=== PATIENT | female | born 1990 | race Caucasian/White ===

== ENCOUNTER 2019-12-09 05:47 | Emergency (ER) | payer MEDICAID, SELFPAY ==
[2019-12-09 05:50] VITALS: BP 134/94; PULSE 103; RESP 16; TEMP 36.5; O2SAT 94
--- NOTE | 2019-12-09 05:54 | ED.GENADUL_ITS ---
Discharge Plan Disposition Patient Disposition: HOME Condition: Stable Discharge Details Clinical Impression: Abscess of axilla, right ED Provider: Rajendra Sheikh Home Meds and New Rx's Prescriptions: New clindamycin HCl 150 mg capsule 450 mg PO TID 7 Days Qty: 63 RF: 0 Discharge Instructions Instructions: Abscess (ED) Additional Instructions: If you have fevers, severe worsening pain return to the emergency department Medical Decision Making 29 yo female comes in with a week of worsening swelling of her right arm pit. Has a history of frequent abscesses in the axilla per patient and usually is able to treat them herself. Denies fevers, IVDU or severe pain. Has a 3cm fluctuant abscess in her right axilla with some surrounding erythema, no crepitus or severe pain. Will need drainage she gives verbal consent to this drained copious amounts of purulent material woud culture sent. Given allergies will start clindamycin, return precautions given Differential Diagnosis Differential Diagnosis: abscess, cellulitis HPI General Mode of arrival: ambulatory . Date/Time Provider Initiated Documentation: 12/09/19 05:48 . Limitations to Documentation: no limitations . Information obtained by: patient . History of Present Illness 29 year old F presents to the emergency department with the chief complaint of armpit boil, described as moderate, Patient started experiencing this week(s) (1) and it has been constant. No relieving factors improve symptom(s), No exacerbating factors reported . Patient did receive the following treatments prior to arrival, none Related Data Home Medications Medication Instructions Recorded Confirmed clindamycin HCl 450 mg PO TID 7 Days #63 cap 12/09/19 Previous Rx's Medication Instructions Recorded clindamycin HCl 450 mg PO TID 7 Days #63 cap 12/09/19 Allergies Allergy/AdvReac Type Severity Reaction Status Date / Time carbamazepine [From Tegretol] Allergy Skin Rash Unverified 12/09/19 05:52 cephalexin [From Keflex] Allergy Other (See Unverified 12/09/19 05:52 Comment) Sulfa (Sulfonamide Allergy Anaphylaxsi Unverified 12/09/19 05:52 Antibiotics) s amoxicillin AdvReac Other (See Unverified 12/09/19 05:52 Comment) clavulanic acid AdvReac Other (See Unverified 12/09/19 05:52 [From Augmentin] Comment) Review of Systems All systems reviewed & are unremarkable except as noted in HPI and below Constitutional Constitutional: Denies chills, Denies fever(s) and Denies weakness Cardiovascular Cardiovascular: Denies chest pain and Denies dyspnea Respiratory Respiratory: Denies cough and Denies dyspnea Gastrointestinal Gastrointestinal: Denies abdominal pain, Denies nausea and Denies vomiting Musculoskeletal Musculoskeletal: Denies joint swelling Neurologic Neurologic: Denies weakness Psychiatric Psychiatric: Denies depression [facility] Social History Smoking/Tobacco Use Status: Current every day Tobacco Type: cigarettes Alcohol Intake: never Substance use type: does not use Do you feel safe at home: Yes Do you feel safe in your relationship?: Yes Exam Const General: no acute distress Orientation: alert HENMT Head: normal to inspection Ears: external ears normal General nose exam: external nose normal Mouth: moist mucous membranes Eyes General: appearance normal, both eyes and all related structures Neck Neck: normal visual inspection Resp Effort & Inspection: normal respiratory effort and able to speak in complete sentences Cardio Rate: regular rate Skin General skin exam: elasticity normal Neuro General: patient alert Extrem General: normal to inspection Psych Mental Status: mental status grossly normal Procedures Abscess I/D Site: Other (axilla) Side (if applicable): Right Local Anesthetic: Lidocaine 1% Amount of anesthesia used (mL): 4 Technique: Incised with #11 Blade Amount of fluid expressed (mL): 10 (cc) Irrigation: Yes Packing used?: None
== END 2019-12-09 06:30 | disposition home or self-care (01) ==
LOC: ER 06:16
PROVIDERS: Emergency Provider Emergency Medicine
DX: L02.411 Cutaneous abscess of right axilla (principal); B95.61 Methicillin susceptible Staphylococcus aureus infection as the cause of diseases classified elsewhere
CPT/HCPCS: 10060; 87077; 87070; 87186; 87205

== ENCOUNTER 2019-12-18 13:32 | Emergency (ER) | payer MEDICAID, SELFPAY ==
[2019-12-18 13:41] VITALS: BP 115/85; PULSE 115; RESP 18; TEMP 36.6; O2SAT 96
--- NOTE | 2019-12-18 13:57 | W.ED.GENAD ---
Discharge Plan Disposition Patient Disposition: HOME Condition: Improving Discharge Details Clinical Impression: Cellulitis of left leg Primary Care Provider: None,None ED Provider: Lonnie Peña Home Meds and New Rx's Prescriptions: New clindamycin HCl 300 mg capsule 300 mg PO Q6H 7 Days Qty: 28 RF: 0 albuterol sulfate 90 mcg/actuation HFA aerosol inhaler 2 puff inhalation Q6H PRNQty: 6.7 RF: 0 Continued citalopram [Celexa] 40 mg Tablet 40 mg PO DAILY RF: 0 Discharge Instructions Additional Instructions: We will ask our care management team to arrange an outpatient follow-up for you towards the end of the week. Take clindamycin 4 times daily for 1 week. Warm compress to area to speed healing. Return for any acute concerns. Medical Decision Making 29-year-old female has a history of recurrent cutaneous abscesses, hidradenitis suppurativa, who now presents for left knee erythema over 2 days time. She was seen in the emergency [place] on December 08 for right armpit abscess which was I&D. Culture from that showed staph aureus sensitive to numerous antibiotics including clindamycin which she was prescribed. She did not fill the prescription and states the right axilla abscess improved. Now she has 2 days as above of the left knee developing cellulitis. Of note, she is status post splenectomy. She has yet to establish care in this area. Slightly tachycardic on exam. The joint is freely mobile and do not suspect joint involvement. No indication for I&D at this time. Patient had screening labs obtained, given fluid bolus, IV clindamycin. She is improved clinically. Her labs are consistent with an acute inflammatory process. We will arrange outpatient follow-up/establish care this week. Should be discharged on clindamycin. She stated that she does take albuterol, intermittently and as needed. Not currently short of breath but did request a refill prescription given her recent lack of primary care. I feel this is reasonable and she was provided same. HPI General Mode of arrival: ambulatory. Date/Time Provider Initiated Documentation: 12/18/19 13:46. Limitations to Documentation: no limitations. Information obtained by: patient. History of Present Illness 29 year old F presents to the emergency department with the chief complaint of Left anterior knee abscess, described as mild and similar to prior episodes, Quality is described as dull and constant, and is localized to the left and lower extremity. Patient reports no radiation. Patient started experiencing this hour(s) and it has been constant. No relieving factors improve symptom(s), No exacerbating factors reported . Patient notes fever/chills. Patient did receive the following treatments prior to arrival, none Related Data Home Medications Medication Instructions Recorded Confirmed albuterol sulfate 2 puff INHALATION Q6H PRN #6.7 g 12/18/19 citalopram [Celexa] 40 mg PO DAILY 12/18/19 12/18/19 clindamycin HCl 300 mg PO Q6H 7 Days #28 cap 12/18/19 Previous Rx's Medication Instructions Recorded albuterol sulfate 2 puff INHALATION Q6H PRN #6.7 g 12/18/19 clindamycin HCl 300 mg PO Q6H 7 Days #28 cap 12/18/19 Allergies Allergy/AdvReac Type Severity Reaction Status Date / Time carbamazepine [From Tegretol] Allergy Skin Rash Unverified 12/18/19 13:47 cephalexin [From Keflex] Allergy Other (See Unverified 12/18/19 13:47 Comment) Sulfa (Sulfonamide Allergy Anaphylaxsi Unverified 12/18/19 13:47 Antibiotics) s amoxicillin AdvReac Other (See Unverified 12/18/19 13:47 Comment) clavulanic acid AdvReac Other (See Unverified 12/18/19 13:47 [From Augmentin] Comment) General Stated Complaint: Cellulitis AKASH: 3 Review of Systems Narrative: 6 systems reviewed and otherwise negative [facility] Surgical History (Updated 12/18/19 @ 13:58 by Lonnie Peña MD) Post-splenectomy Social History Smoking/Tobacco Use Status: Current every day Tobacco Type: cigarettes Smoking risk assessment performed?: Yes Alcohol Intake: never Substance use type: does not use Do you feel safe at home: Yes Do you feel safe in your relationship?: Yes Exam Narrative Exam Narrative: GEN: awake, alert, oriented 3. Pleasant, well groomed, interactive. HEAD: Normocephalic, atraumatic ENT: Mucous membranes moist, oropharynx unremarkable, External ear exam unremarkable EYES: PERRL, EOMI NECK: Full ROM, no ELO, no menigismus CHEST/RESP: Nontender, clear to auscultation bilateral, no wheeze/rhonchi/rales CARDIOVASCULAR: RRR, no murmur, rub clovis. 2+ Rad pulse bilateral EXT: Full ROM, psoriatic plaques present, left patella anteriorly with overlying erythema, tender to touch, no fluctuance. Joint is freely mobile. Neuro: Grossly normal neurologic exam, conversant, interactive. Psych: Speech fluent, thoughts congruent, affect normal Course Vital Signs Vital signs: Vital Signs Temperature 36.6 C 12/18/19 13:41 Pulse 115 H 12/18/19 13:41 Respiratory Rate 18 12/18/19 13:41 Blood Pressure 115/85 12/18/19 13:41 Pulse Oximetry 96 12/18/19 13:41 Temperature 36.6 C 12/18/19 13:41 Temperature Source Temporal Artery Scan 12/18/19 13:41 Pulse 115 H 12/18/19 13:41 Respiratory Rate 18 12/18/19 13:41 Blood Pressure 115/85 12/18/19 13:41 Blood Pressure Position Sitting 12/18/19 13:41 Pulse Oximetry 96 12/18/19 13:41 Oxygen Delivery Method Room Air 12/18/19 13:41 Oxygen Flow Rate 0 12/18/19 13:41 Pain Level 9 12/18/19 13:41 Lab/Test Results Lab/Test Results: 12/18/19 13:56 Blood Blood Culture - Pending 12/18/19 13:56 Blood Blood Culture - Pending
--- NOTE | 2019-12-18 14:06 | NUR.NOTE ---
Nursing Note: Referral given to Care Management to recheck for cellulitis and establish care with a PCP. Teri Reyes
[2019-12-18 15:36] VITALS: BP 119/67; PULSE 95; RESP 20; TEMP 36.6; O2SAT 95
[2019-12-18 15:42] LABS: Abs Immature Grans 0.09 10^3/uL (0.0-0.06); HCT 54.7 % (36.0-46.0); HGB 18.4 g/dL (11.2-15.7); MCH 32.1 pg (27.0-33.0); MCHC 33.6 % (32.0-36.0); MCV 95.5 fL (80-95); MPV 8.8 fL (8.0-11.0); Nucleated RBC 0 %; Platelet Count 439 10^3/uL (130-400); RBC 5.73 10^6/uL (3.93-5.22); RDW 13.2 % (11.7-14.6); RDW-SD 46.6 fL; WBC 19.47 10^3/uL (4.4-10.8)
[2019-12-18] MEDS: CLINDAMYCIN 600 MG/50 ML BAG 100 MG IVPB (15:45)
[2019-12-18] MEDS: Normal Saline 1,000 ML 1000 ML IV (15:45)
[2019-12-18 15:57] LABS: ALT 34 U/L (14-59); AST 25 U/L (15-37); Absolute Eosinophil Count 2.73 10^3/uL (0.0-0.7); Absolute Lymphocyte Count 1.17 10^3/uL (1.2-3.4); Absolute Monocyte Count 1.17 10^3/uL (0.1-0.8); Absolute Neutrophil Count 14.41 10^3/uL (1.2-6.7); Albumin 4.2 g/dL (3.4-5.0); Alkaline Phosphatase 189 U/L (46-116); Anion Gap 7.9 mmol/L (3-11); BUN 10 mg/dL (7-18); Bands % 2; Bilirubin, Total 0.5 mg/dL (0.2-1.0); C-Reactive Protein 1.21 mg/dL (0.0-0.3); CO2 27.1 mmol/L (21.0-32.0); CREATININE 0.72 mg/dL (0.55-1.02); Calcium 9.5 mg/dL (8.5-10.1); Chloride 102 mmol/L (98-107); Glucose 84 mg/dL (74-106); Potassium 3.9 mmol/L (3.5-5.1); Sodium 137 mmol/L (136-145); Total Protein 7.5 g/dL (6.4-8.2)
[2019-12-18 15:58] LABS: Diff Comment Manual Differential; RBC Morphology Normal
== END 2019-12-18 16:21 | disposition home or self-care (01) ==
PROVIDERS: Emergency Provider Emergency Medicine
DX: L03.116 Cellulitis of left lower limb (principal); Z90.81 Acquired absence of spleen
CPT/HCPCS: 80053; 87040; 87077; 96361; 96365; 99284; 85025; 86140; 87186

== ENCOUNTER 2019-12-20 11:09 | Inpatient (IN) | payer MEDICAID, SELFPAY ==
[2019-12-20 11:16] VITALS: BP 129/83; PULSE 120; RESP 20; TEMP 36.5; O2SAT 95
--- NOTE | 2019-12-20 11:24 | W.ED.GENAD ---
Discharge Plan Disposition Condition: Serious Discharge Details Chief Complaint: Cellulitis Clinical Impression: Cellulitis of left leg Admit Date/Time: 12/20/19 15:44 Admit Provider: Lonnie Brandt Attending Provider: Lonnie Brandt Primary Care Provider: None,None ED Provider: Maddison Brice Discharge Data Discharge Date/Time-TO BE ENTERED AT DEPARTURE: 12/20/19 17:20 Medical Decision Making 29-year-old female presents to the ED for left knee cellulitis. She was seen here 2 days ago and prescribed clindamycin 300 mg 4 times a day x7 days. She states that since that she was seen 48 hours ago redness has gotten worse, increased pain to her knee. She states that she is taking the antibiotics as prescribed. She is post splenectomy, she does have a history of hydradenitis suppurativa she did have positive blood culture gram-positive cocci. She is a current everyday smoker. Denies drugs or alcohol. Labs show a leukocytosis white blood cell count 21.22 which is up from 2 days ago at that time it was 19. RBCs 5.28, hemoglobin 16.6, hematocrit 49.4, platelets are 429, absolute neutrophils are 16.55, lactate is within normal limits at 0.9, sodium is 136, potassium 4.0, BUN 9 creatinine 0.72 GFR of greater than 60. Alk phos is elevated at 175. The rest of the labs are within normal limits. Blood cultures are pending at this time. CLINICAL HISTORY: cellulitis. TECHNIQUE: 2D digital imaging was performed. COMPARISON: No exams were available for comparison FINDINGS: BONES: No acute fracture is present. No bony destructive lesion is seen. No evidence of osteomyelitis. JOINTS: The knee is normally aligned. No joint effusion is seen. SOFT TISSUE: Normal. IMPRESSION: Normal radiographs of the left knee. 1411: Will page hospitalist for possible admission for cellulitis and leukocytosis. And lack of follow up due to no PCP. Vancomycin IVPB ordered at recommendation of Dr. Everett. 1433: Dr. Everett here at [facility] for eval. Page out to orthopedic patient registration rep Dr. Brandt for consultation, possible septic joint. 1443: Dr. Everett does not accept patient for admission, she will consult and requests admission to go through Ortho for septic bursitis possible septic joint. 1530: Spoke with Dr. Brandt with orthopedics discussed patient case in details with him he agrees to accept patient for admission at this time. The time of this dictation patient was hemodynamically stable. HPI General Mode of arrival: ambulatory. Date/Time Provider Initiated Documentation: 12/20/19 11:13. Limitations to Documentation: no limitations. Information obtained by: patient. HPI Narrative: 29-year-old female presents to the ED for left knee cellulitis. She was seen here 2 days ago and prescribed clindamycin 300 mg 4 times a day x7 days. She states that since that she was seen 48 hours ago redness has gotten worse, increased pain to her knee. She states that she is taking the antibiotics as prescribed. She is post splenectomy, she does have a history of hydradenitis suppurativa she did have positive blood culture gram-positive cocci. She is a current everyday smoker. Denies drugs or alcohol. Related Data Home Medications Medication Instructions Recorded Confirmed albuterol sulfate 2 puff INHALATION Q6H PRN #6.7 g 12/18/19 12/20/19 citalopram [Celexa] 40 mg PO DAILY 12/18/19 12/20/19 clindamycin HCl 300 mg PO Q6H 7 Days #28 cap 12/18/19 12/20/19 Previous Rx's Medication Instructions Recorded albuterol sulfate 2 puff INHALATION Q6H PRN #6.7 g 12/18/19 clindamycin HCl 300 mg PO Q6H 7 Days #28 cap 12/18/19 Allergies Allergy/AdvReac Type Severity Reaction Status Date / Time carbamazepine [From Tegretol] Allergy Skin Rash Unverified 12/20/19 11:18 cephalexin [From Keflex] Allergy Other (See Unverified 12/20/19 11:18 Comment) Sulfa (Sulfonamide Allergy Anaphylaxsi Unverified 12/20/19 11:18 Antibiotics) s amoxicillin AdvReac Other (See Unverified 12/20/19 11:18 Comment) clavulanic acid AdvReac Other (See Unverified 12/20/19 11:18 [From Augmentin] Comment) General Stated Complaint: Cellulitis AKASH: 3 Review of Systems Narrative: Constitutional: Negative for weight loss, alert and oriented, well groomed, normal body habitus, appears comfortable. HEENT: Denies trauma, headaches, blurry vision, nasal discharge, sore throat, trouble swallowing. Chest: Denies chest pain, palpitations, irregular rhythm, hypertension. Respiratory: Denies Shortness of breath, cough, hemoptysis. GI: Denies abdominal pain, nausea, vomiting, diarrhea, constipation. : Denies dysuria, hematuria, flank pain, rectal bleeding. Extremities: Neuro: Denies dizziness, blurry vision, weakness, syncope, headache or facial numbness. Hematologic: Denies easy bruising, intolerance to heat or cold, hair loss. [facility] Medical History Axillary hidradenitis suppurativa Ye' syndrome Obesity Psoriasis Surgical History Post-splenectomy Social History Smoking/Tobacco Use Status: Current every day Tobacco Type: cigarettes Smoking risk assessment performed?: Yes Alcohol Intake: never Substance use type: does not use Do you feel safe at home: Yes Do you feel safe in your relationship?: Yes Exam Narrative Exam Narrative: Constitutional: Alert and oriented x3. Appears stated age. Obese body habitus. Head: Normocephalic, no trauma. Eyes: Pupils PERRLA, Red reflex noted, EOM's intact. Eyelids symmetrical without lesions, discharge, or swelling. ENT: Bilateral TM's WNL, External ear normal to inspection, no mastoid TTP, swelling, or erythema, Nasal turbinates WNL, no nasal discharge. Normal dentition, Posterior pharynx WNL, no exudate. Chest: RRR, Normal S1, S2, distal pulses intact. Resp: Lungs clear to auscultation bilaterally, no wheezes, rales, or rhonchi. Musculoskeletal: Normal gait, 5/5 strength to all four extremities. Skin: Has multiple dry patchy areas noted to extremities, has an area to the anterior left knee which is warm erythemic, swollen with a central white round area with a central ulceration noted. Capillary refill less than 2 sec. Neurologic: Cranial nerves II-XII intact. Alert and oriented x 3. DTR's intact. Hematologic/Lymphatic: No ecchymosis, no lymphadenopathy. Skin Full body images: 1. Area of erythema and warmth 2. Central raised area with white purulent tissue with a central ulceration Course Vital Signs Vital signs: Vital Signs Temperature 36.5 C 12/20/19 11:16 Pulse 120 H 12/20/19 11:16 Respiratory Rate 12/20/19 11:16 Blood Pressure 129/83 12/20/19 11:16 Pulse Oximetry 95 12/20/19 11:16 Temperature 36.5 C 12/20/19 11:16 Temperature Source Skin 12/20/19 11:16 Pulse 120 H 12/20/19 11:16 Respiratory Rate 12/20/19 11:16 Respiratory Effort Non-Labored 12/20/19 11:19 Blood Pressure 129/83 12/20/19 11:16 Blood Pressure Position Sitting 12/20/19 11:16 Pulse Oximetry 95 12/20/19 11:16 Oxygen Delivery Method Room Air 12/20/19 11:16 Oxygen Flow Rate 0 12/20/19 11:16 Pain Level 10 12/20/19 11:16
[2019-12-20] MEDS: CLINDAMYCIN 600 MG/50 ML BAG 100 MG IVPB (12:38)
[2019-12-20 12:39] LABS: Lactate 0.9 mmol/L (0.6-1.4)
[2019-12-20 12:49] LABS: HCT 49.4 % (36.0-46.0); HGB 16.6 g/dL (11.2-15.7); MCH 31.4 pg (27.0-33.0); MCHC 33.6 % (32.0-36.0); MCV 93.6 fL (80-95); MPV 8.9 fL (8.0-11.0); Nucleated RBC 0 %; Platelet Count 429 10^3/uL (130-400); RBC 5.28 10^6/uL (3.93-5.22); RDW 13.2 % (11.7-14.6); RDW-SD 46.2 fL; WBC 21.22 10^3/uL (4.4-10.8)
[2019-12-20 12:59] LABS: ALT 28 U/L (14-59); AST 18 U/L (15-37); Albumin 3.6 g/dL (3.4-5.0); Alkaline Phosphatase 175 U/L (46-116); Anion Gap 6.9 mmol/L (3-11); BUN 9 mg/dL (7-18); Bilirubin, Total 0.5 mg/dL (0.2-1.0); CO2 27.1 mmol/L (21.0-32.0); CREATININE 0.72 mg/dL (0.55-1.02); Calcium 9.1 mg/dL (8.5-10.1); Chloride 102 mmol/L (98-107); Glucose 90 mg/dL (74-106); Sodium 136 mmol/L (136-145); Total Protein 7.1 g/dL (6.4-8.2)
--- NOTE | 2019-12-20 13:00 | DI.RAD_ITS ---
EXAM: XR KNEE LT 3V AP,LAT,ZURDO CLINICAL HISTORY: cellulitis. TECHNIQUE: 2D digital imaging was performed. COMPARISON: No exams were available for comparison FINDINGS: BONES: No acute fracture is present. No bony destructive lesion is seen. No evidence of osteomyeliti s. JOINTS: The knee is normally aligned. No joint effusion is seen. SOFT TISSUE: Normal. IMPRESSION: Normal radiographs of the left knee. DATA REPOSITORY: RADIATION DOSE DELIVERED:
[2019-12-20 13:08] LABS: Absolute Eosinophil Count 1.91 10^3/uL (0.0-0.7); Absolute Lymphocyte Count 0.64 10^3/uL (1.2-3.4); Absolute Monocyte Count 2.12 10^3/uL (0.1-0.8); Absolute Neutrophil Count 16.55 10^3/uL (1.2-6.7); Diff Comment Manual Differential; RBC Morphology Normal
[2019-12-20] MEDS: Normal Saline 1,000 ML 1000 ML IV (13:55)
[2019-12-20] MEDS: VANCOMYCIN 1,000 MG in Normal Saline 250 ML 166.6666 MG IVPB (14:45)
[2019-12-20 16:00] VITALS: BP 134/81; PULSE 109; RESP 20; TEMP 37; O2SAT 95
--- NOTE | 2019-12-20 16:41 | W.MEDCONSULT ---
Date of service: 12/20/19 Time of Service: 15:30 Assessment and Plan Assessment and plan (1) Sepsis: Status: Acute Assessment and plan: The patient has evidence of GPC bacteremia, tachycardia, leucocytosis. She has at a minimum septic bursitis of L knee, but I suspect that she might have a septic joint. The patient is recommended admission to orthopedic service as she might require a surgical intervention. I recommend vancomycin and IVF. Trend ESR, CRP, procalcitonin. Obtain an echo. (2) Gram-positive cocci bacteremia: Status: Acute Assessment and plan: As above (3) Prepatellar bursitis of left knee: Status: Acute Assessment and plan: As above (4) Abscess of left knee: Status: Acute Assessment and plan: As above (5) Psoriasis: Status: Chronic Assessment and plan: The patient is not on immunosuppressants as outpatient, but psoriatic plaque may have been a portal of entry. She should be referred to dermatology as outpatient. History of Present Illness History of Present Illness Chief Complaint: Sepsis, suspected L knee septic bursitis Narrative: Ms Mcdaniel is a 29 year old female with PMHx of autoimmune hemolytic anemia s/p splenectomy, as well as h/o hydradenitis suppurativa and psoriasis, whom I was asked to evaluate for cellulitis of left knee by the ED provider. The patient was seen in our ED on 12/09/2019 for an abscess of her R axilla, which was I&D'ed. The patient was sent home with a prescription for clindamycin, which she did not take because she already felt so much better. About 1 week later, she noticed a scratch, redness, swelling and pain in her left knee. She was evaluated in our ED for this on 12/18/2019. At that time, blood cultures were drawn and the patient did go home with the above mentioned clindamycin. She returned to the ED today complaining of worsening leg pain, swelling, redness. She is not able to fully flex her knee. She feels pain and swelling both anteriorly and posteriorly in her knee. She endorses not feeling well and feeling chills at home. She has not had any objective fevers. One of her blood cultures from 12/18/2019 did come back positive for GPCs in clusters. Wound culture from grew MSSA. The patient was initiated on vancomycin after having her blood cultures repeated. Hospitalists were asked to evaluate the patient. Consults Consult date: 12/20/19 Requesting physician: Maddison Brice Review of Systems All systems reviewed & are unremarkable except as noted in HPI and below PFSH Medical History Axillary hidradenitis suppurativa Ye' syndrome Obesity Psoriasis Surgical History Post-splenectomy Social History Smoking/Tobacco Use Status: Current every day Tobacco Type: cigarettes Smoking risk assessment performed?: Yes Alcohol Intake: never Substance use type: does not use Do you feel safe at home: Yes Do you feel safe in your relationship?: Yes Exam Narrative Exam Narrative: General: Very pleasant obese female who does look sick, A&Ox3, laying comfortably in bed Neurological: A&Ox3, no focal deficits Psychiatric: appropriate speech pattern/content Skin: Psoriatic plaques B knees, B elbows; L knee with an abscess and surrounding erythema HEENT: Atraumatic, normocephalic, EOMI, MMM, clear oropharynx, no submandibular or cervical lymphadenopathy, no goiter or JVD Cardiovascular: RRR, ?slight TON Lungs: CTAB Gastrointestinal: soft, nontender, nondistended Genitourinary: deferred Extremities: See skin exam; additionally, patient has only about 20 degree flexion in her L knee Results Last Vital Signs Temp 36.5 C 12/20/19 11:16 Pulse 120 H 12/20/19 11:16 Resp 20 12/20/19 11:16 BP 129/83 12/20/19 11:16 Pulse Ox 95 12/20/19 11:16 Labs Result diagrams: 12/20/19 12:31 12/20/19 12:31 Labs: Laboratory Results - last 24 hr 12/20/19 12/20/19 12/20/19 12:31 12:31 12:31 WBC 21.22 H RBC 5.28 H Hgb 16.6 H Hct 49.4 H MCV 93.6 MCH 31.4 MCHC 33.6 RDW 13.2 Plt Count 429 H MPV 8.9 Immature Gran % 0.0 Neutrophils % 78.0 Lymphocytes % 3.0 Monocytes % 10.0 Eosinophils % 9.0 Basophils % 0.0 Nucleated RBC % 0 Absolute Neutrophils 16.55 H Absolute Lymphocytes 0.64 L Absolute Monocytes 2.12 H Absolute Eosinophils 1.91 H Absolute Basophils 0.00 RBC Morphology Normal VBG Lactate 0.9 Sodium 136 Potassium 4.0 Chloride 102 Carbon Dioxide 27.1 Anion Gap 6.9 BUN 9 Creatinine 0.72 Estimated GFR/1.73 m2 >= 60.00 Glucose 90 Calcium 9.1 Total Bilirubin 0.5 AST 18 ALT 28 Alkaline Phosphatase 175 H Total Protein 7.1 Albumin 3.6 Imaging Additional studies: XR L knee; Normal radiographs of the left knee.
[2019-12-20 17:18] VITALS: BP 134/81; PULSE 109; RESP 18; TEMP 37; O2SAT 95
[2019-12-20 17:30] VITALS: BP 124/84; PULSE 110; RESP 19; TEMP 37.8; O2SAT 92
[2019-12-20] MEDS: HYDROcodone 5/Acetaminophen 325 TAB PO ×2 (17:33→23:35)
[2019-12-20] MEDS: Ketorolac 30 MG/ML VIAL IVP ×2 (17:34→23:35)
[2019-12-20 19:35] VITALS: BP 112/74; PULSE 94; RESP 18; TEMP 36.7; O2SAT 92
[2019-12-20] MEDS: Docusate Sodium 100 MG CAP PO (20:50)
[2019-12-20] MEDS: VANCOMYCIN/WATER (PEG) 1.5 GM/300 ML BAG IVPB (20:50)
[2019-12-20] MEDS: Acetaminophen 325 MG TAB 650 MG PO (21:01)
[2019-12-20 23:25] VITALS: BP 104/70; PULSE 84; RESP 18; TEMP 36.4; O2SAT 93
[2019-12-20] MEDS: Normal Saline Flush 10 ML SYR IVP (23:35)
[2019-12-21 03:28] VITALS: BP 109/65; PULSE 78; RESP 17; TEMP 36.7; O2SAT 96
[2019-12-21] MEDS: VANCOMYCIN/WATER (PEG) 1.5 GM/300 ML BAG IVPB ×2 (04:39→11:41)
[2019-12-21] MEDS: Normal Saline Flush 10 ML SYR IVP ×4 (04:40→20:17)
[2019-12-21] MEDS: Ketorolac 30 MG/ML VIAL IVP ×4 (05:08→23:29)
[2019-12-21 06:54] LABS: Abs Immature Grans 0.07 10^3/uL (0.0-0.06); Absolute Basophil Count 0.17 10^3/uL (0.0-0.2); Absolute Eosinophil Count 2.72 10^3/uL (0.0-0.7); Absolute Lymphocyte Count 0.47 10^3/uL (1.2-3.4); Absolute Monocyte Count 1.77 10^3/uL (0.1-0.8); Eosinophils % 16.3; HCT 45.5 % (36.0-46.0); HGB 15.2 g/dL (11.2-15.7); Immature Grans % 0.4; Lymphocytes % 2.8; MCH 31.9 pg (27.0-33.0); MCHC 33.4 % (32.0-36.0); MCV 95.4 fL (80-95); Monocytes % 10.6; Neutrophils % 68.9; Nucleated RBC 0 %; RBC 4.77 10^6/uL (3.93-5.22); RDW 13.4 % (11.7-14.6); RDW-SD 47.6 fL; WBC 16.69 10^3/uL (4.4-10.8)
[2019-12-21 07:03] LABS: Anion Gap 8.6 mmol/L (3-11); BUN 15 mg/dL (7-18); C-Reactive Protein 6.04 mg/dL (0.0-0.3); CO2 23.4 mmol/L (21.0-32.0); CREATININE 0.78 mg/dL (0.55-1.02); Calcium 8.6 mg/dL (8.5-10.1); Chloride 105 mmol/L (98-107); Glucose 85 mg/dL (74-106); Potassium 3.8 mmol/L (3.5-5.1); Sodium 137 mmol/L (136-145)
[2019-12-21 07:24] LABS: Diff Comment Agrees w/ Instrument; Platelet Count 364 10^3/uL (130-400); RBC Morphology Normal
[2019-12-21 07:44] LABS: Procalcitonin 0.1 ng/mL
[2019-12-21 07:48] VITALS: BP 114/77; PULSE 84; RESP 18; TEMP 36.7; O2SAT 96
[2019-12-21 07:53] LABS: ESR 20 mm/hr (0-20)
[2019-12-21] MEDS: HYDROcodone 5/Acetaminophen 325 TAB PO ×3 (07:54→22:40)
[2019-12-21] MEDS: Pantoprazole 40 MG TABCR PO (07:54)
[2019-12-21] MEDS: Citalopram 20 MG TAB 40 MG PO (07:54)
[2019-12-21] MEDS: Docusate Sodium 100 MG CAP PO ×2 (07:55→20:14)
--- NOTE | 2019-12-21 08:30 | DI.US_ITS ---
APPROVED REPORT EXAM: Comprehensive 2D, Doppler, and color-flow Echocardiogram Patient Location: In-Patient Room/Bed: 227 Protection [employer]: Pushpa York RDCS (AE) Indications: GPC bacteremia Other Information Study Quality: Good Conclusion Left Ventricle : The left ventricle is normal size. The left ventricular systolic function is normal. The left ventricular ejection fraction is within the normal range. There is normal left ventricular wall thickness. There is normal LV segmental wall motion. The left ventricular diastolic function is normal. LVEF is 60-65%. Right Ventricle : The right ventricle is normal size. The right ventricular systolic function is norm al. Atria : The left atrium size is normal. The right atrium size is normal. Valves: There are no hemodynamically significant valvular lesions. There are no valvular vegetations visualized. Great Vessels : The aortic root is normal in size. The ascending aorta is normal in size. Aortic arch is normal in caliber. IVC is normal in size and collapses >50% with inspiration. Please see remainder of study for further details. Wall motion Left Ventricle The left ventricle is normal size. The left ventricular systolic function is normal. The left ventric ular ejection fraction is within the normal range. There is normal left ventricular wall thickness. T here is normal LV segmental wall motion. The left ventricular diastolic function is normal. There is no ventricular septal defect visualized. LVEF is 60-65%. Right Ventricle The right ventricle is normal size. The right ventricular systolic function is normal. Atria The left atrium size is normal. The right atrium size is normal. The interatrial septum is intact wit h no evidence for an atrial septal defect. Aortic Valve The aortic valve is normal in structure. Aortic valve is trileaflet. There is no aortic valvular sten osis. No aortic regurgitation is present. There is no aortic valvular vegetation. Mitral Valve The mitral valve is normal in structure. No evidence of mitral valve stenosis. Trace mitral regurgita tion. There is no evidence of mitral valve vegetations. Tricuspid Valve The tricuspid valve is normal in structure. There is no tricuspid valve stenosis. Trace tricuspid reg urgitation. Unable to assess PA pressure. There is no tricuspid valve vegetations. Pulmonic Valve The pulmonary valve is normal in structure. There is no pulmonic valvular stenosis. There is no pulmo davi valvular regurgitation. There is no pulmonic valve vegetations. Great Vessels The aortic root is normal in size. The ascending aorta is normal in size. Aortic arch is normal in ca liber. IVC is normal in size and collapses >50% with inspiration. Pericardium There is no pericardial effusion. 2D Dimensions IVSD d PLAX 0.82 cm F: 0.6-1.0 LV Vol A2C d MOD 100.3 mL LVPW d PLAX 0.83 cm F: 0.6 - 1.0 LV Vol A4C d MOD 111.2 mL LVID d PLAX 4.79 cm F: 3.8 - 5.2 LA vol/ BSA A2C s A-L 26.2 mL/m2 LVDs 3.20 cm F: 2.2 - 3.5 LA vol/ BSA A4C s A-L 25.2 mL/m2 Ao Root d 2.55 cm F: 2.7 - 3.3 LA Vol/ BSA Biplane s A-L 25.7 mL/m2 RA Area A4C 10.83 cm2 LA Area A4C s MOD 19.29 cm2 RA Vol/ BSA A4C s A-L 10.2 mL/m2 LA Area A2C s MOD 19.68 cm2 Ao Asc Diam d 2.59 cm F: 2.3 - 3.1 LV EF A4C MOD 60.5 % LV EF Teichholz 61.1 % LV EF A2C MOD 63.6 % LVEF (Mora's) 62.01 % F: 54 - 74 LV EF Biplane MOD 62.0 % LV Volume 77.25 mL F: 46 - 106 SV 65.34 mL LV Volume Index 36.09 mL/m2 F: 29 - 61 SV Index 30.46 mL/m2 LV Vol Biplane MOD 105.4 mL FS 32.70 % M-Mode TAPSE 2.39 cm (M/F) >1.7 LV Diastology MV E' medial 0.114 (>0.07 m/s) E/A Ratio 1.3 LV E/e MED 7.40 (<14) MV E Vmax 0.84 (0.4-1.3 m/s) MV E' lateral 0.192 (>0.1 m/s) MV A Vmax 0.65 (0.4-1.3 m/s) LV E/e LAT 4.35 (<14) MV E/A Ratio 1.23 MV E/E' medial 7.42 MV E/E' lateral 4.39 Aortic Valve LVOT Area 3.17 cm2 AoV Area Vmax 2.67 cm2 LVOT Vmax 1.14 m/s AoV Area/ BSA (Vmax) 1.24 cm2/m2 LVOT Mean Bharath. 0.75 m/s TOMY Mean Bharath. 2.34 cm2 LVOT Peak Grad 5.2 mmHg TOMY Mean Bharath. Index 1.09 cm2/m2 LVOT Mean Grad 2.6 mmHg LVOT VTI 0.231 m LVOT Diam s 2.00 cm AoV Vmax 1.36 m/s Velocity Ratio 0.83 AoV Mean Bharath. 1.01 m/s AoV Peak Grad 7.4 mmHg LVOT SV 73.26 mL AoV Mean Grad 4.4 mmHg AoV VTI 0.272 m AoV Area VTI 2.69 cm2 AoV Area/ BSA (VTI) 1.25 cm/m2 Mitral Valve MV DT 239 (160-240 msec) MV PHT 69 msec MV Area PHT 3.17 cm2 MV VTI 0.221 m MV Area VTI 3.32 (4.0-6.0 cm2) Pulmonary Valve PV Vmax 1.08 (0.5-1.5 m/s) RVOT Peak Gr. 3.61 mmHg PV Peak Grad 4.7 mmHg RVOT Mean Gr. 1.70 mmHg PV Mean Grad 2.3 mmHg RVOT VTI 0.209 m PV VTI 0.222 m RVOT Vmax 0.95 m/s
[2019-12-21 11:31] LABS: Vancomycin, Trough 19.7 ug/mL (10.0-20.0)
--- NOTE | 2019-12-21 12:03 | PHA.REVIEW ---
Pharmacy Admission Review - Admission Clinical Review (Last Reviewed 12/20/19 @ 16:51 by Niesha Everett MD) Gram-positive cocci bacteremia (Acute) Abscess of left knee (Acute) Prepatellar bursitis of left knee (Acute) Sepsis (Acute) Cellulitis of left leg (Acute) carbamazepine [From Tegretol] Allergy (Unverified 12/20/19 11:18) Skin Rash cephalexin [From Keflex] Allergy (Unverified 12/20/19 11:18) Other (See Comment) Sulfa (Sulfonamide Antibiotics) Allergy (Unverified 12/20/19 11:18) Anaphylaxsis amoxicillin Adverse Reaction (Unverified 12/20/19 11:18) Other (See Comment) clavulanic acid [From Augmentin] Adverse Reaction (Unverified 12/20/19 11:18) Other (See Comment) Height 5 ft 5 in Weight 109.769 kg - Renal Dosing Renal Dosing: BUN 15 mg/dL (7-18) D 12/21/19 06:45 Creatinine 0.78 mg/dL (0.55-1.02) 12/21/19 06:45 Medications needing adjustments: Reviewed (CRCL ~93ML/MIN) - Anticoagulation Anticoagulation: Hgb 15.2 g/dL (11.2-15.7) 12/21/19 06:45 Hct 45.5 % (36.0-46.0) 12/21/19 06:45 Plt Count 364 10^3/uL (130-400) 12/21/19 06:45 Creatinine 0.78 mg/dL (0.55-1.02) 12/21/19 06:45 DVT Prohphylaxis: N/A Therapeutic Anticoagulation: N/A - Relevant Labs ESR 20 mm/hr (0-20) 12/21/19 06:45 Sodium 137 mmol/L (136-145) 12/21/19 06:45 Potassium 3.8 mmol/L (3.5-5.1) 12/21/19 06:45 Chloride 105 mmol/L (98-107) 12/21/19 06:45 Magnesium 2.0 mg/dL (1.8-2.4) 12/21/19 06:45 C-Reactive Protein 6.04 mg/dL (0.0-0.3) H 12/21/19 06:45 - DM Control DM Control: Glucose 85 mg/dL (74-106) 12/21/19 06:45 - BP Control BP Control: Blood Pressure 114/77 Blood Pressure 109/65 - Home Meds Home Med List reviewed: Reviewed Relevent Home Meds Not ordered & why?: citalopram not ordered yet - Current meds Current Medication Order Review: Reviewed - Comments Comments/Follow Ups: pt on Vanco Iv for cellulitis. BC pending. trough today 19.7 using kinetics dose to stay the same. expect home med citalopram to be ordered from admitting MD(no note yet). pus expressed from scabbed area by pt not cultured
--- NOTE | 2019-12-21 13:20 | PGE_ITS ---
Date of Service Date of service: 12/21/19 Time of Service: 13:20 Assessment and Plan Assessment and plan (1) Prepatellar bursitis of left knee: Status: Acute Assessment and plan: Assessment: She had a good early response to less than 24 hours of IV vancomycin. I do not think she is going to need an I&D. Sensitivities unavailable yet on the blood cultures but it is looking like they may be a contaminant. Will be able to tell better tomorrow. Plan: Warm compresses anterior left knee 4 times a day. Continue IV vancomycin pending final results of the blood cultures. Reassess tomorrow. (2) Abscess of left knee: Status: Acute Assessment and plan: Assessment: The abscess is really arising I think from the prepatellar bursa. She has had a good response to IV vancomycin in less than 24 hours. I do not think she is going to need formal I&D since she is already draining spontaneously. Plan: Same as above. Subjective Subjective Patient reports: feels better, still having pain and pain is less Exam Narrative Exam Narrative: She is afebrile vital signs are stable. White count is dropped from 21,000 and 16,000. Sed rate is 20 mm/h. C-reactive protein 6.04. The area of erythema over patella is smaller in diameter today. The sinus tract she is developed is barely oozing serosanguineous drainage. Induration and swelling over the anterior knee is much less. The skin is a lot softer to light touch today and not as tender to palpate. There is no effusion in her left kne e. The wound itself has some skin superficially I do not probe it at all. I redressed the wound with a single layer Xeroform gauze and a Mepilex dressing. Objective Last Vital Signs Temp 36.7 C 12/21/19 07:48 Pulse 84 12/21/19 07:48 Resp 18 12/21/19 07:48 BP 114/77 12/21/19 07:48 Pulse Ox 96 12/21/19 07:48 Laboratory Results - last 24 hr 12/20/19 12/20/19 12/21/19 15:47 16:54 06:45 WBC RBC Hgb Hct MCV MCH MCHC RDW Plt Count MPV Immature Gran % Neutrophils % Lymphocytes % Monocytes % Eosinophils % Basophils % Nucleated RBC % Absolute Neutrophils Absolute Lymphocytes Absolute Monocytes Absolute Eosinophils Absolute Basophils RBC Morphology ESR 20 Sodium Potassium Chloride Carbon Dioxide Anion Gap BUN Creatinine Estimated GFR/1.73 m2 Glucose Calcium Magnesium C-Reactive Protein Procalcitonin Vancomycin Trough Cancelled COVID-19 PCR Cancelled Nasopharyn COVID-19 PCR Cancelled Ref Test Perform Site Cancelled 12/21/19 12/21/19 12/21/19 06:45 06:45 06:45 WBC 16.69 H RBC 4.77 Hgb 15.2 Hct 45.5 MCV 95.4 H MCH 31.9 MCHC 33.4 RDW 13.4 Plt Count 364 MPV 9.0 Immature Gran % 0.4 Neutrophils % 68.9 Lymphocytes % 2.8 Monocytes % 10.6 Eosinophils % 16.3 Basophils % 1.0 Nucleated RBC % 0 Absolute Neutrophils 11.50 H Absolute Lymphocytes 0.47 L Absolute Monocytes 1.77 H Absolute Eosinophils 2.72 H Absolute Basophils 0.17 RBC Morphology Normal ESR Sodium 137 Potassium 3.8 Chloride 105 Carbon Dioxide 23.4 Anion Gap 8.6 BUN 15 D Creatinine 0.78 Estimated GFR/1.73 m2 >= 60.00 Glucose 85 Calcium 8.6 Magnesium 2.0 C-Reactive Protein 6.04 H Procalcitonin 0.1 Vancomycin Trough COVID-19 PCR Nasopharyn COVID-19 PCR Ref Test Perform Site 12/21/19 11:10 WBC RBC Hgb Hct MCV MCH MCHC RDW Plt Count MPV Immature Gran % Neutrophils % Lymphocytes % Monocytes % Eosinophils % Basophils % Nucleated RBC % Absolute Neutrophils Absolute Lymphocytes Absolute Monocytes Absolute Eosinophils Absolute Basophils RBC Morphology ESR Sodium Potassium Chloride Carbon Dioxide Anion Gap BUN Creatinine Estimated GFR/1.73 m2 Glucose Calcium Magnesium C-Reactive Protein Procalcitonin Vancomycin Trough 19.7 COVID-19 PCR Nasopharyn COVID-19 PCR Ref Test Perform Site
[2019-12-21 13:26] LABS: HCG Qual (Urine) Negative
--- NOTE | 2019-12-21 14:06 | PDOC.CMIN ---
- If Service Date Differs Date of service: 12/21/19 Time of Service: 14:06 Care Management Initial Assess REASON FOR HOSPITALIZATION:: Cellulitis PAST MEDICAL HISTORY/PAST SURGICAL HISTORY:: Medical History. Axillary hidradenitis suppurativa. Ye' syndrome. Obesity. Psoriasis. Surgical History. Post-splenectomy PREVIOUS FUNCTIONAL STATUS/SOCIAL/FAMILY SUPPORTS:: Tena lives in [facility] with her father, who is identified as a support. She was raised in [place], and later moved to [facility]. She has a rare disease called Payam's syndrome, which she is attempting to qualify for disability for. She is currently not working. She is independent with her ADL's. CURRENT FUNCTIONAL STATUS:: Tena was sitting up in bed when CM met with her. 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 She discussed her medical history with CM, explaining how she had been in and out of hospitals for months and subsequently had her spleen removed. CM asked how she was handling her diagnosis, and she stated that she has had a therapist in the past, but does not currently have one in [place]. She did state that she has an appointment at [facility] for 12/23/19 at 11:15am. She is interested in being connected to a therapist in the area. ANANTH will continue to follow. ADVANCE DIRECTIVES:: None on file. CM asked if Tena would be interested in forms, which she declined at this time. Has patient been provided with info about the portal/API?: Yes Did the patient sign up for the portal?: No CODE STATUS:: Full Code INSURANCE COVERAGE / FINANCIAL ISSUES:: [facility] CURRENT HOME/COMMUNITY SERVICES/EQUIPMENT:: No current services or equipment at this time. PRIMARY CARE PHYSICIAN:: No local PCP, but she has an appointment at [facility] on 12/23/19 to establish care. POTENTIAL DISCHARGE NEEDS:: Follow up appointments, evaluations for further needs, letter to confirm dates of hospitalization. PATIENT/FAMILY EDUCATION NEEDS:: Review discharge instructions regarding activity levels and medications, discussion of self care needs including ask me three. ANTICIPATED BARRIERS TO DISCHARGE:: None identifed at this time. TRANSPORTATION:: via private vehicle by family. PLAN:: Anticipate Tena will return home when medically cleared. She may need abx, depending on the recommendation from ID at [facility]. She will follow up with her new PCP and discharge plan of care. CM will continue to follow.
[2019-12-21 15:48] VITALS: BP 109/71; PULSE 83; RESP 18; TEMP 36.6; O2SAT 95
[2019-12-21 19:59] VITALS: BP 103/69; PULSE 78; RESP 19; TEMP 36.5; O2SAT 94
[2019-12-21] MEDS: Zolpidem 10 MG TAB PO (22:40)
[2019-12-21 23:45] VITALS: BP 99/67; PULSE 83; RESP 19; TEMP 36.5; O2SAT 95
[2019-12-22 03:45] VITALS: BP 122/74; PULSE 82; RESP 17; TEMP 36.7; O2SAT 97
[2019-12-22] MEDS: Ketorolac 30 MG/ML VIAL IVP ×2 (05:53→12:19)
[2019-12-22 08:06] VITALS: BP 111/74; PULSE 88; RESP 18; TEMP 36.5; O2SAT 96
[2019-12-22] MEDS: Citalopram 20 MG TAB 40 MG PO (08:36)
[2019-12-22] MEDS: Docusate Sodium 100 MG CAP PO ×2 (08:36→19:43)
[2019-12-22] MEDS: Pantoprazole 40 MG TABCR PO (08:37)
[2019-12-22] MEDS: Normal Saline Flush 10 ML SYR IVP ×3 (08:38→19:43)
[2019-12-22] MEDS: HYDROcodone 5/Acetaminophen 325 TAB PO ×2 (08:47→19:43)
[2019-12-22 11:06] VITALS: BP 111/78; PULSE 80; RESP 17; TEMP 37; O2SAT 93
[2019-12-22 11:41] LABS: Vancomycin, Trough 19.1 ug/mL (10.0-20.0)
--- NOTE | 2019-12-22 12:16 | NUR.NOTE ---
Nursing Note: Culture report on clipboard. Accessed chart to be sure that the admission diagnosis was for the culture result. Teri Reyes
[2019-12-22 12:25] LABS: HCT 46.7 % (36.0-46.0); HGB 15.4 g/dL (11.2-15.7); MCH 31.5 pg (27.0-33.0); MCV 95.5 fL (80-95); MPV 9.2 fL (8.0-11.0); Nucleated RBC 0 %; Platelet Count 391 10^3/uL (130-400); RBC 4.89 10^6/uL (3.93-5.22); RDW 13.5 % (11.7-14.6); RDW-SD 47.7 fL; WBC 14.19 10^3/uL (4.4-10.8)
[2019-12-22 12:46] LABS: Absolute Eosinophil Count 1.99 10^3/uL (0.0-0.7); Absolute Lymphocyte Count 0.71 10^3/uL (1.2-3.4); Absolute Monocyte Count 0.99 10^3/uL (0.1-0.8)
[2019-12-22 12:47] LABS: Diff Comment Manual Differential; RBC Morphology Normal
[2019-12-22] MEDS: VANCOMYCIN/WATER (PEG) 1.25 GM/250 ML BAG IVPB ×2 (12:55→19:43)
--- NOTE | 2019-12-22 15:32 | PGE_ITS ---
Date of Service Date of service: 12/22/19 Time of Service: 15:33 Assessment and Plan Assessment and plan (1) Abscess of left knee: Status: Acute Assessment and plan: Assessment: Continues to improve with IV antibiotics and warm compresses. She is not going to require any formal I&D of her wound. Plan: Continue her on vancomycin overnight tonight. Switch her to p.o. antibi otics and discharge home tomorrow. We will repeat CBC tomorrow morning. Subjective Subjective Patient reports: feels better and pain is less Interval history since last seen: Says she is having a lot of itching from the areas of psoriasis on her left knee and on her face. She does not have the mometasone furoate cream that she uses for the psoriasis. Exam Narrative Exam Narrative: Erythema is almost completely gone. I remove the skin from around her draining wound. There is some fibrinous material in the center of the abscess that I do not attempt to remove. There is no swelling circumferentially around the draining wound and knee itself. She can now do an active straight leg raise without a lag. No effusion in her left knee. White blood cell count is decreased to 12,000 today. She is afebrile. Objective Last Vital Signs Temp 37 C 12/22/19 11:06 Pulse 80 12/22/19 11:06 Resp 17 12/22/19 11:06 BP 111/78 12/22/19 11:06 Pulse Ox 93 12/22/19 11:06 Laboratory Results - last 24 hr 12/22/19 12/22/19 11:15 11:15 WBC 14.19 H RBC 4.89 Hgb 15.4 Hct 46.7 H MCV 95.5 H MCH 31.5 MCHC 33.0 RDW 13.5 Plt Count 391 MPV 9.2 Immature Gran % 0.0 Neutrophils % 74.0 Lymphocytes % 5.0 Monocytes % 7.0 Eosinophils % 14.0 Basophils % 0.0 Nucleated RBC % 0 Absolute Neutrophils 10.50 H Absolute Lymphocytes 0.71 L Absolute Monocytes 0.99 H Absolute Eosinophils 1.99 H Absolute Basophils 0.00 RBC Morphology Normal Vancomycin Trough 19.1
--- NOTE | 2019-12-22 16:03 | PDOC.CMPRO ---
- If Service Date Differs Date of service: 12/22/19 Time of Service: 16:03 Care Management Progress Note S/O: Tena was sitting up in bed when CM met with her. She reported that she has been very itchy, and she does not have the Mometasone cream that she usually uses on her psoriasis. CM discussed this with her RN. Per MD note, it is being ordered by pharmacy and will be here tomorrow. CM continues to attempt to reach MD in order to confirm a dermatology referral prior to discharge. CM will send referral once it is ordered, likely to Dr. Stone in [place], [place]. CM will send a referral to [facility] as well, to give her more support in the community. CM will continue to follow. A: Tena is a 29 year old female admitted to [facility] on 12/20/19 with Cellulitis. P: Tena will return home when medically cleared. She will likely have a referral to Dermatology in [facility]. CM will send a referral to [facility] to support her in the community with case management. She will follow up with her new PCP ([facility])- her appointment may need to be changed as it is currently scheduled for tomorrow at 11:15am. She will be driven home by family via private vehicle. CM will continue to follow.
[2019-12-22 16:18] VITALS: BP 118/76; PULSE 74; RESP 19; TEMP 37.1; O2SAT 92
[2019-12-22] MEDS: Acetaminophen 325 MG TAB 650 MG PO (18:23)
--- NOTE | 2019-12-22 18:35 | NUR.NOTE ---
Nursing Note: 12/22/2019 [id number] Patient expresses frustration with her current psoriasis condition to nurse. Nurse validated patient's concern and reassured patient that case management and charge nurse were involved today with discussing her care once she has been discharged from the hospital.
[2019-12-22 19:48] VITALS: BP 133/80; PULSE 65; RESP 16; TEMP 36.7; O2SAT 94
[2019-12-22] MEDS: Zolpidem 10 MG TAB PO (21:39)
[2019-12-22 23:45] VITALS: BP 130/65; PULSE 82; RESP 18; TEMP 36.6; O2SAT 95
[2019-12-23] MEDS: VANCOMYCIN/WATER (PEG) 1.25 GM/250 ML BAG IVPB (03:36)
[2019-12-23 04:08] VITALS: BP 104/63; PULSE 65; RESP 20; TEMP 36.6; O2SAT 96
[2019-12-23] MEDS: HYDROcodone 5/Acetaminophen 325 TAB PO (05:59)
[2019-12-23 07:39] LABS: Abs Immature Grans 0.07 10^3/uL (0.0-0.06); Absolute Basophil Count 0.14 10^3/uL (0.0-0.2); Absolute Eosinophil Count 2.47 10^3/uL (0.0-0.7); Absolute Monocyte Count 1.65 10^3/uL (0.1-0.8); Basophils % 0.9; Eosinophils % 16.3; HCT 48.8 % (36.0-46.0); HGB 16.2 g/dL (11.2-15.7); Immature Grans % 0.5; Lymphocytes % 7.3; MCH 31.6 pg (27.0-33.0); MCHC 33.2 % (32.0-36.0); MCV 95.1 fL (80-95); MPV 9.2 fL (8.0-11.0); Monocytes % 10.9; Neutrophils % 64.1; Nucleated RBC 0 %; Platelet Count 462 10^3/uL (130-400); RBC 5.13 10^6/uL (3.93-5.22); RDW 13.4 % (11.7-14.6); RDW-SD 47.5 fL; WBC 15.14 10^3/uL (4.4-10.8)
[2019-12-23 07:40] LABS: Absolute Lymphocyte Count 1.11 10^3/uL (1.2-3.4)
[2019-12-23 07:56] LABS: Diff Comment Agrees w/ Instrument; RBC Morphology Normal
[2019-12-23 07:58] VITALS: BP 98/64; PULSE 86; RESP 18; TEMP 37; O2SAT 95
[2019-12-23 08:26] LABS: SARS-CoV-2 RNA Not Detected (NotDetected); SARS-CoV-2 RNA Source Nasal/Nares
[2019-12-23] MEDS: Pantoprazole 40 MG TABCR PO (08:28)
[2019-12-23] MEDS: Docusate Sodium 100 MG CAP PO (08:29)
[2019-12-23] MEDS: Citalopram 20 MG TAB 40 MG PO (08:29)
--- NOTE | 2019-12-23 09:43 | DSE_ITS ---
Date of service: 12/23/19 Time of Service: 09:44 DS: Diagnosis Discharge Diagnosis (1) Abscess of left knee: Status: Acute Discharge Plan Disposition Patient Disposition: HOME Condition: Good Discharge Details Reason For Visit: Cellulitis and abscess L knee Admit Date/Time: 12/20/19 15:44 Admit Provider: Lonnie Brandt Attending Provider: Lonnie Brandt Primary Care Provider: None,None Hospital Course Hospital Course: Patient was admitted to the hospital after return to the emergency room for the third time within a few days for pain and swelling over the anterior aspect of her left knee. When she returned for the third time the abscess over her left patella tendon was draining spontaneously. She had been treated with several different antibiotics most recently, clindamycin. Despite being on antibiotics she got worse over time. When she presented to the emergency room her white count was 21,000. Was also noted that she had some positive blood cultures from 12/18/2019. She has a previous history of hidradenitis that grew out staph that was MSSA. I was consulted for further evaluation by the emergency room. I noted that she had localized erythema cellulitis directly over the proximal portion of the patella tendon. She has surrounding induration over her knee from about 3 inches proximal to the patella to about 4 to 5 inches distal to the patella. She had no effusion appeared to be all prepatella swelling. I felt she needed admission for IV antibiotics, specifically vancomycin, until cultures could be sorted out. She was placed on IV vancomycin to treatment within 24 hours. She remained afebrile throughout her hospital course. Within 24 hours her white count is dropped from 21,000-16,000. Swelling and induration and erythema subsided throughout her hospital course. By 12/23/2019 she could do an active straight leg raise without a lag. The abscess was draining minimal scant amount. The infection was clearly prepatellar and not involving her knee joint. Her sed rate was 20 mm an hour. I felt that she will be discharged home on continued oral antibiotics. I spoke with the micro personnel in the lab and they felt strongly that the contaminant and not a true infection. She never developed any clinical signs. Lactate and procalcitonin toning levels were normal. In terms of oral antibiotics I questioned her carefully about stated allergies. She has no true allergies. She has a rash with amoxicillin and cephalexin. Sulfa drugs make her throw up. I thought she be able to tolerate dicloxacillin to treat her MSSA infection. We will have her do daily dressing changes on her own. I will check her back in my office on 12/28/2019. Home Meds and New Rx's Prescriptions: New dicloxacillin 500 mg capsule 500 mg PO Q6H Qty: 30 RF: 1 ibuprofen 600 mg tablet 600 mg PO TID Qty: 30 RF: 0 Continued citalopram [Celexa] 40 mg Tablet 40 mg PO DAILY RF: 0 albuterol sulfate 90 mcg/actuation HFA aerosol inhaler 2 puff inhalation Q6H PRNQty: 6.7 RF: 0 Discontinued clindamycin HCl 300 mg capsule 300 mg PO Q6H 7 Days Qty: 28 RF: 0 Discharge Instructions Additional Instructions: May shower and get the wound wet. After showering pat the wound dry and apply the self sticking dressing that you have been provided. Change the dressing once a day. Take the antibiotic, dicloxacillin, 1 every 6 hours. A good schedule might be 12 noon 6 PM 12 midnight and 6 AM. Take the ibuprofen 3 times a day as prescribed to decrease swelling and inflammation. At home, apply a bag of ice or bag of frozen vegetables to the left knee 4 times a day for an hour each time. Place a face cloth between your skin and the ice bag so you do not burn the skin. Follow-up with Dr. rBandt next 12/28/2019 for wound check. Referrals: Lonnie Brandt MD [ [facility] STAFF PHYSICIAN] - (f/u on 12/28/19) Dony Stone MD [ CONSULTING PHYSICIAN] - (New to [facility] Needs to find executive associate to manage her psoriasis.) Activity:: Activity as Tolerated Equipment/Supplies:: No Equipment Needed Diet:: As Tolerated Discharge Orders Discharge Orders: Discharge Order (Routine); Ordered 12/23/19 Ordered By: Lonnie Brandt DS: Summary Status at Discharge Functional status at discharge: independent ambulation Overall status at discharge: patient is not back to baseline Mental Status: mental status grossly normal Speech and Movement: speech and movement normal Mood: congruent mood Affect: normal affect Exam Psych Mental Status: mental status grossly normal Speech and Movement: speech and movement normal Mood: congruent mood Affect: normal affect DS: Data Vitals/I&O Vitals and I&O: Vital Signs Temperature 37.0 C 12/23/19 07:58 Temperature Source Tympanic 12/23/19 07:58 Pulse 86 12/23/19 07:58 Pulse Rhythm Regular 12/23/19 07:58 Respiratory Rate 18 12/23/19 07:58 Respiratory Effort 12/23/19 07:58 Respiratory Depth Normal 12/23/19 07:58 Respiratory Pattern Normal 12/23/19 07:58 Blood Pressure 98/64 L 12/23/19 07:58 Blood Pressure Position Sitting 12/20/19 11:16 Pulse Oximetry 95 12/23/19 07:58 Oxygen Delivery Method Room Air 12/23/19 07:58 Oxygen Flow Rate 0 12/23/19 07:58 Pain Level 7 12/23/19 07:58 Intake & Output 12/22/19 12/22/19 12/23/19 11:59 23:59 11:59 Intake Total 370 / 1110 740 / 1110 500 / 500 Output Total 550 / 550 Balance -180 / 560 740 / 560 500 / 500 Intake: IV 10 / 510 500 / 510 500 / 500 Oral 360 / 600 240 / 600 Output: Urine 550 / 550 Other: Urine Color Yellow Yellow Urine Appearance Clear Clear Clear Comment Patient reports normal urination in toilet, which she uses independently. independent to toilet. Voiding Methods Toilet Toilet Toilet Data Completed and Pending Labs on day of discharge: Labs from last 24 hours 12/23/19 12/22/19 12/22/19 06:40 11:15 11:15 WBC 15.14 H 14.19 H RBC 5.13 4.89 Hgb 16.2 H 15.4 Hct 48.8 H 46.7 H MCV 95.1 H 95.5 H MCH 31.6 31.5 MCHC 33.2 33.0 RDW 13.4 13.5 Plt Count 462 H 391 MPV 9.2 9.2 Immature Gran % 0.5 0.0 Neutrophils % 64.1 74.0 Lymphocytes % 7.3 5.0 Monocytes % 10.9 7.0 Eosinophils % 16.3 14.0 Basophils % 0.9 0.0 Nucleated RBC % 0 0 Absolute Neutrophils 9.70 H 10.50 H Absolute Lymphocytes 1.11 L 0.71 L Absolute Monocytes 1.65 H 0.99 H Absolute Eosinophils 2.47 H 1.99 H Absolute Basophils 0.14 0.00 RBC Morphology Normal Normal Vancomycin Trough 19.1 SARS-CoV-2 Source SARS-CoV-2 (PCR) 12/20/19 15:30 WBC RBC Hgb Hct MCV MCH MCHC RDW Plt Count MPV Immature Gran % Neutrophils % Lymphocytes % Monocytes % Eosinophils % Basophils % Nucleated RBC % Absolute Neutrophils Absolute Lymphocytes Absolute Monocytes Absolute Eosinophils Absolute Basophils RBC Morphology Vancomycin Trough SARS-CoV-2 Source Nasal/nares SARS-CoV-2 (PCR) Not detected Preliminary micro results at discharge 12/20/19 12:46 Blood Culture - Preliminary Blood NO GROWTH 24 HOURS 12/20/19 11:20 Blood Culture - Preliminary Blood NO GROWTH 24 HOURS [facility] Medical History Axillary hidradenitis suppurativa Ye' syndrome Obesity Psoriasis Surgical History Post-splenectomy Social History Smoking/Tobacco Use Status: Current every day Tobacco Type: cigarettes Smoking risk assessment performed?: Yes Alcohol Intake: never Substance use type: does not use Do you feel safe at home: Yes Do you feel safe in your relationship?: Yes
--- NOTE | 2019-12-23 10:48 | CMDISCH_ITS ---
- If Service Date Differs Date of service: 12/23/19 Time of Service: 10:48 LACE Index Scoring Tool - Questions: Length of Stay (in days): 4 - 6 Acuity (Admit via E.D.?): Yes E.D. Visits: 3 - Answers: Total Score: 10 Risk of Readmission: High Risk Care Management Discharge Reason for Hospitalization: Cellulitis Discharge Plan: Tena will return home today with no additional services. Her father will drive her home via private vehicle. ANANTH sent a referral to Dermatology in [place] (Dr. Stone's office), to establish care in this area. ANANTH also changed her PCP appointment to , 12/30/19 at 1:45pm. CM sent a referral to [facility] for case management in the community. She is happy to be going home. Patient/Family Education Needs: Review discharge instructions regarding activity levels and medications, discussion of self care needs including ask me three.
[2019-12-23 10:55] VITALS: BP 121/83; PULSE 85; RESP 16; TEMP 37; O2SAT 95
== END 2019-12-23 11:52 | disposition home or self-care (01) | DRG 603 ==
LOC: ER 14:38 → MS 17:29
PROVIDERS: Internal Medicine; Admitting Provider Orthopaedic Surgery; Emergency Provider Registered Nurse Emergency; Visit Provider Orthopaedic Surgery
DX: L03.116 Cellulitis of left lower limb (principal); D69.41 Evans syndrome; Z68.41 Body mass index [BMI] 40.0-44.9, adult; Z90.81 Acquired absence of spleen; F17.210 Nicotine dependence, cigarettes, uncomplicated; L73.2 Hidradenitis suppurativa; E66.9 Obesity, unspecified; L40.9 Psoriasis, unspecified; M71.062 Abscess of bursa, left knee
CPT/HCPCS: 36415; 73562; 80048; 80053; 84145; 85652; 87040; 90686; 96361; 96365; 96367; 99232; 99233; 99238; 99253; 99285; U0003; 80202; 81025; 83605; 83735; 85025; 86140; 93306; 99222; 99284; J1885; J3370

== ENCOUNTER 2020-01-19 11:49 | Outpatient (CLI) | payer MEDICAID, SELFPAY ==
--- NOTE | 2020-01-19 | DI.RAD_ITS ---
EXAM: XR CHEST 2V PA LATERAL CLINICAL HISTORY: POSITIVE QUANTIFERON-TB GOLD TEST, R76.12 TECHNIQUE: COMPARISON: No exams were available for comparison FINDINGS: The heart is not enlarged. Note is made of apparent pleural scarring on the left laterally with blun ting of the costophrenic angle. No pleural effusion seen. There is a question of a right suprahilar radiodensity, most prominent on the PA film, this is poorly defined and overlies right 1st rib in part, findings are suspicious for an intrapulmonary area of co nsolidation or mass. Additional evaluation with chest CT recommended. IMPRESSION: Question of right suprahilar intrapulmonary consolidation or mass, correlation with contrast-enhanced chest CT recommended. RADIATION DOSE DELIVERED: Total DLP Total DLP
== END 2020-01-19 12:09 ==
PROVIDERS: PCP Family Medicine; Visit Provider Dermatology
DX: R76.12 Nonspecific reaction to cell mediated immunity measurement of gamma interferon antigen response without active tuberculosis (principal); R91.8 Other nonspecific abnormal finding of lung field
CPT/HCPCS: 71046

== ENCOUNTER 2020-03-24 01:32 | Outpatient (CLI) | payer MEDICAID, SELFPAY ==
[2020-03-25 14:41] LABS: COVID-19 RT-PCR UVMMC Result Negative (Negative)
== END 2020-03-24 01:33 | disposition home or self-care (01) ==
LOC: LBO 01:32
PROVIDERS: PCP Family Medicine; Visit Provider Surgery
DX: Z20.822 Contact with and (suspected) exposure to COVID-19 (principal); Z01.818 Encounter for other preprocedural examination
CPT/HCPCS: U0003

== ENCOUNTER 2020-03-29 10:37 | Inpatient (IN) | payer MEDICAID, SELFPAY ==
[2020-03-29] VITALS (20 sets, daily range): BP systolic 95–137; BP diastolic 58–82; PULSE 86–111; RESP 1–23; TEMP 36.3–36.9; O2SAT 91–96
--- NOTE | 2020-03-29 06:50 | W.PM.OP ---
Date of service: 03/29/20 Time of Service: 10:44 Operative Note Operative Note DATE OF PROCEDURE: 03/29/20 PRE-OP DIAGNOSIS: Umbilical hernia POST-OP DIAGNOSIS: other (umbilical hernia and incisional hernia) PROCEDURE: Umbilical and incisional hernia repair with mesh SURGEON: Xochilt Patel CLOTHING ROOM SUPERVISOR: Gilma Tamez ANESTHESIA: GETA (ASA 3/Ángel Ayala CRNA) and regional ESTIMATED BLOOD LOSS: 100 PATHOLOGY: none sent COMPLICATIONS: None Patient was transported to: PACU Patient's condition: stable Implants: Ventralight ST Mesh: LOT- [id number] REF- [id number] EXT- 2021-07-14 Indications: Ms Mcdaniel is a 29-year-old female with a small reducible umbilical hernia. 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 I am not sure whether this is an umbilical hernia or an incisional hernia. We discussed repair with small hernia patch. She has been able to tolerate to general surgery without any issues. My hope is to be able to do this with a bilateral rectus sheath block, MAC and some local anesthetic. We discussed pain control with the block and some Tylenol and ibuprofen. We discussed activity limitations after surgery. We reviewed the surgery itself using a hernia pamphlet. We also reviewed Covid testing and quarantine requirements prior to surgery. Risks, benefits and complications have been reviewed. Complications include but are not limited to bleeding, pain, infection, injury to underlying structures like bowel and adverse reaction to the medication. Questions were entertained and answered to their satisfaction and they wished to proceed. No guarantees were given or implied. COVID-19 testing explained to the patient. Reason for test reviewed. Quarantine per state requirements reviewed with patient. Patient understands and agrees to testing. Proceed with umbilical hernia repair with mesh. Findings: Small 2 cm umbilical hernia multiple hernias along her old incision Procedure Description: After informed consent was obtained the patient was taken to the operating room and placed in a supine position. Monitors and SCDs were applied and a timeout was done. The patient's name, date of , procedure type, procedure site, allergies to medications, preoperative antibiotic, and DVT prophylaxis were all reviewed. Fire risk was assessed. The patient was placed under a deep MAC. Next he abdomen was prepped and draped in a sterile surgical fashion. 2% Lidocaine was injected into the dermis along the inferior portion of the midline incision. An incision was made with a 10 blade measuring 3 cm. Dissection was done with cautery through the subcutaneous tissues. The umbilical hernia was identified. A larger hernia was then palpated along the old incision. The hernia sac along the incision was carefully opened. There was omentum scarred to the fascia. The omentum was carefully removed from the fascia using cautery and the Ligasure. I was then able to feel alonng the old incision. There were small hernias between the old stitches all along the old scar. An incision was made along the midline scar. Dissection was done with cautery through the subcutaneous tiisue. The fascia was grasped and the omentum was dissected away from the fascia. Once dissected away the fascia was opened. The falsiform ligament was transected with the Ligasure. The hernia defect was measured at 10 x 8 cm. The abdomen was irrigated with 2 L of warm saline. The fluid was suctioned out. A 25 x 28 cm Ventralight mesh was then placed under the peritoneum and secured with 0 Proline along the circumference of the mesh. Once the mesh was secured the tissues were irrigated with some normal saline. No bleeding was identified. The fascia was closed over the mesh with 2 #1 vicryl running suture. Exparel and 0.25% Bupivocaine mix was injected into the fascia. 0 Vicryl was used to secure the umbilicus down to the fascia. The subcutaneous tissue was re-approximated in 2 layers with 2-0 vicryl and 3-0 vicryl. The dermis was re-approximated with a running 4-0 Vicryl. The skin was cleaned and dried and mastasol and steri-strips were applied. A NURY dressing was applied. The patient was woken up and taken back to recovery in stable condition. There were no immediate complications. Sponge, instrument and needle counts were correct at the end of the case x2.
[2020-03-29] MEDS: Acetaminophen 500 MG TAB 1000 MG PO (06:51)
--- NOTE | 2020-03-29 06:52 | PDOC.DSDIS_ITS ---
Discharge Plan Disposition Patient Disposition: HOME Condition: Good Discharge Details Reason For Visit: umbilical hernia Attending Provider: Xochilt Patel Primary Care Provider: Jonathan Plaza Home Meds and New Rx's Prescriptions: New oxycodone 5 mg tablet 5 mg PO Q6H PRNQty: 10 RF: 0 Continued calcipotriene 0.005 % ointment 1 applic topical BID RF: 0 Otezla 30 mg tablet 30 mg PO BID RF: 0 Hold Instructions: Changed by Provider trihexyphenidyl 5 mg tablet 5 mg PO QHS Qty: 90 RF: 3 omeprazole 40 mg capsule,delayed release(DR/EC) 40 mg PO DAILY Qty: 30 RF: 0 fluocinonide 0.05 % cream 1 applic topical BID Qty: 60 RF: 0 fluocinolone and shower cap [[place]-Smoothe/FS Scalp Oil] 0.01 % oil 1 applic topical .QOD Qty: 118.28 RF: 3 citalopram [Celexa] 40 mg tablet 40 mg PO DAILY Qty: 90 RF: 3 betamethasone, augmented 0.05 % ointment 1 applic topical BID PRN (Reason: Psoriasis) Qty: 50 RF: 6 albuterol sulfate 90 mcg/actuation HFA aerosol inhaler 2 puff inhalation Q6H PRN (Reason: shortness of breath or wheezing) Qty: 6.7 RF: 3 Advair HFA 230-21 mcg/actuation HFA aerosol inhaler 2 puff inhalation BID Qty: 12 RF: 0 ipratropium-albuterol 0.5 mg-3 mg(2.5 mg base)/3 mL solution for nebulization 3 ml inhalation QID PRN (Reason: wheezing) Qty: 90 RF: 6 (DME) nebulizers Misc See Rx Instructions .ROUTE .MEDSUPPLY Qty: 1 RF: 0 zolpidem [Ambien] 5 mg tablet 5 mg PO QHS PRN (Reason: sleep) Qty: 10 RF: 0 ibuprofen 600 mg tablet 600 mg PO TID Qty: 90 RF: 0 clobetasol 0.05 % solution 1 applic topical BID PRN (Reason: Psoriasis) RF: 0 Discharge Instructions Additional Instructions: Activity at Home after surgery: 1. Make sure you walk outside at least 4 times per day 2. You should be able to climb a flight of stairs 3. No driving while in pain or taking pain medications 4. No strenuous activity or heavy lifting for 4 weeks (open surgery) Diet, Nutrition, & wound healin. Avoid alcohol until after you are recovered from your surgery 2. Make sure to eat plenty of lean protein (meat, fish, eggs, cottage cheese, beans) 3. Eat a variety of fruits and vegetables. Eat plenty of high fiber foods to avoid constipation. 4. Drink plenty of liquids to stay hydrated and avoid constipation Pain Medications: 1. Tylenol 650 mg every 6 hours as needed and Ibuprofen 600 mg every 6 hours as needed. You may alternate between the Tylenol and Ibuprofen every 3 hours 2. If a narcotic has been prescribed take as directed only for breakthrough pain For Constipation: 1. Take Milk of Magnesia or MiraLax as needed for constipation Other: 1. You may shower daily. Do not scrub the incisions 2. Do not soak the incisions for 1 week 3. You may alternate ice and heat as needed for pain and swelling Wound Care: 1. Keep the incisions clean and dry Please call our office if you develop: 1. Fevers >101.5 2. Nausea or Vomiting 3. Worsening pain 4. Redness and thick discharge from the wounds If after hours please call the Hospital at and ask to speak to the on-call surgeon Referrals: Xochilt Patel MD [ [facility] STAFF PHYSICIAN] - 04/11/20 11:30 am Activity:: no lifting >20 lb x 2 weeks Remove Dressings/Wound Care:: Do Not Remove Shower/Bathe:: 24 hours Diet:: As Tolerated
[2020-03-29] MEDS: Lactated Ringers 1,000 ML 80 ML IV ×2 (07:00→11:35)
[2020-03-29] MEDS: ceFAZolin 2 GM/50 ML BAG IVPB (07:55)
[2020-03-29] MEDS: Bupivacaine 0.25% Pres-Free 30 ML VIAL ×2 (08:15→10:14)
[2020-03-29] MEDS: Bupivacaine LIPOSOME/PF 133 MG/10 ML VIAL IJ (08:15)
[2020-03-29] MEDS: Lidocaine 2% Multi-Dose 50 ML VIAL (08:15)
[2020-03-29] MEDS: HYDROmorphone 2 MG/ML VIAL IVP ×5 (10:50→12:31)
[2020-03-29 12:50] LABS: HCT 50.3 % (36.0-46.0); HGB 16.6 g/dL (11.2-15.7); MCH 31.7 pg (27.0-33.0); MCV 96.2 fL (80-95); MPV 8.7 fL (8.0-11.0); Platelet Count 408 10^3/uL (130-400); RBC 5.23 10^6/uL (3.93-5.22); RDW 13.2 % (11.7-14.6); RDW-SD 47.8 fL
[2020-03-29 12:54] LABS: WBC 27.26 10^3/uL (4.4-10.8)
[2020-03-29 13:00] LABS: Anion Gap 11.5 mmol/L (3-11); BUN 15 mg/dL (7-18); CO2 25.5 mmol/L (21.0-32.0); CREATININE 0.9 mg/dL (0.55-1.02); Calcium 9.1 mg/dL (8.5-10.1); Chloride 102 mmol/L (98-107); Glucose 130 mg/dL (74-106); Potassium 4.6 mmol/L (3.5-5.1); Sodium 139 mmol/L (136-145)
[2020-03-29] MEDS: oxyCODONE 5 MG TAB PO (15:05)
[2020-03-29] MEDS: Docusate Sodium 100 MG CAP PO ×2 (15:06→21:22)
[2020-03-29] MEDS: Albuterol 2.5 MG/3 ML INH SOLN VIAL UPD (15:58)
--- NOTE | 2020-03-29 16:13 | W.PM.PROGNOT ---
Date of Service Date of service: 03/29/20 Time of Service: 16:13 Assessment and Plan Assessment and plan (1) Incisional hernia, without obstruction or gangrene: Status: Acute Assessment and plan: POD #0 s/p incisional hernia repair with mesh Pain management with Toradol, Tylenol, Oxycodon and dilauded IV for breakthrough pain Hopefully home tomorrow Subjective Subjective Interval history since last seen: Tena is 4 hours POst OP from an incisional hernia repair with mesh. She is sitting in bed comfortably. Respiratory is giving her a nebulizer treatment for wheezing. She complains of unbearable pain in her abdomen. Hr is normal. BP is normal. Exam Resp Effort & Inspection: normal respiratory effort Auscultation: clear to auscultation bilaterally Cardio Rate: regular rate Rhythm: regular rhythm GI Other: midline incision covered by a NURY. There was one small spot of blood on the dressing. Abdomen image: 1. incision 2. NURY dressing Objective Last Vital Signs Temp 98.1 F 03/29/20 16:08 Pulse 90 03/29/20 16:08 Resp 17 03/29/20 16:08 BP 125/81 03/29/20 16:08 Pulse Ox 94 03/29/20 16:08 Laboratory Results - last 24 hr 03/29/20 03/29/20 12:45 12:45 WBC 27.26 H* RBC 5.23 H Hgb 16.6 H Hct 50.3 H MCV 96.2 H MCH 31.7 MCHC 33.0 RDW 13.2 Plt Count 408 H MPV 8.7 Sodium 139 Potassium 4.6 Chloride 102 Carbon Dioxide 25.5 Anion Gap 11.5 H BUN 15 Creatinine 0.9 Estimated GFR/1.73 m2 >= 60.00 Glucose 130 H Calcium 9.1
--- NOTE | 2020-03-29 16:14 | RESPIRATORY ---
Rt asked to do neb treatment with post-op hernia surgery patient. RT found patient on 3.5L NC SpO2 94% HR 95 in alot of pain from surgery and complaining of SOB. Given neb treatment and RT instructed patient on splinting with pillow to ease pain at incision site. Patient coughed three times with RT's assistance in holding pillow and spit up creamy yellowish moderate secretions. Neb then continued and RT assessed patient post neb, lungs clear with exp rhonchi and placed back on 4L oxygen
[2020-03-29] MEDS: Ketorolac 30 MG/ML VIAL IVP ×2 (16:31→21:58)
--- NOTE | 2020-03-29 17:26 | W.PM.DS.N ---
Date of service: 03/30/20 DS: Diagnosis Discharge Diagnosis (1) Incisional hernia, without obstruction or gangrene: Status: Acute Discharge Plan Disposition Patient Disposition: HOME Condition: Good Discharge Details Reason For Visit: INCISIONAL HERNIA Admit Date/Time: 03/29/20 10:37 Admit Provider: Xochilt Patel Attending Provider: Xochilt Patel Primary Care Provider: Jonathan Plaza Home Meds and New Rx's Prescriptions: New oxycodone 5 mg tablet 5 mg PO Q6H PRNQty: 10 RF: 0 Continued calcipotriene 0.005 % ointment 1 applic topical BID RF: 0 Otezla 30 mg tablet 30 mg PO BID RF: 0 Hold Instructions: Changed by Provider trihexyphenidyl 5 mg tablet 5 mg PO QHS Qty: 90 RF: 3 omeprazole 40 mg capsule,delayed release(DR/EC) 40 mg PO DAILY Qty: 30 RF: 0 fluocinonide 0.05 % cream 1 applic topical BID Qty: 60 RF: 0 fluocinolone and shower cap [[place]-Smoothe/FS Scalp Oil] 0.01 % oil 1 applic topical .QOD Qty: 118.28 RF: 3 citalopram [Celexa] 40 mg tablet 40 mg PO DAILY Qty: 90 RF: 3 betamethasone, augmented 0.05 % ointment 1 applic topical BID PRN (Reason: Psoriasis) Qty: 50 RF: 6 albuterol sulfate 90 mcg/actuation HFA aerosol inhaler 2 puff inhalation Q6H PRN (Reason: shortness of breath or wheezing) Qty: 6.7 RF: 3 Advair HFA 230-21 mcg/actuation HFA aerosol inhaler 2 puff inhalation BID Qty: 12 RF: 0 ipratropium-albuterol 0.5 mg-3 mg(2.5 mg base)/3 mL solution for nebulization 3 ml inhalation QID PRN (Reason: wheezing) Qty: 90 RF: 6 (DME) nebulizers Misc See Rx Instructions .ROUTE .MEDSUPPLY Qty: 1 RF: 0 zolpidem [Ambien] 5 mg tablet 5 mg PO QHS PRN (Reason: sleep) Qty: 10 RF: 0 ibuprofen 600 mg tablet 600 mg PO TID Qty: 90 RF: 0 clobetasol 0.05 % solution 1 applic topical BID PRN (Reason: Psoriasis) RF: 0 Discharge Instructions Additional Instructions: Activity at Home after surgery: 1. Make sure you walk outside at least 4 times per day 2. You should be able to climb a flight of stairs 3. No driving while in pain or taking pain medications 4. No strenuous activity or heavy lifting for 4 weeks (open surgery) Diet, Nutrition, & wound healin. Avoid alcohol until after you are recovered from your surgery 2. Make sure to eat plenty of lean protein (meat, fish, eggs, cottage cheese, beans) 3. Eat a variety of fruits and vegetables. Eat plenty of high fiber foods to avoid constipation. 4. Drink plenty of liquids to stay hydrated and avoid constipation Pain Medications: 1. Tylenol 650 mg every 6 hours as needed and Ibuprofen 600 mg every 6 hours as needed. You may alternate between the Tylenol and Ibuprofen every 3 hours 2. If a narcotic has been prescribed take as directed only for breakthrough pain For Constipation: 1. Take Milk of Magnesia or MiraLax as needed for constipation Other: 1. You may shower daily. Do not scrub the incisions 2. Do not soak the incisions for 1 week 3. You may alternate ice and heat as needed for pain and swelling Wound Care: 1. Keep the incisions clean and dry Please call our office if you develop: 1. Fevers >101.5 2. Nausea or Vomiting 3. Worsening pain 4. Redness and thick discharge from the wounds If after hours please call the Hospital at and ask to speak to the on-call surgeon Referrals: Xochilt Patel MD [ [facility] STAFF PHYSICIAN] - 04/11/20 11:30 am Activity:: no lifting >20 lb x 2 weeks Remove Dressings/Wound Care:: Do Not Remove Shower/Bathe:: 24 hours Activity:: No lifting >20 lb Equipment/Supplies:: No Equipment Needed Diet:: As Tolerated DS: Data Vitals/I&O Vitals and I&O: Vital Signs Temperature 98.1 F 03/29/20 16:08 Temperature Source Tympanic 03/29/20 16:08 Pulse 105 H 03/29/20 16:23 Pulse Rhythm Regular 02/10/21 06:36 Respiratory Rate 16 03/29/20 16:23 Respiratory Depth Normal 03/29/20 06:36 Blood Pressure 125/81 03/29/20 16:08 Pulse Oximetry 92 03/29/20 16:23 Respiratory End-tidal CO2 42 03/29/20 11:40 Oxygen Delivery Method Room Air 03/29/20 16:08 Oxygen Flow Rate 0 03/29/20 16:08 Pain Level 8 03/29/20 16:31 Intake & Output 03/28/20 03/29/20 03/29/20 23:59 11:59 23:59 Intake Total 850 / 1670 820 / 1670 Output Total 100 / 600 500 / 600 Balance 750 / 1070 320 / 1070 Weight 247 lb 12.793 oz Intake: IV 850 / 1050 200 / 1050 Oral 620 / 620 Output: Urine 500 / 500 Estimated Blood Loss 100 / 100 Other: Urine Color Dark Delmis Urine Appearance Clear Urine Odor Normal Emesis Description None None Voiding Methods Bedside Commode Data Completed and Pending Labs on day of discharge: Labs from last 24 hours 03/29/20 03/29/20 12:45 12:45 WBC 27.26 H* RBC 5.23 H Hgb 16.6 H Hct 50.3 H MCV 96.2 H MCH 31.7 MCHC 33.0 RDW 13.2 Plt Count 408 H MPV 8.7 Sodium 139 Potassium 4.6 Chloride 102 Carbon Dioxide 25.5 Anion Gap 11.5 H BUN 15 Creatinine 0.9 Estimated GFR/1.73 m2 >= 60.00 Glucose 130 H Calcium 9.1 PFSH Medical History Abdominal adhesions Asthma Axillary hidradenitis suppurativa Ye syndrome Ye' syndrome History of drug abuse 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 marijuana: t-1, 2 hits Adopted: No Caregiver/Support person: No Foster care: No Household members: significant other and family Housing: other Number of Children: 1 Communication Needs: None Do you need help understanding health information?: Rarely Sexually active: Yes Do you think of yourself as: straight/heterosexual Current gender identity: female What type of physical activity do you participate in: none Do you feel safe at home: Yes Do you feel safe in your relationship?: Yes
[2020-03-29] MEDS: HYDROmorphone 2 MG/ML VIAL 1 MG IVP ×2 (18:10→21:30)
[2020-03-29] MEDS: Simethicone 80 MG CHEW PO (18:30)
--- NOTE | 2020-03-29 19:09 | RESPIRATORY ---
RT asked to evaluate patient as she's feeling SOB after eating her cold jello. Rt found patient to be sating 94% on 4L NC with ear probe. SpO2 monitoring kept alarming bc of low SpO2 reading due to patient positioning of hand. RT obtained and change finger probe to middle finger to get a better reading. SpO2 ranging from 94%-95% on 4L NC and respiratory assessment done. Pt no longer SOB and resting comfortable texting on her phone.
[2020-03-29] MEDS: Trihexyphenidyl 2 MG TAB 5 MG PO (21:22)
[2020-03-29] MEDS: Budesonide/Formoterol 160/4.5 6 GM 60 PUFF INH IH (21:23)
[2020-03-30] VITALS (12 sets, daily range): BP systolic 99–115; BP diastolic 61–76; PULSE 85–143; RESP 4–20; TEMP 36.6–37.3; O2SAT 78–99
--- NOTE | 2020-03-30 | DI.CT_ITS ---
EXAM: CT CHEST PE ABD PELVIS W CLINICAL HISTORY: SOB/postOP. TECHNIQUE: Imaging Protocol: Axial CT angiography was performed with multi-slice acquisition and mu lti-planar and/or 3D reconstructions. CONTRAST MATERIAL: Intravenous: Omnipaque 350 Contrast volume:125 cc Oral contrast was administered. COMPARISON: CR XR CHEST 2V PA LATERAL from 01/19/2020 CR XR CHEST 2V PA LATERAL from 01/19/2020 CR XR PORTABLE CHEST AP from 03/30/2020 FINDINGS: Chest CT for pulmonary embolism: Pulmonary Arteries: No evidence of filling defect to suggest pulmonary emboli. Tracheobronchial tree: Patent where visualized. Mediastinum and Mirella: No dominant adenopathy or fluid collection. Pulmonary parenchyma: Limited evaluation due to mild respiratory motion and expiratory changes. Atel ectasis versus infiltrates at lung bases, right greater than left. Rounded area of airspace opacity in the inferior right upper lobe. Other small patchy densities anteriorly in the right upper lobe. Pleura: No effusion or pneumothorax. Heart: The heart is not dilated. No coronary artery calcifications are seen. 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 Aorta: Thoracic aorta non-dilated. Motion at the aortic root. Bones: Minimal degenerative changes and Schmorl's nodes. Abdomen and pelvic CT: The liver is enlarged and shows mild fatty infiltration. Patient is status post cholecystectomy and splenectomy. A cyst is noted at the upper pole of the right kidney. No stones or hydronephrosis is seen. The pancreas and adrenals are unremarkable. The patient is recently status post hernia repair. In the anterior abdominal wall, there is residual postsurgical air is well as skin thickening. There is also a postsurgical hematoma measuring 11 x 2 1 x 12 centimeters in the anterior subcutaneous fat. A few small air bubbles are seen within the abd ominal wall musculature and subjacent intra-abdominal fat. The administered oral contrast is seen within the stomach, small bowel and cecum. There is no abnorm al bowel dilatation, wall thickening or pneumatosis. The vasculature appears patent. The portal vei n is patent. The uterus shows an IUD, appropriately positioned.. The ovaries and bladder are unrema rkable. There is no free fluid. IMPRESSION: 1. No evidence of pulmonary embolism. Bibasilar infiltrates versus atelectasis. Rounded airspace o pacity in the right upper lobe could be infectious, inflammatory or neoplastic. clinical correlatio n and follow-up is recommended. 2. Anterior abdominal wall postsurgical hematoma, measuring up to 21 cm. No acute abnormalities are seen within the abdominal or pelvic cavity. No evidence of hepatic vein thrombosis. RADIATION DOSE DELIVERED: 1,836.73mGy.cm Total DLP DATA REPOSITORY: All CT scans at this facility are submitted to the National Radiology Data Registry (NRDR) Dose Index Registry (DIR) with the [employer] (A[employer]). RADIATION OPTIMIZATION: All CT scans at this facility use at least one of these dose optimization te chniques: automated exposure control; mA and/or kV adjustment per patient size (includes targeted exa ms where dose is matched to clinical indication); or iterative reconstruction.
[2020-03-30] MEDS: Lactated Ringers 1,000 ML 80 ML IV (00:47)
[2020-03-30] MEDS: HYDROmorphone 2 MG/ML VIAL 1 MG IVP ×5 (00:48→20:41)
[2020-03-30] MEDS: Ketorolac 30 MG/ML VIAL IVP ×4 (03:09→22:15)
--- NOTE | 2020-03-30 07:47 | PGE_ITS ---
Documented by User: PRASANNA Farmer 03/30/20 07:53 Date of Service Date of service: 03/30/20 Time of Service: 07:47 Assessment and Plan Assessment and plan (1) Incisional hernia, without obstruction or gangrene: Status: Acute Assessment and plan: POD #1 s/p incisional hernia repair with mesh Pain is currently well managed, with Toradol, Tylenol, Oxycodon and dilauded IV for breakthrough pain Transferred out of bed with hand-held assist. She is independent with sit to stand transfers and ambulation within the room. She is coughing and doing well bracing with a pillow. Encouraged continued use of the incentive spirometer. Spoke with nsg, whom will ensure Tena is walking longer distances prior to d/c. D/C home later today. Subjective Subjective Interval history since last seen: Tena reports that she slept well over night. She abdomen is painful and she has also noted burning sensation in her abdomen after coughing. She is urinating without difficulty. Exam Const General: cooperative, healthy appearing and comfortable Orientation: alert and oriented x3 Resp Effort & Inspection: normal respiratory effort, no audible wheezes and cough GI Inspection: non-distended and incision (NURY dressing in place) Objective Last Vital Signs Temp 36.9 C 03/29/20 23:55 Pulse 100 H 03/29/20 23:55 Resp 18 03/29/20 23:55 BP 95/68 L 03/29/20 23:55 Pulse Ox 95 03/30/20 02:39 Laboratory Results - last 24 hr 03/29/20 03/29/20 12:45 12:45 WBC 27.26 H* RBC 5.23 H Hgb 16.6 H Hct 50.3 H MCV 96.2 H MCH 31.7 MCHC 33.0 RDW 13.2 Plt Count 408 H MPV 8.7 Sodium 139 Potassium 4.6 Chloride 102 Carbon Dioxide 25.5 Anion Gap 11.5 H BUN 15 Creatinine 0.9 Estimated GFR/1.73 m2 >= 60.00 Glucose 130 H Calcium 9.1 Documented by User: Carla Branch, DO 03/30/20 21:52 Assessment and Plan Assessment and plan (1) S/P hernia repair: Status: Acute Assessment and plan: pt has elevated WBC count adn elevated LFT's [place] [facility] [place]. [place] is not on meds for her hamatologic D/o. labs [place] [facility] [place] D/W hosp Will cont to look for infectious source UA/CXR neg. Patient was seen and examined this afternoon. She is up walking around. She is complaining of severe pain- It is difficult to assess her pain subjectively. She has had no fevers. There has had some soft BP's and mild tachycardia. She walked x4 this evening. She tolerated a postOP diet. She denies n/v. She says she is not passing gas. She has good BS. Her abdomen is distended - mildly. Seh does ot have any peritoneal signs. She still feels SOB. She is coughing up clear sputum. She is on 6L. CXR was neg. She does have a hx of a pulm nodilue in RUL.1.2cm. Her Mantoux reads +. She did she ID about this- they do not feel she has TB. AFB was neg. Pt also states that the day before her surgery (friday) she was having hot flashes/chills/body aches adn diarrhea. She doesn't know if she was in conctact w/ anyone who is ill. Her Covid was negative. She has had no prior DVT/PE's. She has never been hypercoagulable. She hasan't had regular medical care since her splenectomy. 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 She never had a follow up CT-but most likely this is nl postOP change from splenectomy. Clinically the patient looks good and appears to be progressing along in her normal fashion from open hernia surgery surgery repair. On paper her numbers appear to be concerning. 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 I am going to order a CT of the abdomen and of the chest for PE protocol in light of her acute shortness of breath and negative chest x-ray. And also because she is significantly bumped her LFTs and I do not have a good explanation for this. She was tested for hep C by ID and this was negative. I also did place her on Vanco. She did have a knee abscess about a year ago. She has also had multiple surgeries which resulted in antibiotic exposure. She has also been incarcerated, so she does have risk factors for MRSA. Her wound appears clean dry and intact. She has no lower extremity swelling pain or redness. Her UA is negative. Blood cultures and sputum cultures are ordered. Continue supportive care I did discuss all of this with the patient as well.
[2020-03-30] MEDS: Albuterol/Ipratropium 3 ML UPD VIAL IH (08:10)
[2020-03-30] MEDS: Budesonide/Formoterol 160/4.5 6 GM 60 PUFF INH IH ×2 (08:11→20:40)
--- NOTE | 2020-03-30 08:12 | RESPIRATORY ---
When respiratory arrived to give inhaler and PRN updraft, pt was on room air, talking and productively coughing. SpO2 was checked by RN GERIATRIC and RT on finger and on ear, SpO2 read 78% on finger, 84% on ear on room air. Pt put on oxygen at 2L and given DuoNeb updraft. Nurse called to room. Pt currently laying in bed on continuous SpO2 monitoring and on 4L nasal cannula to maintain SpO2 >90%.
--- NOTE | 2020-03-30 08:39 | DI.RAD_ITS ---
EXAM: XR PORTABLE CHEST AP CLINICAL HISTORY: SOB, Decreased 02 Sats. TECHNIQUE: 2D digital imaging was performed. COMPARISON: No exams were available for comparison FINDINGS: LUNGS: Suboptimally inflated but clear. No pleural abnormality seen. HEART: Normal. MEDIASTINUM: Normal. BONES: Unremarkable. IMPRESSION: No acute pulmonary findings. DATA REPOSITORY: RADIATION DOSE DELIVERED:
[2020-03-30 09:55] LABS: Abs Immature Grans 0.17 10^3/uL (0.0-0.06); Absolute Basophil Count 0.07 10^3/uL (0.0-0.2); Absolute Lymphocyte Count 0.82 10^3/uL (1.2-3.4); Absolute Monocyte Count 2.44 10^3/uL (0.1-0.8); Basophils % 0.4; Eosinophils % 1.3; HCT 35.5 % (36.0-46.0); Lymphocytes % 4.7; MCH 31.5 pg (27.0-33.0); MCV 95.7 fL (80-95); MPV 9.3 fL (8.0-11.0); Neutrophils % 78.6; Nucleated RBC 0 %; Platelet Count 334 10^3/uL (130-400); RBC 3.71 10^6/uL (3.93-5.22); RDW 13.2 % (11.7-14.6); RDW-SD 46.5 fL; WBC 17.42 10^3/uL (4.4-10.8)
[2020-03-30 09:56] LABS: ALT 199 U/L (14-59); AST 76 U/L (15-37); Albumin 2.8 g/dL (3.4-5.0); Alkaline Phosphatase 183 U/L (46-116); BUN 22 mg/dL (7-18); Bilirubin, Total 0.3 mg/dL (0.2-1.0); Calcium 8.4 mg/dL (8.5-10.1); Chloride 100 mmol/L (98-107); Glucose 170 mg/dL (74-106); Potassium 4.2 mmol/L (3.5-5.1); Sodium 136 mmol/L (136-145); Total Protein 5.8 g/dL (6.4-8.2)
[2020-03-30] MEDS: Omeprazole 20 MG CAPCR 40 MG PO (09:56)
[2020-03-30] MEDS: Acetaminophen 325 MG TAB 650 MG PO (09:56)
[2020-03-30] MEDS: Docusate Sodium 100 MG CAP PO ×3 (09:57→20:41)
[2020-03-30] MEDS: Enoxaparin 40 MG/0.4 ML SYR SC (09:57)
[2020-03-30] MEDS: Citalopram 20 MG TAB 40 MG PO (09:57)
[2020-03-30] MEDS: Normal Saline Flush 10 ML SYR IV ×2 (09:58→12:15)
[2020-03-30 10:05] LABS: Absolute Eosinophil Count 0.23 10^3/uL (0.0-0.7); Absolute Neutrophil Count 13.69 10^3/uL (1.2-6.7)
[2020-03-30 10:07] LABS: HGB 11.7 g/dL (11.2-15.7)
[2020-03-30] MEDS: oxyCODONE 5 MG TAB PO (11:14)
[2020-03-30] MEDS: Simethicone 80 MG CHEW PO (11:14)
[2020-03-30] MEDS: Normal Saline Flush 10 ML SYR IVP ×3 (13:34→20:42)
[2020-03-30 13:48] LABS: Bilirubin Negative (Negative); Blood Trace-lysed (Negative); Clarity Sl Cloudy (Clear); Glucose Negative (Negative); Ketones Negative (Negative); Leukocyte Esterase Negative (Negative); Nitrite Negative (Negative); Specific Gravity >= 1.030 (1.005-1.025); Urobilinogen 0.2 EU/dL (Up TO 0.2)
[2020-03-30] MEDS: Acetaminophen 500 MG TAB 1000 MG PO ×2 (14:00→20:41)
[2020-03-30 14:01] LABS: GGT 202 U/L (5-55)
[2020-03-30 14:01] LABS: Epithelial Cells Many HPF (Negative); WBC 0-2 HPF (0-5)
[2020-03-30 14:02] LABS: Bacteria Moderate HPF (Negative); C & S Indicated? No/Sq. Contamination; Casts 3-5 Hyaline LPF (Negative); Crystals Negative HPF (Negative); Mucus Trace (Negative)
[2020-03-30 14:42] LABS: D-Dimer 1356 ng/mlFEU (<500)
--- NOTE | 2020-03-30 19:03 | PDOC.CMIN ---
- If Service Date Differs Date of service: 03/30/20 Time of Service: 19:03 Care Management Initial Assess REASON FOR HOSPITALIZATION:: Incisional Hernia PAST MEDICAL HISTORY/PAST SURGICAL HISTORY:: Medical History. Axillary hidradenitis suppurativa. Ye' syndrome. Obesity. Psoriasis. Surgical History. Post-splenectomy PREVIOUS FUNCTIONAL STATUS/SOCIAL/FAMILY SUPPORTS:: Tnea currently is living at the [facility] in [facility]. Her father moved to [place] recently. She was raised in [place], and later moved to [facility]. She has a rare disease called Payam's syndrome, which she is attempting to qualify for disability for. She is currently not working. She is independent with her ADL's. CURRENT FUNCTIONAL STATUS:: Tena was sitting up in bed when CM met with her. She was holding a pillow close to her chest and stated that it hurt when she coughed. She was pleasant in conversation. She asked if CM would call the [facility] to let them know that she is admitted in order to keep her room, which was completed. She was unsure of the plan, but expected to remain at [facility] overnight. CM will continue to follow. ADVANCE DIRECTIVES:: None on file. Tena declined forms at this time. Has patient been provided with info about the portal/API?: Yes Did the patient sign up for the portal?: Yes CODE STATUS:: Full Code INSURANCE COVERAGE / FINANCIAL ISSUES:: [facility] CURRENT HOME/COMMUNITY SERVICES/EQUIPMENT:: No current services or equipment at this time. PRIMARY CARE PHYSICIAN:: Jonathan Plaza POTENTIAL DISCHARGE NEEDS:: follow up appointments PATIENT/FAMILY EDUCATION NEEDS:: Review discharge instructions, discussion of self care needs. ANTICIPATED BARRIERS TO DISCHARGE:: None identified. TRANSPORTATION:: Via private vehicle RCT PLAN:: Anticipate Tena will return home when medically cleared. She will be transported home via [facility] private vehicle. She will follow up with her PCP and discharge plan of care. CM will continue to follow.
[2020-03-30] MEDS: Omnipaque 350 MG/ML 50 ML BTL IJ (19:40)
[2020-03-30] MEDS: Breeza Beverage 473 ML BTL PO ×2 (19:41→19:42)
[2020-03-30] MEDS: Normal Saline - Diluent 50 ML VIAL IV (21:36)
[2020-03-30] MEDS: Omnipaque 350 MG/ML 100 ML BTL IJ (21:36)
[2020-03-30] MEDS: Trihexyphenidyl 2 MG TAB 5 MG PO (22:13)
[2020-03-30] MEDS: Gabapentin 300 MG CAP PO (22:13)
[2020-03-30] MEDS: CIPROFLOXACIN 400 MG/200 ML BAG 200 MG IVPB (22:17)
[2020-03-30] MEDS: Normal Saline 500 ML 30 ML IV (22:20)
--- NOTE | 2020-03-30 22:38 | DI.VRAD_ITS ---
PROCEDURE INFORMATION: Exam: CT Angiography Chest With Contrast Exam date and time: 03/30/2020 7:24 PM Age: 29 years old Clinical indication: Shortness of breath; Prior surgery; Surgery date: Post-operative (0-2 days); Surgery type: Hernia repair 1 day ago; Patient HX: SOB S/P hernia repair surgery 1 day ago. HX of splenic vein thrombosis; Additional info: 20g in right hand. 125ml [id number]/sec due to available iv access TECHNIQUE: Imaging protocol: Computed tomographic angiography of the chest with contrast. 3D rendering (Not supervised by radiologist): MIP and/or 3D reconstructed images were created by the technologist. Radiation optimization: All CT scans at this facility use at least one of these dose optimization techniques: automated exposure control; mA and/or kV adjustment per patient size (includes targeted exams where dose is matched to clinical indication); or iterative reconstruction. Contrast material: [id number]; Contrast volume: 125 ml; Contrast route: INTRAVENOUS (IV); COMPARISON: CR XR PORTABLE CHEST AP 03/30/2020 8:39 AM FINDINGS: Pulmonary arteries: Normal. No pulmonary emboli. Aorta: Unremarkable. No aortic aneurysm. No aortic dissection. Great vessels off aortic arch: Aberrant right subclavian artery. Lungs: Bilateral pulmonary infiltrates at the bases. 6 mm nodule in the anterior segment of the right upper lobe (4/15). Masslike infiltrate in the lateral segment of the right middle lobe measuring 2.6 cm. This could represent focal pneumonia or malignancy. Clinically correlate. Pleural spaces: Unremarkable. No pneumothorax. No pleural effusion. Heart: Unremarkable. No cardiomegaly. No pericardial effusion. Lymph nodes: Unremarkable. No enlarged lymph nodes. Bones/joints: Multilevel Schmorl's node formation. Soft tissues: Unremarkable. IMPRESSION: 1. Bilateral pulmonary infiltrates at the bases. 2. 6 mm nodule in the anterior segment of the right upper lobe (4/15). 3. Masslike infiltrate in the lateral segment of the right middle lobe measuring 2.6 cm. This could represent focal pneumonia or malignancy. Clinically correlate. 4. No pulmonary embolism PROCEDURE INFORMATION: Exam: CT Angiography Abdomen With Contrast Exam date and time: 03/30/2020 7:24 PM Age: 29 years old Clinical indication: Shortness of breath; Prior surgery; Surgery date: Post-operative (0-2 days); Surgery type: Hernia repair 1 day ago; Patient HX: SOB S/P hernia repair surgery 1 day ago. HX of splenic vein thrombosis; Additional info: 20g in right hand. 125ml [id number]/sec due to available iv access TECHNIQUE: Imaging protocol: Computed tomographic angiography images of the abdomen with intravenous contrast material. 3D rendering (Not supervised by radiologist): MIP and/or 3D reconstructed images were created by the technologist. Radiation optimization: All CT scans at this facility use at least one of these dose optimization techniques: automated exposure control; mA and/or kV adjustment per patient size (includes targeted exams where dose is matched to clinical indication); or iterative reconstruction. Contrast material: [id number]; Contrast volume: 125 ml; Contrast route: INTRAVENOUS (IV); COMPARISON: CR XR PORTABLE CHEST AP 03/30/2020 8:39 AM FINDINGS: Aorta: No aortic aneurysm. No aortic dissection. Celiac trunk and mesenteric arteries: No occlusion or significant stenosis. Renal arteries: No occlusion or significant stenosis. Liver: Normal. No mass. Gallbladder and bile ducts: Cholecystectomy. Pancreas: Normal. No ductal dilation. Spleen: Splenectomy. Adrenals: Normal. No mass. Kidneys and ureters: 1 cm right renal cyst. Stomach and bowel: Unremarkable. No obstruction. No mucosal thickening. Lymph nodes: Unremarkable. No enlarged lymph nodes. Intraperitoneal space: Unremarkable. No free air. No significant fluid collection. Reproductive: IUD properly positioned. Bones/joints: Unremarkable. No acute fracture. No dislocation. Soft tissues: 11 x 21 x 12 cm hematoma in the subcutaneous fat of the anterior abdominal wall. IMPRESSION: 11 x 21 x 12 cm hematoma in the subcutaneous fat of the anterior abdominal wall. Dictated and Authenticated by: Thony Jhaveri MD. Ordering:FERNY Aguirre MD
[2020-03-31] VITALS (10 sets, daily range): BP systolic 103–116; BP diastolic 70–75; PULSE 100–126; RESP 8–20; TEMP 36.4–37; O2SAT 91–98
[2020-03-31] MEDS: HYDROmorphone 2 MG/ML VIAL 1 MG IVP ×5 (00:48→20:55)
[2020-03-31] MEDS: metroNIDAZOLE 500 MG/100 ML BAG 100 MG IVPB ×3 (02:37→17:36)
[2020-03-31] MEDS: Acetaminophen 500 MG TAB 1000 MG PO ×4 (04:29→23:14)
[2020-03-31] MEDS: Ketorolac 30 MG/ML VIAL IVP ×3 (04:29→15:46)
[2020-03-31 07:18] LABS: Abs Immature Grans 0.32 10^3/uL (0.0-0.06); Absolute Basophil Count 0.15 10^3/uL (0.0-0.2); Absolute Eosinophil Count 0.24 10^3/uL (0.0-0.7); Absolute Monocyte Count 1.28 10^3/uL (0.1-0.8); Absolute Neutrophil Count 19.15 10^3/uL (1.2-6.7); Basophils % 0.7; Eosinophils % 1.1; HCT 31.4 % (36.0-46.0); HGB 10.4 g/dL (11.2-15.7); Immature Grans % 1.5; Lymphocytes % 1.1; MCH 31.6 pg (27.0-33.0); MCHC 33.1 % (32.0-36.0); MCV 95.4 fL (80-95); MPV 9.3 fL (8.0-11.0); Neutrophils % 89.6; Nucleated RBC 0 %; Platelet Count 335 10^3/uL (130-400); RBC 3.29 10^6/uL (3.93-5.22); RDW-SD 45.8 fL; WBC 21.37 10^3/uL (4.4-10.8)
[2020-03-31 07:19] LABS: Absolute Lymphocyte Count 0.24 10^3/uL (1.2-3.4)
[2020-03-31 07:33] LABS: C-Reactive Protein 9.05 mg/dL (0.0-0.3)
[2020-03-31 07:36] LABS: ALT 166 U/L (14-59); AST 78 U/L (15-37); Alkaline Phosphatase 243 U/L (46-116); Anion Gap 6.7 mmol/L (3-11); BUN 22 mg/dL (7-18); Bilirubin, Total 0.5 mg/dL (0.2-1.0); CO2 28.3 mmol/L (21.0-32.0); Calcium 8.6 mg/dL (8.5-10.1); Chloride 99 mmol/L (98-107); Glucose 122 mg/dL (74-106); Potassium 4.6 mmol/L (3.5-5.1); Sodium 134 mmol/L (136-145); Total Protein 6.2 g/dL (6.4-8.2)
[2020-03-31] MEDS: Budesonide/Formoterol 160/4.5 6 GM 60 PUFF INH IH ×2 (08:00→20:55)
[2020-03-31] MEDS: Albuterol/Ipratropium 3 ML UPD VIAL IH (08:00)
[2020-03-31 08:03] LABS: D-Dimer 1063 ng/mlFEU (<500)
[2020-03-31] MEDS: Docusate Sodium 100 MG CAP PO ×3 (08:31→20:56)
[2020-03-31] MEDS: oxyCODONE 5 MG TAB PO (08:31)
[2020-03-31] MEDS: Omeprazole 20 MG CAPCR 40 MG PO (08:31)
[2020-03-31] MEDS: Simethicone 80 MG CHEW PO (08:31)
[2020-03-31] MEDS: Citalopram 20 MG TAB 40 MG PO (08:32)
[2020-03-31] MEDS: Normal Saline Flush 10 ML SYR IVP ×7 (09:36→17:36)
[2020-03-31 11:20] LABS: HCG Qual (Urine) Negative
[2020-03-31] MEDS: VANCOMYCIN/WATER (PEG) 1.75 GM/350 ML BAG IV ×2 (11:41→23:12)
--- NOTE | 2020-03-31 14:49 | CMPROGNOTE_ITS ---
- If Service Date Differs Date of service: 03/31/20 Time of Service: 14:52 Care Management Progress Note S/O: Tena was lying in bed when CM met with her. She was very sleepy, and was not able to fully engage in conversation. She stated that she has not yet seen the MD today. She asked about the results of her chest xray, which CM deferred to her MD. CM will continue to follow. A: Tena is a 29 year old female admitted to [facility] on 03/29/20 for Incisional Hernia. P: Tena will return to the [facility] when medically cleared, with no anticipated services. CM will coordinate a ride home via [facility] when ready. She will follow up with her PCP and discharge plan of care. CM will continue to follow.
[2020-03-31] MEDS: Ondansetron 4 MG/2 ML VIAL IVP (15:55)
--- NOTE | 2020-03-31 16:23 | W.PM.PROGNOT ---
Date of Service Date of service: 03/31/20 Time of Service: 16:51 Assessment and Plan Assessment and plan (1) S/P hernia repair: Status: Acute Assessment and plan: pt has elevated WBC count adn elevated LFT's [place] [facility] [place] is not on meds for her hamatologic D/o. labs [place] [facility]. D/W hosp Will cont to look for infectious source UA/CXR neg. Patient was seen and examined this afternoon. She is up walking around. She is complaining of severe pain- It is difficult to assess her pain subjectively. She has had no fevers. There has had some soft BP's and mild tachycardia. She walked x4 this evening. She tolerated a postOP diet. She denies n/v. She says she is not passing gas. She has good BS. Her abdomen is distended - mildly. Seh does ot have any peritoneal signs. She still feels SOB. She is coughing up clear sputum. She is on 6L. CXR was neg. She does have a hx of a pulm nodilue in RUL.1.2cm. Her Mantoux reads +. She did she ID about this- they do not feel she has TB. AFB was neg. Pt also states that the day before her surgery (friday) she was having hot flashes/chills/body aches adn diarrhea. She doesn't know if she was in conctact w/ anyone who is ill. Her Covid was negative. She has had no prior DVT/PE's. She has never been hypercoagulable. She hasan't had regular medical care since her splenectomy. 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 She never had a follow up CT-but most likely this is nl postOP change from splenectomy. Clinically the patient looks good and appears to be progressing along in her normal fashion from open hernia surgery surgery repair. On paper her numbers appear to be concerning. 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 Hypoxemia is better She does have a large hematoma. Lovenox was stopped. Will check Hgb in am. If continues to drift then will need to return to the OR for evacuation of hematoma and to look for a bleeder. Subjective Subjective Interval history since last seen: Tena is doing OK. Pain is controlled. She had some acute hypoxemia yesterday. CT scan Chest/ABDo/Pelvis was done. CT scan reviewed. She was noted to have a larhe hematoma, possible pneumonia. No PE, No intrabadominal fluid collection or free air. Saturations are better this afternoon. She is down to 1 L of O2 Exam Const General: cooperative, comfortable and no acute distress Orientation: alert and oriented x3 HENMT Head: normocephalic and atraumatic Resp Effort & Inspection: normal respiratory effort Auscultation: clear to auscultation bilaterally Cardio Rate: regular rate Rhythm: regular rhythm GI Palpation: soft Other: There is a large hematoma palpated. Objective Last Vital Signs Temp 97.5 F L 03/31/20 15:33 Pulse 100 H 03/31/20 15:33 Resp 20 03/31/20 15:33 BP 116/75 03/31/20 15:33 Pulse Ox 91 L 03/31/20 15:33 Laboratory Results - last 24 hr 03/31/20 03/31/20 03/31/20 06:50 06:50 06:50 WBC 21.37 H RBC 3.29 L Hgb 10.4 L Hct 31.4 L MCV 95.4 H MCH 31.6 MCHC 33.1 RDW 13.0 Plt Count 335 MPV 9.3 Immature Gran % 1.5 Neutrophils % 89.6 Lymphocytes % 1.1 Monocytes % 6.0 Eosinophils % 1.1 Basophils % 0.7 Nucleated RBC % 0 Absolute Neutrophils 19.15 H Absolute Lymphocytes 0.24 L Absolute Monocytes 1.28 H Absolute Eosinophils 0.24 Absolute Basophils 0.15 D-Dimer Sodium 134 L Potassium 4.6 Chloride 99 Carbon Dioxide 28.3 Anion Gap 6.7 BUN 22 H Creatinine 1.0 Estimated GFR/1.73 m2 >= 60.00 Glucose 122 H Calcium 8.6 Total Bilirubin 0.5 AST 78 H ALT 166 H Alkaline Phosphatase 243 H C-Reactive Protein 9.05 H Total Protein 6.2 L Albumin 3.0 L Urine HCG, Qual 03/31/20 03/31/20 07:10 10:19 WBC RBC Hgb Hct MCV MCH MCHC RDW Plt Count MPV Immature Gran % Neutrophils % Lymphocytes % Monocytes % Eosinophils % Basophils % Nucleated RBC % Absolute Neutrophils Absolute Lymphocytes Absolute Monocytes Absolute Eosinophils Absolute Basophils D-Dimer 1063 H Sodium Potassium Chloride Carbon Dioxide Anion Gap BUN Creatinine Estimated GFR/1.73 m2 Glucose Calcium Total Bilirubin AST ALT Alkaline Phosphatase C-Reactive Protein Total Protein Albumin Urine HCG, Qual Negative
--- NOTE | 2020-03-31 18:35 | W.MEDCONSULT ---
Date of service: 03/31/20 Time of Service: 18:35 Assessment and Plan Assessment and plan (1) Aspiration pneumonia: Status: Acute Assessment and plan: Continue vancomycin/levofloxacin. Continue symbicort and nebs. Await culture results. No role for steroids. I do not feel her asthma is in acute exacerbation at this time. Encourage IS. Wean O2 as tolerated. (2) Hypoxia: Status: Acute Assessment and plan: As above (3) Atelectasis: Status: Acute Assessment and plan: The patient was instructed on doing IS 10x/hr or every commercial break. She verbalized understanding, but cites pain as a limiting factor. (4) Abdominal wall hematoma: Status: Acute Assessment and plan: Follow H/H. Defer management to general surgery. (5) S/P hernia repair: Status: Acute Assessment and plan: As above (6) Obstructive sleep apnea: Status: Chronic Assessment and plan: Will need outpatient follow up for a sleep study. History of Present Illness History of Present Illness Chief Complaint: Consult for leucocytosis and hypoxia Narrative: Ms Mcdaniel is a 29 year old female with PMHx of Payam's syndrome, s/p splenectomy, as well as h/o asthma, MONICA (not on CPAP), and morbid obesity with BMI of 42.5, who had undergone an incisional hernia repair on 03/29/2020, during which she was noted to be coughing and was suspected to have aspirated. Yesterday, she had a sudden increase in her oxygen requirement from room air to 6L of O2. General surgery consulted hospitalist medicine for evaluation of sudden hypoxic respiratory failure as well as leucocytosis. CT chest/abdomen/pelvis was obtained: PE was ruled out; however, there is evidence of RUL pneumonia as well as bibasilar atelectasis, and anterior abdominal hematoma 11 x 21 x 12 cm. The patient was initiated on empiric vancomycin/ciprofloxacin based on her allergy profile. Today, the patient feels better and is only requiring 1L of O2. She specifically denies any exposure to COVID-19. She does endorse abdominal pain, 01/26, which is making it hard for her to cough (productive of clear sputum) or take deep breaths. She has only used her incentive spirometer once or twice today - I encouraged her to use it 10x/hr. General surgery is considering evacuating her hematoma, should it worsen. 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 complicated by postOp infection in wound bed and L empyema Social History Smoking/Tobacco Use Status: Current every day Tobacco Type: cigarettes Smoking risk assessment performed?: Yes Alcohol Intake: never Drug use: Never Substance use type: does not use and marijuana Details: 17 months clean fom Methamphetamines. marijuana: t-1, 2 hits Adopted: No Caregiver/Support person: No Foster care: No Household members: significant other and family Housing: other Number of Children: 1 Communication Needs: None Do you need help understanding health information?: Rarely Sexually active: Yes Do you think of yourself as: straight/heterosexual Current gender identity: female What type of physical activity do you participate in: none Do you feel safe at home: Yes Do you feel safe in your relationship?: Yes Exam Narrative Exam Narrative: General: Pleasant obese female, uncomfortable in bed, in pain when coughing Neurological: A&Ox3, no focal deficits Psychiatric: appropriate speech pattern/content Skin: Midline abdominal incision with a wound vac; large inferior abdominal hematoma HEENT: Atraumatic, normocephalic, EOMI, MMM, large neck diameter, ?small goiter, no JVD Cardiovascular: RRR, no m/r/g, tachycardic Lungs: Diminished breath sounds B Gastrointestinal: soft, distended, see skin exam above Genitourinary: deferred Extremities: no edema BLEs Results Last Vital Signs Temp 36.4 C L 03/31/20 15:33 Pulse 115 H 03/31/20 18:32 Resp 20 02/12/21 15:33 BP 116/75 03/31/20 15:33 Pulse Ox 96 03/31/20 18:32 Labs Result diagrams: 03/31/20 06:50 03/31/20 06:50 Labs: Laboratory Results - last 24 hr 03/31/20 03/31/20 03/31/20 06:50 06:50 06:50 WBC 21.37 H RBC 3.29 L Hgb 10.4 L Hct 31.4 L MCV 95.4 H MCH 31.6 MCHC 33.1 RDW 13.0 Plt Count 335 MPV 9.3 Immature Gran % 1.5 Neutrophils % 89.6 Lymphocytes % 1.1 Monocytes % 6.0 Eosinophils % 1.1 Basophils % 0.7 Nucleated RBC % 0 Absolute Neutrophils 19.15 H Absolute Lymphocytes 0.24 L Absolute Monocytes 1.28 H Absolute Eosinophils 0.24 Absolute Basophils 0.15 D-Dimer Sodium 134 L Potassium 4.6 Chloride 99 Carbon Dioxide 28.3 Anion Gap 6.7 BUN 22 H Creatinine 1.0 Estimated GFR/1.73 m2 >= 60.00 Glucose 122 H Calcium 8.6 Total Bilirubin 0.5 AST 78 H ALT 166 H Alkaline Phosphatase 243 H C-Reactive Protein 9.05 H Total Protein 6.2 L Albumin 3.0 L Urine HCG, Qual 03/31/20 03/31/20 07:10 10:19 WBC RBC Hgb Hct MCV MCH MCHC RDW Plt Count MPV Immature Gran % Neutrophils % Lymphocytes % Monocytes % Eosinophils % Basophils % Nucleated RBC % Absolute Neutrophils Absolute Lymphocytes Absolute Monocytes Absolute Eosinophils Absolute Basophils D-Dimer 1063 H Sodium Potassium Chloride Carbon Dioxide Anion Gap BUN Creatinine Estimated GFR/1.73 m2 Glucose Calcium Total Bilirubin AST ALT Alkaline Phosphatase C-Reactive Protein Total Protein Albumin Urine HCG, Qual Negative Imaging Additional studies: CTA chest/abdomen/pelvis: 1. No evidence of pulmonary embolism. Bibasilar infiltrates versus atelectasis. Rounded airspace opacity in the right upper lobe could be infectious, inflammatory or neoplastic. clinical correlation and follow-up is recommended. 2. Anterior abdominal wall postsurgical hematoma, measuring up to 21 cm. No acute abnormalities are seen within the abdominal or pelvic cavity. No evidence of hepatic vein thrombosis. CXR :No acute pulmonary findings.
[2020-03-31] MEDS: levoFLOXacin 750 MG/150 ML BAG 100 MG IVPB (20:54)
[2020-03-31] MEDS: Polyethylene Glycol 3350 17 GM PACKET PO (20:55)
[2020-03-31] MEDS: Trihexyphenidyl 2 MG TAB 5 MG PO (23:12)
[2020-03-31] MEDS: Gabapentin 300 MG CAP PO (23:14)
[2020-04-01] VITALS (27 sets, daily range): BP systolic 86–130; BP diastolic 55–81; PULSE 80–102; RESP 4–28; TEMP 36.2–37.5; O2SAT 86–98
[2020-04-01] MEDS: HYDROmorphone 2 MG/ML VIAL 1 MG IVP ×7 (01:05→21:47)
[2020-04-01] MEDS: metroNIDAZOLE 500 MG/100 ML BAG 100 MG IVPB ×3 (01:54→17:30)
[2020-04-01] MEDS: Acetaminophen 500 MG TAB 1000 MG PO ×4 (03:19→21:23)
[2020-04-01 07:07] LABS: Abs Immature Grans 0.44 10^3/uL (0.0-0.06); Absolute Basophil Count 0.14 10^3/uL (0.0-0.2); Absolute Eosinophil Count 1.42 10^3/uL (0.0-0.7); Absolute Lymphocyte Count 0.48 10^3/uL (1.2-3.4); Absolute Monocyte Count 1.09 10^3/uL (0.1-0.8); Basophils % 1.1; HCT 26.9 % (36.0-46.0); HGB 9.1 g/dL (11.2-15.7); Immature Grans % 3.4; Lymphocytes % 3.7; MCHC 33.8 % (32.0-36.0); MCV 94.7 fL (80-95); MPV 9.3 fL (8.0-11.0); Monocytes % 8.5; Neutrophils % 72.3; Nucleated RBC 0 %; Platelet Count 348 10^3/uL (130-400); RBC 2.84 10^6/uL (3.93-5.22); RDW 13.4 % (11.7-14.6); RDW-SD 45.9 fL; WBC 12.87 10^3/uL (4.4-10.8)
[2020-04-01 07:13] LABS: Absolute Neutrophil Count 9.31 10^3/uL (1.2-6.7)
[2020-04-01 07:39] LABS: Anion Gap 5.5 mmol/L (3-11); BUN 15 mg/dL (7-18); CO2 28.5 mmol/L (21.0-32.0); CREATININE 0.8 mg/dL (0.55-1.02); Calcium 8.5 mg/dL (8.5-10.1); Chloride 104 mmol/L (98-107); Glucose 91 mg/dL (74-106); Potassium 4.2 mmol/L (3.5-5.1); Sodium 138 mmol/L (136-145)
[2020-04-01] MEDS: Budesonide/Formoterol 160/4.5 6 GM 60 PUFF INH IH ×2 (08:01→21:29)
[2020-04-01] MEDS: Normal Saline Flush 10 ML SYR IVP ×3 (08:10→21:48)
[2020-04-01] MEDS: Omeprazole 20 MG CAPCR 40 MG PO (08:11)
[2020-04-01] MEDS: Citalopram 20 MG TAB 40 MG PO (08:11)
[2020-04-01] MEDS: Docusate Sodium 100 MG CAP PO ×2 (08:11→21:25)
[2020-04-01] MEDS: Polyethylene Glycol 3350 17 GM PACKET PO ×2 (08:11→21:23)
--- NOTE | 2020-04-01 10:07 | PDOC.CMPRO ---
Care Management Progress Note S/O: Tena continues to be closely monitored; Med Consult initiated by surgery due to elevated WBCs and LFTs. Per MD, WBC is now coming down with medication adjustments, source remains unknown. CM will continue to follow. A: Tena is a 29 year old female admitted to [facility] on 03/29/20 for Incisional Hernia. P: Tena will return to the [facility] when medically cleared, with no anticipated services. CM will coordinate a ride home via [facility] when ready. She will follow up with her PCP and discharge plan of care. CM will continue to follow.
[2020-04-01] MEDS: oxyCODONE 5 MG TAB PO ×2 (10:36→22:45)
[2020-04-01 12:14] LABS: Vancomycin, Trough 10.5 ug/mL (10.0-20.0)
--- NOTE | 2020-04-01 12:33 | W.PM.PROGNOT ---
Date of Service Date of service: 04/01/20 Time of Service: 12:33 Assessment and Plan Assessment and plan (1) Abdominal wall hematoma: Status: Acute Assessment and plan: Marianahe abdominal wall hematoma. Her ecchymosis is extensive. Her Hgb and HCT have dropped slightly again. 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 At this point I recommend washout of the hematoma to make sure that there isn't any active bleeding anymore. I have discussed surgery with Matteo. Risks, benefits and complications were reviewed. She is agreable to proceed with surgery I will type and screen matteo and give her a blood transfusion as well. 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 She is tired. No Bm's yet. Pain is well controlled. Fells like her stomach is larger today Exam Const General: cooperative, comfortable and no acute distress Orientation: alert and oriented x3 HENMT Head: normocephalic and atraumatic Resp Effort & Inspection: normal respiratory effort Auscultation: clear to auscultation bilaterally Cardio Rate: regular rate Rhythm: regular rhythm Heart Sounds: no gallops, no murmurs and no rubs GI Inspection: distended Palpation: soft and tender (apprpriatly tender to palpation) Auscultation: normal bowel sounds Other: Large area of echymosis extending from rib cage down to pubic symphasis Objective Last Vital Signs Temp 97.2 F L 04/01/20 07:48 Pulse 80 04/01/20 07:48 Resp 18 04/01/20 07:48 BP 112/66 04/01/20 07:48 Pulse Ox 94 04/01/20 08:41 Laboratory Results - last 24 hr 04/01/20 04/01/20 04/01/20 06:47 06:47 11:40 WBC 12.87 H D RBC 2.84 L Hgb 9.1 L Hct 26.9 L MCV 94.7 MCH 32.0 MCHC 33.8 RDW 13.4 Plt Count 348 MPV 9.3 Immature Gran % 3.4 Neutrophils % 72.3 Lymphocytes % 3.7 Monocytes % 8.5 Eosinophils % 11.0 Basophils % 1.1 Nucleated RBC % 0 Absolute Neutrophils 9.31 H Absolute Lymphocytes 0.48 L Absolute Monocytes 1.09 H Absolute Eosinophils 1.42 H Absolute Basophils 0.14 Sodium 138 Potassium 4.2 Chloride 104 Carbon Dioxide 28.5 Anion Gap 5.5 BUN 15 D Creatinine 0.8 Estimated GFR/1.73 m2 >= 60.00 Glucose 91 Calcium 8.5 Vancomycin Trough 10.5
[2020-04-01] MEDS: VANCOMYCIN/WATER (PEG) 1.75 GM/350 ML BAG IV (12:49)
--- NOTE | 2020-04-01 14:29 | ROE_ITS ---
Date of service: 04/01/20 Time of Service: 14:30 Operative Note Operative Note DATE OF PROCEDURE: 03/29/20 PRE-OP DIAGNOSIS: Post-operative abdominal wall hematoma POST-OP DIAGNOSIS: same PROCEDURE: Exploration and evacuation of hematoma SURGEON: Xochilt Patel LICENSED FUNERAL DIRECTOR AND EMBALMER: Carla Felix ANESTHESIA: GETA (ASA 3E/Javier Esquivel CRNA) ESTIMATED BLOOD LOSS: 0 PATHOLOGY: none sent COMPLICATIONS: None Patient was transported to: PACU Patient's condition: stable Indications: Tena is a pleasant 29 year old who underwent an open repair of a large incisional hernia. She had a significant drop in Hgb after surgery and CT scan revealed a large hematoma. Her Hgb did continue to drift slightly over the next 2 days and so I recommended return to surgery fopr washout and to make sure there wasn't any active bleeding. 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 The patient doesn't make blood cells like normal. Findings: 1500 cc of old blood and clot No active bleeding Procedure Description: After informed consent was obtained the patient was taken to the operating room and placed in the supine position. Monitors were applied and a timeout was done. The patient's name, date of , procedure to be done, allergies to medications, DVT prophylaxis, antibiotic prophylaxis were reviewed. Fire risk was assessed. Next the patient was placed under general anesthesia and intubated without difficulty. The patient's abdomen was then prepped and draped in a sterile surgical fashion. The midline incision sutures were cut at the most superior portion. Old blood was encountered. The blood was suctioned out. As the blood was being suctioned out the rest of the incision was opened. Clot was removed from the cavity. There was a total of 1500 cc of blood and clots which was removed. The wound was then irrigated with a liter and a half of normal saline. The subcutaneous tissues were inspected and again no active bleeding was identified. There was mild oozing noted from the skin edges. The edges were cauterized. 300 mL of FloSeal were then injected into the cavity to help stop the oozing. Next 0 Prolene sutures were placed along the incision. The ends of the suture were knotted. A Kerlix moist Kerlix was then placed into the cavity. It was covered with a dry Kerlix and ABDs. The ABDs were secured with tape. The tails of the sutures were secured to the abdominal wall with Mastisol and Steri- Strips. The skin was then cleaned and dried. Sponge, instrument and needle counts were correct at the end of the case x2. The patient was woken up extubated and taken back to PACU in stable condition. Once recovered in PACU she will go back upstairs to [facility]. There were no immediate complications.
[2020-04-01] MEDS: Lactated Ringers 1,000 ML 30 ML IV (14:31)
--- NOTE | 2020-04-01 17:08 | NUR.NOTE ---
Nursing Note: Back in room from OR at 1632, patient complains of 10/10 abd pain. See shift assessment for further info.
--- NOTE | 2020-04-01 18:29 | W.PM.PROGNOT ---
Date of Service Date of service: 04/01/20 Time of Service: 18:29 Assessment and Plan Assessment and plan (1) Aspiration pneumonia: Status: Acute Assessment and plan: Given her history of sulfa and cephalosporin and penicillin allergies makes antibiotic regimen somewhat complex. She is currently on vancomycin along with Levaquin. I would probably pick clindamycin for treatment of an aspiration pneumonitis however she seems to be responding to the current regimen. Of note she is also been on metronidazole per surgery's orders. As the patient is clinically improving from an aspiration pneumonitis I will continue current antibiotic regimen. I think a 5-day course antibiotic should be sufficient. Prior to discharge we will get a follow-up chest x-ray. I would encourage her to be ambulatory as soon as allowed by surgical service. She has an incentive spirometer I will add a flutter valve to her pulmonary regimen. Because of her diffuse wheezing I am going to put her on scheduled doses of DuoNeb treatments 4 times a day with as needed use of albuterol in between. She is already on Symbicort twice a day. Given her recent surgery I am reluctant to give her systemic corticosteroids unless she really has severe respiratory problems requiring steroids. Qualifiers: Aspiration pneumonia type: due to vomit Laterality: bilateral Lung location: lower lobe of lung Qualified Code(s): J69.0 - Pneumonitis due to inhalation of food and vomit (2) Atelectasis: Status: Acute Assessment and plan: As above. Continue incentive spirometry and Acapella treatments along with bronchodilators. Encourage early mobilization and ambulation. (3) Abdominal wall hematoma: Status: Acute Assessment and plan: Status post laparotomy and evacuation hematoma earlier today. Qualifiers: Encounter type: sequela Qualified Code(s): S30.1XXS - Contusion of abdominal wall, sequela (4) S/P hernia repair: Status: Acute Assessment and plan: Management as per surgical service. (5) Obstructive sleep apnea: Status: Chronic Assessment and plan: Will need outpatient follow up for a sleep study. Subjective Subjective Interval history since last seen: Patient went back to the OR today for laparotomy to drain an abdominal wall hematoma. She is back to her room down and is doing better. Still has some incisional abdominal pain but improved over the pain she was experiencing prior to the evacuation hematoma. She is coughing up some clear mucus. She currently on multiple antibiotics for aspiration pneumonitis. This event occurred postoperatively after her initial abdominal wall repair. Chest x-ray from March 30 showed no infiltrates but CT scan of the chest and abdomen demonstrated bibasilar atelectasis versus infiltrates and small patchy densities in the right upper lobe. Patient states she has known lung nodules for which she is supposed to see a surgeon to have these either biopsied or removed. She is currently on vancomycin along with Levaquin and Flagyl. Clinically she has been improving from the pneumonitis. Prior to her laparotomy and hematoma evacuation today she was only on 1 L/min per nasal cannula. And at time she was on room air. She is afebrile and her leukocytosis is improved. Her WBC count is down to 12,000 from a peak of 27,003 days ago. Exam Narrative Exam Narrative: Obese pleasant female lying in bed playing with her phone. No distress. She is alert and oriented person place time circumstance. Lungs with scattered expiratory wheezes no rhonchi no rales. Heart regular rate and rhythm. Abdomen is bandaged she has abdominal wall bruising. She has hypoactive bowel sounds. Objective Last Vital Signs Temp 36.4 C L 04/01/20 16:43 Pulse 93 H 04/01/20 16:43 Resp 20 04/01/20 16:43 BP 107/71 04/01/20 16:43 Pulse Ox 97 04/01/20 16:43 Laboratory Results - last 24 hr 04/01/20 04/01/20 04/01/20 06:47 06:47 06:57 WBC 12.87 H D RBC 2.84 L Hgb 9.1 L Hct 26.9 L MCV 94.7 MCH 32.0 MCHC 33.8 RDW 13.4 Plt Count 348 MPV 9.3 Immature Gran % 3.4 Neutrophils % 72.3 Lymphocytes % 3.7 Monocytes % 8.5 Eosinophils % 11.0 Basophils % 1.1 Nucleated RBC % 0 Absolute Neutrophils 9.31 H Absolute Lymphocytes 0.48 L Absolute Monocytes 1.09 H Absolute Eosinophils 1.42 H Absolute Basophils 0.14 Sodium 138 Potassium 4.2 Chloride 104 Carbon Dioxide 28.5 Anion Gap 5.5 BUN 15 D Creatinine 0.8 Estimated GFR/1.73 m2 >= 60.00 Glucose 91 Calcium 8.5 Vancomycin Trough Patient ABO/Rh O Positive Antibody Screen Negative 04/01/20 11:40 WBC RBC Hgb Hct MCV MCH MCHC RDW Plt Count MPV Immature Gran % Neutrophils % Lymphocytes % Monocytes % Eosinophils % Basophils % Nucleated RBC % Absolute Neutrophils Absolute Lymphocytes Absolute Monocytes Absolute Eosinophils Absolute Basophils Sodium Potassium Chloride Carbon Dioxide Anion Gap BUN Creatinine Estimated GFR/1.73 m2 Glucose Calcium Vancomycin Trough 10.5 Patient ABO/Rh Antibody Screen
[2020-04-01] MEDS: Lactated Ringers 1,000 ML 1000 ML IV (19:37)
[2020-04-01] MEDS: levoFLOXacin 750 MG/150 ML BAG 100 MG IVPB (21:29)
[2020-04-01] MEDS: Albuterol/Ipratropium 3 ML UPD VIAL IH (21:33)
[2020-04-01] MEDS: Trihexyphenidyl 2 MG TAB 5 MG PO (21:51)
[2020-04-01] MEDS: Gabapentin 300 MG CAP PO (22:45)
[2020-04-01] MEDS: VANCOMYCIN/WATER (PEG) 1.5 GM/300 ML BAG IV (23:23)
[2020-04-02] VITALS (14 sets, daily range): BP systolic 88–126; BP diastolic 59–80; PULSE 84–102; RESP 1–28; TEMP 36.7–37.4; O2SAT 92–98
[2020-04-02] MEDS: HYDROmorphone 2 MG/ML VIAL 1 MG IVP ×7 (00:29→20:40)
[2020-04-02] MEDS: Normal Saline Flush 10 ML SYR IVP ×8 (00:29→20:40)
[2020-04-02] MEDS: metroNIDAZOLE 500 MG/100 ML BAG 100 MG IVPB (02:12)
[2020-04-02] MEDS: Zolpidem 5 MG TAB PO (02:12)
[2020-04-02] MEDS: Acetaminophen 500 MG TAB 1000 MG PO ×4 (03:22→21:27)
[2020-04-02 07:10] LABS: HCT 24.9 % (36.0-46.0); HGB 8.3 g/dL (11.2-15.7); MCH 32.3 pg (27.0-33.0); MCHC 33.3 % (32.0-36.0); MCV 96.9 fL (80-95); MPV 8.6 fL (8.0-11.0); Nucleated RBC 1 %; RBC 2.57 10^6/uL (3.93-5.22); RDW 13.8 % (11.7-14.6); RDW-SD 48.5 fL; WBC 13.88 10^3/uL (4.4-10.8)
[2020-04-02 07:23] LABS: ALT 102 U/L (14-59); AST 42 U/L (15-37); Albumin 2.6 g/dL (3.4-5.0); Alkaline Phosphatase 258 U/L (46-116); Anion Gap 5.2 mmol/L (3-11); BUN 13 mg/dL (7-18); Bilirubin, Total 0.4 mg/dL (0.2-1.0); CO2 30.8 mmol/L (21.0-32.0); CREATININE 0.7 mg/dL (0.55-1.02); Calcium 8.4 mg/dL (8.5-10.1); Chloride 105 mmol/L (98-107); Glucose 91 mg/dL (74-106); Sodium 141 mmol/L (136-145); Total Protein 5.5 g/dL (6.4-8.2)
[2020-04-02 07:38] LABS: Absolute Neutrophil Count 10.83 10^3/uL (1.2-6.7); Bands % 3; Platelet Count 435 10^3/uL (130-400)
[2020-04-02 07:39] LABS: Absolute Basophil Count 0.14 10^3/uL (0.0-0.2); Absolute Eosinophil Count 0.42 10^3/uL (0.0-0.7); Absolute Lymphocyte Count 0.69 10^3/uL (1.2-3.4); Absolute Monocyte Count 1.25 10^3/uL (0.1-0.8); Diff Comment Manual Differential; Hypochromasia 1+; Metamyelocytes % 1; Myelocytes % 3; Polychromasia Present
[2020-04-02] MEDS: Albuterol/Ipratropium 3 ML UPD VIAL IH ×3 (08:14→16:50)
[2020-04-02] MEDS: oxyCODONE 5 MG TAB PO ×2 (08:36→14:34)
[2020-04-02] MEDS: Citalopram 20 MG TAB 40 MG PO (08:36)
[2020-04-02] MEDS: Omeprazole 20 MG CAPCR 40 MG PO (08:36)
[2020-04-02] MEDS: Polyethylene Glycol 3350 17 GM PACKET PO ×2 (08:37→19:35)
[2020-04-02] MEDS: Docusate Sodium 100 MG CAP PO ×3 (08:37→19:36)
[2020-04-02] MEDS: Budesonide/Formoterol 160/4.5 6 GM 60 PUFF INH IH ×2 (10:18→19:37)
[2020-04-02] MEDS: Clindamycin 300 MG CAP 600 MG PO ×3 (11:19→19:36)
[2020-04-02 12:16] LABS: HGB 8.1 g/dL (11.2-15.7)
--- NOTE | 2020-04-02 13:03 | PGE_ITS ---
Date of Service Date of service: 04/02/20 Time of Service: 13:03 Assessment and Plan Assessment and plan (1) Obstructive sleep apnea: Status: Chronic (2) Abdominal wall hematoma: Status: Acute Assessment and plan: POD #1 from evacuation of large hematoma. Dressing had serosanguinous discharge today when it was changed. Hgb and HCT trended down again. Recheck donw at 12:00 showed stable HCT. Will continue to watch Qualifiers: Encounter type: sequela Qualified Code(s): S30.1XXS - Contusion of abdominal wall, sequela (3) Aspiration pneumonia: Status: Acute Assessment and plan: ABX tapered down to Clindamycin by Dr. Baker. Still with a WBC count but trending down Qualifiers: Aspiration pneumonia type: due to vomit Laterality: bilateral Lung location: lower lobe of lung Qualified Code(s): J69.0 - Pneumonitis due to inh alation of food and vomit (4) S/P hernia repair: Status: Acute Assessment and plan: POD #4 (5) Ye syndrome: Status: Chronic (6) DVT prophylaxis: Status: Acute Assessment and plan: I have been holding her Lovenox because of her Hgb and Hct trending down. She is up and walking and has SCD's on while in bed. If Hgb Hct are stable tomorrow then will restart lovenox Subjective Subjective Interval history since last seen: Yamilex feels better today. She is concerned about going home with a big gaping wound. I did tell her that the plan is to close the incision at the bedside if possible in 3 days. She reports no BM yet. She has passed flatus. She is eating without nausea or vomiting. She continues to fixate on her Dilaudid pain medication and getting it every 2 hours. She tells me that her pain is 6 out of 10 but she is playing a game on her phone no grimacing. I am concerned because she has a history of drug abuse. Her hemoglobin did again drop slightly to 8.3. Her hematocrit dropped to 24.9. The dressing was changed by nursing staff this morning prior to me coming in. She states there was some serosanguineous drainage on the dressing but no acute bleeding. Dressing was replaced. The patient does have a binder on and she does state that that feels better. Exam Const General: cooperative, comfortable and no acute distress Orientation: alert and oriented x3 HENMT Head: normocephalic and atraumatic Resp Effort & Inspection: normal respiratory effort Auscultation: clear to auscultation bilaterally Cardio Rate: regular rate Rhythm: regular rhythm GI Palpation: soft and nontender (when patient is distracted) Auscultation: normal bowel sounds Other: dressing is intact Abdomen image: 1. open midline incision Objective Last Vital Signs Temp 98.4 F 04/02/20 08:38 Pulse 93 H 04/02/20 12:04 Resp 12 04/02/20 12:04 BP 126/80 04/02/20 08:38 Pulse Ox 98 04/02/20 12:04 Laboratory Results - last 24 hr 04/01/20 04/02/20 04/02/20 06:57 07:00 07:00 WBC 13.88 H RBC 2.57 L Hgb 8.3 L Hct 24.9 L MCV 96.9 H MCH 32.3 MCHC 33.3 RDW 13.8 Plt Count 435 H MPV 8.6 Immature Gran % See Differential Neutrophils % 75.0 Band Neutrophils % 3 Lymphocytes % 5.0 Monocytes % 9.0 Eosinophils % 3.0 Basophils % 1.0 Metamyelocytes % 1 Myelocytes % 3 Nucleated RBC % 1 Absolute Neutrophils 10.83 H Absolute Lymphocytes 0.69 L Absolute Monocytes 1.25 H Absolute Eosinophils 0.42 Absolute Basophils 0.14 RBC Morphology See below Polychromasia Present Hypochromasia 1+ Sodium 141 Potassium 4.0 Chloride 105 Carbon Dioxide 30.8 Anion Gap 5.2 BUN 13 Creatinine 0.7 Estimated GFR/1.73 m2 >= 60.00 Glucose 91 Calcium 8.4 L Total Bilirubin 0.4 AST 42 H ALT 102 H Alkaline Phosphatase 258 H Total Protein 5.5 L Albumin 2.6 L Vancomycin Trough Patient ABO/Rh O Positive Antibody Screen Negative 04/02/20 04/02/20 04/02/20 12:00 13:00 15:00 WBC RBC Hgb 8.1 L Hct MCV MCH MCHC RDW Plt Count MPV Immature Gran % Neutrophils % Band Neutrophils % Lymphocytes % Monocytes % Eosinophils % Basophils % Metamyelocytes % Myelocytes % Nucleated RBC % Absolute Neutrophils Absolute Lymphocytes Absolute Monocytes Absolute Eosinophils Absolute Basophils RBC Morphology Polychromasia Hypochromasia Sodium Potassium Chloride Carbon Dioxide Anion Gap BUN Creatinine Estimated GFR/1.73 m2 Glucose Calcium Total Bilirubin AST ALT Alkaline Phosphatase Total Protein Albumin Vancomycin Trough Cancelled Cancelled Patient ABO/Rh Antibody Screen 04/02/20 17:00 WBC RBC Hgb Hct MCV MCH MCHC RDW Plt Count MPV Immature Gran % Neutrophils % Band Neutrophils % Lymphocytes % Monocytes % Eosinophils % Basophils % Metamyelocytes % Myelocytes % Nucleated RBC % Absolute Neutrophils Absolute Lymphocytes Absolute Monocytes Absolute Eosinophils Absolute Basophils RBC Morphology Polychromasia Hypochromasia Sodium Potassium Chloride Carbon Dioxide Anion Gap BUN Creatinine Estimated GFR/1.73 m2 Glucose Calcium Total Bilirubin AST ALT Alkaline Phosphatase Total Protein Albumin Vancomycin Trough Cancelled Patient ABO/Rh Antibody Screen
[2020-04-02] MEDS: Simethicone 80 MG CHEW PO (14:35)
--- NOTE | 2020-04-02 16:08 | W.PM.PROGNOT ---
Date of Service Date of service: 04/02/20 Time of Service: 16:08 Assessment and Plan Assessment and plan (1) Aspiration pneumonia: Status: Acute Assessment and plan: Improving. Antibiotics consolidated to oral clindamycin. I would treat with antibiotics for 3 more days and then check a follow-up chest x-ray early this week. Continue pulmonary toiletry with I-S and Acapella. Continue scheduled DuoNeb treatments as this seems to have improved her coughing and dyspnea and wheezing. Qualifiers: Aspiration pneumonia type: due to vomit Laterality: bilateral Lung location: lower lobe of lung Qualified Code(s): J69.0 - Pneumonitis due to inhalation of food and vomit (2) Atelectasis: Status: Acute Assessment and plan: As above. Continue incentive spirometry and Acapella treatments along with bronchodilators. Encourage early mobilization and ambulation. (3) Abdominal wall hematoma: Status: Acute Assessment and plan: Status post laparotomy and evacuation hematoma yesterday management as per surgery.. Qualifiers: Encounter type: sequela Qualified Code(s): S30.1XXS - Contusion of abdominal wall, sequela (4) S/P hernia repair: Status: Acute Assessment and plan: Management as per surgical service. (5) Obstructive sleep apnea: Status: Chronic Assessment and plan: Will need outpatient follow up for a sleep study. (6) Ye syndrome: Status: Chronic Assessment and plan: This is generally a warm agglutinin hemolytic anemia. I will obtain a phone consult tomorrow with her novelty twister tender at [facility]. I am not sure how much this is contributed to her bleeding complications with her abdominal hematoma. Subjective Subjective Interval history since last seen: Overall patient not having a good day. States she still has a lot of pain over her incisional site over the upper abdomen. She now has a abdominal elastic binder over her dressing. She does not appear to be short of breath and oxygen saturation is 92 to 98%. She is currently on room air. She has been receiving DuoNeb treatments for bronchospasm which seems to be better today. She is not coughing up any purulent sputum. I switch her antibiotics and consolidated him to oral clindamycin 600 mg p.o. qid for aspiration pneumonitis. Encourage her to use her incentive spirometry and her Acapella. With respect to her abdominal hematoma she has a lot of bruising around her abdomen as well as her upper thighs. I think this is blood tracking from her abdominal wall hematoma. Her hemoglobin is dropped a bit today down to 8.3 this morning repeat 1 at noon was 8.1. She is not on a enoxaparin or heparin for DVT prophylaxis secondary to her recent abdominal wound bleeding. Enoxaparin have been ordered on admission but has been placed on hold since the development of her abdominal wall hematoma. However she is using SCDs and LEONOR hose. She is complaining of a sore on her tongue. This looks like an aphthous ulcer. Exam Narrative Exam Narrative: Young female lying in bed looking at her phone. She is alert and oriented person place time circumstance. Affect is somewhat depressed. HEENT is remarkable for aphthous ulcer over the right lateral aspect of her anterior tongue. Lungs are clear to auscultation Heart regular rate and rhythm Abdomen is obese soft with tenderness over the incisional wound. Dressing is in place remains dry. Patient has an elastic abdominal binder over her dressing. Legs are obese but soft nontender no swelling or calf tenderness. SCDs were off when I went into the room and I replaced them. I reminded the patient she needs to have the SCDs on at all times when she is not ambulating. Even if she is just sitting in a chair she needs to wear them. Objective Last Vital Signs Temp 37.2 C 04/02/20 15:45 Pulse 95 H 04/02/20 15:45 Resp 20 04/02/20 15:45 BP 98/65 L 04/02/20 15:45 Pulse Ox 92 04/02/20 15:45 Laboratory Results - last 24 hr 04/02/20 04/02/20 04/02/20 07:00 07:00 12:00 WBC 13.88 H RBC 2.57 L Hgb 8.3 L 8.1 L Hct 24.9 L MCV 96.9 H MCH 32.3 MCHC 33.3 RDW 13.8 Plt Count 435 H MPV 8.6 Immature Gran % See Differential Neutrophils % 75.0 Band Neutrophils % 3 Lymphocytes % 5.0 Monocytes % 9.0 Eosinophils % 3.0 Basophils % 1.0 Metamyelocytes % 1 Myelocytes % 3 Nucleated RBC % 1 Absolute Neutrophils 10.83 H Absolute Lymphocytes 0.69 L Absolute Monocytes 1.25 H Absolute Eosinophils 0.42 Absolute Basophils 0.14 RBC Morphology See below Polychromasia Present Hypochromasia 1+ Sodium 141 Potassium 4.0 Chloride 105 Carbon Dioxide 30.8 Anion Gap 5.2 BUN 13 Creatinine 0.7 Estimated GFR/1.73 m2 >= 60.00 Glucose 91 Calcium 8.4 L Total Bilirubin 0.4 AST 42 H ALT 102 H Alkaline Phosphatase 258 H Total Protein 5.5 L Albumin 2.6 L Vancomycin Trough 04/02/20 04/02/20 04/02/20 13:00 15:00 17:00 WBC RBC Hgb Hct MCV MCH MCHC RDW Plt Count MPV Immature Gran % Neutrophils % Band Neutrophils % Lymphocytes % Monocytes % Eosinophils % Basophils % Metamyelocytes % Myelocytes % Nucleated RBC % Absolute Neutrophils Absolute Lymphocytes Absolute Monocytes Absolute Eosinophils Absolute Basophils RBC Morphology Polychromasia Hypochromasia Sodium Potassium Chloride Carbon Dioxide Anion Gap BUN Creatinine Estimated GFR/1.73 m2 Glucose Calcium Total Bilirubin AST ALT Alkaline Phosphatase Total Protein Albumin Vancomycin Trough Cancelled Cancelled Cancelled
[2020-04-02] MEDS: Ondansetron 4 MG/2 ML VIAL IVP (16:38)
--- NOTE | 2020-04-02 19:03 | CMPROGNOTE_ITS ---
Care Management Progress Note S/O: Tena continues to be closely monitored; Med Consult initiated by surgery due to elevated suspected aspiration pneumonia. On nebs, vanco, leviquin and flagyl; per MD antibiotics reduced to oral clindaycin. She will have repeat chest xray and remain on abx at this time. Due to Payam's syndrome; phone consult tomorrow with her gunner's mate at [facility] anticipated per . CM will continue to follow. A: Tena is a 29 year old female admitted to [facility] on 03/29/20 for Incisional Hernia. P: Tena will return to the [facility] when medically cleared, with no anticipated services. She will have a referral for an outpatient sleep study. CM will coordinate a ride home via [facility] when ready. She will follow up with her PCP, community based providers and discharge plan of care. CM will continue to follow.
[2020-04-02] MEDS: Gabapentin 300 MG CAP PO (21:26)
[2020-04-02] MEDS: Trihexyphenidyl 2 MG TAB 5 MG PO (21:27)
[2020-04-03] MEDS: HYDROmorphone 2 MG/ML VIAL 1 MG IVP ×5 (01:07→20:49)
[2020-04-03] MEDS: oxyCODONE 5 MG TAB PO ×4 (01:07→23:44)
[2020-04-03] MEDS: Normal Saline Flush 10 ML SYR IVP ×6 (01:08→20:50)
[2020-04-03] MEDS: Zolpidem 5 MG TAB PO (02:23)
[2020-04-03] MEDS: Acetaminophen 500 MG TAB 1000 MG PO ×4 (04:43→22:28)
[2020-04-03 07:46] LABS: Abs Immature Grans 0.89 10^3/uL (0.0-0.06); HCT 26.4 % (36.0-46.0); HGB 8.8 g/dL (11.2-15.7); MCH 32.6 pg (27.0-33.0); MCHC 33.3 % (32.0-36.0); MCV 97.8 fL (80-95); MPV 8.8 fL (8.0-11.0); Nucleated RBC 4 %; RDW 14.3 % (11.7-14.6); RDW-SD 49.1 fL; WBC 19.48 10^3/uL (4.4-10.8)
[2020-04-03 08:06] LABS: ALT 93 U/L (14-59); AST 49 U/L (15-37); Albumin 2.7 g/dL (3.4-5.0); Alkaline Phosphatase 269 U/L (46-116); Anion Gap 5.3 mmol/L (3-11); BUN 11 mg/dL (7-18); Bilirubin, Total 0.5 mg/dL (0.2-1.0); C-Reactive Protein 2.98 mg/dL (0.0-0.3); CO2 28.7 mmol/L (21.0-32.0); CREATININE 0.7 mg/dL (0.55-1.02); Calcium 8.3 mg/dL (8.5-10.1); Chloride 103 mmol/L (98-107); Glucose 88 mg/dL (74-106); Potassium 4.2 mmol/L (3.5-5.1); Sodium 137 mmol/L (136-145); Total Protein 5.4 g/dL (6.4-8.2)
[2020-04-03] MEDS: Polyethylene Glycol 3350 17 GM PACKET PO (08:09)
[2020-04-03] MEDS: Docusate Sodium 100 MG CAP PO ×3 (08:10→20:47)
[2020-04-03] MEDS: Omeprazole 20 MG CAPCR 40 MG PO (08:10)
[2020-04-03] MEDS: Citalopram 20 MG TAB 40 MG PO (08:11)
[2020-04-03] MEDS: Clindamycin 300 MG CAP 600 MG PO ×3 (08:11→16:52)
[2020-04-03] MEDS: Budesonide/Formoterol 160/4.5 6 GM 60 PUFF INH IH ×2 (08:17→20:48)
[2020-04-03 08:21] LABS: Absolute Eosinophil Count 3.31 10^3/uL (0.0-0.7); Absolute Lymphocyte Count 0.97 10^3/uL (1.2-3.4); Absolute Monocyte Count 0.97 10^3/uL (0.1-0.8); Absolute Neutrophil Count 13.05 10^3/uL (1.2-6.7); Bands % 11; Metamyelocytes % 3; Myelocytes % 3; Platelet Count 524 10^3/uL (130-400)
[2020-04-03 08:22] LABS: Basophilic Stippling Present; Diff Comment Manual Differential; Howell-Jolly Bodies Present; Polychromasia Present
[2020-04-03 08:23] LABS: Poikilocytes 2+
[2020-04-03 08:36] VITALS: BP 99/67; PULSE 83; RESP 17; TEMP 36.7; O2SAT 91
--- NOTE | 2020-04-03 09:00 | PGE_ITS ---
Date of Service Date of service: 04/03/20 Time of Service: 07:30 Assessment and Plan Assessment and plan (1) Obstructive sleep apnea: Status: Chronic (2) Abdominal wall hematoma: Status: Acute Assessment and plan: POD #2 from evacuation of large hematoma. Wound is open and covered. Will continue to watch for possible bleeding. Will close with sutures, which are in place once able. Pain is currently well managed. Qualifiers: Encounter type: sequela Qualified Code(s): S30.1XXS - Contusion of abdominal wall, sequela (3) Aspiration pneumonia: Status: Acute Assessment and plan: ABX tapered down to Clindamycin by Dr. Baker. On room air. Strongly encouraged continued pulmonary toilet Ambulation throughout the day. Nsg will monitor O2 sats. with activity. Qualifiers: Aspiration pneumonia type: due to vomit Laterality: bilateral Lung location: lower lobe of lung Qualified Code(s): J69.0 - Pneumonitis due to inhalation of food and vomit (4) S/P hernia repair: Status: Acute Assessment and plan: POD #5 (5) Ye syndrome: Status: Chronic (6) DVT prophylaxis: Status: Acute Subjective Subjective Interval history since last seen: Patient reports she is feeling pretty well today. She expresses some abdominal pain. Denies any feelings of SOB. Continues to have a persistent cough. Exam Const General: cooperative, healthy appearing and comfortable Orientation: alert and oriented x3 Resp Effort & Inspection: normal respiratory effort, no audible wheezes and cough Objective Last Vital Signs Temp 36.7 C 04/03/20 08:36 Pulse 83 04/03/20 08:36 Resp 17 04/03/20 08:36 BP 99/67 L 04/03/20 08:36 Pulse Ox 91 L 04/03/20 08:36 Laboratory Results - last 24 hr 04/02/20 04/02/20 04/03/20 12:00 17:00 07:20 WBC RBC Hgb 8.1 L Hct MCV MCH MCHC RDW Plt Count MPV Immature Gran % Neutrophils % Band Neutrophils % Lymphocytes % Monocytes % Eosinophils % Basophils % Metamyelocytes % Myelocytes % Nucleated RBC % Absolute Neutrophils Absolute Lymphocytes Absolute Monocytes Absolute Eosinophils Absolute Basophils RBC Morphology Polychromasia Poikilocytosis Basophilic Stippling [place] Bodies Sodium 137 Potassium 4.2 Chloride 103 Carbon Dioxide 28.7 Anion Gap 5.3 BUN 11 Creatinine 0.7 Estimated GFR/1.73 m2 >= 60.00 Glucose 88 Calcium 8.3 L Total Bilirubin 0.5 AST 49 H ALT 93 H Alkaline Phosphatase 269 H C-Reactive Protein 2.98 H Total Protein 5.4 L Albumin 2.7 L Vancomycin Trough Cancelled Urine Histoplasma Ag U Histoplasma Ag Index Misc Test Comment 04/03/20 04/03/20 04/03/20 07:20 07:20 08:30 WBC 19.48 H D RBC 2.70 L Hgb 8.8 L Hct 26.4 L MCV 97.8 H MCH 32.6 MCHC 33.3 RDW 14.3 Plt Count 524 H MPV 8.8 Immature Gran % See Differential Neutrophils % 56.0 Band Neutrophils % 11 Lymphocytes % 5.0 Monocytes % 5.0 Eosinophils % 17.0 Basophils % 0.0 Metamyelocytes % 3 Myelocytes % 3 Nucleated RBC % 4 Absolute Neutrophils 13.05 H Absolute Lymphocytes 0.97 L Absolute Monocytes 0.97 H Absolute Eosinophils 3.31 H Absolute Basophils 0.00 RBC Morphology See below Polychromasia Present Poikilocytosis 2+ Basophilic Stippling Present [place] Bodies Present Sodium Potassium Chloride Carbon Dioxide Anion Gap BUN Creatinine Estimated GFR/1.73 m2 Glucose Calcium Total Bilirubin AST ALT Alkaline Phosphatase C-Reactive Protein Total Protein Albumin Vancomycin Trough Urine Histoplasma Ag Cancelled U Histoplasma Ag Index Cancelled Misc Test Comment Cancelled
--- NOTE | 2020-04-03 09:20 | DI.RAD_ITS ---
EXAM: XR CHEST 2V PA LATERAL CLINICAL HISTORY: pneumonia. TECHNIQUE: 2D digital imaging was performed. COMPARISON: CR XR PORTABLE CHEST AP from 03/30/2020 FINDINGS: Heart size is upper normal in the mediastinum is not widened. Mild increased markings are noted in the lateral left lung base. Also possible subtle increased shahrzad ings in the mid-lower right lung. No pleural effusions. No pulmonary edema. IMPRESSION: As above. Recommend non portable upright PA and lateral views when clinically possible. DATA REPOSITORY: RADIATION DOSE DELIVERED:
[2020-04-03] MEDS: Methylnaltrexone 12 MG/0.6 ML VIAL 8 MG SC (10:19)
[2020-04-03 11:02] LABS: Bilirubin Negative (Negative); Blood Negative (Negative); Clarity Clear (Clear); Glucose Negative (Negative); Ketones Negative (Negative); Leukocyte Esterase Trace (Negative); Nitrite Negative (Negative); Urobilinogen 0.2 EU/dL (Up TO 0.2)
[2020-04-03 11:13] LABS: Bacteria Few HPF (Negative); C & S Indicated? No/Sq. Contamination; Casts Negative LPF (Negative); Crystals Negative HPF (Negative); Epithelial Cells Many HPF (Negative); Mucus Negative (Negative); Other Cells Negative (Negative); RBC Negative HPF (0-2)
[2020-04-03] MEDS: PIPERACILLIN/TAZO 3.375 GM in Normal Saline 50 ML IVPB ×3 (12:52→23:44)
[2020-04-03 15:07] VITALS: BP 110/68; PULSE 82; RESP 20; TEMP 36.7; O2SAT 94
[2020-04-03] MEDS: Magnesium Citrate 300 ML BTL PO (15:11)
[2020-04-03 15:53] LABS: ESR 25 mm/hr (<or=20)
[2020-04-03 16:19] LABS: Rheumatoid Factor <8.6 IU/mL (<12.0)
[2020-04-03 16:26] LABS: Bilirubin Negative (Negative); Blood Trace-intact (Negative); Clarity Sl Cloudy (Clear); Glucose Negative (Negative); Ketones Negative (Negative); Leukocyte Esterase Small (Negative); Nitrite Negative (Negative); Specific Gravity 1.015 (1.005-1.025); Urobilinogen 0.2 EU/dL (Up TO 0.2)
[2020-04-03 16:36] LABS: Bacteria Moderate HPF (Negative); C & S Indicated? No/Sq. Contamination; Crystals Negative HPF (Negative); Epithelial Cells Many HPF (Negative); Mucus Negative (Negative); RBC 0-2 HPF (0-2); WBC 20-50 HPF (0-5)
[2020-04-03] MEDS: Ondansetron 4 MG/2 ML VIAL IVP (17:27)
--- NOTE | 2020-04-03 17:49 | W.PM.PROGNOT ---
Date of Service Date of service: 04/03/20 Time of Service: 17:49 Assessment and Plan Assessment and plan (1) Aspiration pneumonia: Status: Acute Assessment and plan: improving. cont. Acapella, IS and mobilization/ambulation. Since she has been put on Zosyn I have dc'ed her clindamycin. she should have a follow up PA/lateral CXR prior to discharge Qualifiers: Aspiration pneumonia type: due to vomit Laterality: bilateral Lung location: lower lobe of lung Qualified Code(s): J69.0 - Pneumonitis due to inhalation of food and vomit (2) Atelectasis: Status: Acute Assessment and plan: As above. Continue incentive spirometry and Acapella treatments along with bronchodilators. Encourage early mobilization and ambulation. (3) Abdominal wall hematoma: Status: Acute Assessment and plan: Status post laparotomy and evacuation hematoma on Friday. management as per surgery. Qualifiers: Encounter type: sequela Qualified Code(s): S30.1XXS - Contusion of abdominal wall, sequela (4) S/P hernia repair: Status: Acute Assessment and plan: Management as per surgical service. (5) Obstructive sleep apnea: Status: Chronic Assessment and plan: Will need outpatient follow up for a sleep study. (6) Ye syndrome: Status: Chronic Assessment and plan: This is generally a warm agglutinin hemolytic anemia. I will obtain a phone consult tomorrow with her skin lap bonder at [facility]. I am not sure how much this is contributed to her bleeding complications with her abdominal hematoma. (7) Pyuria: Status: Acute Assessment and plan: Zosyn per surgery. check urine culture results Subjective Subjective Interval history since last seen: Patient denies any dyspnea and cough is minimal now. No wheezing. She is afebrile and she no longer requires supplemental oxygen. Despite the multiple antibiotics she has been on including Vancomycin, Levaquin and Flagyl which were started last week and I consolidated to Clindamycin yesterday for completion treatment of aspiration pneumonits. However, her WBC went up to 19,000 today, although no fevers. UA was sent and demonstrated pyuria (20-50 WBC and moderate bacteria although many epithelial cells despite being a cath specimen. I was going to give her a one time dose of Fosfomycin this afternoon for presumptive UTI but Dr. Patel ordered Zosyn. In spite of her stated allergy to amoxicillin she has tolerated the Zosyn. I think that overall she has nearly recovered from her aspiration event although her CXR is less than optimal (was portable). I have dc'ed her clindamycin and will not give the Fosfomycin. I will defer to Dr. Patel's choice of antibiotics and wait and see what her urine cultures demonstrate. Will get repeat CBC and CRP in the a.m. Exam Narrative Exam Narrative: Obese female lying in bed in no distress. Respirations nonlabored. Talking in complete paragraphs. Lungs are clear to auscultation Heart regular rate and rhythm Abdomen soft mildly tender with normal active bowel sounds. She is wearing an abdominal binder. She has marked amount of bruising around the lower abdomen and radiating in to both groin areas. Objective Last Vital Signs Temp 36.7 C 04/03/20 15:07 Pulse 82 04/03/20 15:07 Resp 20 04/03/20 15:07 BP 110/68 04/03/20 15:07 Pulse Ox 94 04/03/20 15:07 Laboratory Results - last 24 hr 04/03/20 04/03/20 04/03/20 07:20 07:20 07:20 WBC 19.48 H D RBC 2.70 L Hgb 8.8 L Hct 26.4 L MCV 97.8 H MCH 32.6 MCHC 33.3 RDW 14.3 Plt Count 524 H MPV 8.8 Immature Gran % See Differential Neutrophils % 56.0 Band Neutrophils % 11 Lymphocytes % 5.0 Monocytes % 5.0 Eosinophils % 17.0 Basophils % 0.0 Metamyelocytes % 3 Myelocytes % 3 Nucleated RBC % 4 Absolute Neutrophils 13.05 H Absolute Lymphocytes 0.97 L Absolute Monocytes 0.97 H Absolute Eosinophils 3.31 H Absolute Basophils 0.00 RBC Morphology See below Polychromasia Present Poikilocytosis 2+ Basophilic Stippling Present [place] Bodies Present ESR Sodium 137 Potassium 4.2 Chloride 103 Carbon Dioxide 28.7 Anion Gap 5.3 BUN 11 Creatinine 0.7 Estimated GFR/1.73 m2 >= 60.00 Glucose 88 Calcium 8.3 L Total Bilirubin 0.5 AST 49 H ALT 93 H Alkaline Phosphatase 269 H C-Reactive Protein 2.98 H Total Protein 5.4 L Albumin 2.7 L Urine Color Urine Clarity Urine pH Ur Specific [place] Urine Protein Urine Ketones Urine Blood Urine Nitrite Urine Bilirubin Urine Urobilinogen Ur Leukocyte Esterase Urine RBC Urine WBC Ur Epithelial Cells Urine Crystals Urine Bacteria Urine Casts Urine Mucus Urine Other Ur Culture Indicated? Urine Glucose Rheumatoid Factor Cryptococcus Ag Cryptococcus Ag Titer Urine Histoplasma Ag Cancelled U Histoplasma Ag Index Cancelled Misc Test Comment 04/03/20 04/03/20 04/03/20 07:20 07:20 07:20 WBC RBC Hgb Hct MCV MCH MCHC RDW Plt Count MPV Immature Gran % Neutrophils % Band Neutrophils % Lymphocytes % Monocytes % Eosinophils % Basophils % Metamyelocytes % Myelocytes % Nucleated RBC % Absolute Neutrophils Absolute Lymphocytes Absolute Monocytes Absolute Eosinophils Absolute Basophils RBC Morphology Polychromasia Poikilocytosis Basophilic Stippling [place] Bodies ESR 25 Sodium Potassium Chloride Carbon Dioxide Anion Gap BUN Creatinine Estimated GFR/1.73 m2 Glucose Calcium Total Bilirubin AST ALT Alkaline Phosphatase C-Reactive Protein Total Protein Albumin Urine Color Urine Clarity Urine pH Ur Specific [place] Urine Protein Urine Ketones Urine Blood Urine Nitrite Urine Bilirubin Urine Urobilinogen Ur Leukocyte Esterase Urine RBC Urine WBC Ur Epithelial Cells Urine Crystals Urine Bacteria Urine Casts Urine Mucus Urine Other Ur Culture Indicated? Urine Glucose Rheumatoid Factor <8.6 Cryptococcus Ag Negative Cryptococcus Ag Titer Not Applicable Urine Histoplasma Ag U Histoplasma Ag Index Misc Test Comment 04/03/20 04/03/20 04/03/20 08:30 10:40 16:30 WBC RBC Hgb Hct MCV MCH MCHC RDW Plt Count MPV Immature Gran % Neutrophils % Band Neutrophils % Lymphocytes % Monocytes % Eosinophils % Basophils % Metamyelocytes % Myelocytes % Nucleated RBC % Absolute Neutrophils Absolute Lymphocytes Absolute Monocytes Absolute Eosinophils Absolute Basophils RBC Morphology Polychromasia Poikilocytosis Basophilic Stippling [place] Bodies ESR Sodium Potassium Chloride Carbon Dioxide Anion Gap BUN Creatinine Estimated GFR/1.73 m2 Glucose Calcium Total Bilirubin AST ALT Alkaline Phosphatase C-Reactive Protein Total Protein Albumin Urine Color Yellow Yellow Urine Clarity Clear Sl cloudy Urine pH 6.0 6.0 Ur Specific [place] 1.020 1.015 Urine Protein Negative Negative Urine Ketones Negative Negative Urine Blood Negative Trace-intact H Urine Nitrite Negative Negative Urine Bilirubin Negative Negative Urine Urobilinogen 0.2 0.2 Ur Leukocyte Esterase Trace H Small H Urine RBC Negative 0-2 Urine WBC 10-20 H 20-50 H Ur Epithelial Cells Many Many Urine Crystals Negative Negative Urine Bacteria Few Moderate Urine Casts Negative Urine Mucus Negative Negative Urine Other Negative Ur Culture Indicated? No/sq. contamination No/sq. contamination Urine Glucose Negative Negative Rheumatoid Factor Cryptococcus Ag Cryptococcus Ag Titer Urine Histoplasma Ag U Histoplasma Ag Index Misc Test Comment Cancelled
--- NOTE | 2020-04-03 18:30 | NUR.NOTE ---
Pt refuses to have another straight cath done for urine sample for a urine culture. Nursing Note:
--- NOTE | 2020-04-03 19:43 | CMPROGNOTE_ITS ---
- If Service Date Differs Date of service: 04/03/20 Time of Service: 19:46 Care Management Progress Note S/O: Tena was lying in bed when CM met with her. She stated that she is doing ok. She reported that her wound dressing was changed today, which was not pleasant to look at. She stated that she does not know how it will heal. Per report, her wound is currently open, and will be closed with sutures when able to do so. She is currently receiving abx for aspiration pneumonia. She is being encouraged to move around. CM will continue to follow. A: Tena is a 29 year old female admitted to [facility] on 03/29/20 for Incisional Hernia. P: Tena will return to the [facility] when medically cleared, with no anticipated services. She will have a referral for an outpatient sleep study. CM will coordinate a ride home via [facility] when ready. She will follow up with her PCP, community based providers and discharge plan of care. CM will continue to follow.
[2020-04-03] MEDS: Gabapentin 300 MG CAP PO (22:28)
[2020-04-03] MEDS: Trihexyphenidyl 2 MG TAB 5 MG PO (22:28)
[2020-04-03 23:58] VITALS: BP 102/63; PULSE 96; RESP 20; TEMP 36.8; O2SAT 98
[2020-04-04] MEDS: Normal Saline Flush 10 ML SYR IVP ×5 (00:59→20:02)
[2020-04-04] MEDS: HYDROmorphone 2 MG/ML VIAL 1 MG IVP ×5 (00:59→20:01)
[2020-04-04] MEDS: Acetaminophen 500 MG TAB 1000 MG PO ×4 (03:20→22:18)
[2020-04-04] MEDS: Zolpidem 5 MG TAB PO ×2 (04:01→23:34)
[2020-04-04] MEDS: PIPERACILLIN/TAZO 3.375 GM in Normal Saline 50 ML IVPB ×4 (05:44→23:38)
--- NOTE | 2020-04-04 07:30 | W.PM.PROGNOT ---
Documented by User: PRASANNA Farmer 04/04/20 07:38 Date of Service Date of service: 04/04/20 Time of Service: 07:30 Assessment and Plan Assessment and plan (1) Obstructive sleep apnea: Status: Chronic (2) Abdominal wall hematoma: Status: Acute Assessment and plan: POD #3 from evacuation of large hematoma. Wound is open and covered. Will continue to watch for possible bleeding. Will close with sutures, which are in place once able. Pain is currently well managed. Qualifiers: Encounter type: sequela Qualified Code(s): S30.1XXS - Contusion of abdominal wall, sequela (3) Aspiration pneumonia: Status: Acute Assessment and plan: On room air. Strongly encouraged continued pulmonary toilet Ambulation throughout the day. Nsg will monitor O2 sats. with activity. Qualifiers: Aspiration pneumonia type: due to vomit Laterality: bilateral Lung location: lower lobe of lung Qualified Code(s): J69.0 - Pneumonitis due to inhalation of food and vomit (4) S/P hernia repair: Status: Acute Assessment and plan: POD #6 (5) Ye syndrome: Status: Chronic (6) DVT prophylaxis: Status: Acute Subjective Subjective Interval history since last seen: Feeling pretty good this morning. She expresses that she is tired. Denies having any abdominal pain. Exam Const General: cooperative, healthy appearing and comfortable Orientation: alert and oriented x3 Resp Effort & Inspection: normal respiratory effort, no audible wheezes and no cough Objective Last Vital Signs Temp 36.8 C 04/03/20 23:58 Pulse 96 H 04/03/20 23:58 Resp 20 04/03/20 23:58 BP 102/63 04/03/20 23:58 Pulse Ox 98 04/03/20 23:58 Laboratory Results - last 24 hr 04/03/20 04/03/20 04/03/20 07:20 07:20 07:20 WBC 19.48 H D RBC 2.70 L Hgb 8.8 L Hct 26.4 L MCV 97.8 H MCH 32.6 MCHC 33.3 RDW 14.3 Plt Count 524 H MPV 8.8 Immature Gran % See Differential Neutrophils % 56.0 Band Neutrophils % 11 Lymphocytes % 5.0 Monocytes % 5.0 Eosinophils % 17.0 Basophils % 0.0 Metamyelocytes % 3 Myelocytes % 3 Nucleated RBC % 4 Absolute Neutrophils 13.05 H Absolute Lymphocytes 0.97 L Absolute Monocytes 0.97 H Absolute Eosinophils 3.31 H Absolute Basophils 0.00 RBC Morphology See below Polychromasia Present Poikilocytosis 2+ Basophilic Stippling Present [place] Bodies Present ESR Sodium 137 Potassium 4.2 Chloride 103 Carbon Dioxide 28.7 Anion Gap 5.3 BUN 11 Creatinine 0.7 Estimated GFR/1.73 m2 >= 60.00 Glucose 88 Calcium 8.3 L Total Bilirubin 0.5 AST 49 H ALT 93 H Alkaline Phosphatase 269 H C-Reactive Protein 2.98 H Total Protein 5.4 L Albumin 2.7 L Urine Color Urine Clarity Urine pH Ur Specific [place] Urine Protein Urine Ketones Urine Blood Urine Nitrite Urine Bilirubin Urine Urobilinogen Ur Leukocyte Esterase Urine RBC Urine WBC Ur Epithelial Cells Urine Crystals Urine Bacteria Urine Casts Urine Mucus Urine Other Ur Culture Indicated? Urine Glucose Rheumatoid Factor Cryptococcus Ag Cryptococcus Ag Titer Urine Histoplasma Ag Cancelled U Histoplasma Ag Index Cancelled Misc Test Comment 04/03/20 04/03/20 04/03/20 07:20 07:20 07:20 WBC RBC Hgb Hct MCV MCH MCHC RDW Plt Count MPV Immature Gran % Neutrophils % Band Neutrophils % Lymphocytes % Monocytes % Eosinophils % Basophils % Metamyelocytes % Myelocytes % Nucleated RBC % Absolute Neutrophils Absolute Lymphocytes Absolute Monocytes Absolute Eosinophils Absolute Basophils RBC Morphology Polychromasia Poikilocytosis Basophilic Stippling [place] Bodies ESR 25 Sodium Potassium Chloride Carbon Dioxide Anion Gap BUN Creatinine Estimated GFR/1.73 m2 Glucose Calcium Total Bilirubin AST ALT Alkaline Phosphatase C-Reactive Protein Total Protein Albumin Urine Color Urine Clarity Urine pH Ur Specific [place] Urine Protein Urine Ketones Urine Blood Urine Nitrite Urine Bilirubin Urine Urobilinogen Ur Leukocyte Esterase Urine RBC Urine WBC Ur Epithelial Cells Urine Crystals Urine Bacteria Urine Casts Urine Mucus Urine Other Ur Culture Indicated? Urine Glucose Rheumatoid Factor <8.6 Cryptococcus Ag Negative Cryptococcus Ag Titer Not Applicable Urine Histoplasma Ag U Histoplasma Ag Index Misc Test Comment 04/03/20 04/03/20 04/03/20 08:30 10:40 16:30 WBC RBC Hgb Hct MCV MCH MCHC RDW Plt Count MPV Immature Gran % Neutrophils % Band Neutrophils % Lymphocytes % Monocytes % Eosinophils % Basophils % Metamyelocytes % Myelocytes % Nucleated RBC % Absolute Neutrophils Absolute Lymphocytes Absolute Monocytes Absolute Eosinophils Absolute Basophils RBC Morphology Polychromasia Poikilocytosis Basophilic Stippling [place] Bodies ESR Sodium Potassium Chloride Carbon Dioxide Anion Gap BUN Creatinine Estimated GFR/1.73 m2 Glucose Calcium Total Bilirubin AST ALT Alkaline Phosphatase C-Reactive Protein Total Protein Albumin Urine Color Yellow Yellow Urine Clarity Clear Sl cloudy Urine pH 6.0 6.0 Ur Specific [place] 1.020 1.015 Urine Protein Negative Negative Urine Ketones Negative Negative Urine Blood Negative Trace-intact H Urine Nitrite Negative Negative Urine Bilirubin Negative Negative Urine Urobilinogen 0.2 0.2 Ur Leukocyte Esterase Trace H Small H Urine RBC Negative 0-2 Urine WBC 10-20 H 20-50 H Ur Epithelial Cells Many Many Urine Crystals Negative Negative Urine Bacteria Few Moderate Urine Casts Negative Urine Mucus Negative Negative Urine Other Negative Ur Culture Indicated? No/sq. contamination No/sq. contamination Urine Glucose Negative Negative Rheumatoid Factor Cryptococcus Ag Cryptococcus Ag Titer Urine Histoplasma Ag U Histoplasma Ag Index Misc Test Comment Cancelled Documented by User: Carla Branch DO 04/04/20 22:16 Assessment and Plan Assessment and plan (1) Abdominal wall hematoma: Status: Acute Assessment and plan: wound: [id number] deep. mesh is not visible. good beffy granulation tissue notes- 10%. wound edges c/d/i. packing removed. Atempted to close stay sutures- pt did not tolerate this at bedside. No side of further bleeding. no sign of any infection. WOund repacked wet-dry w/ 9 4x4's. -CT reviewed w/ Dr. Baker. No signs of any hematomas or abscess. No sign of any intra-abdominal pathology. Chest: RUL nodule nodule & middle lobe aspiration. -Pt denies: no headaches. No CP or SOB. no productive cough. no dysuria. no leg pain or swelling. IV site c/d/i. no fevers. no breakdown. She had a BM today. It was loose- but she had mag citrate yesterday HEENT: no thrush. no eye pain or drainage. no sinus pain. no thrush. no dental abscesses. L: CTA b/l abdom: see above LE: no c/c/e or swelling. unclear etiology of elevated WBC. cont coverage w/ zosyn pro biotics DVT proph pulm toilet encourage ambulation d/w CM care postHosp care plans -d/w Amanda. closure in OR in am w/ anethesia. Qualifiers: Encounter type: sequela Qualified Code(s): S30.1XXS - Contusion of abdominal wall, sequela
[2020-04-04] MEDS: Polyethylene Glycol 3350 17 GM PACKET PO ×2 (07:59→20:02)
[2020-04-04] MEDS: Docusate Sodium 100 MG CAP PO ×3 (08:01→20:02)
[2020-04-04] MEDS: Omeprazole 20 MG CAPCR 40 MG PO (08:01)
[2020-04-04] MEDS: Citalopram 20 MG TAB 40 MG PO (08:01)
[2020-04-04] MEDS: oxyCODONE 5 MG TAB PO ×2 (08:01→18:34)
[2020-04-04 08:08] LABS: Abs Immature Grans 0.98 10^3/uL (0.0-0.06); HCT 28.5 % (36.0-46.0); HGB 9.4 g/dL (11.2-15.7); MCH 32.8 pg (27.0-33.0); MCV 99.3 fL (80-95); MPV 9.3 fL (8.0-11.0); RBC 2.87 10^6/uL (3.93-5.22); RDW 15.4 % (11.7-14.6); RDW-SD 51.4 fL
[2020-04-04] MEDS: Budesonide/Formoterol 160/4.5 6 GM 60 PUFF INH IH ×2 (08:18→20:02)
[2020-04-04 08:32] LABS: Absolute Basophil Count 0.21 10^3/uL (0.0-0.2); Absolute Eosinophil Count 5.15 10^3/uL (0.0-0.7); Absolute Lymphocyte Count 0.41 10^3/uL (1.2-3.4); Absolute Monocyte Count 0.41 10^3/uL (0.1-0.8); Absolute Neutrophil Count 13.18 10^3/uL (1.2-6.7); Bands % 2; Metamyelocytes % 2; Myelocytes % 2; Nucleated RBC 7 %
[2020-04-04 08:33] VITALS: BP 103/68; PULSE 96; RESP 19; TEMP 37; O2SAT 92
[2020-04-04 08:33] LABS: Diff Comment Manual Differential; Hypochromasia 2+; Polychromasia Present
--- NOTE | 2020-04-04 12:41 | W.PM.PROGNOT ---
Date of Service Date of service: 04/04/20 Time of Service: 12:42 Assessment and Plan Assessment and plan (1) S/P hernia repair: Status: Acute Assessment and plan: Postop day #6. Management as per surgery. Continue Zosyn pending work-up for abdominal wall infection. (2) Abdominal wall hematoma: Status: Acute Assessment and plan: Postop day #3 from laparotomy and evacuation of abdominal wall hematoma. Given her leukocytosis I think a CT scan of the abdomen pelvis is prudent to rule out an abscess Qualifiers: Encounter type: sequela Qualified Code(s): S30.1XXS - Contusion of abdominal wall, sequela (3) Aspiration pneumonia: Status: Acute Assessment and plan: This point I feel the patient's aspiration pneumonitis is resolved she no longer has wheezes not hypoxemic not requiring supplemental oxygen. While she is having her CT of her abdomen pelvis we will also do CT of her chest. 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 I am not sure how much this is contributed to her bleeding complications with her abdominal hematoma. (5) Pyuria: Status: Acute Assessment and plan: Zosyn per surgery. check urine culture results Subjective Subjective Interval history since last seen: Patient denies any cough or shortness of breath or sputum production. She still has some abdominal pain but no nausea or vomiting. She remains afebrile but nevertheless her leukocytosis continues to increase at 20,000. Hemoglobin is stabilized at 9.4 g. Patient is currently on Zosyn per surgery's recommendation. At this point I do not feel that we can blame her leukocytosis on aspiration pneumonitis and she certainly has had enough antibiotics to cover for any urinary tract infection. She denies any dysuria. Her urinalysis yesterday was suspicious as it showed moderate bacteria and many white cells but it also had a lot of epithelial cells. This was a catheterized specimen however. Unfortunately culture was not sent or lab did not culture it because the many epithelial cells and the patient is currently declining to have another straight cath. I think given her continued leukocytosis and abdominal pain I think it would be prudent to proceed with a CT scan of her abdomen and pelvis. I discussed the case with Gilma Tamez from general surgery and she concurs and will relay the information to Dr. Carla Branch. For now I am not making any recommendations as far as changing her current antibiotic regimen. Exam Narrative Exam Narrative: Obese female lying in bed watching TV in no distress. Lungs are clear to auscultation Heart regular rate and rhythm without murmur rub Abdomen has an elastic abdominal binder covering her wound dressing. She has moderate amount of bruising over the abdomen that extends down to her groin bilaterally. She has active bowel sounds but her abdomen is soft but tender particularly in the upper abdomen. Objective Last Vital Signs Temp 37 C 04/04/20 08:33 Pulse 96 H 04/04/20 08:33 Resp 19 04/04/20 08:33 BP 103/68 04/04/20 08:33 Pulse Ox 92 04/04/20 08:33 Laboratory Results - last 24 hr 04/03/20 04/03/20 04/03/20 07:20 07:20 07:20 WBC RBC Hgb Hct MCV MCH MCHC RDW Plt Count MPV Immature Gran % Neutrophils % Band Neutrophils % Lymphocytes % Monocytes % Eosinophils % Basophils % Metamyelocytes % Myelocytes % Nucleated RBC % Absolute Neutrophils Absolute Lymphocytes Absolute Monocytes Absolute Eosinophils Absolute Basophils RBC Morphology Polychromasia Hypochromasia ESR 25 Urine Color Urine Clarity Urine pH Ur Specific [place] Urine Protein Urine Ketones Urine Blood Urine Nitrite Urine Bilirubin Urine Urobilinogen Ur Leukocyte Esterase Urine RBC Urine WBC Ur Epithelial Cells Urine Crystals Urine Bacteria Urine Mucus Ur Culture Indicated? Urine Glucose Rheumatoid Factor <8.6 Cryptococcus Ag Negative Cryptococcus Ag Titer Not Applicable 04/03/20 04/04/20 16:30 07:57 WBC 20.60 H RBC 2.87 L Hgb 9.4 L Hct 28.5 L MCV 99.3 H MCH 32.8 MCHC 33.0 RDW 15.4 H Plt Count MPV 9.3 Immature Gran % 0.0 Neutrophils % 62.0 Band Neutrophils % 2 Lymphocytes % 2.0 Monocytes % 2.0 Eosinophils % 25.0 Basophils % 1.0 Metamyelocytes % 2 Myelocytes % 2 Nucleated RBC % 7 Absolute Neutrophils 13.18 H Absolute Lymphocytes 0.41 L Absolute Monocytes 0.41 Absolute Eosinophils 5.15 H Absolute Basophils 0.21 H RBC Morphology See below Polychromasia Present Hypochromasia 2+ ESR Urine Color Yellow Urine Clarity Sl cloudy Urine pH 6.0 Ur Specific [place] 1.015 Urine Protein Negative Urine Ketones Negative Urine Blood Trace-intact H Urine Nitrite Negative Urine Bilirubin Negative Urine Urobilinogen 0.2 Ur Leukocyte Esterase Small H Urine RBC 0-2 Urine WBC 20-50 H Ur Epithelial Cells Many Urine Crystals Negative Urine Bacteria Moderate Urine Mucus Negative Ur Culture Indicated? No/sq. contamination Urine Glucose Negative Rheumatoid Factor Cryptococcus Ag Cryptococcus Ag Titer
[2020-04-04] MEDS: Breeza Beverage 473 ML BTL PO ×2 (13:04→13:05)
[2020-04-04] MEDS: Omnipaque 350 MG/ML 50 ML BTL PO (13:05)
[2020-04-04] MEDS: Omnipaque 350 MG/ML 100 ML BTL IJ (13:41)
[2020-04-04] MEDS: Normal Saline - Diluent 50 ML VIAL IV (13:42)
--- NOTE | 2020-04-04 14:30 | DI.CT_ITS ---
EXAM: CT CHEST/ABD/PEL W CLINICAL HISTORY: abdominal pain TECHNIQUE: COMPARISON: CT CT CHEST PE ABD PELVIS W from 03/30/2020 FINDINGS: CT examination of the chest, abdomen, and pelvis was performed with intravenous infusion of 100 cc Om nipaque 350 and ingestion of dilute barium. Examination is compared with recent study of March 30. In comparison with the recent examination, is little interval change in appearance of bilateral pulmo nary infiltrates, slightly decreased consolidation at right lung base, slightly decreased opacificati on of right upper lobe radiodensities. Tracheobronchial tree appears intact. No mediastinal or pranav r adenopathy. No pulmonary embolic disease. Unremarkable appearance of thoracic aorta major branche s. No axillary or supraclavicular adenopathy. No pleural effusion. Spleen has been surgically removed. There appears to be mild hepatomegaly. Gallbladder is been surg ically removed. No biliary dilatation. Pancreas is unremarkable in appearance. Adrenals and kidneys appear normal. No urinary tract calcification or obstruction. Car Porter structures a ppear intact with IUD in place. There is prominence of retroperitoneal lymph nodes, increased since prior examination and presumably representing acute inflammatory or infectious response. Abdominal aorta is of diameter. No major va scular abnormality seen. No evidence of bowel obstruction. Normal appearance of appendix. There is a large abdominal wall anterior defect. There are small pockets gas and fluid in the soft t issues adjacent to the large abdominal wall defect, particularly adjacent to the inferior aspect of t he defect. No gross free intraperitoneal air is seen. No gross intra-abdominal or subcutaneous absc ess identified. IMPRESSION: Slight interval decrease in multiple pulmonary opacities. Large abdominal wall defect with no gross associated abscess or free intraperitoneal air or intraperi toneal abscess. Retroperitoneal adenopathy, new since prior examination, presumably associated with inflammatory/infe ctious process. RADIATION DOSE DELIVERED: 2,075.98mGy.cm Total DLP
--- NOTE | 2020-04-04 16:24 | PHACLINREV_ITS ---
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 Afebrile. Nebulizer (Albuterol and Duonebs on hold), Lovenox on hold since 03/31/20, MD was waiting for H/H to stabilize, today is 9.4/8.5. Has several [employer] depressing meds, may need some MAR time changes. Using Dilaudid IVP, oral Oxy, Metaxalone. Was on Vanco/Cipro and now just Zosyn day#2. CT of chest/abdominal wall does not show any abscess, improved opacities in lung s/p Aspiration Pneumonia. Blood, urine and sputum cultures negative - Renal Dosing Renal Dosing: BUN 11 mg/dL (7-18) 04/03/20 07:20 Creatinine 0.7 mg/dL (0.55-1.02) 04/03/20 07:20 Medications needing adjustments: Reviewed (CrCl~88ml/min) - Anticoagulation Anticoagulation: Hgb 9.4 g/dL (11.2-15.7) L 04/04/20 07:57 Hct 28.5 % (36.0-46.0) L 04/04/20 07:57 Plt Count 10^3/uL (130-400) 04/04/20 07:57 Creatinine 0.7 mg/dL (0.55-1.02) 04/03/20 07:20 DVT Prohphylaxis: Reviewed Medications: Enoxaparin (On hold since 03/31/20....will ask surgeon) - Opiate Usage Evaluate Pain Scale/Pains Meds: Reviewed (Pain ranges from zero to nine) - Relevant Labs ESR 25 mm/hr (<or=20) 04/03/20 07:20 Sodium 137 mmol/L (136-145) 04/03/20 07:20 Potassium 4.2 mmol/L (3.5-5.1) 04/03/20 07:20 Chloride 103 mmol/L (98-107) 04/03/20 07:20 C-Reactive Protein 2.98 mg/dL (0.0-0.3) H 04/03/20 07:20 Electrolytes, C-Reactive P, ESR: Reviewed (WBC up 20.60, C-reactive down, LFT's down) - DM Control DM Control: Glucose 88 mg/dL (74-106) 04/03/20 07:20 Insulin Dosing: N/A - Heart Failure/AK EF%, PIA's, B-Blockers, Diuretics: N/A - BP Control BP Control: Blood Pressure 103/68 If elevated: N/A Antibiotic Activity - Pharmacy Antibiotic Review Pharmacy Antibiotic Activity: 48 hour review - Antibiotic Information Antibiotic Review Info: Paras for aspiration Pneumonia
[2020-04-04 16:26] VITALS: BP 97/64; PULSE 90; RESP 18; TEMP 36.9; O2SAT 92
--- NOTE | 2020-04-04 17:19 | CMPROGNOTE_ITS ---
- If Service Date Differs Date of service: 04/04/20 Time of Service: 17:19 Care Management Progress Note S/O: Tena was lying in bed when CM met with her. Tena stated that she has a lot of pain today, and reported that her incision/wound remains open. She stated that the MD plans to close her incision today. CM spoke to the MD later in the afternoon, who reported that she could not complete the closure today at the bedside, and she will have to go to the OR tomorrow. MD stated that she will need follow up care for her wound for an extended period of time. ANANTH will send a referral to [facility] for configuration management advisor in the community, and will contact to develop a plan for care post discharge. CM will continue to follow. A: Tena is a 29 year old female admitted to [facility] on 03/29/20 for Incisional Hernia. P: Tena will return to the [facility] when medically cleared. CM will refer her to [facility] for community case management. She may need RN for wound care. She will have a referral for an outpatient sleep study. ANANTH will coordinate a ride home via [facility] when ready. She will follow up with her PCP, community based providers and discharge plan of care. CM will continue to follow.
[2020-04-04] MEDS: Trihexyphenidyl 2 MG TAB 5 MG PO (22:17)
[2020-04-04] MEDS: Gabapentin 300 MG CAP PO (22:18)
[2020-04-05] MEDS: Lactated Ringers 1,000 ML 100 ML IV (00:09)
[2020-04-05] MEDS: HYDROmorphone 2 MG/ML VIAL 1 MG IVP ×6 (00:09→21:42)
[2020-04-05 00:24] VITALS: BP 109/67; PULSE 89; RESP 18; TEMP 36.8; O2SAT 95
[2020-04-05] MEDS: Normal Saline Flush 10 ML SYR IVP (05:55)
[2020-04-05] MEDS: PIPERACILLIN/TAZO 3.375 GM in Normal Saline 50 ML IVPB ×4 (06:03→23:57)
[2020-04-05 07:17] VITALS: BP 105/72; PULSE 87; RESP 20; TEMP 37; O2SAT 94
[2020-04-05 07:32] LABS: D-Dimer 1044 ng/mlFEU (<500)
[2020-04-05] MEDS: Budesonide/Formoterol 160/4.5 6 GM 60 PUFF INH IH ×2 (08:32→20:00)
[2020-04-05 08:40] LABS: ALT 86 U/L (14-59); AST 63 U/L (15-37); Albumin 2.8 g/dL (3.4-5.0); Alkaline Phosphatase 525 U/L (46-116); Anion Gap 6.4 mmol/L (3-11); BUN 9 mg/dL (7-18); Bilirubin, Total 0.8 mg/dL (0.2-1.0); CO2 29.6 mmol/L (21.0-32.0); CREATININE 0.7 mg/dL (0.55-1.02); Calcium 8.6 mg/dL (8.5-10.1); Chloride 102 mmol/L (98-107); Glucose 79 mg/dL (74-106); Magnesium 2.3 mg/dL (1.8-2.4); Potassium 5.1 mmol/L (3.5-5.1); Sodium 138 mmol/L (136-145)
--- NOTE | 2020-04-05 13:22 | PGE_ITS ---
Date of Service Date of service: 04/05/20 Time of Service: 13:22 Assessment and Plan Assessment and plan (1) S/P hernia repair: Status: Acute Assessment and plan: Postop day #7. Management as per surgery. Patient scheduled for closure of her abdominal wound this afternoon. (2) Abdominal wall hematoma: Status: Acute Assessment and plan: Postop day #4 from laparotomy and evacuation of abdominal wall hematoma. CT of her abdomen pelvis showed no evidence of abscess or abdominal wall infection. Patient will proceed with primary closure of her abdominal wound this afternoon. Qualifiers: Encounter type: sequela Qualified Code(s): S30.1XXS - Contusion of abdominal wall, sequela (3) Aspiration pneumonia: Status: Acute Assessment and plan: This point I feel the patient's aspiration pneumonitis is resolved she no longer has wheezes not hypoxemic not requiring supplemental oxygen. However her CT scan of chest reportedly showed slight interval decrease in her pulmonary opacities (right lung base and RUL). Clinically she seems better. However, given her leukocytosis this does concern me that her infiltrates have not cleared. However, she reportedly had some lung nodules or infiltrates on chest CT done in February [address] [facility] and she was seeing a Dr. Rajendra Hyde, from [facility] because of abnormal Gold Quantiferon test. Per her CT report from [facility] from 02/24/2020 she had mulitple bilateral lung nodules w/ ground glass densities. the larges was in the RUL and measured 12 mm, small amount of ground glass opacity was noted in the superior segment of the RLL. She had no adenopathy. Per her CT report there was no evidence for pulmon treva tuberculosis. Patient reports that she had negative AFB smear and culture. 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 I am not sure how much this is contribu last to her bleeding complications with her abdominal hematoma. I attempted to reach Dr. Tristin Collazo who sees her at [facility], unfortunately he is out at this time. (5) Pyuria: Status: Acute Assessment and plan: sterile pyuria. urine culture from 04/03 showed no growth. At this point I do not feel that Zosyn is needed. Subjective Subjective Interval history since last seen: Patient is scheduled for closure of her surgical abdominal wound. This is to take place this afternoon. She denies any shortness of breath. Minimal cough that is dry. She has no fevers. Repeat CBC was not done today therefore we do not know what her leukocytosis is doing. From respiratory standpoint she is doing well she is not hypoxic and not dyspneic. From her abdominal wound point she is still very tender but hopefully after closure of this wound her abdominal discomfort will improve. The only other concern she expressed is that her psoriasis is acting up she asked for a topical steroid cream. Apparently she was being evaluated down at [facility] by Dr. Rajendra Hyde, infectious disease, due to an abnormal gold QuantiFERON test and chronic pulmonary nodules. CT scan of her chest done in February 2020 at [facility] did not confirm tuberculosis. To the best of Tena's knowledge she has not been exposed to TB. The gold QuantiFERON test was done by hose turner so that she could get on immunosuppressive medications to treat her psoriasis. Exam Narrative Exam Narrative: Obese female sitting up in her bed watching TV awaiting for surgery. Lungs are clear to auscultation. There is no wheezing or rhonchi. Heart regular rate and rhythm. Abdomen the wound is closed with a dressing and a elastic abdominal binder which I did not take down at this time. Objective Last Vital Signs Temp 37 C 04/05/20 07:17 Pulse 87 04/05/20 07:17 Resp 20 04/05/20 07:17 BP 105/72 04/05/20 07:17 Pulse Ox 94 04/05/20 07:17 Laboratory Results - last 24 hr 04/03/20 04/05/20 04/05/20 07:20 06:40 06:40 D-Dimer 1044 H Sodium Cancelled Potassium Cancelled Chloride Cancelled Carbon Dioxide Cancelled Anion Gap Cancelled BUN Cancelled Creatinine Cancelled Estimated GFR/1.73 m2 Cancelled Glucose Cancelled Calcium Cancelled Magnesium Cancelled Total Bilirubin Cancelled AST Cancelled ALT Cancelled Alkaline Phosphatase Cancelled C-Reactive Protein Cancelled Total Protein Cancelled Albumin Cancelled Aspergillus Ag (EIA) Cancelled 04/05/20 08:04 D-Dimer Sodium 138 Potassium 5.1 D Chloride 102 Carbon Dioxide 29.6 Anion Gap 6.4 BUN 9 Creatinine 0.7 Estimated GFR/1.73 m2 >= 60.00 Glucose 79 Calcium 8.6 Magnesium 2.3 Total Bilirubin 0.8 AST 63 H ALT 86 H Alkaline Phosphatase 525 H C-Reactive Protein 2.60 H Total Protein 6.0 L Albumin 2.8 L Aspergillus Ag (EIA)
[2020-04-05] MEDS: Normal Saline 1,000 ML 100 ML IV ×2 (13:33→22:07)
[2020-04-05 13:35] VITALS: BP 99/63; PULSE 72; RESP 18; TEMP 36.6; O2SAT 95
[2020-04-05 15:10] VITALS: BP 103/67; PULSE 77; RESP 17; TEMP 36.7; O2SAT 94
[2020-04-05 17:07] VITALS: BP 113/70; PULSE 87; RESP 20; TEMP 36.3; O2SAT 94
--- NOTE | 2020-04-05 17:20 | PDOC.CMPRO ---
- If Service Date Differs Date of service: 04/05/20 Time of Service: 17:20 Care Management Progress Note S/O: Tena was lying in bed when CM met with her. She stated that she is tired, bored, hungry, and frustrated. She is scheduled to go to the OR this afternoon for closure of her incision, and she is NPO in preparation of that. CM inquired about the time for her procedure, which has been delayed due to the busy OR schedule. Tena asked about why her WBC is high, and what that means, which CM referred to the MD to answer. CM will call the [facility] regarding the status of her room, at her request. CM asked if there is anything that would make Tena more comfortable. She asked for a crossword puzzle book, and reported that she has a zoom meeting with her therapists tomorrow at 11am. CM will bring in a tablet for the zoom meeting. CM will continue to follow. A: Tena is a 29 year old female admitted to [facility] on 03/29/20 for Incisional Hernia. P: Tena will return to the [facility] when medically cleared. CM will refer her to [facility] for community case management. She may need HH RN for wound care. She will have a referral for an outpatient sleep study. CM will coordinate a ride home via [facility] when ready. She will follow up with her PCP, community based providers and discharge plan of care. CM will continue to follow.
--- NOTE | 2020-04-05 18:30 | W.PM.OP ---
Date of service: 04/05/20 Time of Service: 16:30 Operative Note Operative Note DATE OF PROCEDURE: 03/29/20 PRE-OP DIAGNOSIS: open abdominal wound POST-OP DIAGNOSIS: same PROCEDURE: Closure of abdominal wound SURGEON: Xochilt Patel ANESTHESIA TYPE: MAC (ASA 2/ Chela Stephens CRNA) Refer to Anesthesia Record ESTIMATED BLOOD LOSS: 0 PATHOLOGY: none sent Patient was transported to: floor Patient's condition: stable Indications: Tena is a pleasant 29 year old female who underwent an incisional hernia repair with mesh. She then unfortunately developed a large hematoma. Because her hemoglobin was dropping she was taken back to surgery a couple of days afterwards for evacuation of the hematoma. There was no active bleeding at that time. Stay sutures were placed and the wound was left open. An attempt was made to close the wound at the bedside yesterday but the patient was unable to tolerate that. She is here today for washout and closure of her wound. Findings: The wound was washed out and inspected. There was no purulent discharge. No signs of infection. There was granulation tissue started in the bed of the wound. Procedure Description: After informed consent was obtained the patient was taken to the procedure room. Monitors were applied and a timeout was done. The patient's name, date of , procedure to be done, allergies to medications and DVT prophylaxis were reviewed. The patient was then given propofol for MAC sedation. Once sedated and comfortable her abdominal wall was cleaned with some iodine. The wound was also washed with some iodine. It was then irrigated with some normal saline. The wound was inspected. There was no signs of infection. There were good granulation tissue at the bottom of the wound. The mesh was not visible. The stay sutures were cinched and secured. The iodine was then cleaned off of the patient's skin. A dry dressing was applied to the wound. This was secured with tape. The patient was then woken up and taken back upstairs to [facility] in a stable condition.
--- NOTE | 2020-04-05 18:32 | W.PM.PROGNOT ---
Date of Service Date of service: 04/05/20 Time of Service: 18:32 Assessment and Plan Assessment and plan (1) Abdominal wall hematoma: Status: Acute Assessment and plan: wound: [id number] widex4 deep. mesh is not visible. good beffy granulation tissue notes- 10%. wound edges c/d/i. To OR later today for washout of wound and closure unclear etiology of elevated WBC. cont coverage w/ zosyn pro biotics DVT proph pulm toilet encourage ambulation d/w CM care postHosp care plans Qualifiers: Encounter type: sequela Qualified Code(s): S30.1XXS - Contusion of abdominal wall, sequela Subjective Subjective Interval history since last seen: Tena looks good today. She is smiling and making jokes. She has been afebrile Tolerating a diet and having BM's Exam Resp Effort & Inspection: normal respiratory effort Auscultation: clear to auscultation bilaterally Cardio Rate: regular rate Rhythm: regular rhythm GI Palpation: soft and no hepatosplenomegaly Auscultation: normal bowel sounds Abdomen image: 1. Open midline wound with serosanguinous discharge Objective Last Vital Signs Temp 97.3 F L 04/05/20 17:07 Pulse 87 04/05/20 17:07 Resp 20 04/05/20 17:07 BP 113/70 04/05/20 17:07 Pulse Ox 94 04/05/20 17:07 Laboratory Results - last 24 hr 04/03/20 04/05/20 04/05/20 10:40 06:40 06:40 D-Dimer 1044 H Sodium Cancelled Potassium Cancelled Chloride Cancelled Carbon Dioxide Cancelled Anion Gap Cancelled BUN Cancelled Creatinine Cancelled Estimated GFR/1.73 m2 Cancelled Glucose Cancelled Calcium Cancelled Magnesium Cancelled Total Bilirubin Cancelled AST Cancelled ALT Cancelled Alkaline Phosphatase Cancelled C-Reactive Protein Cancelled Total Protein Cancelled Albumin Cancelled Urine Histoplasma Ag Negative U Histoplasma Ag Index 0.00 04/05/20 08:04 D-Dimer Sodium 138 Potassium 5.1 D Chloride 102 Carbon Dioxide 29.6 Anion Gap 6.4 BUN 9 Creatinine 0.7 Estimated GFR/1.73 m2 >= 60.00 Glucose 79 Calcium 8.6 Magnesium 2.3 Total Bilirubin 0.8 AST 63 H ALT 86 H Alkaline Phosphatase 525 H C-Reactive Protein 2.60 H Total Protein 6.0 L Albumin 2.8 L Urine Histoplasma Ag U Histoplasma Ag Index
[2020-04-05] MEDS: Docusate Sodium 100 MG CAP PO (20:00)
[2020-04-05] MEDS: Triamcinolone 0.1% OINT 15 GM TUBE TP (20:00)
[2020-04-05] MEDS: Polyethylene Glycol 3350 17 GM PACKET PO (20:01)
[2020-04-05] MEDS: Acetaminophen 500 MG TAB 1000 MG PO (22:07)
[2020-04-05] MEDS: Trihexyphenidyl 2 MG TAB 5 MG PO (22:07)
[2020-04-05] MEDS: Gabapentin 300 MG CAP PO (22:07)
[2020-04-05 23:38] VITALS: BP 104/66; PULSE 88; RESP 18; TEMP 37; O2SAT 94
[2020-04-06] MEDS: HYDROmorphone 2 MG/ML VIAL 1 MG IVP ×4 (01:56→18:08)
[2020-04-06] MEDS: Acetaminophen 500 MG TAB 1000 MG PO ×4 (04:25→22:26)
[2020-04-06] MEDS: oxyCODONE 5 MG TAB PO ×2 (05:38→12:00)
[2020-04-06] MEDS: PIPERACILLIN/TAZO 3.375 GM in Normal Saline 50 ML IVPB ×3 (05:38→18:09)
[2020-04-06] MEDS: Normal Saline Flush 10 ML SYR IVP ×4 (06:00→18:08)
[2020-04-06 07:46] LABS: Abs Immature Grans 0.68 10^3/uL (0.0-0.06); HCT 28.8 % (36.0-46.0); HGB 9.1 g/dL (11.2-15.7); MCH 32.4 pg (27.0-33.0); MCHC 31.6 % (32.0-36.0); MCV 102.5 fL (80-95); MPV 8.3 fL (8.0-11.0); Nucleated RBC 7 %; RBC 2.81 10^6/uL (3.93-5.22); RDW-SD 59.1 fL; WBC 16.18 10^3/uL (4.4-10.8)
[2020-04-06 07:48] VITALS: BP 122/85; PULSE 91; RESP 20; TEMP 36.7; O2SAT 97
[2020-04-06] MEDS: Triamcinolone 0.1% OINT 15 GM TUBE TP ×2 (07:50→22:35)
[2020-04-06] MEDS: Citalopram 20 MG TAB 40 MG PO (07:51)
[2020-04-06] MEDS: Omeprazole 20 MG CAPCR 40 MG PO (07:51)
[2020-04-06 08:08] LABS: ALT 65 U/L (14-59); AST 26 U/L (15-37); Albumin 2.7 g/dL (3.4-5.0); Alkaline Phosphatase 403 U/L (46-116); BUN 9 mg/dL (7-18); Bilirubin, Total 0.5 mg/dL (0.2-1.0); C-Reactive Protein 1.74 mg/dL (0.0-0.3); CREATININE 0.8 mg/dL (0.55-1.02); Calcium 8.2 mg/dL (8.5-10.1); Chloride 105 mmol/L (98-107); Glucose 87 mg/dL (74-106); Potassium 3.7 mmol/L (3.5-5.1); Sodium 142 mmol/L (136-145); Total Protein 5.5 g/dL (6.4-8.2)
[2020-04-06 08:11] LABS: Absolute Eosinophil Count 6.31 10^3/uL (0.0-0.7); Absolute Lymphocyte Count 0.32 10^3/uL (1.2-3.4); Absolute Monocyte Count 0.97 10^3/uL (0.1-0.8); Absolute Neutrophil Count 8.09 10^3/uL (1.2-6.7); Diff Comment Manual Differential; Metamyelocytes % 1; Myelocytes % 2; Platelet Count 653 10^3/uL (130-400)
[2020-04-06 08:12] LABS: Anisocytosis 2+; Basophilic Stippling Present; Howell-Jolly Bodies Present; Macrocytosis 2+; Poikilocytes 2+; Polychromasia Present
[2020-04-06] MEDS: Budesonide/Formoterol 160/4.5 6 GM 60 PUFF INH IH ×2 (08:32→22:28)
[2020-04-06 08:40] VITALS: O2SAT 95
[2020-04-06] MEDS: Ondansetron 4 MG/2 ML VIAL IVP (09:05)
--- NOTE | 2020-04-06 09:45 | W.PM.PROGNOT ---
Date of Service Date of service: 04/06/20 Time of Service: 09:45 Assessment and Plan Assessment and plan (1) Abdominal wall hematoma: Status: Acute Assessment and plan: dressing changes to start today Qualifiers: Encounter type: subsequent encounter Qualified Code(s): S30.1XXD - Contusion of abdominal wall, subsequent encounter Subjective Subjective Interval history since last seen: some inscisional soreness. Passing gas, but some nausea Exam GI Other: abd obese but soft. some inscisional soreness and some old echymosis laterally. Wound is clean and partially open. dressing changed Objective Last Vital Signs Temp 98.1 F 04/06/20 07:48 Pulse 91 H 04/06/20 07:48 Resp 20 04/06/20 07:48 BP 122/85 04/06/20 07:48 Pulse Ox 97 04/06/20 07:48 Laboratory Results - last 24 hr 04/03/20 04/06/20 04/06/20 10:40 06:45 06:45 WBC Cancelled RBC Cancelled Hgb Cancelled Hct Cancelled MCV Cancelled MCH Cancelled MCHC Cancelled RDW Cancelled Plt Count Cancelled MPV Cancelled Immature Gran % Cancelled Neutrophils % Cancelled Band Neutrophils % Cancelled Lymphocytes % Cancelled Atypical Lymphs % Cancelled Monocytes % Cancelled Eosinophils % Cancelled Basophils % Cancelled Metamyelocytes % Cancelled Myelocytes % Cancelled Promyelocytes % Cancelled Other Cells % Cancelled Nucleated RBC % Cancelled Absolute Neutrophils Cancelled Absolute Lymphocytes Cancelled Absolute Monocytes Cancelled Absolute Eosinophils Cancelled Absolute Basophils Cancelled RBC Morphology Cancelled Polychromasia Cancelled Hypochromasia Cancelled Poikilocytosis Cancelled Basophilic Stippling Cancelled Anisocytosis Cancelled Microcytosis Cancelled Macrocytosis Cancelled Spherocytes Cancelled Tear Drop Cells Cancelled Ovalocytes Cancelled Stomatocytes Cancelled [place] Bodies Cancelled [place] Cells/Echinocytes Cancelled Acanthocytes (Spur) Cancelled Schistocytes Cancelled Sodium Cancelled Potassium Cancelled Chloride Cancelled Carbon Dioxide Cancelled Anion Gap Cancelled BUN Cancelled Creatinine Cancelled Estimated GFR/1.73 m2 Cancelled Glucose Cancelled Calcium Cancelled Total Bilirubin Cancelled AST Cancelled ALT Cancelled Alkaline Phosphatase Cancelled C-Reactive Protein Cancelled Total Protein Cancelled Albumin Cancelled Urine Histoplasma Ag Negative U Histoplasma Ag Index 0.00 04/06/20 04/06/20 07:30 07:30 WBC 16.18 H RBC 2.81 L Hgb 9.1 L Hct 28.8 L MCV 102.5 H MCH 32.4 MCHC 31.6 L RDW 18.0 H Plt Count 653 H MPV 8.3 Immature Gran % See Differential Neutrophils % 50.0 Band Neutrophils % Lymphocytes % 2.0 Atypical Lymphs % Monocytes % 6.0 Eosinophils % 39.0 Basophils % 0.0 Metamyelocytes % 1 Myelocytes % 2 Promyelocytes % Other Cells % Nucleated RBC % 7 Absolute Neutrophils 8.09 H Absolute Lymphocytes 0.32 L Absolute Monocytes 0.97 H Absolute Eosinophils 6.31 H Absolute Basophils 0.00 RBC Morphology See below Polychromasia Present Hypochromasia Poikilocytosis 2+ Basophilic Stippling Present Anisocytosis 2+ Microcytosis Macrocytosis 2+ Spherocytes Tear Drop Cells Ovalocytes Stomatocytes [place] Bodies Present [place] Cells/Echinocytes Acanthocytes (Spur) Schistocytes Sodium 142 Potassium 3.7 D Chloride 105 Carbon Dioxide 27.0 Anion Gap 10.0 BUN 9 Creatinine 0.8 Estimated GFR/1.73 m2 >= 60.00 Glucose 87 Calcium 8.2 L Total Bilirubin 0.5 AST 26 ALT 65 H Alkaline Phosphatase 403 H C-Reactive Protein 1.74 H Total Protein 5.5 L Albumin 2.7 L Urine Histoplasma Ag U Histoplasma Ag Index
[2020-04-06] MEDS: Normal Saline 1,000 ML 50 ML IV (13:48)
--- NOTE | 2020-04-06 14:25 | CHAPLAIN ---
Tena was sitting up in bed, answering and texting on two different phones. She said she just sent photos of her incision to her sister in [place]. Tena said she came to [place] with her father, then didn't like him and stayed here when he left for [place]. She said she doesn't have any friends or family here, but I like it that way. I explained my role and offered support and let her know that I available at any time.
--- NOTE | 2020-04-06 15:49 | PGE_ITS ---
Date of Service Date of service: 04/06/20 Time of Service: 15:49 Assessment and Plan Assessment and plan (1) S/P hernia repair: Status: Acute Assessment and plan: Postop day #8. Management as per surgery. PODf#1 from primary closure of her abdominal wall from her hematoma (2) Abdominal wall hematoma: Status: Acute Assessment and plan: Postop day #5 from laparotomy and evacuation of abdominal wall hematoma. CT of her abdomen pelvis showed no evidence of abscess or abdominal wall infection. Patient had primary closure yesterday. Doing well postoperatively. Encourage use of I.S. and Acapella. Qualifiers: Encounter type: subsequent encounter Qualified Code(s): S30.1XXD - Contusion of abdominal wall, subsequent encounter (3) Aspiration pneumonia: Status: Acute Assessment and plan: Clinically she is improved. She remains on Zosyn d#4. I would complete this through tomorrow and consider stopping after tomorrow. We can recheck her CRP and CBC in the a.m. and follow up w/ repeat CXR. 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 I will obtain a phone consult tomorrow with her junior network administrator at [facility]. I am not sure how much this is contributed to her bleeding complications with her abdominal hematoma. I attempted to reach Dr. Tristin Collazo yesterday (He is her junior network administrator at [facility]), unfortunately he is out at this time. (5) Pyuria: Status: Resolved Assessment and plan: sterile pyuria. urine culture from 04/03 showed no growth. Subjective Subjective Interval history since last seen: Overall patient continues to improve. She remains afebrile and her leukocytosis is improving. She is not short of breath. Abdominal pain has improved since she had primary closure of her abdominal wound. I have asked [facility] [place] to over-read her current CT scans to compare to her prior one done [place] [facility] [place]. I would like to know whether her current pulmonary opacities were there back in February. Dr. Patel sent off several antibody studies per Dr. Hyde ([place]esfaye [place] [facility] suggestion including repeat Gold Quantiferon, studies for histoplasmosis, cryptococcus, aspergillus. So far her cryptococcus antigen and urine for histoplasmosis antigen have been negative. Her Chlamydia antibody titers are pending and her Gold Quantiferon is pending. Her read on her [place] [facility] [place] was read as not showing any tuberculosis however, it was not clear what her pulmonary densities were. Exam Narrative Exam Narrative: Obese female up out of bed, walking around room and on the phone w/ a friend. Lungs are clear to auscultation. There is no wheezing or rhonchi. Heart regular rate and rhythm. Abdomen the wound is closed with a dressing a soft tubular bandage (Kerma). Objective Last Vital Signs Temp 36.7 C 04/06/20 07:48 Pulse 91 H 04/06/20 07:48 Resp 20 04/06/20 07:48 BP 122/85 04/06/20 07:48 Pulse Ox 95 04/06/20 08:40 Laboratory Results - last 24 hr 04/03/20 04/03/20 04/03/20 07:20 07:20 07:20 WBC 19.48 H D RBC 2.70 L Hgb 8.8 L Hct 26.4 L MCV 97.8 H MCH 32.6 MCHC 33.3 RDW 14.3 Plt Count 524 H MPV 8.8 Immature Gran % Neutrophils % 56.0 Band Neutrophils % 11 Lymphocytes % 5.0 Atypical Lymphs % Monocytes % 5.0 Eosinophils % 17.0 Basophils % 0.0 Metamyelocytes % 3 Myelocytes % 3 Promyelocytes % Other Cells % Nucleated RBC % 4 Absolute Neutrophils 13.05 H Absolute Lymphocytes 0.97 L Absolute Monocytes 0.97 H Absolute Eosinophils 3.31 H Absolute Basophils 0.00 RBC Morphology See below Polychromasia Present Hypochromasia Poikilocytosis 2+ Basophilic Stippling Present Anisocytosis Microcytosis Macrocytosis Spherocytes Tear Drop Cells Ovalocytes Stomatocytes [place] Bodies Present Rubens Cells/Echinocytes Acanthocytes (Spur) Schistocytes ESR Sodium 137 Potassium 4.2 Chloride 103 Carbon Dioxide 28.7 Anion Gap 5.3 BUN 11 Creatinine 0.7 Estimated GFR/1.73 m2 >= 60.00 Glucose 88 Calcium 8.3 L Total Bilirubin 0.5 AST 49 H ALT 93 H Alkaline Phosphatase 269 H C-Reactive Protein 2.98 H Total Protein 5.4 L Albumin 2.7 L Urine Color Urine Clarity Urine pH Ur Specific [place] Urine Protein Urine Ketones Urine Blood Urine Nitrite Urine Bilirubin Urine Urobilinogen Ur Leukocyte Esterase Urine RBC Urine WBC Ur Epithelial Cells Urine Crystals Urine Bacteria Urine Casts Urine Mucus Urine Other Ur Culture Indicated? Urine Glucose Rheumatoid Factor Cryptococcus Ag Urine Histoplasma Ag Cancelled U Histoplasma Ag Index Cancelled Aspergillus Ag (EIA) Cancelled 04/03/20 04/03/20 04/03/20 07:20 07:20 07:20 WBC RBC Hgb Hct MCV MCH MCHC RDW Plt Count MPV Immature Gran % Neutrophils % Band Neutrophils % Lymphocytes % Atypical Lymphs % Monocytes % Eosinophils % Basophils % Metamyelocytes % Myelocytes % Promyelocytes % Other Cells % Nucleated RBC % Absolute Neutrophils Absolute Lymphocytes Absolute Monocytes Absolute Eosinophils Absolute Basophils RBC Morphology Polychromasia Hypochromasia Poikilocytosis Basophilic Stippling Anisocytosis Microcytosis Macrocytosis Spherocytes Tear Drop Cells Ovalocytes Stomatocytes [place] Bodies [place] Cells/Echinocytes Acanthocytes (Spur) Schistocytes ESR 25 Sodium Potassium Chloride Carbon Dioxide Anion Gap BUN Creatinine Estimated GFR/1.73 m2 Glucose Calcium Total Bilirubin AST ALT Alkaline Phosphatase C-Reactive Protein Total Protein Albumin Urine Color Urine Clarity Urine pH Ur Specific [place] Urine Protein Urine Ketones Urine Blood Urine Nitrite Urine Bilirubin Urine Urobilinogen Ur Leukocyte Esterase Urine RBC Urine WBC Ur Epithelial Cells Urine Crystals Urine Bacteria Urine Casts Urine Mucus Urine Other Ur Culture Indicated? Urine Glucose Rheumatoid Factor <8.6 Cryptococcus Ag Negative Urine Histoplasma Ag U Histoplasma Ag Index Aspergillus Ag (EIA) 04/03/20 04/03/20 04/03/20 10:40 10:40 16:30 WBC RBC Hgb Hct MCV MCH MCHC RDW Plt Count MPV Immature Gran % Neutrophils % Band Neutrophils % Lymphocytes % Atypical Lymphs % Monocytes % Eosinophils % Basophils % Metamyelocytes % Myelocytes % Promyelocytes % Other Cells % Nucleated RBC % Absolute Neutrophils Absolute Lymphocytes Absolute Monocytes Absolute Eosinophils Absolute Basophils RBC Morphology Polychromasia Hypochromasia Poikilocytosis Basophilic Stippling Anisocytosis Microcytosis Macrocytosis Spherocytes Tear Drop Cells Ovalocytes Stomatocytes [place] Bodies [place] Cells/Echinocytes Acanthocytes (Spur) Schistocytes ESR Sodium Potassium Chloride Carbon Dioxide Anion Gap BUN Creatinine Estimated GFR/1.73 m2 Glucose Calcium Total Bilirubin AST ALT Alkaline Phosphatase C-Reactive Protein Total Protein Albumin Urine Color Yellow Yellow Urine Clarity Clear Sl cloudy Urine pH 6.0 6.0 Ur Specific [place] 1.020 1.015 Urine Protein Negative Negative Urine Ketones Negative Negative Urine Blood Negative Trace-intact H Urine Nitrite Negative Negative Urine Bilirubin Negative Negative Urine Urobilinogen 0.2 0.2 Ur Leukocyte Esterase Trace H Small H Urine RBC Negative 0-2 Urine WBC 10-20 H 20-50 H Ur Epithelial Cells Many Many Urine Crystals Negative Negative Urine Bacteria Few Moderate Urine Casts Negative Urine Mucus Negative Negative Urine Other Negative Ur Culture Indicated? No/sq. contamination No/sq. contamination Urine Glucose Negative Negative Rheumatoid Factor Cryptococcus Ag Urine Histoplasma Ag Negative U Histoplasma Ag Index 0.00 Aspergillus Ag (EIA) 04/06/20 04/06/20 04/06/20 06:45 06:45 07:30 WBC Cancelled RBC Cancelled Hgb Cancelled Hct Cancelled MCV Cancelled MCH Cancelled MCHC Cancelled RDW Cancelled Plt Count Cancelled MPV Cancelled Immature Gran % Cancelled Neutrophils % Cancelled Band Neutrophils % Cancelled Lymphocytes % Cancelled Atypical Lymphs % Cancelled Monocytes % Cancelled Eosinophils % Cancelled Basophils % Cancelled Metamyelocytes % Cancelled Myelocytes % Cancelled Promyelocytes % Cancelled Other Cells % Cancelled Nucleated RBC % Cancelled Absolute Neutrophils Cancelled Absolute Lymphocytes Cancelled Absolute Monocytes Cancelled Absolute Eosinophils Cancelled Absolute Basophils Cancelled RBC Morphology Cancelled Polychromasia Cancelled Hypochromasia Cancelled Poikilocytosis Cancelled Basophilic Stippling Cancelled Anisocytosis Cancelled Microcytosis Cancelled Macrocytosis Cancelled Spherocytes Cancelled Tear Drop Cells Cancelled Ovalocytes Cancelled Stomatocytes Cancelled [place] Bodies Cancelled [place] Cells/Echinocytes Cancelled Acanthocytes (Spur) Cancelled Schistocytes Cancelled ESR Sodium Cancelled 142 Potassium Cancelled 3.7 D Chloride Cancelled 105 Carbon Dioxide Cancelled 27.0 Anion Gap Cancelled 10.0 BUN Cancelled 9 Creatinine Cancelled 0.8 Estimated GFR/1.73 m2 Cancelled >= 60.00 Glucose Cancelled 87 Calcium Cancelled 8.2 L Total Bilirubin Cancelled 0.5 AST Cancelled 26 ALT Cancelled 65 H Alkaline Phosphatase Cancelled 403 H C-Reactive Protein Cancelled 1.74 H Total Protein Cancelled 5.5 L Albumin Cancelled 2.7 L Urine Color Urine Clarity Urine pH Ur Specific [place] Urine Protein Urine Ketones Urine Blood Urine Nitrite Urine Bilirubin Urine Urobilinogen Ur Leukocyte Esterase Urine RBC Urine WBC Ur Epithelial Cells Urine Crystals Urine Bacteria Urine Casts Urine Mucus Urine Other Ur Culture Indicated? Urine Glucose Rheumatoid Factor Cryptococcus Ag Urine Histoplasma Ag U Histoplasma Ag Index Aspergillus Ag (EIA) 04/06/20 07:30 WBC 16.18 H RBC 2.81 L Hgb 9.1 L Hct 28.8 L MCV 102.5 H MCH 32.4 MCHC 31.6 L RDW 18.0 H Plt Count 653 H MPV 8.3 Immature Gran % See Differential Neutrophils % 50.0 Band Neutrophils % Lymphocytes % 2.0 Atypical Lymphs % Monocytes % 6.0 Eosinophils % 39.0 Basophils % 0.0 Metamyelocytes % 1 Myelocytes % 2 Promyelocytes % Other Cells % Nucleated RBC % 7 Absolute Neutrophils 8.09 H Absolute Lymphocytes 0.32 L Absolute Monocytes 0.97 H Absolute Eosinophils 6.31 H Absolute Basophils 0.00 RBC Morphology See below Polychromasia Present Hypochromasia Poikilocytosis 2+ Basophilic Stippling Present Anisocytosis 2+ Microcytosis Macrocytosis 2+ Spherocytes Tear Drop Cells Ovalocytes Stomatocytes [place] Bodies Present [place] Cells/Echinocytes Acanthocytes (Spur) Schistocytes ESR Sodium Potassium Chloride Carbon Dioxide Anion Gap BUN Creatinine Estimated GFR/1.73 m2 Glucose Calcium Total Bilirubin AST ALT Alkaline Phosphatase C-Reactive Protein Total Protein Albumin Urine Color Urine Clarity Urine pH Ur Specific [place] Urine Protein Urine Ketones Urine Blood Urine Nitrite Urine Bilirubin Urine Urobilinogen Ur Leukocyte Esterase Urine RBC Urine WBC Ur Epithelial Cells Urine Crystals Urine Bacteria Urine Casts Urine Mucus Urine Other Ur Culture Indicated? Urine Glucose Rheumatoid Factor Cryptococcus Ag Urine Histoplasma Ag U Histoplasma Ag Index Aspergillus Ag (EIA)
[2020-04-06 16:30] VITALS: BP 117/64; PULSE 70; RESP 18; TEMP 36.5; O2SAT 97
--- NOTE | 2020-04-06 18:47 | CMPROGNOTE_ITS ---
- If Service Date Differs Date of service: 04/06/20 Time of Service: 18:47 Care Management Progress Note S/O: Tena was sitting up in her bed today when CM met with her. She reported that she was feeling a little better today. Per report, her WBC has started to decrease. She will remain on Zosan for a 5 day course. She was happy to be able to eat today, as she was NPO most of the day yesterday. Her incision was closed partially yesterday. CM discussed her plan with Paula Allred, her RN CM from [facility], and will follow up with her early next week. CM will continue to follow. A: Tena is a 29 year old female admitted to [facility] on 03/29/20 for Incisional Hernia. P: Tena will return to the [facility] when medically cleared. ANANTH will refer her to [facility] for community case management. She may need HH RN for wound care. She will have a referral for an outpatient sleep study. CM will coordinate a ride home via [facility] when ready. She will follow up with her PCP, community based providers and discharge plan of care. CM will continue to follow.
[2020-04-06] MEDS: Docusate Sodium 100 MG CAP PO (21:08)
[2020-04-06] MEDS: Gabapentin 300 MG CAP PO (21:08)
[2020-04-06] MEDS: Trihexyphenidyl 2 MG TAB 5 MG PO (22:26)
[2020-04-06] MEDS: Zolpidem 5 MG TAB PO (22:35)
[2020-04-06 23:35] VITALS: BP 104/65; PULSE 73; RESP 19; TEMP 36.6; O2SAT 100
[2020-04-07] MEDS: Normal Saline Flush 10 ML SYR IVP ×4 (00:37→08:23)
[2020-04-07] MEDS: HYDROmorphone 2 MG/ML VIAL 1 MG IVP ×2 (00:38→06:39)
[2020-04-07] MEDS: PIPERACILLIN/TAZO 3.375 GM in Normal Saline 50 ML IVPB ×2 (00:41→06:39)
[2020-04-07] MEDS: Normal Saline 1,000 ML 50 ML IV (05:53)
[2020-04-07] MEDS: Budesonide/Formoterol 160/4.5 6 GM 60 PUFF INH IH ×2 (07:52→20:06)
[2020-04-07 08:06] VITALS: BP 101/67; PULSE 78; RESP 20; TEMP 36.8; O2SAT 91
[2020-04-07 08:20] LABS: ALT 59 U/L (14-59); AST 31 U/L (15-37); Albumin 3.1 g/dL (3.4-5.0); Alkaline Phosphatase 395 U/L (46-116); Anion Gap 9.1 mmol/L (3-11); BUN 9 mg/dL (7-18); Bilirubin, Total 0.6 mg/dL (0.2-1.0); C-Reactive Protein 1.05 mg/dL (0.0-0.3); CO2 27.9 mmol/L (21.0-32.0); CREATININE 0.7 mg/dL (0.55-1.02); Calcium 8.7 mg/dL (8.5-10.1); Chloride 104 mmol/L (98-107); Glucose 85 mg/dL (74-106); Potassium 4.1 mmol/L (3.5-5.1); Sodium 141 mmol/L (136-145); Total Protein 6.4 g/dL (6.4-8.2)
[2020-04-07] MEDS: Citalopram 20 MG TAB 40 MG PO (08:23)
[2020-04-07] MEDS: Polyethylene Glycol 3350 17 GM PACKET PO ×2 (08:23→20:07)
[2020-04-07] MEDS: Docusate Sodium 100 MG CAP PO ×3 (08:23→20:06)
[2020-04-07] MEDS: Omeprazole 20 MG CAPCR 40 MG PO (08:23)
[2020-04-07] MEDS: Triamcinolone 0.1% OINT 15 GM TUBE TP ×2 (08:47→20:07)
--- NOTE | 2020-04-07 09:21 | W.PM.PROGNOT ---
Date of Service Date of service: 04/07/20 Time of Service: 09:21 Assessment and Plan Assessment and plan (1) S/P hernia repair: Status: Acute Assessment and plan: Postop day #9. Management as per surgery. PODf#2 from primary closure of her abdominal wall from her hematoma (2) Abdominal wall hematoma: Status: Acute Assessment and plan: Postop day #6 from laparotomy and evacuation of abdominal wall hematoma. CT of her abdomen pelvis showed no evidence of abscess or abdominal wall infection. Patient had primary closure yesterday. Doing well postoperatively. Encourage use of I.S. and Acapella. Qualifiers: Encounter type: subsequent encounter Qualified Code(s): S30.1XXD - Contusion of abdominal wall, subsequent encounter (3) Aspiration pneumonia: Status: Acute Assessment and plan: Clinically she is improved. As her IV is come out I do not think it needs to be restarted I will just switch her to Augmentin and treat her for 2-3 more days. From my standpoint she can be discharged home. 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 I will obtain a phone consult tomorrow with her freelance translator at [facility]. I am not sure how much this is contributed to her bleeding complications with her abdominal hematoma. I attempted to reach Dr. Tristin Collazo yesterday (He is her freelance translator at [facility]), unfortunately he is out at this time. Subjective Subjective Interval history since last seen: Patient is doing well. She is not dyspneic, not requiring any oxygen supplementation. No CBC was done today however her white count was trending downward yesterday at 16,000. I sent her CT scans from [facility] to [facility] 2 days ago and yesterday requested radiology to over read her current CT scans and make comparison to her chest CT scan done at [facility] on March 02, 2020. I want to know if there are any significant changes in terms of her lung infiltrates or nodules. Her cryptococcus, histoplasmosis, aspergillosis studies have been negative so far. From my standpoint I think she could be medically discharged. Today would be day 5 of Zosyn however her IV infiltrated. At this point I would not restart her IV but rather put her on Augmentin for couple more days. Exam Narrative Exam Narrative: Young female up walking around her room. Alert and oriented person place time circumstance Lungs are clear to auscultation Heart regular rate and rhythm. Abdomen soft minimal tenderness abdominal wound is covered with dressing and tubular covering Objective Last Vital Signs Temp 36.8 C 04/07/20 08:06 Pulse 78 04/07/20 08:06 Resp 20 04/07/20 08:06 BP 101/67 04/07/20 08:06 Pulse Ox 91 L 04/07/20 08:06 Laboratory Results - last 24 hr 04/03/20 04/03/20 04/03/20 07:20 07:20 07:20 WBC 19.48 H D RBC 2.70 L Hgb 8.8 L Hct 26.4 L MCV 97.8 H MCH 32.6 MCHC 33.3 RDW 14.3 Plt Count 524 H MPV 8.8 Neutrophils % 56.0 Band Neutrophils % 11 Lymphocytes % 5.0 Monocytes % 5.0 Eosinophils % 17.0 Basophils % 0.0 Metamyelocytes % 3 Myelocytes % 3 Nucleated RBC % 4 Absolute Neutrophils 13.05 H Absolute Lymphocytes 0.97 L Absolute Monocytes 0.97 H Absolute Eosinophils 3.31 H Absolute Basophils 0.00 RBC Morphology See below Polychromasia Present Poikilocytosis 2+ Basophilic Stippling Present [place] Bodies Present ESR Sodium 137 Potassium 4.2 Chloride 103 Carbon Dioxide 28.7 Anion Gap 5.3 BUN 11 Creatinine 0.7 Estimated GFR/1.73 m2 >= 60.00 Glucose 88 Calcium 8.3 L Total Bilirubin 0.5 AST 49 H ALT 93 H Alkaline Phosphatase 269 H C-Reactive Protein 2.98 H Total Protein 5.4 L Albumin 2.7 L Urine Color Urine Clarity Urine pH Ur Specific [place] Urine Protein Urine Ketones Urine Blood Urine Nitrite Urine Bilirubin Urine Urobilinogen Ur Leukocyte Esterase Urine RBC Urine WBC Ur Epithelial Cells Urine Crystals Urine Bacteria Urine Casts Urine Mucus Urine Other Ur Culture Indicated? Urine Glucose Rheumatoid Factor Cryptococcus Ag Urine Histoplasma Ag Cancelled U Histoplasma Ag Index Cancelled Aspergillus Ag (EIA) Cancelled 04/03/20 04/03/20 04/03/20 07:20 07:20 07:20 WBC RBC Hgb Hct MCV MCH MCHC RDW Plt Count MPV Neutrophils % Band Neutrophils % Lymphocytes % Monocytes % Eosinophils % Basophils % Metamyelocytes % Myelocytes % Nucleated RBC % Absolute Neutrophils Absolute Lymphocytes Absolute Monocytes Absolute Eosinophils Absolute Basophils RBC Morphology Polychromasia Poikilocytosis Basophilic Stippling [place] Bodies ESR 25 Sodium Potassium Chloride Carbon Dioxide Anion Gap BUN Creatinine Estimated GFR/1.73 m2 Glucose Calcium Total Bilirubin AST ALT Alkaline Phosphatase C-Reactive Protein Total Protein Albumin Urine Color Urine Clarity Urine pH Ur Specific [place] Urine Protein Urine Ketones Urine Blood Urine Nitrite Urine Bilirubin Urine Urobilinogen Ur Leukocyte Esterase Urine RBC Urine WBC Ur Epithelial Cells Urine Crystals Urine Bacteria Urine Casts Urine Mucus Urine Other Ur Culture Indicated? Urine Glucose Rheumatoid Factor <8.6 Cryptococcus Ag Negative Urine Histoplasma Ag U Histoplasma Ag Index Aspergillus Ag (EIA) 04/03/20 04/03/20 04/03/20 10:40 10:40 16:30 WBC RBC Hgb Hct MCV MCH MCHC RDW Plt Count MPV Neutrophils % Band Neutrophils % Lymphocytes % Monocytes % Eosinophils % Basophils % Metamyelocytes % Myelocytes % Nucleated RBC % Absolute Neutrophils Absolute Lymphocytes Absolute Monocytes Absolute Eosinophils Absolute Basophils RBC Morphology Polychromasia Poikilocytosis Basophilic Stippling [place] Bodies ESR Sodium Potassium Chloride Carbon Dioxide Anion Gap BUN Creatinine Estimated GFR/1.73 m2 Glucose Calcium Total Bilirubin AST ALT Alkaline Phosphatase C-Reactive Protein Total Protein Albumin Urine Color Yellow Yellow Urine Clarity Clear Sl cloudy Urine pH 6.0 6.0 Ur Specific [place] 1.020 1.015 Urine Protein Negative Negative Urine Ketones Negative Negative Urine Blood Negative Trace-intact H Urine Nitrite Negative Negative Urine Bilirubin Negative Negative Urine Urobilinogen 0.2 0.2 Ur Leukocyte Esterase Trace H Small H Urine RBC Negative 0-2 Urine WBC 10-20 H 20-50 H Ur Epithelial Cells Many Many Urine Crystals Negative Negative Urine Bacteria Few Moderate Urine Casts Negative Urine Mucus Negative Negative Urine Other Negative Ur Culture Indicated? No/sq. contamination No/sq. contamination Urine Glucose Negative Negative Rheumatoid Factor Cryptococcus Ag Urine Histoplasma Ag Negative U Histoplasma Ag Index 0.00 Aspergillus Ag (EIA) 04/05/20 04/07/20 06:40 07:50 WBC RBC Hgb Hct MCV MCH MCHC RDW Plt Count MPV Neutrophils % Band Neutrophils % Lymphocytes % Monocytes % Eosinophils % Basophils % Metamyelocytes % Myelocytes % Nucleated RBC % Absolute Neutrophils Absolute Lymphocytes Absolute Monocytes Absolute Eosinophils Absolute Basophils RBC Morphology Polychromasia Poikilocytosis Basophilic Stippling [place] Bodies ESR Sodium 141 Potassium 4.1 Chloride 104 Carbon Dioxide 27.9 Anion Gap 9.1 BUN 9 Creatinine 0.7 Estimated GFR/1.73 m2 >= 60.00 Glucose 85 Calcium 8.7 Total Bilirubin 0.6 AST 31 ALT 59 Alkaline Phosphatase 395 H C-Reactive Protein 1.05 H Total Protein 6.4 Albumin 3.1 L Urine Color Urine Clarity Urine pH Ur Specific [place] Urine Protein Urine Ketones Urine Blood Urine Nitrite Urine Bilirubin Urine Urobilinogen Ur Leukocyte Esterase Urine RBC Urine WBC Ur Epithelial Cells Urine Crystals Urine Bacteria Urine Casts Urine Mucus Urine Other Ur Culture Indicated? Urine Glucose Rheumatoid Factor Cryptococcus Ag Urine Histoplasma Ag U Histoplasma Ag Index Aspergillus Ag (EIA) <0.500
[2020-04-07] MEDS: Acetaminophen 500 MG TAB 1000 MG PO ×3 (09:38→21:22)
[2020-04-07] MEDS: Amoxicillin 875/Clav. 125 TAB PO ×2 (09:49→20:06)
[2020-04-07] MEDS: Refresh PLUS Eye Drops 0.4ml 1 EACH OU ×2 (12:12→21:23)
[2020-04-07 12:48] LABS: TB Interpretation Negative (Negative)
[2020-04-07] MEDS: oxyCODONE 5 MG TAB PO ×2 (14:13→21:51)
--- NOTE | 2020-04-07 14:17 | W.PM.PROGNOT ---
Date of Service Date of service: 04/07/20 Time of Service: 14:17 Assessment and Plan Assessment and plan (1) Abdominal wall hematoma: Status: Acute Assessment and plan: cont dressing changes may be ready to steri strip in a couple of days Qualifiers: Encounter type: subsequent encounter Qualified Code(s): S30.1XXD - Contusion of abdominal wall, subsequent encounter Subjective Subjective Patient reports: no new complaints Exam GI Other: abd soft echymotic wound clean Objective Last Vital Signs Temp 98.2 F 04/07/20 08:06 Pulse 78 04/07/20 08:06 Resp 20 04/07/20 08:06 BP 101/67 04/07/20 08:06 Pulse Ox 91 L 04/07/20 08:06 Laboratory Results - last 24 hr 04/03/20 04/03/20 04/05/20 07:20 07:20 06:40 Sodium Potassium Chloride Carbon Dioxide Anion Gap BUN Creatinine Estimated GFR/1.73 m2 Glucose Calcium Total Bilirubin AST ALT Alkaline Phosphatase C-Reactive Protein Total Protein Albumin C. pneumoniae IgG Titer Cancelled C. pneumoniae IgG Ab <1:64 C. pneumoniae IgA Titer Cancelled C. pneumoniae IgM Titer Cancelled C. pneumoniae IgM Ab <1:10 C. trachomatis IgG Ab <1:64 C. trachomatis IgG Titer Cancelled C. trachomatis IgA Titer Cancelled C. trachomatis IgM Ab <1:10 C. trachomatis IgM Titer Cancelled C. psittaci IgG Ab <1:64 C. psittaci IgG Titer Cancelled C. psittaci IgA Titer Cancelled C. psittaci IgM Ab <1:10 C. psittaci IgM Titer Cancelled Aspergillus Ag (EIA) <0.500 TB Test Ag - Nil 1 0.00 TB Test Ag - Nil 2 0.00 TB Test (QFT) Interp Negative Path Cons Comment Misc Test Comment Cancelled 04/06/20 04/07/20 07:30 07:50 Sodium 141 Potassium 4.1 Chloride 104 Carbon Dioxide 27.9 Anion Gap 9.1 BUN 9 Creatinine 0.7 Estimated GFR/1.73 m2 >= 60.00 Glucose 85 Calcium 8.7 Total Bilirubin 0.6 AST 31 ALT 59 Alkaline Phosphatase 395 H C-Reactive Protein 1.05 H Total Protein 6.4 Albumin 3.1 L C. pneumoniae IgG Titer C. pneumoniae IgG Ab C. pneumoniae IgA Titer C. pneumoniae IgM Titer C. pneumoniae IgM Ab C. trachomatis IgG Ab C. trachomatis IgG Titer C. trachomatis IgA Titer C. trachomatis IgM Ab C. trachomatis IgM Titer C. psittaci IgG Ab C. psittaci IgG Titer C. psittaci IgA Titer C. psittaci IgM Ab C. psittaci IgM Titer Aspergillus Ag (EIA) TB Test Ag - Nil 1 TB Test Ag - Nil 2 TB Test (QFT) Interp Path Cons Comment Misc Test Comment
[2020-04-07 15:45] VITALS: BP 97/65; PULSE 84; RESP 18; TEMP 36.2; O2SAT 97
[2020-04-07] MEDS: Simethicone 80 MG CHEW PO (17:26)
[2020-04-07] MEDS: Ondansetron 4 MG TAB PO (17:56)
[2020-04-07 19:20] VITALS: O2SAT 97
--- NOTE | 2020-04-07 19:47 | PDOC.CMPRO ---
- If Service Date Differs Date of service: 04/07/20 Time of Service: 19:47 Care Management Progress Note S/O: Tena was sitting up in bed today when CM met with her. She stated that she is bored here, although her sister dropped off a nice care package with activities and treats. She reported that once she leaves here she will just be in a hotel room, the same as here, with no visitors or help. She has been discharged from medical services, but remains acute under surgical services. Per report, she will continue to be monitored, continue dressing changes, and she may be ready for steri strip in a couple of days. CM will continue to follow. A: Tena is a 29 year old female admitted to [facility] on 03/29/20 for Incisional Hernia. P: Tena will return to the [facility] when medically cleared. CM will refer her to [facility] for community case management. She may need HH RN for wound care. She will have a referral for an outpatient sleep study. CM will coordinate a ride home via [facility] when ready. She will follow up with her PCP, community based providers and discharge plan of care. CM will continue to follow.
[2020-04-07] MEDS: Gabapentin 300 MG CAP PO (21:22)
[2020-04-07] MEDS: Trihexyphenidyl 2 MG TAB 5 MG PO (21:23)
[2020-04-07 23:50] VITALS: BP 102/69; PULSE 82; RESP 19; TEMP 36.5; O2SAT 95
[2020-04-08] VITALS (7 sets, daily range): BP systolic 94–105; BP diastolic 62–71; PULSE 58–73; RESP 16–18; TEMP 36.6–36.7; O2SAT 95–96
[2020-04-08] MEDS: Acetaminophen 500 MG TAB 1000 MG PO ×4 (03:19→21:59)
[2020-04-08 07:20] LABS: C-Reactive Protein 0.49 mg/dL (0.0-0.3)
[2020-04-08] MEDS: Budesonide/Formoterol 160/4.5 6 GM 60 PUFF INH IH ×2 (07:59→21:03)
--- NOTE | 2020-04-08 09:03 | W.PM.PROGNOT ---
Date of Service Date of service: 04/08/20 Time of Service: 09:03 Assessment and Plan Assessment and plan (1) Abdominal wall hematoma: Status: Acute Assessment and plan: wound clean. remaining open areas steri stripped. will stop saline dtessing changes and try to arrange home support Qualifiers: Encounter type: subsequent encounter Qualified Code(s): S30.1XXD - Contusion of abdominal wall, subsequent encounter Subjective Subjective Patient reports: no new complaints Exam GI Other: abd soft no tenderness. wound steri stripped Objective Last Vital Signs Temp 97.9 F 04/08/20 07:58 Pulse 64 04/08/20 07:58 Resp 18 04/08/20 07:58 BP 105/71 04/08/20 07:58 Pulse Ox 96 04/08/20 07:58 Laboratory Results - last 24 hr 04/03/20 04/03/20 04/06/20 07:20 07:20 07:30 C-Reactive Protein C. pneumoniae IgG Titer Cancelled C. pneumoniae IgG Ab <1:64 C. pneumoniae IgA Titer Cancelled C. pneumoniae IgM Titer Cancelled C. pneumoniae IgM Ab <1:10 C. trachomatis IgG Ab <1:64 C. trachomatis IgG Titer Cancelled C. trachomatis IgA Titer Cancelled C. trachomatis IgM Ab <1:10 C. trachomatis IgM Titer Cancelled C. psittaci IgG Ab <1:64 C. psittaci IgG Titer Cancelled C. psittaci IgA Titer Cancelled C. psittaci IgM Ab <1:10 C. psittaci IgM Titer Cancelled TB Test Ag - Nil 1 0.00 TB Test Ag - Nil 2 0.00 TB Test (QFT) Interp Negative Beta-(1,3)-D-Glucan Cancelled Path Cons Comment Misc Test Comment Cancelled 04/08/20 06:40 C-Reactive Protein 0.49 H C. pneumoniae IgG Titer C. pneumoniae IgG Ab C. pneumoniae IgA Titer C. pneumoniae IgM Titer C. pneumoniae IgM Ab C. trachomatis IgG Ab C. trachomatis IgG Titer C. trachomatis IgA Titer C. trachomatis IgM Ab C. trachomatis IgM Titer C. psittaci IgG Ab C. psittaci IgG Titer C. psittaci IgA Titer C. psittaci IgM Ab C. psittaci IgM Titer TB Test Ag - Nil 1 TB Test Ag - Nil 2 TB Test (QFT) Interp Beta-(1,3)-D-Glucan Path Cons Comment Misc Test Comment
[2020-04-08] MEDS: Citalopram 20 MG TAB 40 MG PO (09:26)
[2020-04-08] MEDS: Amoxicillin 875/Clav. 125 TAB PO ×2 (09:26→21:02)
[2020-04-08] MEDS: Omeprazole 20 MG CAPCR 40 MG PO (09:27)
[2020-04-08] MEDS: Triamcinolone 0.1% OINT 15 GM TUBE TP ×2 (09:27→21:03)
[2020-04-08] MEDS: Docusate Sodium 100 MG CAP PO ×3 (09:27→21:03)
[2020-04-08] MEDS: oxyCODONE 5 MG TAB PO ×2 (13:50→23:28)
--- NOTE | 2020-04-08 18:01 | PDOC.CMPRO ---
- If Service Date Differs Date of service: 04/08/20 Time of Service: 18:01 Care Management Progress Note S/O: Tena was sitting up in bed today when CM met with her. She was pleasant and agreeable to conversation. Tena stated that she was not sure when she would be discharged. Dr. Bejarano applied steri-strips to her wound today and, per report, is considering discharge for tomorrow. Tena will need HH nursing for wound care and [facility] for transportation. She stated that she lives alone at the [facility] but that they do provide her with food. Her only possible expense will be for medications as she has a small co-pay. She admitted that she has no money. Tena did not appear excited about being discharged. She stated that it's no different than here: I have no one there and not much to do. A: Tena is a 29 year old female admitted to [facility] on 03/29/20 for an Incisional Hernia repair.. P: Tena will return to the [facility] when medically cleared. CM will refer her to [facility] for community case management. She may need HH RN for wound care. She will have a referral for an outpatient sleep study. CM will coordinate a ride home via [facility] when ready. She will follow up with her PCP, community based providers and discharge plan of care. CM will continue to follow.
[2020-04-08] MEDS: Polyethylene Glycol 3350 17 GM PACKET PO (21:03)
[2020-04-08] MEDS: Trihexyphenidyl 2 MG TAB 5 MG PO (21:59)
[2020-04-08] MEDS: Refresh PLUS Eye Drops 0.4ml 1 EACH OU (22:00)
[2020-04-08] MEDS: Gabapentin 300 MG CAP PO (22:00)
[2020-04-09 02:35] VITALS: O2SAT 95
[2020-04-09] MEDS: Acetaminophen 500 MG TAB 1000 MG PO ×4 (03:07→21:56)
[2020-04-09 07:11] LABS: C-Reactive Protein 0.25 mg/dL (0.0-0.3)
[2020-04-09 07:44] VITALS: BP 118/50; PULSE 76; RESP 16; TEMP 36.2; O2SAT 91
[2020-04-09] MEDS: Triamcinolone 0.1% OINT 15 GM TUBE TP ×2 (07:46→19:40)
[2020-04-09] MEDS: Omeprazole 20 MG CAPCR 40 MG PO (07:47)
[2020-04-09] MEDS: Docusate Sodium 100 MG CAP PO ×3 (07:47→19:39)
[2020-04-09] MEDS: Amoxicillin 875/Clav. 125 TAB PO ×2 (07:47→19:39)
[2020-04-09] MEDS: Citalopram 20 MG TAB 40 MG PO (07:47)
--- NOTE | 2020-04-09 09:42 | W.PM.PROGNOT ---
Date of Service Date of service: 04/09/20 Time of Service: 09:42 Assessment and Plan Assessment and plan (1) S/P hernia repair: Status: Acute Assessment and plan: Will discharge this patient tomorrow with support services Subjective Subjective Patient reports: no new complaints Exam GI Inspection: obesity Palpation: soft Other: Wound Steri-Strips clean and dry Objective Last Vital Signs Temp 97.2 F L 04/09/20 07:44 Pulse 76 04/09/20 07:44 Resp 16 04/09/20 07:44 BP 118/50 L 04/09/20 07:44 Pulse Ox 91 L 04/09/20 07:44 Laboratory Results - last 24 hr 04/09/20 06:30 C-Reactive Protein 0.25
[2020-04-09] MEDS: Budesonide/Formoterol 160/4.5 6 GM 60 PUFF INH IH ×2 (09:46→19:39)
--- NOTE | 2020-04-09 10:01 | CMPROGNOTE_ITS ---
- If Service Date Differs Date of service: 04/09/20 Time of Service: 10:01 Care Management Progress Note S/O: Tena was sitting up in bed today when ANANTH met with her. She noted that she was happy that she had not been discharged today as she feels that she would have more immediate support tomorrow. Tena shared with CM that she had reconnected on line with a male friend from high school in February and that they talked every day many times. She was smiling and animated while sharing this and admitted that she was looking forward to the time when they can get together. The Covid pandemic has made this challenging, as have her medical issues. A: Tena is a 29 year old female admitted to [facility] on 03/29/20 for an Incisional Hernia repair.. P: Tena will return to the [facility] when medically cleared. CM will refer her to [facility] for community case management. She may need HH RN for wound care. She will have a referral for an outpatient sleep study. ANANTH will coordinate a ride home via [facility] when ready. She will follow up with her PCP, community based providers and discharge plan of care. CM will continue to follow.
[2020-04-09 15:23] VITALS: BP 108/56; PULSE 67; RESP 18; TEMP 36.7; O2SAT 96
[2020-04-09] MEDS: Polyethylene Glycol 3350 17 GM PACKET PO (19:38)
[2020-04-09] MEDS: Gabapentin 300 MG CAP PO (21:56)
[2020-04-09] MEDS: Trihexyphenidyl 2 MG TAB 5 MG PO (21:57)
[2020-04-09 23:50] VITALS: BP 102/68; PULSE 61; RESP 18; TEMP 36.4; O2SAT 94
[2020-04-10] MEDS: oxyCODONE 5 MG TAB PO ×2 (01:01→13:55)
[2020-04-10] MEDS: Acetaminophen 500 MG TAB 1000 MG PO ×2 (04:01→10:18)
[2020-04-10 07:40] LABS: Abs Immature Grans 0.15 10^3/uL (0.0-0.06); Absolute Basophil Count 0.15 10^3/uL (0.0-0.2); Absolute Eosinophil Count 4.29 10^3/uL (0.0-0.7); Absolute Monocyte Count 1.55 10^3/uL (0.1-0.8); Basophils % 1.1; Eosinophils % 31.3; HCT 36.7 % (36.0-46.0); HGB 11.9 g/dL (11.2-15.7); Immature Grans % 1.1; Lymphocytes % 9.3; MCH 33.2 pg (27.0-33.0); MCHC 32.4 % (32.0-36.0); MCV 102.5 fL (80-95); MPV 8.4 fL (8.0-11.0); Monocytes % 11.3; Neutrophils % 45.9; RBC 3.58 10^6/uL (3.93-5.22); RDW 20.3 % (11.7-14.6); RDW-SD 73.8 fL
[2020-04-10] MEDS: Polyethylene Glycol 3350 17 GM PACKET PO (07:52)
[2020-04-10] MEDS: Docusate Sodium 100 MG CAP PO (07:53)
[2020-04-10] MEDS: Citalopram 20 MG TAB 40 MG PO (07:53)
[2020-04-10] MEDS: Omeprazole 20 MG CAPCR 40 MG PO (07:53)
[2020-04-10] MEDS: Amoxicillin 875/Clav. 125 TAB PO (07:53)
[2020-04-10] MEDS: Triamcinolone 0.1% OINT 15 GM TUBE TP (07:55)
[2020-04-10 08:03] VITALS: BP 113/78; PULSE 75; RESP 18; TEMP 36.6; O2SAT 93
--- NOTE | 2020-04-10 08:10 | PDOC.HHF2F ---
Home Health Certification Home Health Certification: 1. Encounter Date and Reason I certify that ANNA MARIE CARRILLO was seen by Elpidio Bejarano MD on 04/10/20 and that I had a [id number] encounter with this patient that meets the physician face to face encounter requirements. 2. Clinical Findings Supporting Skilled Need and Homebound Status I certify that home health services are medically necessary, include either intermittent residential and/or physical/speech therapy, and that this patient is homebound in that absences from the home require considerable and taxing effort and are infrequent or of short duration, or are attributable to the need to receive medical care. [X] (a) Attached documentation from encounter provides clinical findings supporting skilled need and homebound status (including what assistance patient requires to leave the home). The encounter with the patient was in whole, or in part, for the following medical condition, which is the primary reason for home health care: INCISIONAL HERNIA with large wound Group Home: inspect wound for redness. keep clean and place a dry abd over it daily Physical Therapy: Speech Therapy: Homebound: 3. Certification and Authentication I certify that I composed the above information based on my clinical judgement relating to this patient's medical condition and, if applicable, clinical findings communicated to me by the NPP or inpatient physician who performed the Home Health Referral. All further orders will be obtained through ____[facility] general surgery (Community Based Physician - PCP)
--- NOTE | 2020-04-10 08:13 | W.PM.PROGNOT ---
Date of Service Date of service: 04/10/20 Time of Service: 08:19 Assessment and Plan Assessment and plan (1) Abdominal wall hematoma: Status: Acute Assessment and plan: home today Qualifiers: Encounter type: subsequent encounter Qualified Code(s): S30.1XXD - Contusion of abdominal wall, subsequent encounter Subjective Subjective Patient reports: no new complaints Exam GI Other: wound is clean and abd not tender. NO erythema Objective Last Vital Signs Temp 97.9 F 04/10/20 08:03 Pulse 75 04/10/20 08:03 Resp 18 04/10/20 08:03 BP 113/78 04/10/20 08:03 Pulse Ox 93 04/10/20 08:03
--- NOTE | 2020-04-10 08:22 | W.PM.DS.N ---
Date of service: 04/10/20 Time of Service: 08:22 DS: Diagnosis Discharge Diagnosis (1) Abdominal wall hematoma: Status: Acute Discharge Plan Disposition Patient Disposition: HOME W/HOME HEALTH SERVICE Condition: Good Discharge Details Reason For Visit: INCISIONAL HERNIA Admit Date/Time: 03/31/20 17:57 Admit Provider: Xochilt Patel Attending Provider: Xochilt Patel Primary Care Provider: [facility] Course Hospital Course: This is a 29-year-old female who was admitted with an abdominal wall hematoma status post ventral hernia repair. She was taken to the operating room and underwent evacuation of the hematoma and irrigation. Postoperative course was mainly wound care as the initial wound was left open. She was brought back to the operating room for closure and this went well. She had small open areas between the sutures which were ultimately Steri-Stripped. Her home evaluation required significant support services and she was ultimately able to be discharged on April 10 tolerating diet with her wound completely Steri-Stripped her Home Meds and New Rx's Prescriptions: New oxycodone 5 mg tablet 5 mg PO Q6H PRNQty: 10 RF: 0 gabapentin 300 mg Capsule 300 mg PO HS Qty: 14 RF: 0 docusate sodium [Colace] 100 mg Capsule 100 mg PO TID Qty: 30 RF: 0 Continued calcipotriene 0.005 % ointment 1 applic topical BID RF: 0 Otezla 30 mg tablet 30 mg PO BID RF: 0 Hold Instructions: Changed by Provider trihexyphenidyl 5 mg tablet 5 mg PO QHS Qty: 90 RF: 3 omeprazole 40 mg capsule,delayed release(DR/EC) 40 mg PO DAILY Qty: 30 RF: 0 fluocinonide 0.05 % cream 1 applic topical BID Qty: 60 RF: 0 fluocinolone and shower cap [Hettinger-Smoothe/FS Scalp Oil] 0.01 % oil 1 applic topical .QOD Qty: 118.28 RF: 3 citalopram [Celexa] 40 mg tablet 40 mg PO DAILY Qty: 90 RF: 3 betamethasone, augmented 0.05 % ointment 1 applic topical BID PRN (Reason: Psoriasis) Qty: 50 RF: 6 albuterol sulfate 90 mcg/actuation HFA aerosol inhaler 2 puff inhalation Q6H PRN (Reason: shortness of breath or wheezing) Qty: 6.7 RF: 3 Advair HFA 230-21 mcg/actuation HFA aerosol inhaler 2 puff inhalation BID Qty: 12 RF: 0 ipratropium-albuterol 0.5 mg-3 mg(2.5 mg base)/3 mL solution for nebulization 3 ml inhalation QID PRN (Reason: wheezing) Qty: 90 RF: 6 (DME) nebulizers Misc See Rx Instructions .ROUTE .MEDSUPPLY Qty: 1 RF: 0 zolpidem [Ambien] 5 mg tablet 5 mg PO QHS PRN (Reason: sleep) Qty: 10 RF: 0 ibuprofen 600 mg tablet 600 mg PO TID Qty: 90 RF: 0 clobetasol 0.05 % solution 1 applic topical BID PRN (Reason: Psoriasis) RF: 0 Discharge Instructions Additional Instructions: Activity at Home after surgery: 1. Make sure you walk outside at least 4 times per day 2. You should be able to climb a flight of stairs 3. No driving while in pain or taking pain medications 4. No strenuous activity or heavy lifting for 4 weeks (open surgery) Diet, Nutrition, & wound healin. Avoid alcohol until after you are recovered from your surgery 2. Make sure to eat plenty of lean protein (meat, fish, eggs, cottage cheese, beans) 3. Eat a variety of fruits and vegetables. Eat plenty of high fiber foods to avoid constipation. 4. Drink plenty of liquids to stay hydrated and avoid constipation Pain Medications: 1. Tylenol 650 mg every 6 hours as needed and Ibuprofen 600 mg every 6 hours as needed. You may alternate between the Tylenol and Ibuprofen every 3 hours 2. If a narcotic has been prescribed take as directed only for breakthrough pain For Constipation: 1. Take Milk of Magnesia or MiraLax as needed for constipation Other: 1. You may shower daily. Do not scrub the incisions 2. Do not soak the incisions for 1 week 3. You may alternate ice and heat as needed for pain and swelling Wound Care: 1. Keep the incisions clean and dry Please call our office if you develop: 1. Fevers >101.5 2. Nausea or Vomiting 3. Worsening pain 4. Redness and thick discharge from the wounds If after hours please call the Hospital at and ask to speak to the on-call surgeon Stand Alone Forms: Nursing Discharge Form Referrals: Xochilt Patel MD [ [facility] STAFF PHYSICIAN] - 04/18/20 2:30 pm Activity:: No lifting >20 lb Equipment/Supplies:: No Equipment Needed Diet:: As Tolerated Discharge Orders Discharge Orders: Discharge Order (Routine); Ordered 04/10/20 Ordered By: Elpidio Bejarano DS: Summary Time Spent with Patient providing and/or coordinating discharge services: Less than 30 minutes Status at Discharge Functional status at discharge: independent ambulation Overall status at discharge: patient is progressing back to baseline Mental Status: mental status grossly normal Speech and Movement: speech and movement normal Mood: congruent mood Affect: normal affect Exam Psych Mental Status: mental status grossly normal Speech and Movement: speech and movement normal Mood: congruent mood Affect: normal affect DS: Data Vitals/I&O Vitals and I&O: Vital Signs Temperature 97.9 F 04/10/20 08:03 Temperature Source Tympanic 04/10/20 08:03 Pulse 75 04/10/20 08:03 Pulse Rhythm Regular 04/10/20 00:45 Respiratory Rate 18 04/10/20 08:03 Respiratory Effort 04/10/20 00:45 Respiratory Depth Normal 04/10/20 00:45 Respiratory Pattern Normal 04/10/20 00:45 Blood Pressure 113/78 04/10/20 08:03 Pulse Oximetry 93 04/10/20 08:03 Respiratory End-tidal CO2 42 04/01/20 15:50 Oxygen Delivery Method Room Air 04/10/20 08:03 Oxygen Flow Rate 0 04/10/20 08:03 Pain Level 2 04/10/20 04:01 Comment 04/09/20 12:13 Intake & Output 04/09/20 04/09/20 04/10/20 11:59 23:59 11:59 Intake Total 670 / 1630 960 / 1630 100 / 100 Balance 670 / 1630 960 / 1630 100 / 100 Intake: Oral 670 / 1630 960 / 1630 100 / 100 Other: Urine Color Yellow Urine Appearance Clear Urine Odor Normal Comment Per pt. report, void x1 in the toilet. unmeasured in toilet VOID X 2 UNSEEN Voiding Methods Toilet Toilet Toilet Data Completed and Pending Labs on day of discharge: Labs from last 24 hours 04/10/20 06:20 WBC Pending RBC Pending Hgb Pending Hct Pending MCV Pending MCH Pending MCHC Pending RDW Pending Plt Count Pending MPV Pending Immature Gran % Pending Neutrophils % Pending Lymphocytes % Pending Monocytes % Pending Eosinophils % Pending Basophils % Pending Absolute Neutrophils Pending Absolute Lymphocytes Pending Absolute Monocytes Pending Absolute Eosinophils Pending Absolute Basophils Pending PFSH Medical History Abdominal adhesions Asthma 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 complicated by postOp infection in wound bed and L empyema Social History Smoking/Tobacco Use Status: Current every day Tobacco Type: cigarettes Smoking risk assessment performed?: Yes Alcohol Intake: never Drug use: Never Substance use type: does not use and marijuana Details: 17 months clean fom Methamphetamines. marijuana: t-1, 2 hits Adopted: No Caregiver/Support person: No Foster care: No Household members: significant other and family Housing: other Number of Children: 1 Communication Needs: None Do you need help understanding health information?: Rarely Sexually active: Yes Do you think of yourself as: straight/heterosexual Current gender identity: female What type of physical activity do you participate in: none Do you feel safe at home: Yes Do you feel safe in your relationship?: Yes
[2020-04-10 08:26] LABS: Absolute Lymphocyte Count 1.27 10^3/uL (1.2-3.4); Absolute Neutrophil Count 6.29 10^3/uL (1.2-6.7)
[2020-04-10 08:28] LABS: Nucleated RBC 1 %; Platelet Count 843 10^3/uL (130-400)
[2020-04-10 08:34] LABS: Anisocytosis 3+; Diff Comment Agrees w/ Instrument; Macrocytosis 1+; Polychromasia Present
[2020-04-10 08:35] LABS: Howell-Jolly Bodies Present; Poikilocytes 2+
[2020-04-10] MEDS: Budesonide/Formoterol 160/4.5 6 GM 60 PUFF INH IH (09:12)
--- NOTE | 2020-04-10 14:02 | CMDISCH_ITS ---
- If Service Date Differs Date of service: 04/10/20 Time of Service: 14:02 LACE Index Scoring Tool - Questions: Length of Stay (in days): 7 - 13 Acuity (Admit via E.D.?): No E.D. Visits: 3 - Answers: Total Score: 8 Risk of Readmission: Low Risk Care Management Discharge Reason for Hospitalization: Incisional Hernia Discharge Plan: Tena will return to the [facility] today with new orders for HH RN for dressing changes. CM notified [facility] of her discharge by phone. 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 She will have MOW delivered to her room at the [facility], coordinated by Paula Allred, her RN CM from [facility], who will follow her in the community. She will follow up with her PCP and discharge plan of care. Patient/Family Education Needs: Review discharge instructions regarding activity levels and medications, discussion of self care needs including ask me three. Services Needed at Discharge: Home Health Care Services (RN), Transportation (RCT)
[2020-04-11 12:28] LABS: Angiotensin Converting Enzyme 44 U/L (16 - 85)
== END 2020-04-10 14:15 | disposition home health service (06) | DRG 353 ==
LOC: SUR 13:13 → MS 13:14
PROVIDERS: Internal Medicine; Physical Therapy Assistant; Surgery; Admitting Provider Surgery; PCP Family Medicine; Visit Provider Surgery
PROC: 0WUF0JZ Supplement Abdominal Wall with Synthetic Substitute, Open Approach (ICD-10-PCS; CPT 49560; principal; 2020-03-29 07:30)
PROC: 0JC80ZZ Extirpation of Matter from Abdomen Subcutaneous Tissue and Fascia, Open Approach (ICD-10-PCS; CPT 49002; principal; 2020-04-01 12:05)
PROC: 0WQF0ZZ Repair Abdominal Wall, Open Approach (ICD-10-PCS; CPT 12004; principal; 2020-04-05 13:30)
DX: K43.2 Incisional hernia without obstruction or gangrene (principal); J69.0 Pneumonitis due to inhalation of food and vomit; L76.32 Postprocedural hematoma of skin and subcutaneous tissue following other procedure; D69.41 Evans syndrome; J98.11 Atelectasis; Z68.41 Body mass index [BMI] 40.0-44.9, adult; D69.3 Immune thrombocytopenic purpura; K42.9 Umbilical hernia without obstruction or gangrene; Y83.2 Surgical operation with anastomosis, bypass or graft as the cause of abnormal reaction of the patient, or of later complication, without mention of misadventure at the time of the procedure; Y92.234 Operating room of hospital as the place of occurrence of the external cause; R09.02 Hypoxemia; Z90.81 Acquired absence of spleen; E66.01 Morbid (severe) obesity due to excess calories; J45.40 Moderate persistent asthma, uncomplicated; F17.210 Nicotine dependence, cigarettes, uncomplicated; L73.2 Hidradenitis suppurativa; F15.11 Other stimulant abuse, in remission; M42.00 Juvenile osteochondrosis of spine, site unspecified; L40.9 Psoriasis, unspecified; G47.61 Periodic limb movement disorder
CPT/HCPCS: 49560; 49568; 49002; 12004; 36415; 71275; 74177; 76942; 80048; 80053; 81025; 82164; 85027; 85652; 86631; 86632; 86850; 86900; 86901; 87040; 87305; 87449; 94640; 99231; 99232; 99233; 99238; 99253; J1650; NC; 71045; 71046; 71260; 80202; 81003; 81015; 82977; 83735; 85018; 85025; 85379; 86140; 86403; 86431; 86480; 87070; 87086; 87205; 87385; 94667; 94668; 99213; C1781; G0378; J0690; J0744; J1100; J1885; J1956; J2001; J2405; J2543; J2704; J3475; J3490; J7613; J7620; J8597; Q9967

== ENCOUNTER 2020-05-30 03:09 | Outpatient (CLI) | payer MEDICAID, SELFPAY ==
[2020-05-30 11:14] LABS: Source Nasal/Nares
[2020-05-30 14:25] LABS: COVID-19 PCR Negative (Negative)
== END 2020-05-30 03:10 | disposition home or self-care (01) ==
LOC: LBO 03:10
PROVIDERS: PCP Family Medicine; Visit Provider Internal Medicine Pulmonary Disease
DX: Z20.822 Contact with and (suspected) exposure to COVID-19 (principal); Z01.818 Encounter for other preprocedural examination
CPT/HCPCS: 87635

== ENCOUNTER 2020-06-21 12:10 | Emergency (ER) | payer MEDICAID, SELFPAY ==
[2020-06-21] VITALS (37 sets, daily range): BP systolic 98–129; BP diastolic 47–83; PULSE 82–116; RESP 13–27; TEMP 36.7; O2SAT 91–97
--- NOTE | 2020-06-21 12:00 | RT.EKG_ITS ---
APPROVED REPORT Exam: Resting ECG Reason for Exam: increased shortness of breath Patient Location: E HR:98 bpm ECG Measurements Heart Rate 98 AXIS VT 142 P 56 QRSd 89 QRS 47 QT 361 T 25 QTc 461 Conclusion Sinus rhythm...normal P axis, V-rate 60- 99
--- NOTE | 2020-06-21 12:47 | DI.CT_ITS ---
Exam(s) CT CHEST/ABD/PEL W EXAM: CT CHEST/ABD/PEL W CLINICAL HISTORY: Hx pulmonary nodules, Abd pain, Hx of splenectomy, TECHNIQUE: Imaging Protocol: Axial computed tomography images with coronal and sagittal reformatted images were created and reviewed CONTRAST MATERIAL: Intravenous: Omnipaque 350 Contrast volume:100 mL Oral: No COMPARISON: CT CT CHEST PE ABD PELVIS W from 03/30/[address] CHEST/ABD/PEL W from 04/04/2020 FINDINGS: CHEST: Tracheobronchial tree: Patent where visualized. Pulmonary parenchyma: There is an increased number of the pulmonary nodules. The largest nodule is s een in the right upper lobe and measures 0.9 cm. No focal consolidating infiltrates are seen. No ar chitectural distortion. Visualized thyroid gland: Unremarkable. Mediastinum and Mirella: No dominant adenopathy or fluid collection. Pleura: No effusion or pneumothorax. Heart: The heart is not dilated. No coronary artery calcifications are seen. No pericardial effusion. Aorta: Thoracic aorta non-dilated. Lymph nodes: Within normal limits. Soft tissues: Unremarkable. Bones:Normal. ABDOMEN: Liver: Normal density. No measurable mass. Portal, Superior Mesenteric, and Splenic Veins: Unremarkable. Gallbladder and Biliary Tract: Status post cholecystectomy. No biliary ductal dilatation. Pancreas: Normal density, no abnormal calcifications or inflammatory process. Spleen: Status post splenectomy. Adrenals: No masses seen. Kidneys: Normal size, contour and axis. No radiodense stones or obstructive uropathy. Simple right re nal cyst. No follow-up is recommended. Abdominal Aorta: Abdominal portion non-dilated. Bowel: No obstruction or bowel wall thickening. Appendix is unremarkable. Peritoneal Cavity: No ascites, collection or mesenteric inflammatory response. No free air. Lymph Nodes: Stable retroperitoneal lymph nodes. Bones: Unremarkable. Soft Tissues: There is now a wall enhancing fluid collection in the anterior subcutaneous tissues wilton suring 11 cm transverse by 3.3 cm AP by 15.5 cm craniocaudad. Infiltration of the surrounding soft t issues is noted. Findings may represent an abscess. It does not appear to communicate with the abdo mari cavity. PELVIS: Bladder: Symmetric distention, no gross wall thickening. Reproductive Organs: There is an IUD in good position. Lymph Nodes: Within normal limits. Bones: Within normal limits. IMPRESSION: 1. 11 x 3 x 15 cm fluid collection with an enhancing wall in the anterior abdominal wall suspicious f or an abscess. 2. Multiple pulmonary nodules. The patient reportedly has a history of pulmonary nodules. These may be inflammatory or infectious. Neoplasm cannot be entirely excluded. Please correlate with the pat ient's clinical findings. A follow-up examination should be considered in 3 months to document resol ution and to exclude other etiologies. 3. Results of this exam have been verbally communicated with provider. Incidental Findings RADIATION DOSE DELIVERED: 1,992.67mGy.cm Total DLP DATA REPOSITORY: All CT scans at this facility are submitted to the National Radiology Data Registry (NRDR) Dose Index Registry (DIR) with the [employer] (A[employer]). RADIATION OPTIMIZATION: All CT scans at this facility use at least one of these dose optimization te chniques: automated exposure control; mA and/or kV adjustment per patient size (includes targeted exa ms where dose is matched to clinical indication); or iterative reconstruction.
--- NOTE | 2020-06-21 12:47 | W.ED.GENAD ---
Discharge Plan Disposition Patient Disposition: HOME Condition: Good Discharge Details Clinical Impression: Postoperative seroma, Sore throat, Abdominal discomfort Primary Care Provider: Jonathan Plaza ED Provider: Lluvia Cruz Home Meds and New Rx's Prescriptions: Continued calcipotriene 0.005 % ointment 1 applic topical BID RF: 0 Otezla 30 mg tablet 30 mg PO BID RF: 0 Hold Instructions: Changed by Provider trihexyphenidyl 5 mg tablet 5 mg PO QHS Qty: 90 RF: 3 diphenhydramine HCl [Benadryl Allergy] 25 mg tablet 25 mg PO TID PRN (Reason: itching) Qty: 30 RF: 0 trazodone 50 mg tablet 50 mg PO QHS PRN (Reason: sleep) Qty: 90 RF: 1 omeprazole 40 mg capsule,delayed release(DR/EC) 40 mg PO DAILY Qty: 30 RF: 0 fluocinonide 0.05 % cream 1 applic topical BID Qty: 60 RF: 0 fluocinolone and shower cap [[place]/FS Scalp Oil] 0.01 % oil 1 applic topical .QOD Qty: 118.28 RF: 3 citalopram [Celexa] 40 mg tablet 40 mg PO DAILY Qty: 90 RF: 3 betamethasone, augmented 0.05 % ointment 1 applic topical BID PRN (Reason: Psoriasis) Qty: 50 RF: 6 albuterol sulfate 90 mcg/actuation HFA aerosol inhaler 2 puff inhalation Q6H PRN (Reason: shortness of breath or wheezing) Qty: 6.7 RF: 3 Advair HFA 230-21 mcg/actuation HFA aerosol inhaler 2 puff inhalation BID Qty: 12 RF: 0 ipratropium-albuterol 0.5 mg-3 mg(2.5 mg base)/3 mL solution for nebulization 3 ml inhalation QID PRN (Reason: wheezing) Qty: 90 RF: 6 (DME) nebulizers Misc See Rx Instructions .ROUTE .MEDSUPPLY Qty: 1 RF: 0 clobetasol 0.05 % solution 1 applic topical BID PRN (Reason: Psoriasis) RF: 0 ibuprofen 600 mg tablet 600 mg PO TID PRN (Reason: pain) Qty: 270 RF: 3 acetaminophen [Pain Relief (acetaminophen)] 650 mg tablet extended release 650 mg PO Q8H PRN (Reason: pain) Qty: 270 RF: 3 nicotine 21 mg/24 hr patch 24 hour 1 patch transdermal DAILY Qty: 14 RF: 0 docusate sodium [Colace] 100 mg Capsule 100 mg PO TID Qty: 30 RF: 0 Discharge Instructions Instructions: Pharyngitis (ED), Abdominal Pain (ED), COVID-19 (Coronavirus Disease 2019) (ED) Additional Instructions: Your evaluation today is reassuring. Dr. Sue has removed fluid from the collection in your abdomen. This was diagnosed as a postoperative seroma which is a collection of blood and serum. No further treatment is warranted at this time for this. I am concerned that you may have a viral illness which could account for your multitude of symptoms. COVID-19 testing is pending. Please quarantine until results are back. Please follow up with primary care next week to schedule follow up appointment. Call tomorrow to schedule. If you develop fevers, increased pain, difficulty breathing, inability to stay hydrated or other new/worsening symptoms please seek care urgently once again. Referrals: Jonathan Plaza DO [Primary Care Provider] - Discharge Data Discharge Date/Time-TO BE ENTERED AT DEPARTURE: 06/21/20 17:46 Medical Decision Making <Maddison Brice - Last Filed: 06/22/20 08:11> 29-year-old female with a past medical history of Ye syndrome, polyarthritis, she remains disease, scoliosis, obesity, asthma, idiopathic thrombocytopenia purpura and hydradenitis suppurativa, splenectomy and cholecystectomy, presents to the ER with chief complaint of upper abdominal pain, chest tightness, sore throat and myalgias. Patient states that she feels like she is going to she reports 3 days of waking up with sore throat denies any fever or chills. She reports having a bowel movement once daily denies any diarrhea . She reports feeling nauseous daily. She is a smoker. She does see pulmonology at [facility] Lab results show CBC with differential white blood cell count of 12.72, hemoglobin 17.1 hematocrit 50.9 platelets 446, absolute neutrophils 8.13 lymphocytes 0.86 CMP largely within normal limits. Alk phos is 143. Urinalysis shows moderate blood no leukocytes no nitrite. 1525: Spoke with radiologist regarding CT results. Patient has a 15 cm x 11 cm x 3 cm fluid collection within the abdominal wall. It is noncommunicating with the abdominal cavity. EXAM: CT CHEST/ABD/PEL W CLINICAL HISTORY: Hx pulmonary nodules, Abd pain, Hx of splenectomy, COMPARISON: CT CT CHEST PE ABD PELVIS W from 03/30/[address] CHEST/ABD/PEL W from 04/04/2020 FINDINGS: CHEST: Tracheobronchial tree: Patent where visualized. Pulmonary parenchyma: There is an increased number of the pulmonary nodules. The largest nodule is seen in the right upper lobe and measures 0.9 cm. No focal consolidating infiltrates are seen. No architectural distortion. Visualized thyroid gland: Unremarkable. Mediastinum and Mirella: No dominant adenopathy or fluid collection. Pleura: No effusion or pneumothorax. Heart: The heart is not dilated. No coronary artery calcifications are seen. No pericardial effusion. Aorta: Thoracic aorta non-dilated. Lymph nodes: Within normal limits. Soft tissues: Unremarkable. Bones:Normal. ABDOMEN: Liver: Normal density. No measurable mass. Portal, Superior Mesenteric, and Splenic Veins: Unremarkable. Gallbladder and Biliary Tract: Status post cholecystectomy. No biliary ductal dilatation. Pancreas: Normal density, no abnormal calcifications or inflammatory process. Spleen: Status post splenectomy. Adrenals: No masses seen. Kidneys: Normal size, contour and axis. No radiodense stones or obstructive uropathy. Simple right renal cyst. No follow-up is recommended. Abdominal Aorta: Abdominal portion non-dilated. Bowel: No obstruction or bowel wall thickening. Appendix is unremarkable. Peritoneal Cavity: No ascites, collection or mesenteric inflammatory response. No free air. Lymph Nodes: Stable retroperitoneal lymph nodes. Bones: Unremarkable. Soft Tissues: There is now a wall enhancing fluid collection in the anterior subcutaneous tissues measuring 11 cm transverse by 3.3 cm AP by 15.5 cm craniocaudad. Infiltration of the surrounding soft tissues is noted. Findings may represent an abscess. It does not appear to communicate with the abdominal cavity. PELVIS: Bladder: Symmetric distention, no gross wall thickening. Reproductive Organs: There is an IUD in good position. Lymph Nodes: Within normal limits. Bones: Within normal limits. IMPRESSION: 1. 11 x 3 x 15 cm fluid collection with an enhancing wall in the anterior abdominal wall suspicious for an abscess. 2. Multiple pulmonary nodules. The patient reportedly has a history of pulmonary nodules. These may be inflammatory or infectious. Neoplasm cannot be entirely excluded. Please correlate with the patient's clinical findings. A follow-up examination should be considered in 3 months to document resolution and to exclude other etiologies. 3. Results of this exam have been verbally communicated with provider. 1531: Surgery paged. 1605: Dr. Patel with general surgery here at for patient eval and drainage of hematoma. Care to be handed off to oncoming provider Lluvia MIMS, discussed case and details she verbalized understanding. At this time awaiting Surgery's recommendations. 1617: Dr. Patel expressed 60cc of serosanguineous fluid, she does not recommend admission at this time. <PRASANNA Mills - Last Filed: 06/21/20 19:50> Care transition myself from Lesly Velasco NP with reassessment pending. Please see her initial documentation regarding history, presentation and exam. In brief, patient is a 29-year-old female presenting today with multiple complaints including chest tightness, abdominal pain, sore throat myalgias. Patient had significant work-up including labs and CT of chest and abdomen pelvis. Labs significant for leukocytosis a white 12.7. However, on chart review this is normal for the patient, in fact slightly low. No significant abnormality on CMP. Alk phos is elevated at 143 which is baseline for the patient. Troponin within normal limits. Patient does have moderate blood in the urine but does have menses currently. Imaging was concerning for fluid collection in the anterior abdominal wall which was concerning for potential abscess. Patient did have abdominal surgery in March. Patient was evaluated by Dr. Patel and aspiration of the fluid collection was completed with return of serosanguineous fluid. Patient was diagnosed with a postoperative seroma. Please see documentation from Dr. Patel regarding drainage and plan regarding the seroma Patient is also noted to have multiple large pulmonary nodules. She has had decreased nodules historically. They advised 3 month reevaluation. Plan 50 findings to the patient. With a multitude of complaints, I am questioning if she may have a viral illness. Plan for testing for COVID-19. Patient will continue to quarantine until his results have returned. Strict return precautions were discussed. Encourage close follow-up with primary care and have asked that she follow-up in the next week. Return precautions were discussed. All of her questions and concerns were addressed and she is in agreement this plan. Advise primary care should arrange for follow-up imaging as was indicated in the CT. HPI <Maddison Brice - Last Filed: 06/22/20 08:11> General Mode of arrival: ambulatory. Date/Time Provider Initiated Documentation: 06/21/20 12:11. Limitations to Documentation: no limitations. Information obtained by: patient. HPI Narrative: 29-year-old female with a past medical history of Ye syndrome, polyarthritis, she remains disease, scoliosis, obesity, asthma, idiopathic thrombocytopenia purpura and hydradenitis suppurativa, splenectomy and cholecystectomy, presents to the ER with chief complaint of upper abdominal pain, chest tightness, sore throat and myalgias. Patient states that she feels like she is going to she reports 3 days of waking up with sore throat denies any fever or chills. She reports having a bowel movement once daily denies any diarrhea . She reports feeling nauseous daily. She is a smoker. She does see pulmonology at [facility] Related Data Home Medications Medication Instructions Recorded Confirmed fluocinonide 0.05 % topical cream 1 applic TOPICAL BID #60 g 12/30/19 06/21/20 omeprazole 40 mg capsule,delayed 40 mg PO DAILY #30 cap 12/30/19 06/21/20 release fluocinolone 0.01 % scalp oil and 1 applic TOPICAL .QOD #118.28 ml 12/31/19 06/21/20 shower cap calcipotriene 0.005 % topical 1 applic TOPICAL BID 01/14/20 06/21/20 ointment apremilast 30 mg tablet 30 mg PO BID 02/15/20 06/21/20 trihexyphenidyl 5 mg tablet 5 mg PO QHS #90 tab 02/15/20 06/21/20 albuterol sulfate 90 mcg/actuation 2 puff INHALATION Q6H PRN #6.7 g 03/02/20 06/21/20 aerosol inhaler betamethasone, augmented 0.05 % 1 applic TOPICAL BID PRN #50 g 03/02/20 06/21/20 topical ointment citalopram 40 mg tablet 40 mg PO DAILY #90 tab 03/02/20 06/21/20 fluticasone propionate 230 2 puff INHALATION BID #12 g 03/02/20 06/21/20 mcg-salmeterol 21 mcg/actuation HFA inhaler ipratropium 0.5 mg-albuterol 3 mg 3 ml INHALATION QID PRN #90 ml 03/02/20 06/21/20 (2.5 mg base)/3 mL nebulization soln nebulizers #1 ea 03/02/20 05/10/20 clobetasol 0.05 % scalp solution 1 applic TOPICAL BID PRN 03/27/20 06/21/20 docusate sodium [Colace] 100 mg PO TID #30 cap 04/10/20 06/21/20 acetaminophen 650 mg 650 mg PO Q8H PRN #270 tab 04/11/20 06/21/20 tablet,extended release ibuprofen 600 mg tablet 600 mg PO TID PRN #270 tab 04/11/20 06/21/20 nicotine 21 mg/24 hr daily 1 patch TRANSDERMAL DAILY #14 ea 04/11/20 06/21/20 transdermal patch trazodone 50 mg tablet 50 mg PO QHS PRN #90 tab 04/17/20 06/21/20 diphenhydramine HCl 25 mg tablet 25 mg PO TID PRN #30 tab 04/18/20 06/21/20 Previous Rx's Medication Instructions Recorded fluocinonide 0.05 % topical cream 1 applic TOPICAL BID #60 g 12/30/19 omeprazole 40 mg capsule,delayed 40 mg PO DAILY #30 cap 12/30/19 release fluocinolone 0.01 % scalp oil and 1 applic TOPICAL .QOD #118.28 ml 12/31/19 shower cap trihexyphenidyl 5 mg tablet 5 mg PO QHS #90 tab 02/15/20 albuterol sulfate 90 mcg/actuation 2 puff INHALATION Q6H PRN #6.7 g 03/02/20 aerosol inhaler betamethasone, augmented 0.05 % 1 applic TOPICAL BID PRN #50 g 03/02/20 topical ointment citalopram 40 mg tablet 40 mg PO DAILY #90 tab 03/02/20 fluticasone propionate 230 2 puff INHALATION BID #12 g 03/02/20 mcg-salmeterol 21 mcg/actuation HFA inhaler ipratropium 0.5 mg-albuterol 3 mg 3 ml INHALATION QID PRN #90 ml 03/02/20 (2.5 mg base)/3 mL nebulization soln nebulizers #1 ea 03/02/20 docusate sodium [Colace] 100 mg PO TID #30 cap 04/10/20 acetaminophen 650 mg 650 mg PO Q8H PRN #270 tab 04/11/20 tablet,extended release ibuprofen 600 mg tablet 600 mg PO TID PRN #270 tab 04/11/20 nicotine 21 mg/24 hr daily 1 patch TRANSDERMAL DAILY #14 ea 04/11/20 transdermal patch trazodone 50 mg tablet 50 mg PO QHS PRN #90 tab 04/17/20 diphenhydramine HCl 25 mg tablet 25 mg PO TID PRN #30 tab 04/18/20 Allergies Allergy/AdvReac Type Severity Reaction Status Date / Time carbamazepine [From Tegretol] Allergy Skin Rash Verified 06/21/20 12:24 cephalexin [From Keflex] Allergy Other (See Verified 06/21/20 12:24 Comment) Sulfa (Sulfonamide Allergy Anaphylaxsi Verified 06/21/20 12:24 Antibiotics) s General Stated Complaint: GenMedical AKASH: 3 Review of Systems <Maddison Brice - Last Filed: 06/22/20 08:11> Narrative: Constitutional: Negative for weight loss, alert and oriented, well groomed, well-nourished body habitus, appears anxious and tearful, multiple complaints. HEENT: Denies trauma, headaches, blurry vision, nasal discharge, trouble swallowing. Positive sore throat. Chest: Denies chest pain, palpitations, irregular rhythm, hypertension. Respiratory: Denies cough, hemoptysis. Positive shortness of breath and chest tightness GI: Denies diarrhea, positive abdominal pain nausea vomiting intermittent constipation. : Denies dysuria, hematuria, flank pain, rectal bleeding. Neuro: Denies dizziness, blurry vision, weakness, syncope, headache or facial numbness. Hematologic: Denies easy bruising, intolerance to heat or cold, hair loss. 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 complicated by postOp infection in wound bed and L empyema Social History Smoking/Tobacco Use Status: Current every day Tobacco Type: cigarettes Smoking risk assessment performed?: Yes Alcohol Intake: never Drug use: Never Substance use type: does not use and marijuana Details: 17 months clean fom Methamphetamines. marijuana: t-1, 2 hits Adopted: No Caregiver/Support person: No Foster care: No Household members: significant other and family Housing: other Number of Children: 1 Communication Needs: None Do you need help understanding health information?: Rarely Sexually active: Yes Do you think of yourself as: straight/heterosexual Current gender identity: female What type of physical activity do you participate in: none Do you feel safe at home: Yes Do you feel safe in your relationship?: Yes Exam <Maddison Brice - Last Filed: 06/22/20 08:11> Narrative Exam Narrative: Constitutional: Alert and oriented x3. Appears stated age. Normal body habitus. Head: Normocephalic, no trauma. Eyes: Pupils PERRLA, Red reflex noted, EOM's intact. Eyelids symmetrical without lesions, discharge, or swelling. ENT: Bilateral TM's WNL, External ear normal to inspection, no mastoid TTP, swelling, or erythema, Nasal turbinates WNL, no nasal discharge. Normal dentition, Posterior pharynx WNL, no exudate. Chest: RRR, Normal S1, S2, distal pulses intact. Resp: Lungs clear to auscultation bilaterally, no wheezes, rales, or rhonchi. Abdomen: Vertical midline scar noted, questionable slight erythema on the left lower. Tenderness to palpation left upper quadrant. Musculoskeletal: Normal gait, 5/5 strength to all four extremities. Skin: No suspicious rashes or lesions. Capillary refill less than 2 sec. Neurologic: Cranial nerves II-XII intact. Alert and oriented x 3. Hematologic/Lymphatic: No ecchymosis, no lymphadenopathy. Course <Maddison Brice - Last Filed: 06/22/20 08:11> Vital Signs Vital signs: Vital Signs Temperature 36.7 C 06/21/20 12:18 Pulse 102 H 06/21/20 12:18 Respiratory Rate 17 06/21/20 12:18 Blood Pressure 129/81 06/21/20 12:18 Pulse Oximetry 94 06/21/20 12:18 Temperature 36.7 C 06/21/20 12:18 Temperature Source Skin 06/21/20 12:18 Pulse 102 H 06/21/20 12:18 Respiratory Rate 17 06/21/20 12:18 Respiratory Effort Non-Labored 06/21/20 12:18 Blood Pressure 129/81 06/21/20 12:18 Blood Pressure Position Supine 06/21/20 12:18 Pulse Oximetry 94 06/21/20 12:18 Oxygen Delivery Method Room Air 06/21/20 12:18 Oxygen Flow Rate 0 06/21/20 12:18 Pain Level 8 06/21/20 12:18 Sign Out <Maddison Brice - Last Filed: 06/22/20 08:11> Sign Out Data: Sign Out Comment: Pending disposition, and covid testing. Last updated by Maddison Brice at 06/21/20 16:15
[2020-06-21] MEDS: Normal Saline 1,000 ML 1000 ML IV (13:40)
[2020-06-21] MEDS: Normal Saline Flush 10 ML SYR IVP ×2 (13:40→14:39)
[2020-06-21 13:50] LABS: Abs Immature Grans 0.04 10^3/uL (0.0-0.06); Absolute Eosinophil Count 1.81 10^3/uL (0.0-0.7); Absolute Lymphocyte Count 0.86 10^3/uL (1.2-3.4); Absolute Monocyte Count 1.68 10^3/uL (0.1-0.8); Absolute Neutrophil Count 8.13 10^3/uL (1.2-6.7); Basophils % 1.6; Eosinophils % 14.2; HCT 50.9 % (36.0-46.0); HGB 17.1 g/dL (11.2-15.7); Immature Grans % 0.3; Lymphocytes % 6.8; MCH 32.8 pg (27.0-33.0); MCHC 33.6 % (32.0-36.0); MCV 97.5 fL (80-95); MPV 8.4 fL (8.0-11.0); Monocytes % 13.2; Neutrophils % 63.9; Nucleated RBC 0 %; Platelet Count 446 10^3/uL (130-400); RBC 5.22 10^6/uL (3.93-5.22); RDW 12.5 % (11.7-14.6); WBC 12.72 10^3/uL (4.4-10.8)
[2020-06-21 14:03] LABS: ALT 43 U/L (14-59); AST 24 U/L (15-37); Albumin 4.2 g/dL (3.4-5.0); Alkaline Phosphatase 143 U/L (46-116); Anion Gap 9.6 mmol/L (3-11); BUN 16 mg/dL (7-18); Bilirubin, Total 0.3 mg/dL (0.2-1.0); CO2 28.4 mmol/L (21.0-32.0); Calcium 9.5 mg/dL (8.5-10.1); Chloride 105 mmol/L (98-107); Glucose 99 mg/dL (74-106); Lipase 217 U/L (73-393); Magnesium 2.2 mg/dL (1.8-2.4); Potassium 4.4 mmol/L (3.5-5.1); Sodium 143 mmol/L (136-145); Total Protein 7.3 g/dL (6.4-8.2)
[2020-06-21 14:05] LABS: Bilirubin Negative (Negative); Blood Moderate (Negative); Clarity Clear (Clear); Glucose Negative (Negative); Ketones Negative (Negative); Leukocyte Esterase Negative (Negative); Nitrite Negative (Negative); Specific Gravity 1.025 (1.005-1.025); Urobilinogen 0.2 EU/dL (Up TO 0.2)
[2020-06-21 14:05] LABS: Troponin I < 0.05 ng/mL (<0.06)
[2020-06-21 14:15] LABS: Diff Comment Diff Reviewed; RBC Morphology Normal
[2020-06-21 14:19] LABS: Bacteria Few HPF (Negative); C & S Indicated? No/Sq. Contamination; Casts Negative LPF (Negative); Crystals Negative HPF (Negative); Epithelial Cells Moderate HPF (Negative); Mucus Trace (Negative); RBC 0-2 HPF (0-2); WBC 0-2 HPF (0-5)
[2020-06-21] MEDS: Dexamethasone 4 MG/ML VIAL PO (14:37)
[2020-06-21] MEDS: Omnipaque 350 MG/ML 100 ML BTL IJ (14:38)
[2020-06-21] MEDS: Normal Saline - Diluent 50 ML VIAL IV (14:39)
[2020-06-21] MEDS: Normal Saline 1,000 ML 150 ML IV (15:28)
[2020-06-21] MEDS: Ondansetron 4 MG/2 ML VIAL IVP (15:29)
--- NOTE | 2020-06-21 16:15 | SCONE_ITS ---
Date of service: 06/21/20 Time of Service: 16:15 Assessment and Plan Assessment and plan (1) Postoperative seroma: Status: Acute Assessment and plan: Mrs Mcdaniel is a 29 year old female who came to the ER because she didn't feel well. CT scan Chest/Abdomen/pellvis was done and it showed an abdominal wall fluid collection.US guided aspiration was done of serous fluid. The patient will be discharged home. Qualifiers: Surgical complication system/body Area: subcutaneous tissue Procedure type: non-dermatologic Qualified Code(s): L76.34 - Postprocedural seroma of skin and subcutaneous tissue following other procedure History of Present Illness History of Present Illness Chief Complaint: Heavy chest Narrative: 29-year-old female with a past medical history of Ye syndrome, polyarthritis, hypogammaglobulinemia, scoliosis, obesity, asthma, idiopathic thrombocytopenia purpura and hydradenitis suppurativa, splenectomy and cholecystectomy, presented to the ER with chief complaint of upper abdominal pain, chest tightness, sore throat and myalgias. Patient states that she feels like she is going to she reports 3 days of waking up with sore throat denies any fever or chills. She reports having a bowel movement once daily d enies any diarrhea . She reports feeling nauseous daily. She is a smoker. Labs showed leukocytosis at just above 12. Compared to her last WBC count in March, this is improved. A CT scan Chest/Abdo/Pelvis was performed in the ER. CT scan was read as having a abdominal wall abscess. Patient has no fevers and no erythema. She underwent incisional hernia surgery back in March and developed a large wound hematoma. The last time I saw her in the office her wound was closed and she was having no issues. I reviewed the CT scan myself. I do not think that this is an abscess but rather a seroma or residual hematoma. Consults Consult date: 06/21/20 Requesting physician: Maddison Brice Review of Systems Constitutional Constitutional: Denies fever(s), Denies headache(s) and Denies weight loss Eyes Eyes: Denies change in vision ENT Ears, Nose, Mouth, and Throat: Reports system reviewed and no additional complaints, except as documented, Denies change in voice, Denies headache(s) and Denies hoarseness Cardiovascular Cardiovascular: Reports system reviewed and no additional complaints, except as documented Respiratory Respiratory: Reports system reviewed and no additional complaints, except as documented Gastrointestinal Gastrointestinal: Reports system reviewed and no additional complaints, except as documented Genitourinary Genitourinary: Reports system reviewed and no additional complaints, except as documented Musculoskeletal Musculoskeletal: Reports system reviewed and no additional complaints, except as documented Integumentary/Breasts Skin/Breast: Reports system reviewed and no additional complaints, except as documented Neurologic Neurologic: Reports system reviewed and no additional complaints, except as documented and Denies headache(s) Psychiatric Psychiatric: Reports system reviewed and no additional complaints, except as documented Endocrine Endocrine: Reports system reviewed and no additional complaints, except as docu mented [facility] Medical History Abdominal adhesions Asthma Axillary hidradenitis suppurativa Ye syndrome Ye' syndrome History of drug abuse 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 complicated by postOp infection in wound bed and L empyema Social History Smoking/Tobacco Use Status: Current every day Tobacco Type: cigarettes Smoking risk assessment performed?: Yes Alcohol Intake: never Drug use: Never Substance use type: does not use and marijuana Details: 17 months clean fom Methamphetamines. marijuana: t-1, 2 hits Adopted: No Caregiver/Support person: No Foster care: No Household members: significant other and family Housing: other Number of Children: 1 Communication Needs: None Do you need help understanding health information?: Rarely Sexually active: Yes Do you think of yourself as: straight/heterosexual Current gender identity: female What type of physical activity do you participate in: none Do you feel safe at home: Yes Do you feel safe in your relationship?: Yes Exam Const General: cooperative, comfortable and no acute distress Orientation: alert and oriented x3 HENMT Head: normocephalic and atraumatic Eyes Pupils: PERRL Resp Effort & Inspection: normal respiratory effort Auscultation: clear to auscultation bilaterally Cardio Rate: regular rate Rhythm: regular rhythm GI Inspection: scar (keloid scar in the midline) Palpation: soft, no hepatosplenomegaly and nontender Auscultation: normal bowel sounds Results Last Vital Signs Temp 98.1 F 06/21/20 12:18 Pulse 86 06/21/20 13:45 Resp 16 06/21/20 12:50 BP 111/75 06/21/20 13:45 Pulse Ox 94 06/21/20 14:30 Labs Result diagrams: 06/21/20 13:35 06/21/20 13:35 Labs: Laboratory Results - last 24 hr 06/21/20 06/21/20 06/21/20 13:35 13:35 13:56 WBC 12.72 H RBC 5.22 Hgb 17.1 H Hct 50.9 H MCV 97.5 H MCH 32.8 MCHC 33.6 RDW 12.5 Plt Count 446 H MPV 8.4 Immature Gran % 0.3 Neutrophils % 63.9 Lymphocytes % 6.8 Monocytes % 13.2 Eosinophils % 14.2 Basophils % 1.6 Nucleated RBC % 0 Absolute Neutrophils 8.13 H Absolute Lymphocytes 0.86 L Absolute Monocytes 1.68 H Absolute Eosinophils 1.81 H Absolute Basophils 0.20 RBC Morphology Normal Sodium 143 Potassium 4.4 Chloride 105 Carbon Dioxide 28.4 Anion Gap 9.6 BUN 16 Creatinine 1.0 Estimated GFR/1.73 m2 >= 60.00 Glucose 99 Calcium 9.5 Magnesium 2.2 Total Bilirubin 0.3 AST 24 ALT 43 Alkaline Phosphatase 143 H Troponin I < 0.05 Total Protein 7.3 Albumin 4.2 Lipase 217 Urine Color Yellow Urine Clarity Clear Urine pH 7.0 Ur Specific [place] 1.025 Urine Protein Negative Urine Ketones Negative Urine Blood Moderate H Urine Nitrite Negative Urine Bilirubin Negative Urine Urobilinogen 0.2 Ur Leukocyte Esterase Negative Urine RBC 0-2 Urine WBC 0-2 Ur Epithelial Cells Moderate Urine Crystals Negative Urine Bacteria Few Urine Casts Negative Urine Mucus Trace Ur Culture Indicated? No/sq. contamination Urine Glucose Negative Procedures Other Procedure Description/Findings: Discussed with patient US guided drainage. Her abdomen was prepped with Chlorhexidine. The US probe was placed on her abdomen and the pocket of fluid was identified. The skin was infiltrated with 2 % Lidocaine. An 18 guage needle was then placed under direct visualization into the fluid collection. 60 cc of serous fluid was removed without complication. The needle was removed and a bandaid was applied. The patient tolerated the procedure and there were no immediate complications.
[2020-06-23 15:20] LABS: COVID-19 RT-PCR UVMMC Result Negative (Negative)
--- NOTE | 2020-06-24 09:27 | NUR.NOTE ---
patient called and after verifying her identity, relayed negative covid test results to her.
== END 2020-06-21 17:46 | disposition home or self-care (01) ==
PROVIDERS: Registered Nurse Emergency; Emergency Provider Physician Assistant; PCP Family Medicine
DX: K91.872 Postprocedural seroma of a digestive system organ or structure following a digestive system procedure (principal); J02.9 Acute pharyngitis, unspecified; M79.10 Myalgia, unspecified site; B34.9 Viral infection, unspecified; R91.1 Solitary pulmonary nodule; Z20.822 Contact with and (suspected) exposure to COVID-19
CPT/HCPCS: 10160; 36415; 74177; 80053; 81025; 83690; 87880; 93005; 96361; 96374; 96375; 99285; U0003; 71260; 81003; 81015; 83735; 84484; 85025; 87081; 93010; J1100; J2405; J3490

== ENCOUNTER 2020-07-18 11:30 | Emergency (ER) | payer MEDICAID, SELFPAY ==
[2020-07-18 11:35] VITALS: BP 129/90; PULSE 110; TEMP 36.3; O2SAT 93
--- NOTE | 2020-07-18 11:45 | DI.RAD_ITS ---
Exam(s) XR PORTABLE CHEST AP EXAM: XR PORTABLE CHEST AP CLINICAL HISTORY: SOB, Hx asthma, PUI TECHNIQUE: COMPARISON: CR XR PORTABLE CHEST AP from 03/30/2020 CR XR CHEST 2V PA LATERAL from 04/03/[address] CHEST/ABD/PEL W from 04/04/2020 FINDINGS: The heart is not enlarged. Lungs are predominantly clear. Some pleural blunting is noted on the le ft which is probably old. No pleural effusion seen on this frontal film. IMPRESSION: No evidence of acute process. If there is a high clinical suspicion of pathology additional evaluati on with PA and lateral chest would be recommended. RADIATION DOSE DELIVERED: Total DLP
--- NOTE | 2020-07-18 12:01 | W.ED.GENAD ---
Discharge Plan Disposition Patient Disposition: HOME Condition: Stable Discharge Details Clinical Impression: Asthma, Left otitis externa Primary Care Provider: Jonathan Plaza ED Provider: Maddison Brice Home Meds and New Rx's Prescriptions: New afulvsib-tnnpypyvp-JT 3.5-10,000-1 mg/mL-unit/mL-% drops,suspension 4 drp otic (ear) Q8H 5 Days Qty: 10 RF: 0 No Action calcipotriene 0.005 % ointment 1 applic topical BID RF: 0 Otezla 30 mg tablet 30 mg PO BID RF: 0 Hold Instructions: Changed by Provider trihexyphenidyl 5 mg tablet 5 mg PO QHS Qty: 90 RF: 3 diphenhydramine HCl [Benadryl Allergy] 25 mg tablet 25 mg PO TID PRN (Reason: itching) Qty: 30 RF: 0 trazodone 50 mg tablet 50 mg PO QHS PRN (Reason: sleep) Qty: 90 RF: 1 omeprazole 40 mg capsule,delayed release(DR/EC) 40 mg PO DAILY Qty: 30 RF: 0 fluocinonide 0.05 % cream 1 applic topical BID Qty: 60 RF: 0 fluocinolone and shower cap [[place]-Smoothe/FS Scalp Oil] 0.01 % oil 1 applic topical .QOD Qty: 118.28 RF: 3 citalopram [Celexa] 40 mg tablet 40 mg PO DAILY Qty: 90 RF: 3 betamethasone, augmented 0.05 % ointment 1 applic topical BID PRN (Reason: Psoriasis) Qty: 50 RF: 6 albuterol sulfate 90 mcg/actuation HFA aerosol inhaler 2 puff inhalation Q6H PRN (Reason: shortness of breath or wheezing) Qty: 6.7 RF: 3 Advair HFA 230-21 mcg/actuation HFA aerosol inhaler 2 puff inhalation BID Qty: 12 RF: 0 ipratropium-albuterol 0.5 mg-3 mg(2.5 mg base)/3 mL solution for nebulization 3 ml inhalation QID PRN (Reason: wheezing) Qty: 90 RF: 6 (DME) nebulizers Misc See Rx Instructions .ROUTE .MEDSUPPLY Qty: 1 RF: 0 clobetasol 0.05 % solution 1 applic topical BID PRN (Reason: Psoriasis) RF: 0 ibuprofen 600 mg tablet 600 mg PO TID PRN (Reason: pain) Qty: 270 RF: 3 acetaminophen [Pain Relief (acetaminophen)] 650 mg tablet extended release 650 mg PO Q8H PRN (Reason: pain) Qty: 270 RF: 3 nicotine 21 mg/24 hr patch 24 hour 1 patch transdermal DAILY Qty: 14 RF: 0 docusate sodium [Colace] 100 mg Capsule 100 mg PO TID Qty: 30 RF: 0 Discharge Instructions Instructions: Asthma (ED), How to Stop Smoking (ED), Otitis Externa (ED) Additional Instructions: You are given a steroid orally today that should last him in 3 days. Only use albuterol/ipratropium nebulizer every 4-6 hours as needed for wheezing. Try to stop smoking. Follow up with primary care provider in 3-5 days. Return to ED sooner if any worsening or concerns. Increase oral fluids. A antibiotic drops for your left ear was sent to the pharmacy on file. Referrals: Jonathan Plaza DO [Primary Care Provider] - Medical Decision Making 29-year-old female with past medical history of asthma, Payam syndrome, she remains disease, psoriasis, hydradenitis suppurativa, who is a daily smoker with occasional marijuana presents to the ER chief complaint shortness of breath. Patient states that she is used her home nebulizer albuterol ipratropium neb every 30 minutes for the last 4 to 5 days she is is not working. She denies any productive cough. Associated with left ear pain, sinus fullness, posterior throat pain. She denies any fever or chills. She is speaking in full sentences upon arrival. On initial exam she does have expiratory wheezes throughout all lung garcia. Boggy nasal passages, left external ear is erythematous, posterior oropharynx erythemic no exudate. EXAM: XR PORTABLE CHEST AP CLINICAL HISTORY: SOB, Hx asthma, PUI TECHNIQUE: COMPARISON: CR XR PORTABLE CHEST AP from 03/30/2020 CR XR CHEST 2V PA LATERAL from 04/03/[address] CHEST/ABD/PEL W from 04/04/2020 FINDINGS: The heart is not enlarged. Lungs are predominantly clear. Some pleural blunting is noted on the left which is probably old. No pleural effusion seen on this frontal film. IMPRESSION: No evidence of acute process. If there is a high clinical suspicion of pathology additional evaluation with PA and lateral chest would be recommended. 1240: Respiratory reevaluation, status post nebulizer. Wheezing has decreased. Patient feels much better status post neb and dexamethasone administration, O2 sat 94% on room air at the time of my reevaluation, heart rate 90, Discussed home care and plan of care and strongly encouraged follow-up with PCP, patient verbalized understanding, will plan to discharge home. Discuss strict return instructions. Patient hemodynamically stable at the time of this dictation. This text was generated using [email or web address] system, please disregard any oddities of phrase or misspellings. HPI General Date/Time Provider Initiated Documentation: 07/18/20 11:34. Limitations to Documentation: no limitations. Information obtained by: patient, RN notes reviewed and old records reviewed. HPI Narrative: 29-year-old female with past medical history of asthma, Payam syndrome, she remains disease, psoriasis, hydradenitis suppurativa, who is a daily smoker with occasional marijuana presents to the ER chief complaint shortness of breath. Patient states that she is used her home nebulizer albuterol ipratropium neb every 30 minutes for the last 4 to 5 days she is is not working. She denies any productive cough. Associated with left ear pain, sinus fullness, posterior throat pain. She denies any fever or chills. She is speaking in full sentences upon arrival. On initial exam she does have expiratory wheezes throughout all lung garcia. Boggy nasal passages, left external ear is erythematous, posterior oropharynx erythemic no exudate Related Data Home Medications Medication Instructions Recorded Confirmed fluocinonide 0.05 % topical cream 1 applic TOPICAL BID #60 g 12/30/19 06/21/20 omeprazole 40 mg capsule,delayed 40 mg PO DAILY #30 cap 12/30/19 06/21/20 release fluocinolone 0.01 % scalp oil and 1 applic TOPICAL .QOD #118.28 ml 12/31/19 06/21/20 shower cap calcipotriene 0.005 % topical 1 applic TOPICAL BID 01/14/20 06/21/20 ointment apremilast 30 mg tablet 30 mg PO BID 02/15/20 06/21/20 trihexyphenidyl 5 mg tablet 5 mg PO QHS #90 tab 02/15/20 06/21/20 albuterol sulfate 90 mcg/actuation 2 puff INHALATION Q6H PRN #6.7 g 03/02/20 06/21/20 aerosol inhaler betamethasone, augmented 0.05 % 1 applic TOPICAL BID PRN #50 g 03/02/20 06/21/20 topical ointment citalopram 40 mg tablet 40 mg PO DAILY #90 tab 03/02/20 06/21/20 fluticasone propionate 230 2 puff INHALATION BID #12 g 03/02/20 06/21/20 mcg-salmeterol 21 mcg/actuation HFA inhaler ipratropium 0.5 mg-albuterol 3 mg 3 ml INHALATION QID PRN #90 ml 03/02/20 06/21/20 (2.5 mg base)/3 mL nebulization soln nebulizers #1 ea 03/02/20 05/10/20 clobetasol 0.05 % scalp solution 1 applic TOPICAL BID PRN 03/27/20 06/21/20 docusate sodium [Colace] 100 mg PO TID #30 cap 04/10/20 06/21/20 acetaminophen 650 mg 650 mg PO Q8H PRN #270 tab 04/11/20 06/21/20 tablet,extended release ibuprofen 600 mg tablet 600 mg PO TID PRN #270 tab 04/11/20 06/21/20 nicotine 21 mg/24 hr daily 1 patch TRANSDERMAL DAILY #14 ea 04/11/20 06/21/20 transdermal patch trazodone 50 mg tablet 50 mg PO QHS PRN #90 tab 04/17/20 06/21/20 diphenhydramine HCl 25 mg tablet 25 mg PO TID PRN #30 tab 04/18/20 06/21/20 pzwuhcpe-ansjvjrkl-YA 4 drp OTIC (EAR) Q8H 5 Days #10 ml 07/18/20 Previous Rx's Medication Instructions Recorded fluocinonide 0.05 % topical cream 1 applic TOPICAL BID #60 g 12/30/19 omeprazole 40 mg capsule,delayed 40 mg PO DAILY #30 cap 12/30/19 release fluocinolone 0.01 % scalp oil and 1 applic TOPICAL .QOD #118.28 ml 12/31/19 shower cap trihexyphenidyl 5 mg tablet 5 mg PO QHS #90 tab 02/15/20 albuterol sulfate 90 mcg/actuation 2 puff INHALATION Q6H PRN #6.7 g 03/02/20 aerosol inhaler betamethasone, augmented 0.05 % 1 applic TOPICAL BID PRN #50 g 03/02/20 topical ointment citalopram 40 mg tablet 40 mg PO DAILY #90 tab 03/02/20 fluticasone propionate 230 2 puff INHALATION BID #12 g 03/02/20 mcg-salmeterol 21 mcg/actuation HFA inhaler ipratropium 0.5 mg-albuterol 3 mg 3 ml INHALATION QID PRN #90 ml 03/02/20 (2.5 mg base)/3 mL nebulization soln nebulizers #1 ea 03/02/20 docusate sodium [Colace] 100 mg PO TID #30 cap 04/10/20 acetaminophen 650 mg 650 mg PO Q8H PRN #270 tab 04/11/20 tablet,extended release ibuprofen 600 mg tablet 600 mg PO TID PRN #270 tab 04/11/20 nicotine 21 mg/24 hr daily 1 patch TRANSDERMAL DAILY #14 ea 04/11/20 transdermal patch trazodone 50 mg tablet 50 mg PO QHS PRN #90 tab 04/17/20 diphenhydramine HCl 25 mg tablet 25 mg PO TID PRN #30 tab 04/18/20 tqsstnqt-xtkcvteqr-BP 4 drp OTIC (EAR) Q8H 5 Days #10 ml 07/18/20 Allergies Allergy/AdvReac Type Severity Reaction Status Date / Time carbamazepine [From Tegretol] Allergy Skin Rash Verified 07/18/20 11:41 cephalexin [From Keflex] Allergy Other (See Verified 07/18/20 11:41 Comment) Sulfa (Sulfonamide Allergy Anaphylaxsi Verified 07/18/20 11:41 Antibiotics) s General Stated Complaint: RespSymp AKASH: 3 Review of Systems Narrative: Constitutional: Negative for weight loss, alert and oriented, well groomed, obese body habitus, appears comfortable. HEENT: Denies trauma, headaches, blurry vision, , sore throat, trouble swallowing. Positive left ear fullness, ear canal tenderness Chest: Denies chest pain, palpitations, irregular rhythm, hypertension. Respiratory: Denies hemoptysis. Positive shortness of breath, increased wheezing has used a neb multiple times GI: Denies abdominal pain, nausea, vomiting, diarrhea, constipation. : Denies dysuria, hematuria, flank pain, rectal bleeding. Neuro: Denies dizziness, blurry vision, weakness, syncope, headache or facial numbness. Hematologic: Denies easy bruising, intolerance to heat or cold, hair loss. 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 marijuana: t-1, 2 hits Adopted: No Caregiver/Support person: No Foster care: No Household members: significant other and family Housing: other Number of Children: 1 Communication Needs: None Do you need help understanding health information?: Rarely Sexually active: Yes Do you think of yourself as: straight/heterosexual Current gender identity: female What type of physical activity do you participate in: none Do you feel safe at home: Yes Do you feel safe in your relationship?: Yes Exam Narrative Exam Narrative: Constitutional: Alert and oriented x3. Appears stated age. Obese body habitus. Head: Normocephalic, no trauma. Eyes: Pupils PERRLA, Red reflex noted, EOM's intact. Eyelids symmetrical without lesions, discharge, or swelling. ENT: Left external ear, no erythemic, dull tympanic membrane, tenderness with tragus movement, no mastoid TTP, swelling, or erythema, Nasal turbinates erythemic and boggy on the left,, no nasal discharge. Normal dentition, Posterior pharynx., no exudate. Chest: RRR, Normal S1, S2, distal pulses intact. Resp: Lungs expiratory wheezes throughout all garcia, no, rales, or rhonchi. Musculoskeletal: Normal gait, 5/5 strength to all four extremities. Skin: Does have a history of psoriasis, excoriations noted to her lower extremities patient does state that she has been itching. Capillary refill less than 2 sec. Neurologic: Cranial nerves II-XII intact. Alert and oriented x 3. DTR's intact. Hematologic/Lymphatic: No ecchymosis, no lymphadenopathy. Course Vital Signs Vital signs: Vital Signs Temperature 36.3 C L 07/18/20 11:35 Pulse 110 H 07/18/20 11:35 Blood Pressure 129/90 07/18/20 11:35 Pulse Oximetry 93 07/18/20 11:35 Temperature 36.3 C L 07/18/20 11:35 Pulse 110 H 07/18/20 11:35 Respiratory Effort Non-Labored 07/18/20 11:40 Blood Pressure 129/90 07/18/20 11:35 Pulse Oximetry 93 07/18/20 11:35 Oxygen Delivery Method Room Air 07/18/20 11:35 Oxygen Flow Rate 0 07/18/20 11:35 Pain Level 0 07/18/20 11:35
[2020-07-18 12:05] VITALS: PULSE 97; RESP 18; RESP 4; RESP 8; O2SAT 95
[2020-07-18] MEDS: Albuterol/Ipratropium 3 ML UPD VIAL (12:05)
[2020-07-18 12:08] VITALS: PULSE 108; RESP 18; RESP 8; O2SAT 98
[2020-07-18] MEDS: Dexamethasone 10 MG/ML VIAL PO (12:10)
[2020-07-18 12:59] VITALS: BP 129/90; PULSE 90; RESP 18; O2SAT 92
== END 2020-07-18 13:02 | disposition home or self-care (01) ==
LOC: ER 13:02
PROVIDERS: Emergency Provider Registered Nurse Emergency; PCP Family Medicine
DX: J45.909 Unspecified asthma, uncomplicated (principal); H60.92 Unspecified otitis externa, left ear
CPT/HCPCS: 99283; 71045; 94640; J1100; J7620

== ENCOUNTER 2020-07-26 16:47 | Outpatient (REF) | payer MEDICAID, SELFPAY ==
[2020-07-28 14:28] LABS: COVID-19 RT-PCR UVMMC Result Negative (Negative)
== END 2020-07-26 16:48 | disposition home or self-care (01) ==
LOC: LBN 16:47
PROVIDERS: PCP Family Medicine; Visit Provider Nurse Practitioner Adult Health
DX: Z20.822 Contact with and (suspected) exposure to COVID-19 (principal); R05 Cough; R06.02 Shortness of breath; R06.2 Wheezing; J45.40 Moderate persistent asthma, uncomplicated
CPT/HCPCS: U0003

== ENCOUNTER 2020-07-31 15:24 | Emergency (ER) | payer MEDICAID, SELFPAY ==
[2020-07-31 15:45] VITALS: BP 132/102; PULSE 130; RESP 18; TEMP 36.8; O2SAT 94
--- NOTE | 2020-07-31 15:45 | RT.EKG_ITS ---
APPROVED REPORT Exam: Resting ECG Reason for Exam: chest pain Patient Location: E HR:98 bpm ECG Measurements Heart Rate 98 AXIS MN 131 P 78 QRSd 94 QRS 64 QT 347 T 35 QTc 444 Conclusion Sinus rhythm...normal P axis, V-rate 60- 99 Physician: No stemi
--- NOTE | 2020-07-31 15:58 | DI.CT_ITS ---
Exam(s) CT CHEST PE ABD PELVIS W EXAM: CT CHEST PE ABD PELVIS W CLINICAL HISTORY: epigastric and CP, r/o pe. TECHNIQUE: Imaging Protocol: Axial CT angiography was performed with multi-slice acquisition and mu lti-planar and/or 3D reconstructions. CONTRAST MATERIAL: Intravenous: Omnipaque 350 Contrast volume:100 mL COMPARISON: CT CT CHEST/ABD/PEL W from 06/21/2020 FINDINGS: CHEST: Pulmonary Arteries: No evidence of filling defect to suggest pulmonary emboli. Tracheobronchial tree: Patent where visualized. Mediastinum and Mirella: No dominant adenopathy or fluid collection. Pulmonary parenchyma: Several of the pulmonary nodules have shown interval decrease in size compared to 06/21/2020. There has been increase in size of 1 of the nodules in the posterior aspect of the righ t lobe which now measures 1.1 cm compared with less than 5 mm. No focal consolidations. No architec tural distortion. Pleura: No effusion or pneumothorax. Heart: The heart is upper limits of normal to mildly enlarged. No coronary artery calcifications are seen. No significant pericardial effusion. Aorta: Thoracic aorta non-dilated. Note is made of a variant takeoff of the right subclavian artery. Bones: Within normal limits for the patient's age. ABDOMEN: Liver: Normal density. No measurable mass. Portal and superior Mesenteric veins: Unremarkable. Gallbladder and Biliary Tract: Status post cholecystectomy. No biliary ductal dilatation. Pancreas: Normal density, no abnormal calcifications or inflammatory process. Spleen: Status post splenectomy. Adrenals: No masses seen. Kidneys: Normal size, contour and axis. No radiodense stones or obstructive uropathy. Stable right re nal cyst. No follow-up recommended. Abdominal Aorta: Abdominal portion non-dilated. Bowel: No obstruction or bowel wall thickening. Appendix is unremarkable. Peritoneal Cavity: No ascites, collection or mesenteric inflammatory response. Lymph Nodes: Within normal limits. Bones: Within normal limits for the patient's age. Soft Tissues: The anterior abdominal wall fluid collection is shown interval decrease in size. It me asures 7.0 transverse by 2 cm AP x 12.5 cm craniocaudad. This compares with 11 x 3.3 x 15.5 cm. PELVIS: Bladder: Symmetric distention, no gross wall thickening. Reproductive Organs: There is an IUD in position. Lymph Nodes: Within normal limits. Bones: Within normal limits. IMPRESSION: 1. No evidence of pulmonary embolism, thoracic aortic dissection or aneurysm. 2. Continued resolution of the pulmonary nodular opacities. For patients at low risk, recommend CT s can of the chest at 3-6 months. For patients at high risk, CT scan at 3-6 months is recommended. Th en CT scan of the chest at 18-24 months. 3. No acute abdominal pelvic process. 4. Interval decrease in size of the anterior abdominal wall fluid collection. 5. Status post cholecystectomy and splenectomy. RADIATION DOSE DELIVERED: 2,267.14mGy.cm Total DLP DATA REPOSITORY: All CT scans at this facility are submitted to the National Radiology Data Registry (NRDR) Dose Index Registry (DIR) with the [employer] (A[employer]). RADIATION OPTIMIZATION: All CT scans at this facility use at least one of these dose optimization te chniques: automated exposure control; mA and/or kV adjustment per patient size (includes targeted exa ms where dose is matched to clinical indication); or iterative reconstruction.
[2020-07-31] MEDS: Lactated Ringers 1,000 ML 1000 ML IV (16:36)
[2020-07-31] MEDS: Omnipaque 350 MG/ML 100 ML BTL IJ (16:38)
[2020-07-31] MEDS: Ondansetron 4 MG/2 ML VIAL IVP (16:38)
[2020-07-31] MEDS: Normal Saline - Diluent 50 ML VIAL IV (16:39)
[2020-07-31 16:52] LABS: Lactate 1.3 mmol/L (0.6-1.4)
[2020-07-31 16:57] LABS: Abs Immature Grans 0.19 10^3/uL (0.0-0.06); Absolute Lymphocyte Count 1.04 10^3/uL (1.2-3.4); Absolute Neutrophil Count 20.58 10^3/uL (1.2-6.7); Basophils % 0.6; Eosinophils % 0.5; Immature Grans % 0.8; Lymphocytes % 4.3; MCH 31.5 pg (27.0-33.0); MCHC 33.8 % (32.0-36.0); MCV 93.3 fL (80-95); MPV 9.2 fL (8.0-11.0); Monocytes % 8.5; Neutrophils % 85.3; Nucleated RBC 0 %; Platelet Count 475 10^3/uL (130-400); RDW 13.3 % (11.7-14.6); RDW-SD 45.8 fL; WBC 24.13 10^3/uL (4.4-10.8)
[2020-07-31 17:01] LABS: Absolute Basophil Count 0.14 10^3/uL (0.0-0.2); Absolute Eosinophil Count 0.12 10^3/uL (0.0-0.7); Absolute Monocyte Count 2.05 10^3/uL (0.1-0.8)
[2020-07-31 17:08] LABS: Bilirubin Negative (Negative); Blood Moderate (Negative); Clarity Sl Cloudy (Clear); Glucose Negative (Negative); Ketones Negative (Negative); Leukocyte Esterase Moderate (Negative); Nitrite Negative (Negative); Specific Gravity 1.025 (1.005-1.025); Urobilinogen 0.2 EU/dL (Up TO 0.2)
[2020-07-31 17:09] LABS: ALT 44 U/L (14-59); AST 16 U/L (15-37); Albumin 4.4 g/dL (3.4-5.0); Alkaline Phosphatase 183 U/L (46-116); Anion Gap 10.4 mmol/L (3-11); BUN 16 mg/dL (7-18); Bilirubin, Total 0.5 mg/dL (0.2-1.0); CO2 28.6 mmol/L (21.0-32.0); CREATININE 0.8 mg/dL (0.55-1.02); Calcium 9.7 mg/dL (8.5-10.1); Chloride 102 mmol/L (98-107); Glucose 106 mg/dL (74-106); Lipase 113 U/L (73-393); Potassium 3.6 mmol/L (3.5-5.1); Sodium 141 mmol/L (136-145); Total Protein 8.5 g/dL (6.4-8.2)
[2020-07-31] MEDS: HYDROmorphone 2 MG/ML VIAL 1 MG IVP (17:11)
[2020-07-31 17:13] LABS: Diff Comment RBC Morph Reviewed; HCT 57.4 % (36.0-46.0); HGB 19.4 g/dL (11.2-15.7)
[2020-07-31 17:15] LABS: RBC 6.15 10^6/uL (3.93-5.22)
[2020-07-31 17:16] LABS: Troponin I < 0.05 ng/mL (<0.06)
[2020-07-31 17:29] LABS: Bacteria Many HPF (Negative); Crystals Negative HPF (Negative); Epithelial Cells Many HPF (Negative); Mucus Negative (Negative); WBC >50 HPF (0-5)
[2020-07-31 17:30] LABS: C & S Indicated? No/Sq. Contamination; Casts Negative LPF (Negative)
--- NOTE | 2020-07-31 18:39 | DI.VRAD_ITS ---
PROCEDURE INFORMATION: Exam: CTA Chest With Contrast Exam date and time: 07/31/2020 4:10 PM Age: 29 years old Clinical indication: Abdominal pain; Patient HX: Epigastric and chest pain; Additional info: R/O pe TECHNIQUE: Imaging protocol: Computed tomographic angiography of the chest with contrast. 3D rendering (Not supervised by radiologist): MIP and/or 3D reconstructed images were created by the technologist. COMPARISON: CT CHEST PE ABD PELVIS W 03/30/2020 9:37 PM FINDINGS: Pulmonary arteries: No pulmonary arterial embolism evident. Aorta: Thoracic aorta is normal in course and caliber. Variant takeoff of the right subclavian artery from the distal arch. There is a common trunk for the carotid arteries. Lungs: No acute lung consolidation or edema. Scattered bilateral lung nodules. These are nonspecific. Right upper lobe nodule measuring 6 x 3 mm on series 4, image 23. Superior right lower lobe nodule measuring 8 x 6 mm on series 4, image 27. Posterior right lower lobe nodule measuring 13 x 12 mm on image 32. Left lower lobe costophrenic sulcus medial nodule measuring 12 x 10 mm on image 43. These areas previously appear to represent regions of consolidation or infiltrate. This may represent residual rounded atelectatic type disease. Pleural spaces: No pleural effusion. Heart: Mild cardiac enlargement. No pericardial effusion. Lymph nodes: Unremarkable. No enlarged lymph nodes. Bones/joints: Unremarkable. No acute fracture. Soft tissues: Unremarkable. IMPRESSION: 1. Continued resolution of bilateral infiltrates which were present on previous study dating back to 03/2020. Some minor residual nodularity is seen in the upper and lower lung garcia as described above. Comparison with previous studies from 04/09 and 07/07 . For patients at low risk (minimal or absent history of smoking and of other known risk factors), recommend CT Chest at 3-6 months, then consider CT Chest at 18-24 months. For patients at high risk (history of smoking or of other known risk factors), recommend CT Chest at 3-6 months, then CT Chest at 18-24 months. (Reference: Ayesha) 2. No pulmonary arterial embolism. 3. Mild cardiac enlargement. No pericardial effusion. 4. Variant anatomy great vessel origins from the aortic arch. REFERENCES: Ayesha Mccarty, et al. Guidelines for Management of Incidental Pulmonary Nodules Detected on CT Images: From the Fleischner Society 2017. Radiology. 2017;284(1):228-243. PROCEDURE INFORMATION: Exam: CT Abdomen And Pelvis With Contrast Exam date and time: 07/31/2020 4:10 PM Age: 29 years old Clinical indication: Abdominal pain; Patient HX: Epigastric and chest pain; Additional info: R/O pe TECHNIQUE: Imaging protocol: Computed tomography of the abdomen and pelvis with contrast. COMPARISON: CT CHEST PE ABD PELVIS W 03/30/2020 9:37 PM FINDINGS: Liver: Mild to moderate hepatic enlargement. No focal hepatic lesions. Gallbladder and bile ducts: Previous cholecystectomy. Suggestion of minimal intrahepatic biliary dilatation. This could represent reservoir effect post cholecystectomy. No extrahepatic biliary dilatation. Pancreas: Normal. No ductal dilation. Spleen: Previous splenectomy Adrenal glands: Normal. No mass. Kidneys and ureters: Right upper pole renal low-attenuation focus measuring 11 mm consistent with a benign cyst. Kidneys are otherwise unremarkable. No inflammation. No calculi. No hydronephrosis. No further imaging follow-up is recommended based on MIPS criteria. Stomach and bowel: Gastric morphology is unremarkable. No edema. No gastric outlet obstruction. Small bowel loops are normal in course and caliber. There is no mucosal edema or bowel wall thickening. No obstructive features. The colon contains formed fecal material. There is no bowel wall thickening. No inflammatory features. No obstruction. Appendix: No evidence of appendicitis. Intraperitoneal space: No free fluid in the abdomen or pelvis. Vasculature: Unremarkable. No abdominal aortic aneurysm. Lymph nodes: Subcentimeter para-aortic retroperitoneal nodes. No enlarged lymph nodes. Urinary bladder: Unremarkable as visualized. Reproductive: IUD is well positioned within the uterus. Incidental finding of a nonspecific rounded cyst in the left ovary measuring 16 mm. This could be further evaluated with nonemergent outpatient ultrasound. Bones/joints: Unremarkable. No acute fracture. Soft tissues: Anterior abdominal wall soft tissues with features consistent with a previous surgical incision. There is a fluid collection in the region of the incision which measures 7.2 cm transversely by 1.5 cm AP. Cephalo caudal length of this collection is approximately 9 cm. This is likely a resolving postoperative hematoma or seroma. There is no gas in this collection. There is a previous study from 03/30/2020 showing a small portion of this collection on the lower slices of the CT chest. There was air in the fluid at that time. This appears to have resolved. Minor ventral abdominal wall hernia at the level of the linea alba. This is at the level of the incision. There is small volume fat without strangulation IMPRESSION: 1. No acute findings of the abdomen or pelvis. 2. [id number] hepatic enlargement. 3. Previous cholecystectomy. 4. Suggestion of minor intrahepatic biliary dilatation. Recommend correlation with serum bilirubin. 5. Previous splenectomy. 6. Previous ventral midline abdominal incision with a fluid collection in the incision suggesting resolving hematoma or seroma. 7. Small left ovarian cyst with nonspecific appearance. Follow-up nonemergent pelvic ultrasound is suggested. IUD appears well positioned. Dictated and Authenticated by: Lorenzo Graves MD. Ordering:SOCORRO Bernard MD
--- NOTE | 2020-07-31 19:06 | W.ED.GENAD ---
Discharge Plan Disposition Patient Disposition: HOME Condition: Good Discharge Details Clinical Impression: UTI (urinary tract infection), Cellulitis of left lower leg, Incidental pulmonary nodule Primary Care Provider: Jonathan Plaza ED Provider: Marco Antonio House Home Meds and New Rx's Prescriptions: New levofloxacin 750 mg tablet 750 mg PO DAILY Qty: 7 RF: 0 clindamycin HCl 150 mg capsule 450 mg PO Q6H 7 Days Qty: 84 RF: 0 Continued calcipotriene 0.005 % ointment 1 applic topical BID RF: 0 Otezla 30 mg tablet 30 mg PO BID RF: 0 Hold Instructions: Changed by Provider trihexyphenidyl 5 mg tablet 5 mg PO QHS Qty: 90 RF: 3 diphenhydramine HCl [Benadryl Allergy] 25 mg tablet 25 mg PO TID PRN (Reason: itching) Qty: 30 RF: 0 trazodone 50 mg tablet 50 mg PO QHS PRN (Reason: sleep) Qty: 90 RF: 1 methylprednisolone [Medrol (Sid)] 4 mg tablets,dose pack See Rx Instructions PO DIRECTED Qty: 21 RF: 0 Advair HFA 230-21 mcg/actuation HFA aerosol inhaler 2 puff inhalation BID Qty: 12 RF: 0 omeprazole 40 mg capsule,delayed release(DR/EC) 40 mg PO DAILY Qty: 30 RF: 0 fluocinonide 0.05 % cream 1 applic topical BID Qty: 60 RF: 0 fluocinolone and shower cap [[place]-Smoothe/FS Scalp Oil] 0.01 % oil 1 applic topical .QOD Qty: 118.28 RF: 3 citalopram [Celexa] 40 mg tablet 40 mg PO DAILY Qty: 90 RF: 3 betamethasone, augmented 0.05 % ointment 1 applic topical BID PRN (Reason: Psoriasis) Qty: 50 RF: 6 albuterol sulfate 90 mcg/actuation HFA aerosol inhaler 2 puff inhalation Q6H PRN (Reason: shortness of breath or wheezing) Qty: 6.7 RF: 3 ipratropium-albuterol 0.5 mg-3 mg(2.5 mg base)/3 mL solution for nebulization 3 ml inhalation QID PRN (Reason: wheezing) Qty: 90 RF: 6 (DME) nebulizers Misc See Rx Instructions .ROUTE .MEDSUPPLY Qty: 1 RF: 0 clobetasol 0.05 % solution 1 applic topical BID PRN (Reason: Psoriasis) RF: 0 ibuprofen 600 mg tablet 600 mg PO TID PRN (Reason: pain) Qty: 270 RF: 3 acetaminophen [Pain Relief (acetaminophen)] 650 mg tablet extended release 650 mg PO Q8H PRN (Reason: pain) Qty: 270 RF: 3 nicotine 21 mg/24 hr patch 24 hour 1 patch transdermal DAILY Qty: 14 RF: 0 Discharge Instructions Instructions: Urinary Tract Infection in Women (ED), Cellulitis (ED) Additional Instructions: At this time you have a urinary tract infection as well as an infection in your skin. Unfortunately because of your allergies and the types of infection that this is it requires multiple antibiotics. You have been prescribed 2 antibiotics, clindamycin and Levaquin. They have been sent to your pharmacy of choice. Please take them as directed. It is very important to understand that these to strong antibiotics may cause diarrhea. If this occurs it is important to come in and be evaluated as it can cause a potential infectious diarrhea. Additionally please take a yogurt with live culture like activity to prevent any of this diarrhea. It will promote good gut health to take this type of yogurt. You can also take a [id number] probiotic pill. If you notice any worsening of your symptoms, or any new symptoms such as spreading of the redness on your leg vomiting, diarrhea, fever, chills, shortness of breath, chest pain, numbness, weakness, or fainting , please return immediately to the emergency department for reevaluation. Please follow up with your primary care provider as soon as possible for reassessment and reevaluation. As always, it was a pleasure participating in your medical care today. Referrals: Jonathan Plaza DO [Primary Care Provider] - Discharge Data Discharge Date/Time-TO BE ENTERED AT DEPARTURE: 07/31/20 20:00 Medical Decision Making 29-year-old female with a past medical history of asthma, Payam syndrome, ITP, psoriasis, Sjogren's disease, cholecystectomy, incisional hernia with repair, splenectomy, who presents today with multiple complaints. Chief among them are mild epigastric pain, generalized abdominal pain, dysuria, mild headache, shortness of breath, chest pain, epigastric burning, single episode of diarrhea, nausea without vomiting, redness on her left calf where a bug bit her. Patient is a bit of a challenging historian. The abdominal, and chest complaints seem to have begun earlier today, her left leg pain the area of redness started 2 days ago and the redness has been swelling and the pain is been worsening. She denies any discharge from the leg. She denies any new medications. She denies vomiting. She denies hematochezia melena or acholic stool. No other complaints. Tenderness of the leg is worsened with palpation of the area of redness. She has not been on antibiotics over the last few days Exam demonstrates mild cellulitis of the left lower extremity, small area of abscess roughly a centimeter in diameter. Needle aspiration was performed, no purulent material was exuded. However the small amount of blood that was exuded was sent for culture. With the patient epigastric tenderness and abdominal tenderness in conjunction with her chronic seroma and multiple other previous surgical components certainly concerning for an acute intra-abdominal pathology. The patient's history is challenging, but there is concern for PE or less likely cardiac etiology. We will evaluate for these. Will monitor closely and reassess. We will treat the patient's pain and rehydrate. 8 PM Laboratory work-up has returned, white count is 24, hemoglobin is 19, these values are not overly out of the ordinary for the patient compared to multiple previous visits. She shows no evidence of hypotension. Heart rate has improved with fluids. Lactate is normal, electrolytes normal. Troponin normal, EKG unremarkable. Urinalysis shows evidence of infection, CT scan shows no evidence of PE she does have evidence of bilateral infiltrates which seem to be demonstrating continual improvement. Chronic not acute. Pulmonary nodules are unchanged. CT scan of the abdomen demonstrates minimal intrahepatic biliary dilatation, and then improving in the size of the seroma. There is a small ovarian cyst however the patient symptoms are clinically inconsistent with ovarian torsion. With the evidence of the notable urinary tract infection in conjunction with her notable cellulitis that is likely MRSA related or at the very least staph related I do feel she needs adequate treatment for both. Unfortunately she has an allergy to penicillin cephalosporins and sulfa drugs, which the patient states causes anaphylaxis. Because of this challenge we will give clindamycin for the cellulitis and Levaquin for the UTI. She will be given a dose of Clinda here and a dose of Levaquin here. Discussed the importance of yogurt with live culture. Discussed red flags which to return. Upon reassessment patient symptoms have notably improved. Her abdominal pain has completely resolved, she feels better and would like to go home. I have extensively reviewed the treatment plan and discharge instructions with the patient. I have addressed all patient concerns at this time. The patient was made aware of what symptoms to monitor for that would warrant a return to the emergency department. Discussed the plan with the patient, they demonstrate verbal understanding and agreement with our assessment and plan at this time. The documentation in this chart was dictated using [employer] dictation software. Please excuse any dictation errors. FINDINGS: Pulmonary arteries: No pulmonary arterial embolism evident. Aorta: Thoracic aorta is normal in course and caliber. Variant takeoff of the right subclavian artery from the distal arch. There is a common trunk for the carotid arteries. Lungs: No acute lung consolidation or edema. Scattered bilateral lung nodules. These are nonspecific. Right upper lobe nodule measuring 6 x 3 mm on series 4, image 23. Superior right lower lobe nodule measuring 8 x 6 mm on series 4, image 27. Posterior right lower lobe nodul that dictated everythinge measuring 13 x 12 mm on image 32. Left lower lobe costophrenic sulcus medial nodule measuring 12 x 10 mm on image 43. These areas previously appear to represent regions of consolidation or infiltrate. This may represent residual rounded atelectatic type disease. Pleural spaces: No pleural effusion. Heart: Mild cardiac enlargement. No pericardial effusion. Lymph nodes: Unremarkable. No enlarged lymph nodes. Bones/joints: Unremarkable. No acute fracture. Soft tissues: Unremarkable. IMPRESSION: 1. Continued resolution of bilateral infiltrates which were present on previous study dating back to 03/2020. Some minor residual nodularity is seen in the upper and lower lung garcia as described above. Comparison with previous studies from 04/09 and 07/07 . For patients at low risk (minimal or absent history of smoking and of other known risk factors), recommend CT Chest at 3-6 months, then consider CT Chest at 18-24 months. For patients at high risk (history of smoking or of other known risk factors), recommend CT Chest at 3-6 months, then CT Chest at 18-24 months. (Reference: Ayesha) 2. No pulmonary arterial embolism. 3. Mild cardiac enlargement. No pericardial effusion. 4. Variant anatomy great vessel origins from the aortic arch. FINDINGS: Liver: Mild to moderate hepatic enlargement. No focal hepatic lesions. Gallbladder and bile ducts: Previous cholecystectomy. Suggestion of minimal intrahepatic biliary dilatation. This could represent reservoir effect post cholecystectomy. No extrahepatic biliary dilatation. Pancreas: Normal. No ductal dilation. Spleen: Previous splenectomy Adrenal glands: Normal. No mass. Kidneys and ureters: Right upper pole renal low-attenuation focus measuring 11 mm consistent with a benign cyst. Kidneys are otherwise unremarkable. No inflammation. No calculi. No hydronephrosis. No further imaging follow-up is recommended based on MIPS criteria. Stomach and bowel: Gastric morphology is unremarkable. No edema. No gastric outlet obstruction. Small bowel loops are normal in course and caliber. There is no mucosal edema or bowel wall thickening. No obstructive features. The colon contains formed fecal material. There is no bowel wall thickening. No inflammatory features. No obstruction. Appendix: No evidence of appendicitis Intraperitoneal space: No free fluid in the abdomen or pelvis. Vasculature: Unremarkable. No abdominal aortic aneurysm. Lymph nodes: Subcentimeter para-aortic retroperitoneal nodes. No enlarged lymph nodes. Urinary bladder: Unremarkable as visualized. Reproductive: IUD is well positioned within the uterus. Incidental finding of a nonspecific rounded cyst in the left ovary measuring 16 mm. This could be further evaluated with nonemergent outpatient ultrasound. Bones/joints: Unremarkable. No acute fracture. Soft tissues: Anterior abdominal wall soft tissues with features consistent with a previous surgical incision. There is a fluid collection in the region of the incision which measures 7.2 cm transversely by 1.5 cm AP. Cephalo caudal length of this collection is approximately 9 cm. This is likely a resolving postoperative hematoma or seroma. There is no gas in this collection. There is a previous study from 03/30/2020 showing a small portion of this collection on the lower slices of the CT chest. There was air in the fluid at that time. This appears to have resolved. Minor ventral abdominal wall hernia at the level of the linea alba. This is at the level of the incision. There is small volume fat without strangulation IMPRESSION: 1. No acute findings of the abdomen or pelvis. 2. Mnhj-ce-fhchbmsn hepatic enlargement. 3. Previous cholecystectomy. 4. Suggestion of minor intrahepatic biliary dilatation. Recommend correlation with serum bilirubin. 5. Previous splenectomy. 6. Previous ventral midline abdominal incision with a fluid collection in the incision suggesting resolving hematoma or seroma. 7. Small left ovarian cyst with nonspecific appearance. Follow-up nonemergent pelvic ultrasound is suggested. IUD appears well positioned. Thank you for allowing us to participate in the care of your patient. Dictated and Authenticated by: Lorenzo Graves MD 07/31/2020 6:39 PM Eastern Time ([place] & [place]) HPI General Date/Time Provider Initiated Documentation: 07/31/20 15:39. HPI Narrative: 29-year-old female with a past medical history of asthma, Payam syndrome, ITP, psoriasis, Sjogren's disease, cholecystectomy, incisional hernia with repair, splenectomy, who presents today with multiple complaints. Chief among them are mild epigastric pain, generalized abdominal pain, dysuria, mild headache, shortness of breath, chest pain, epigastric burning, single episode of diarrhea, nausea without vomiting, redness on her left calf where a bug bit her. Patient is a bit of a challenging historian. The abdominal, and chest complaints seem to have begun earlier today, her left leg pain the area of redness started 2 days ago and the redness has been swelling and the pain is been worsening. She denies any discharge from the leg. She denies any new medications. She denies vomiting. She denies hematochezia melena or acholic stool. No other complaints. Tenderness of the leg is worsened with palpation of the area of redness. She has not been on antibiotics over the last few days Related Data Home Medications Medication Instructions Recorded Confirmed fluocinonide 0.05 % topical cream 1 applic TOPICAL BID #60 g 12/30/19 07/26/20 omeprazole 40 mg capsule,delayed 40 mg PO DAILY #30 cap 12/30/19 07/26/20 release fluocinolone 0.01 % scalp oil and 1 applic TOPICAL .QOD #118.28 ml 12/31/19 07/26/20 shower cap calcipotriene 0.005 % topical 1 applic TOPICAL BID 01/14/20 07/26/20 ointment apremilast 30 mg tablet 30 mg PO BID 02/15/20 07/26/20 trihexyphenidyl 5 mg tablet 5 mg PO QHS #90 tab 02/15/20 07/26/20 albuterol sulfate 90 mcg/actuation 2 puff INHALATION Q6H PRN #6.7 g 03/02/20 07/26/20 aerosol inhaler betamethasone, augmented 0.05 % 1 applic TOPICAL BID PRN #50 g 03/02/20 07/26/20 topical ointment citalopram 40 mg tablet 40 mg PO DAILY #90 tab 03/02/20 07/26/20 ipratropium 0.5 mg-albuterol 3 mg 3 ml INHALATION QID PRN #90 ml 03/02/20 07/26/20 (2.5 mg base)/3 mL nebulization soln nebulizers #1 ea 03/02/20 07/26/20 clobetasol 0.05 % scalp solution 1 applic TOPICAL BID PRN 03/27/20 07/26/20 acetaminophen 650 mg 650 mg PO Q8H PRN #270 tab 04/11/20 07/26/20 tablet,extended release ibuprofen 600 mg tablet 600 mg PO TID PRN #270 tab 04/11/20 07/26/20 nicotine 21 mg/24 hr daily 1 patch TRANSDERMAL DAILY #14 ea 04/11/20 07/26/20 transdermal patch trazodone 50 mg tablet 50 mg PO QHS PRN #90 tab 04/17/20 07/26/20 diphenhydramine HCl 25 mg tablet 25 mg PO TID PRN #30 tab 04/18/20 07/26/20 fluticasone propionate 230 2 puff INHALATION BID #12 g 07/26/20 07/26/20 mcg-salmeterol 21 mcg/actuation HFA inhaler methylprednisolone 4 mg tablets in See Rx Instructions PO DIRECTED 07/26/20 07/26/20 a dose pack #21 dose pk clindamycin HCl 450 mg PO Q6H 7 Days #84 cap 07/31/20 levofloxacin 750 mg PO DAILY #7 tab 07/31/20 Previous Rx's Medication Instructions Recorded fluocinonide 0.05 % topical cream 1 applic TOPICAL BID #60 g 12/30/19 omeprazole 40 mg capsule,delayed 40 mg PO DAILY #30 cap 12/30/19 release fluocinolone 0.01 % scalp oil and 1 applic TOPICAL .QOD #118.28 ml 12/31/19 shower cap trihexyphenidyl 5 mg tablet 5 mg PO QHS #90 tab 02/15/20 albuterol sulfate 90 mcg/actuation 2 puff INHALATION Q6H PRN #6.7 g 03/02/20 aerosol inhaler betamethasone, augmented 0.05 % 1 applic TOPICAL BID PRN #50 g 03/02/20 topical ointment citalopram 40 mg tablet 40 mg PO DAILY #90 tab 03/02/20 ipratropium 0.5 mg-albuterol 3 mg 3 ml INHALATION QID PRN #90 ml 03/02/20 (2.5 mg base)/3 mL nebulization soln nebulizers #1 ea 03/02/20 acetaminophen 650 mg 650 mg PO Q8H PRN #270 tab 04/11/20 tablet,extended release ibuprofen 600 mg tablet 600 mg PO TID PRN #270 tab 04/11/20 nicotine 21 mg/24 hr daily 1 patch TRANSDERMAL DAILY #14 ea 04/11/20 transdermal patch trazodone 50 mg tablet 50 mg PO QHS PRN #90 tab 04/17/20 diphenhydramine HCl 25 mg tablet 25 mg PO TID PRN #30 tab 04/18/20 fluticasone propionate 230 2 puff INHALATION BID #12 g 07/26/20 mcg-salmeterol 21 mcg/actuation HFA inhaler methylprednisolone 4 mg tablets in See Rx Instructions PO DIRECTED 07/26/20 a dose pack #21 dose pk clindamycin HCl 450 mg PO Q6H 7 Days #84 cap 07/31/20 levofloxacin 750 mg PO DAILY #7 tab 07/31/20 Allergies Allergy/AdvReac Type Severity Reaction Status Date / Time carbamazepine [From Tegretol] Allergy Skin Rash Verified 07/26/20 15:39 cephalexin [From Keflex] Allergy Other (See Verified 07/26/20 15:39 Comment) Sulfa (Sulfonamide Allergy Anaphylaxsi Verified 07/26/20 15:39 Antibiotics) s General Stated Complaint: Abd Prob AKASH: 3 Review of Systems All systems reviewed & are unremarkable except as noted in HPI and below PFSH Medical History Abdominal adhesions Asthma Axillary hidradenitis suppurativa Ye syndrome Ye' syndrome History 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 marijuana: t-1, 2 hits Adopted: No Caregiver/Support person: No Foster care: No Household members: significant other and family Housing: other Number of Children: 1 Communication Needs: None Do you need help understanding health information?: Rarely Sexually active: Yes Do you think of yourself as: straight/heterosexual Current gender identity: female What type of physical activity do you participate in: none Do you feel safe at home: Yes Do you feel safe in your relationship?: Yes Exam Narrative Exam Narrative: 1.Const: Well-nourished, Well-developed, appearing stated age 2.Eyes: PERRL, no conjunctival injection, and symmetrical lids. 3.ENT: Atraumatic external nose and ears. Moist MM. Neck: Symmetric, trachea midline, No thyromegaly. Patient demonstrates good movement of cervical neck. There is no nuchal rigidity, no nuchal tenderness. Patient is able to flex the neck without any difficulty or significant pain. Negative Kernig's and Brudzinski sign. 4.CVS: +S1/S2, No murmurs or gallops. Peripheral pulses 2+ and equal in all extremities. Brisk capillary refill in all extremities. 5.RESP: Unlabored respiratory effort. Clear to auscultation bilaterally. No wheezes rales or rhonchi 6.GI: Soft, Nondistended, No hepatosplenomegaly. Mild epigastric tenderness, no lower abdominal or pelvic tenderness. No signs of an acute surgical abdomen. No suprapubic tenderness. Negative heel strike, negative obturator and psoas sign. No guarding or rebound. 7.MSK: Normocephalic/Atraumatic, Extremities w/o deformity or ttp No cyanosis or clubbing, Normal movement of all extremities 8.Skin: Warm, Dry. Patient left calf demonstrates an area of mild minimally erythematous cellulitis with a diameter of 12cm, the central area has an eschar, with mild fluctuance. This was confirmed with bedside ultrasound, the area of fluctuance is roughly 1 cm x 1 cm on ultrasound. Other than this local area there is no calf tenderness, no unilateral swelling, no pitting edema. No suggestion of DVT. 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 Sensation grossly intact, no focal neurologic deficits. 10.Psych: (AAO) x3. Appropriate mood and affect Course Vital Signs Vital signs: Vital Signs Temperature 36.8 C 07/31/20 15:45 Pulse 130 H 07/31/20 15:45 Respiratory Rate 18 07/31/20 15:45 Blood Pressure 132/102 H 07/31/20 15:45 Pulse Oximetry 94 07/31/20 15:45 Temperature 36.8 C 07/31/20 15:45 Pulse 130 H 07/31/20 15:45 Respiratory Rate 18 07/31/20 15:45 Blood Pressure 132/102 H 07/31/20 15:45 Blood Pressure Position Sitting 07/31/20 15:45 Pulse Oximetry 94 07/31/20 15:45 Oxygen Delivery Method Room Air 07/31/20 15:45 Oxygen Flow Rate 0 07/31/20 15:45 Pain Level 8 07/31/20 15:45 Lab/Test Results Lab/Test Results: 07/31/20 16:55 Urine - Voided Urine Culture - Pending 07/31/20 16:40 Leg - Back Wound Culture - Pending 07/31/20 16:40 Leg - Back Gram Stain - Pending 07/31/20 16:40 Blood Blood Culture - Pending 07/31/20 15:58 Blood Blood Culture - Pending Laboratory Tests Range/Units 07/31/20 07/31/20 07/31/20 16:00 16:00 16:00 WBC (4.4-10.8) 10^3/uL 24.13 H RBC (3.93-5.22) 10^6/uL 6.15 H Hgb (11.2-15.7) g/dL 19.4 H* Hct (36.0-46.0) % 57.4 H* MCV (80-95) fL 93.3 MCH (27.0-33.0) pg 31.5 MCHC (32.0-36.0) % 33.8 RDW (11.7-14.6) % 13.3 Plt Count (130-400) 10^3/uL 475 H MPV (8.0-11.0) fL 9.2 Immature Gran % 0.8 Neutrophils % 85.3 Lymphocytes % 4.3 Monocytes % 8.5 Eosinophils % 0.5 Basophils % 0.6 Nucleated RBC % % 0 Absolute Neutrophils (1.2-6.7) 10^3/uL 20.58 H Absolute Lymphocytes (1.2-3.4) 10^3/uL 1.04 L Absolute Monocytes (0.1-0.8) 10^3/uL 2.05 H Absolute Eosinophils (0.0-0.7) 10^3/uL 0.12 Absolute Basophils (0.0-0.2) 10^3/uL 0.14 VBG Lactate (0.6-1.4) mmol/L 1.3 Sodium (136-145) mmol/L 141 Potassium (3.5-5.1) mmol/L 3.6 Chloride (98-107) mmol/L 102 Carbon Dioxide (21.0-32.0) mmol/L 28.6 Anion Gap (3-11) mmol/L 10.4 BUN (7-18) mg/dL 16 Creatinine (0.55-1.02) mg/dL 0.8 Estimated GFR/1.73 m2 (mL/min/1.73m2) >= 60.00 Glucose (74-106) mg/dL 106 Calcium (8.5-10.1) mg/dL 9.7 Total Bilirubin (0.2-1.0) mg/dL 0.5 AST (15-37) U/L 16 ALT (14-59) U/L 44 Alkaline Phosphatase (46-116) U/L 183 H Troponin I (<0.06) ng/mL Total Protein (6.4-8.2) g/dL 8.5 H Albumin (3.4-5.0) g/dL 4.4 Lipase (73-393) U/L 113 Urine Color (Yellow) Urine Clarity (Clear) Urine pH (5-8) Ur Specific [place] (1.005-1.025) Urine Protein (Negative) mg/dL Urine Ketones (Negative) mg/dL Urine Blood (Negative) Urine Nitrite (Negative) Urine Bilirubin (Negative) Urine Urobilinogen (Up TO 0.2) EU/dL Ur Leukocyte Esterase (Negative) Urine RBC Urine WBC (0-5) HPF Ur Epithelial Cells (Negative) HPF Urine Crystals (Negative) HPF Urine Bacteria (Negative) HPF Urine Casts (Negative) LPF Urine Mucus (Negative) Urine Other (Negative) Ur Culture Indicated? Urine Glucose (Negative) mg/dL Range/Units 07/31/20 07/31/20 16:00 16:55 WBC (4.4-10.8) 10^3/uL RBC (3.93-5.22) 10^6/uL Hgb (11.2-15.7) g/dL Hct (36.0-46.0) % MCV (80-95) fL MCH (27.0-33.0) pg MCHC (32.0-36.0) % RDW (11.7-14.6) % Plt Count (130-400) 10^3/uL MPV (8.0-11.0) fL Immature Gran % Neutrophils % Lymphocytes % Monocytes % Eosinophils % Basophils % Nucleated RBC % % Absolute Neutrophils (1.2-6.7) 10^3/uL Absolute Lymphocytes (1.2-3.4) 10^3/uL Absolute Monocytes (0.1-0.8) 10^3/uL Absolute Eosinophils (0.0-0.7) 10^3/uL Absolute Basophils (0.0-0.2) 10^3/uL VBG Lactate (0.6-1.4) mmol/L Sodium (136-145) mmol/L Potassium (3.5-5.1) mmol/L Chloride (98-107) mmol/L Carbon Dioxide (21.0-32.0) mmol/L Anion Gap (3-11) mmol/L BUN (7-18) mg/dL Creatinine (0.55-1.02) mg/dL Estimated GFR/1.73 m2 (mL/min/1.73m2) Glucose (74-106) mg/dL Calcium (8.5-10.1) mg/dL Total Bilirubin (0.2-1.0) mg/dL AST (15-37) U/L ALT (14-59) U/L Alkaline Phosphatase (46-116) U/L Troponin I (<0.06) ng/mL < 0.05 Total Protein (6.4-8.2) g/dL Albumin (3.4-5.0) g/dL Lipase (73-393) U/L Urine Color (Yellow) Yellow Urine Clarity (Clear) Sl cloudy Urine pH (5-8) 6.0 Ur Specific [place] (1.005-1.025) 1.025 Urine Protein (Negative) mg/dL 100 H Urine Ketones (Negative) mg/dL Negative Urine Blood (Negative) Moderate H Urine Nitrite (Negative) Negative Urine Bilirubin (Negative) Negative Urine Urobilinogen (Up TO 0.2) EU/dL 0.2 Ur Leukocyte Esterase (Negative) Moderate H Urine RBC Not Applicable Urine WBC (0-5) HPF >50 H Ur Epithelial Cells (Negative) HPF Many Urine Crystals (Negative) HPF Negative Urine Bacteria (Negative) HPF Many Urine Casts (Negative) LPF Negative Urine Mucus (Negative) Negative Urine Other (Negative) Many trichomonas Ur Culture Indicated? No/sq. contamination Urine Glucose (Negative) mg/dL Negative POC- Test(urine) Negative
[2020-07-31] MEDS: levoFLOXacin 500 MG, levoFLOXacin 250 MG 750 MG PO (19:51)
[2020-07-31] MEDS: CLINDAMYCIN 600 MG/50 ML BAG 100 MG IVPB (19:51)
[2020-07-31 19:55] VITALS: BP 140/88; PULSE 105; RESP 18; TEMP 36.8; O2SAT 98
== END 2020-07-31 20:00 | disposition home or self-care (01) ==
PROVIDERS: Emergency Provider Student in an Organized Health Care Education/Training Program; PCP Family Medicine
DX: N39.0 Urinary tract infection, site not specified (principal); L03.116 Cellulitis of left lower limb; R91.1 Solitary pulmonary nodule
CPT/HCPCS: 36415; 71275; 74177; 80053; 81025; 83690; 87040; 87077; 93005; 96361; 96374; 96375; 99285; 81003; 81015; 83605; 84484; 85025; 87070; 87086; 87186; 87205; 93010; 99284; J2405; J3490

== ENCOUNTER 2020-08-04 14:54 | Inpatient (IN) | payer MEDICAID, SELFPAY ==
[2020-08-04] VITALS (13 sets, daily range): BP systolic 107–130; BP diastolic 49–92; PULSE 88–126; RESP 4–20; TEMP 36.4–37; O2SAT 93–98
--- NOTE | 2020-08-04 15:00 | DI.US_ITS ---
Exam(s) US LOWER EXTREMITY VENOUS LT EXAM: US LOWER EXTREMITY VENOUS LT CLINICAL HISTORY: swelling and redness, ?abscess vs dvt TECHNIQUE: Grayscale, color, and doppler imaging of the deep venous system of the left lower extremi ty was performed. COMPARISON: No exams were available for comparison FINDINGS: There is no evidence of intraluminal thrombus and there is normal compression and augmentation demons trated within the common femoral vein, femoral vein, and popliteal vein. In the ipsilateral calf the interrogated veins also exhibit normal compression/ augmentation properti es. The ipsilateral saphenofemoral junction is patent. IMPRESSION: 1. No evidence of DVT in the left lower extremity. 2. Some ipsilateral calf edema is noted. DATA REPOSITORY:
--- NOTE | 2020-08-04 15:22 | ED.GENADUL_ITS ---
Discharge Plan Disposition Patient Disposition: [facility] INPATIENT Condition: Stable Discharge Details Chief Complaint: Cellulitis Clinical Impression: Cellulitis of left lower leg Primary Care Provider: Jonathan Plaza ED Provider: Rajendra Sheikh Home Meds and New Rx's Prescriptions: No Action calcipotriene 0.005 % ointment 1 applic topical BID RF: 0 Otezla 30 mg tablet 30 mg PO BID RF: 0 Hold Instructions: Changed by Provider trihexyphenidyl 5 mg tablet 5 mg PO QHS Qty: 90 RF: 3 diphenhydramine HCl [Benadryl Allergy] 25 mg tablet 25 mg PO TID PRN (Reason: itching) Qty: 30 RF: 0 trazodone 50 mg tablet 50 mg PO QHS PRN (Reason: sleep) Qty: 90 RF: 1 Advair HFA 230-21 mcg/actuation HFA aerosol inhaler 2 puff inhalation BID Qty: 12 RF: 0 clonazepam [Klonopin] 1 mg tablet 1 mg PO DAILY RF: 0 methylphenidate HCl [Concerta] 54 mg tablet extended release 24hr 54 mg PO DAILY RF: 0 aripiprazole [Abilify] PO RF: 0 omeprazole 40 mg capsule,delayed release(DR/EC) 40 mg PO DAILY Qty: 30 RF: 0 fluocinonide 0.05 % cream 1 applic topical BID Qty: 60 RF: 0 fluocinolone and shower cap [[place]-Smoothe/FS Scalp Oil] 0.01 % oil 1 applic topical .QOD Qty: 118.28 RF: 3 citalopram [Celexa] 40 mg tablet 40 mg PO DAILY Qty: 90 RF: 3 betamethasone, augmented 0.05 % ointment 1 applic topical BID PRN (Reason: Psoriasis) Qty: 50 RF: 6 albuterol sulfate 90 mcg/actuation HFA aerosol inhaler 2 puff inhalation Q6H PRN (Reason: shortness of breath or wheezing) Qty: 6.7 RF: 3 ipratropium-albuterol 0.5 mg-3 mg(2.5 mg base)/3 mL solution for nebulization 3 ml inhalation QID PRN (Reason: wheezing) Qty: 90 RF: 6 clobetasol 0.05 % solution 1 applic topical BID PRN (Reason: Psoriasis) RF: 0 ibuprofen 600 mg tablet 600 mg PO TID PRN (Reason: pain) Qty: 270 RF: 3 acetaminophen [Pain Relief (acetaminophen)] 650 mg tablet extended release 650 mg PO Q8H PRN (Reason: pain) Qty: 270 RF: 3 nicotine 21 mg/24 hr patch 24 hour 1 patch transdermal DAILY Qty: 14 RF: 0 levofloxacin 750 mg tablet 750 mg PO DAILY Qty: 7 RF: 0 clindamycin HCl 150 mg capsule 450 mg PO Q6H 7 Days Qty: 84 RF: 0 Medical Decision Making 29 yo female with hx of prior drug abuse, asthma, who comes in with worsening left leg redness and swelling despite starting cipro and levofloxacin on 07/31 after being diagnosed with cellulitis as well as a uti. Her uti symptoms have resolved but her leg redness and swelling is worsening so was referred here by pcp. Her left leg is swollen diffusely compared to the right. She has intact sensation. Erythema extends from the foot past the knee, no crepitus. Suspect worsening cellulitis, will obtain labs and also obtain u/s to evaluate for dvt. Has no crepitus or pain out of proportion to exam so doubt nec fasc at this time labs show wbc of 12 down from Friday, esr and crp elevated lactate and procalcitonin reassuring. 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 spoke with Dr. Baker who accepts for admission, she remains stable Differential Diagnosis Differential Diagnosis: dvt, cellulitis, abscess Medical Records Medical records reviewed: Yes I reviewed the patient's medical records. Imaging Data Radiologic Study: Attestation: I personally reviewed and interpreted this imaging study as follows: Imaging: Ultrasound Radiologist's impression: IMPRESSION: 1. No evidence of deep vein thrombosis. 2. Soft tissue edematous changes noted along the mid calf with no discrete fluid collections. Lab Data Lab results reviewed: Yes I reviewed the patient's lab results. HPI General Mode of arrival: ambulatory . Date/Time Provider Initiated Documentation: 08/04/20 14:56 . Limitations to Documentation: no limitations . Information obtained by: patient . History of Present Illness 29 year old F presents to the emergency department with the chief complaint of left leg redness and swelling, described as moderate, Quality is described as aching, and is localized to the left and lower extremity. Patient reports no radiation. Patient started experiencing this week(s) (1) and it has been constant. No relieving factors improve symptom(s), No exacerbating factors reported . Patient notes no other symptoms.. Related Data Home Medications Medication Instructions Recorded Confirmed fluocinonide 0.05 % topical cream 1 applic TOPICAL BID #60 g 12/30/19 08/04/20 omeprazole 40 mg capsule,delayed 40 mg PO DAILY #30 cap 12/30/19 08/04/20 release fluocinolone 0.01 % scalp oil and 1 applic TOPICAL .QOD #118.28 ml 12/31/19 08/04/20 shower cap calcipotriene 0.005 % topical 1 applic TOPICAL BID 01/14/20 08/04/20 ointment apremilast 30 mg tablet 30 mg PO BID 02/15/20 08/04/20 trihexyphenidyl 5 mg tablet 5 mg PO QHS #90 tab 02/15/20 08/04/20 albuterol sulfate 90 mcg/actuation 2 puff INHALATION Q6H PRN #6.7 g 03/02/20 08/04/20 aerosol inhaler betamethasone, augmented 0.05 % 1 applic TOPICAL BID PRN #50 g 03/02/20 08/04/20 topical ointment citalopram 40 mg tablet 40 mg PO DAILY #90 tab 03/02/20 08/04/20 ipratropium 0.5 mg-albuterol 3 mg 3 ml INHALATION QID PRN #90 ml 03/02/20 08/04/20 (2.5 mg base)/3 mL nebulization soln clobetasol 0.05 % scalp solution 1 applic TOPICAL BID PRN 03/27/20 08/04/20 acetaminophen 650 mg 650 mg PO Q8H PRN #270 tab 04/11/20 07/26/20 tablet,extended release ibuprofen 600 mg tablet 600 mg PO TID PRN #270 tab 04/11/20 08/04/20 nicotine 21 mg/24 hr daily 1 patch TRANSDERMAL DAILY #14 ea 04/11/20 08/04/20 transdermal patch trazodone 50 mg tablet 50 mg PO QHS PRN #90 tab 04/17/20 08/04/20 diphenhydramine HCl 25 mg tablet 25 mg PO TID PRN #30 tab 04/18/20 08/04/20 fluticasone propionate 230 2 puff INHALATION BID #12 g 07/26/20 08/04/20 mcg-salmeterol 21 mcg/actuation HFA inhaler clindamycin HCl 450 mg PO Q6H 7 Days #84 cap 07/31/20 08/04/20 levofloxacin 750 mg PO DAILY #7 tab 07/31/20 08/04/20 aripiprazole [Abilify] PO 08/04/20 clonazepam 1 mg tablet 1 mg PO DAILY 08/04/20 08/04/20 methylphenidate HCl 54 mg 54 mg PO DAILY 08/04/20 08/04/20 tablet,extended release 24 hr Previous Rx's Medication Instructions Recorded fluocinonide 0.05 % topical cream 1 applic TOPICAL BID #60 g 12/30/19 omeprazole 40 mg capsule,delayed 40 mg PO DAILY #30 cap 12/30/19 release fluocinolone 0.01 % scalp oil and 1 applic TOPICAL .QOD #118.28 ml 12/31/19 shower cap trihexyphenidyl 5 mg tablet 5 mg PO QHS #90 tab 02/15/20 albuterol sulfate 90 mcg/actuation 2 puff INHALATION Q6H PRN #6.7 g 03/02/20 aerosol inhaler betamethasone, augmented 0.05 % 1 applic TOPICAL BID PRN #50 g 03/02/20 topical ointment citalopram 40 mg tablet 40 mg PO DAILY #90 tab 03/02/20 ipratropium 0.5 mg-albuterol 3 mg 3 ml INHALATION QID PRN #90 ml 03/02/20 (2.5 mg base)/3 mL nebulization soln acetaminophen 650 mg 650 mg PO Q8H PRN #270 tab 04/11/20 tablet,extended release ibuprofen 600 mg tablet 600 mg PO TID PRN #270 tab 04/11/20 nicotine 21 mg/24 hr daily 1 patch TRANSDERMAL DAILY #14 ea 04/11/20 transdermal patch trazodone 50 mg tablet 50 mg PO QHS PRN #90 tab 04/17/20 diphenhydramine HCl 25 mg tablet 25 mg PO TID PRN #30 tab 04/18/20 fluticasone propionate 230 2 puff INHALATION BID #12 g 07/26/20 mcg-salmeterol 21 mcg/actuation HFA inhaler clindamycin HCl 450 mg PO Q6H 7 Days #84 cap 07/31/20 levofloxacin 750 mg PO DAILY #7 tab 07/31/20 Allergies Allergy/AdvReac Type Severity Reaction Status Date / Time carbamazepine [From Tegretol] Allergy Skin Rash Verified 08/04/20 15:18 cephalexin [From Keflex] Allergy Other (See Verified 08/04/20 15:18 Comment) Sulfa (Sulfonamide Allergy Anaphylaxsi Verified 08/04/20 15:18 Antibiotics) s General Stated Complaint: Cellulitis AKASH: 3 Review of Systems All systems reviewed & are unremarkable except as noted in HPI and below Constitutional Constitutional: Denies chills, Denies fever(s) and Denies weakness Cardiovascular Cardiovascular: Denies chest pain and Denies dyspnea Respiratory Respiratory: Denies cough and Denies dyspnea Gastrointestinal Gastrointestinal: Denies abdominal pain, Denies nausea and Denies vomiting Neurologic Neurologic: Denies weakness Psychiatric Psychiatric: Denies depression PFSH Medical History Abdominal adhesions Asthma 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; liver shows low-density at posterior segment superiorly suggesting portal vein clot, without parenchymal abnormality. 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 marijuana: t-1, 2 hits Adopted: No Caregiver/Support person: No Foster care: No Household members: significant other and family Housing: other Number of Children: 1 Communication Needs: None Do you need help understanding health information?: Rarely Sexually active: Yes Do you think of yourself as: straight/heterosexual Current gender identity: female What type of physical activity do you participate in: none Do you feel safe at home: Yes Do you feel safe in your relationship?: Yes Exam Const General: no acute distress Orientation: alert HENMT Head: normal to inspection Ears: external ears normal General nose exam: external nose normal Mouth: moist mucous membranes Eyes General: appearance normal, both eyes and all related structures Neck Neck: normal visual inspection Resp Effort & Inspection: normal respiratory effort and able to speak in complete sentences Cardio Rate: regular rate Skin General skin exam: elasticity normal Neuro General: patient alert and patient oriented x3 Extrem General: capillary refill normal Psych Mental Status: mental status grossly normal Course Vital Signs Vital signs: Vital Signs Temperature 36.4 C L 08/04/20 15:15 Pulse 109 H 08/04/20 15:15 Respiratory Rate 20 08/04/20 15:15 Blood Pressure 130/92 H 08/04/20 15:15 Pulse Oximetry 97 08/04/20 15:15 Temperature 36.4 C L 08/04/20 15:15 Temperature Source Temporal Artery Scan 08/04/20 15:15 Pulse 109 H 08/04/20 15:15 Respiratory Rate 20 08/04/20 15:15 Respiratory Effort Non-Labored 08/04/20 15:19 Blood Pressure 130/92 H 08/04/20 15:15 Blood Pressure Position Sitting 08/04/20 15:15 Pulse Oximetry 97 08/04/20 15:15 Oxygen Delivery Method Room Air 08/04/20 15:15 Oxygen Flow Rate 0 08/04/20 15:15 Pain Level 10 08/04/20 15:15 Lab/Test Results Lab/Test Results: 08/04/20 15:12 Blood Blood Culture - Pending 08/04/20 15:12 Blood Blood Culture - Pending
[2020-08-04] MEDS: HYDROmorphone 2 MG/ML VIAL 1 MG IVP ×2 (15:34→17:42)
[2020-08-04 15:35] LABS: Abs Immature Grans 0.13 10^3/uL (0.0-0.06); Absolute Eosinophil Count 0.56 10^3/uL (0.0-0.7); Absolute Monocyte Count 1.29 10^3/uL (0.1-0.8); Basophils % 0.9; Eosinophils % 4.4; HGB 16.6 g/dL (11.2-15.7); Lymphocytes % 5.8; MCH 31.4 pg (27.0-33.0); MCHC 34.6 % (32.0-36.0); MCV 90.9 fL (80-95); MPV 8.8 fL (8.0-11.0); Monocytes % 10.2; Neutrophils % 77.7; Nucleated RBC 0 %; Platelet Count 458 10^3/uL (130-400); RBC 5.28 10^6/uL (3.93-5.22); RDW 13.2 % (11.7-14.6); RDW-SD 43.8 fL; WBC 12.66 10^3/uL (4.4-10.8)
[2020-08-04 15:48] LABS: ALT 46 U/L (14-59); AST 14 U/L (15-37); Albumin 3.5 g/dL (3.4-5.0); Alkaline Phosphatase 185 U/L (46-116); Anion Gap 14.1 mmol/L (3-11); BUN 12 mg/dL (7-18); Bilirubin, Total 0.3 mg/dL (0.2-1.0); C-Reactive Protein 8.07 mg/dL (0.0-0.3); CO2 23.9 mmol/L (21.0-32.0); CREATININE 0.9 mg/dL (0.55-1.02); Calcium 9.5 mg/dL (8.5-10.1); Chloride 103 mmol/L (98-107); Glucose 116 mg/dL (74-106); Potassium 3.3 mmol/L (3.5-5.1); Sodium 141 mmol/L (136-145); Total Protein 7.4 g/dL (6.4-8.2)
[2020-08-04 15:54] LABS: ESR 46 mm/hr (0-20)
[2020-08-04 15:55] LABS: Absolute Basophil Count 0.11 10^3/uL (0.0-0.2); Absolute Lymphocyte Count 0.73 10^3/uL (1.2-3.4); Absolute Neutrophil Count 9.84 10^3/uL (1.2-6.7)
--- NOTE | 2020-08-04 16:11 | DI.VRAD_ITS ---
PROCEDURE INFORMATION: Exam: US Duplex Left Lower Extremity Veins, Limited Exam date and time: 08/04/2020 3:13 PM Age: 29 years old Clinical indication: Pain; Other: Swelling and redness lle, ? abscess vs dvt TECHNIQUE: Imaging protocol: Real-time Duplex ultrasound of the Left Lower Extremity with 2-D land scale, color Doppler flow and spectral waveform analysis with image documentation. Limited exam focused on the left lower extremity veins. COMPARISON: CT CHEST/ABD/PEL W 06/21/2020 2:46 PM FINDINGS: Left deep veins: Unremarkable. The common femoral, femoral, proximal profunda femoral and popliteal veins are patent without thrombus. Normal Doppler waveforms. Normal compressibility and/or augmentation response. Left superficial veins: Unremarkable. Saphenofemoral junction is patent without thrombus. Soft tissues: Soft tissue edematous changes are noted along the mid calf with no discrete fluid collections. IMPRESSION: 1. No evidence of deep vein thrombosis. 2. Soft tissue edematous changes noted along the mid calf with no discrete fluid collections. Dictated and Authenticated by: Artemio Meyer MD. Ordering:BEE Drew MD
[2020-08-04 16:28] LABS: Procalcitonin < 0.1 ng/mL
[2020-08-04 16:56] LABS: Source Nasal/Nares
[2020-08-04] MEDS: Normal Saline 1,000 ML 1000 ML IV (16:57)
[2020-08-04 17:10] LABS: Lactate 1.6 mmol/L (0.6-1.4)
[2020-08-04] MEDS: VANCOMYCIN 1,000 MG in Normal Saline 250 ML 166.6666 MG IVPB (17:13)
[2020-08-04] MEDS: ACETAMINOPHEN 1,000 MG/100 ML BTL 400 MG IVPB (18:14)
[2020-08-04] MEDS: Albuterol/Ipratropium 3 ML UPD VIAL IH (19:30)
[2020-08-04] MEDS: Normal Saline Flush 10 ML SYR IVP (20:07)
[2020-08-04] MEDS: Enoxaparin 40 MG/0.4 ML SYR SC (20:18)
--- NOTE | 2020-08-04 20:38 | HPE_ITS ---
Date of service: 08/04/20 Time of Service: 20:39 Assessment and Plan Assessment and plan (1) Cellulitis of left lower leg: Status: Acute Assessment and plan: Analgesics and anti-inflammatories along with parenteral vancomycin and elevation of the leg. Could consider transition from IV vancomycin to an oral Zyvox once the pain and swelling have gone down enough that she can tolerate outpatient oral treatment again. It is recommended that she get tested regarding her allegedly Keflex allergy. History of Present Illness History of Present Illness Chief Complaint: Left leg pain and swelling and redness Narrative: 29-year-old female with a past medical history significant for Ye syndrome, psoriasis, asthma, ITP, status post splenectomy, portal vein thrombosis, polyarthritis, former IV drug abuse who presented to the emergency department initially July 31, 2020 with multiple complaints but her primary problem seems to be left leg pain and redness but it started 2 days prior and was associated with a bug bite over her left calf. She has had worsening tenderness and swelling and redness over the area and was evaluated emergency department by Dr. House was examination shows small area of abscess roughly a centimeter in diameter he performed needle aspiration and a small amount of blood was exuded but no gross pus. Culture was sent off. Other complaints was epigastric abdominal pain which seem to be related to a chronic seroma which has been drained in the past by Dr. Patel. During that ER visit Dr. House also diagnosed her with a UTI. A started on clindamycin and Levaquin. Clindamycin was chosen for what was felt to be a staph infection and because she has had a previous history of anaphylaxis to sulfa drugs as well as allergic reaction to cephalosporins. He started Levaquin to cover for UTI. Patient was discharged home then represented to the emergency department this evening and was evaluated by Dr. Rajendra Sheikh. See his note for details. Dr. Sheikh noted that her UTI symptoms have since resolved but her left leg redness and swelling has gotten worse and she was referred to the emergency department by her PCP. She now has erythema extending from the foot past the knee but there is no crepitus. Dr. Sheikh obtain an ultrasound to evaluate for DVT and did routine labs. Ultrasound showed no DVT or obvious abscess. CBC showed a mildly elevated white cell count of 12,600 which had improved significantly from her previous value of 24,004 days prior. She is polycythemic with a hemoglobin of 16.6 g hematocrit 48%. Blood lactate was mildly elevated at 1.6. CMP demonstrated a low potassium of 3.3 and a minimally elevated anion gap of 14.1 with normal renal function with a BUN of 12 and creatinine 0.9. LFTs demonstrated him mildly elevated alkaline phosphatase at 185 but normal transaminases and bilirubin. C-reactive protein is elevated at 8.0 but her procalcitonin level is less than 0.1. Patient was started on vancomycin and is now admitted for parenteral antibiotics due to failed outpatient treatment of her cellulitis. Of note wound culture obtained July 31, 2020 showed methicillin sensitive staph aureus. Review of Systems All systems reviewed & are unremarkable except as noted in HPI and below Eyes Eyes: Reports system reviewed and no additional complaints, except as documented ENT Ears, Nose, Mouth, and Throat: Reports system reviewed and no additional complaints, except as documented Cardiovascular Cardiovascular: Reports leg ulcers and Reports leg edema Respiratory Respiratory: Reports system reviewed and no additional complaints, except as documented Genitourinary Genitourinary: Reports system reviewed and no additional complaints, except as documented Integumentary/Breasts Skin/Breast: Reports erythema, Reports skin swelling and Reports skin ulcer (behind left popliteal space) Hematologic/Lymphatic Hematologic/Lymphatic: Reports system reviewed and no additional complaints, except as documented Allergic/Immunologic Allergic/Immunologic: Reports system reviewed and no additional complaints, except as documented PFSH Medical History Abdominal adhesions Asthma Axillary hidradenitis suppurativa Ye syndrome Ye' syndrome History of drug abuse Clean for 17 months-Meth Idiopathic thrombocytopenic purpura Moderate persistent asthma Obesity Periodic limb movement disorder Polyarthritis Portal vein thrombosis Abd CT 03/03/19 [facility]; liver shows low-density at posterior segment superiorly suggesting portal vein clot, without parenchymal abnormality. 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 marijuana: t-1, 2 hits Adopted: No Caregiver/Support person: No Foster care: No Household members: significant other and family Housing: other Number of Children: 1 Communication Needs: None Do you need help understanding health information?: Rarely Sexually active: Yes Do you think of yourself as: straight/heterosexual Current gender identity: female What type of physical activity do you participate in: none Do you feel safe at home: Yes Do you feel safe in your relationship?: Yes Meds Allergies and Home Medications Allergies Allergy/AdvReac Type Severity Reaction Status Date / Time carbamazepine [From Tegretol] Allergy Skin Rash Verified 08/04/20 15:18 cephalexin [From Keflex] Allergy Other (See Verified 08/04/20 15:18 Comment) Sulfa (Sulfonamide Allergy Anaphylaxsi Verified 08/04/20 15:18 Antibiotics) s Home Medications Medication Instructions Recorded Confirmed Type fluocinonide 0.05 % topical cream 1 applic TOPICAL BID #60 g 12/30/19 08/04/20 Rx omeprazole 40 mg capsule,delayed 40 mg PO DAILY #30 cap 12/30/19 08/04/20 Rx release fluocinolone 0.01 % scalp oil and 1 applic TOPICAL .QOD #118.28 ml 12/31/19 08/04/20 Rx shower cap calcipotriene 0.005 % topical 1 applic TOPICAL BID 01/14/20 08/04/20 History ointment apremilast 30 mg tablet 30 mg PO BID 02/15/20 08/04/20 History trihexyphenidyl 5 mg tablet 5 mg PO QHS #90 tab 02/15/20 08/04/20 Rx albuterol sulfate 90 mcg/actuation 2 puff INHALATION Q6H PRN #6.7 g 03/02/20 08/04/20 Rx aerosol inhaler betamethasone, augmented 0.05 % 1 applic TOPICAL BID PRN #50 g 03/02/20 08/04/20 Rx topical ointment citalopram 40 mg tablet 40 mg PO DAILY #90 tab 03/02/20 08/04/20 Rx ipratropium 0.5 mg-albuterol 3 mg 3 ml INHALATION QID PRN #90 ml 03/02/20 08/04/20 Rx (2.5 mg base)/3 mL nebulization soln clobetasol 0.05 % scalp solution 1 applic TOPICAL BID PRN 03/27/20 08/04/20 Hist ory acetaminophen 650 mg 650 mg PO Q8H PRN #270 tab 04/11/20 07/26/20 Rx tablet,extended release ibuprofen 600 mg tablet 600 mg PO TID PRN #270 tab 04/11/20 08/04/20 Rx nicotine 21 mg/24 hr daily 1 patch TRANSDERMAL DAILY #14 ea 04/11/20 08/04/20 Rx transdermal patch trazodone 50 mg tablet 50 mg PO QHS PRN #90 tab 04/17/20 08/04/20 Rx diphenhydramine HCl 25 mg tablet 25 mg PO TID PRN #30 tab 04/18/20 08/04/20 Rx fluticasone propionate 230 2 puff INHALATION BID #12 g 07/26/20 08/04/20 Rx mcg-salmeterol 21 mcg/actuation HFA inhaler clindamycin HCl 450 mg PO Q6H 7 Days #84 cap 07/31/20 08/04/20 Rx levofloxacin 750 mg PO DAILY #7 tab 07/31/20 08/04/20 Rx aripiprazole [Abilify] PO 08/04/20 History clonazepam 1 mg tablet 1 mg PO DAILY 08/04/20 08/04/20 History methylphenidate HCl 54 mg 54 mg PO DAILY 08/04/20 08/04/20 History tablet,extended release 24 hr Exam Narrative Exam Narrative: Young obese white female who is in discomfort from her left leg swelling HEENT: unremarkable Lungs: clear Heart: regular, rate and rhytm w/out murmur, rub or gallops Abdomen: obese soft, nondistended w/ mild diffuse tenderness w/out rebound tenderness or guarding Extremities: left calf swollen w/ 2+ edema and tender w/ redness over calf from popliteal space to left ankle; she has an open sore over the proximal left calf just below the popliteal space with surrounding erythema that extends to the popliteal space but does not go above the knee; redness spreads to lower calf to above the ankle; she has normal pedal pulses bilaterally and normal sensation to touch bilaterally. she has decreased range of motion in the left lower leg d/t pain and edema; there is no palpable crepitus over the skin Neuro: grossly intact w/out focal motor, sensory or CN deficits. Results Imaging Imaging Studies: Exam(s) US LOWER EXTREMITY VENOUS LT EXAM: US LOWER EXTREMITY VENOUS LT CLINICAL HISTORY: swelling and redness, ?abscess vs dvt TECHNIQUE: Grayscale, color, and doppler imaging of the deep venous system of the left lower extremity was performed. COMPARISON: No exams were available for comparison FINDINGS: There is no evidence of intraluminal thrombus and there is normal compression and augmentation demonstrated within the common femoral vein, femoral vein, and popliteal vein. In the ipsilateral calf the interrogated veins also exhibit normal compression/ augmentation properties. The ipsilateral saphenofemoral junction is patent. IMPRESSION: 1. No evidence of DVT in the left lower extremity. 2. Some ipsilateral calf edema is noted. DATA REPOSITORY: Ordered By: Rajendra Sheikh M.D. CC: Dictated By: Rex Odell M.D. 08/04/201747 <Electronically signed by Rex Odell M.D. in [place]> 08/04/201747 Labs Result diagrams: 08/05/20 07:30 08/05/20 07:30 Labs: Laboratory Results - last 24 hr 08/04/20 08/04/20 08/04/20 15:25 15:25 15:25 WBC RBC Hgb Hct MCV MCH MCHC RDW Plt Count MPV Immature Gran % Neutrophils % Lymphocytes % Monocytes % Eosinophils % Basophils % Nucleated RBC % Absolute Neutrophils Absolute Lymphocytes Absolute Monocytes Absolute Eosinophils Absolute Basophils ESR 46 H VBG Lactate Sodium 141 Potassium 3.3 L Chloride 103 Carbon Dioxide 23.9 Anion Gap 14.1 H BUN 12 Creatinine 0.9 Estimated GFR/1.73 m2 >= 60.00 Glucose 116 H Calcium 9.5 Total Bilirubin 0.3 AST 14 L ALT 46 Alkaline Phosphatase 185 H C-Reactive Protein 8.07 H Total Protein 7.4 Albumin 3.5 Procalcitonin < 0.1 COVID-19 Source 08/04/20 08/04/20 08/04/20 15:25 16:50 17:05 WBC 12.66 H RBC 5.28 H Hgb 16.6 H Hct 48.0 H MCV 90.9 MCH 31.4 MCHC 34.6 RDW 13.2 Plt Count 458 H MPV 8.8 Immature Gran % 1.0 Neutrophils % 77.7 Lymphocytes % 5.8 Monocytes % 10.2 Eosinophils % 4.4 Basophils % 0.9 Nucleated RBC % 0 Absolute Neutrophils 9.84 H Absolute Lymphocytes 0.73 L Absolute Monocytes 1.29 H Absolute Eosinophils 0.56 Absolute Basophils 0.11 ESR VBG Lactate 1.6 H Sodium Potassium Chloride Carbon Dioxide Anion Gap BUN Creatinine Estimated GFR/1.73 m2 Glucose Calcium Total Bilirubin AST ALT Alkaline Phosphatase C-Reactive Protein Total Protein Albumin Procalcitonin COVID-19 Source Nasal/nares Last Vital Signs Temp 37.0 C 08/04/20 19:55 Pulse 126 H 08/04/20 19:55 Resp 20 08/04/20 19:55 BP 107/79 08/04/20 19:55 Pulse Ox 93 08/04/20 19:55
[2020-08-04] MEDS: diphenhydrAMINE 25 MG CAP PO (20:49)
[2020-08-04 21:53] LABS: Bilirubin Negative (Negative); Blood Negative (Negative); Clarity Sl Cloudy (Clear); Glucose Negative (Negative); Ketones Negative (Negative); Leukocyte Esterase Trace (Negative); Nitrite Negative (Negative); Specific Gravity >= 1.030 (1.005-1.025); Urobilinogen 0.2 EU/dL (Up TO 0.2)
[2020-08-04 22:09] LABS: Bacteria Few HPF (Negative); C & S Indicated? Yes; Casts Negative LPF (Negative); Crystals Negative HPF (Negative); Epithelial Cells Few HPF (Negative); Mucus Negative (Negative)
[2020-08-04 23:08] LABS: COVID-19 PCR Negative (Negative)
[2020-08-04] MEDS: Albuterol HFA 8 GM 60 PUFF INH IH (23:13)
[2020-08-04] MEDS: Trihexyphenidyl 2 MG TAB 5 MG PO (23:45)
[2020-08-05] VITALS (8 sets, daily range): BP systolic 92–118; BP diastolic 61–76; PULSE 75–110; RESP 12–20; TEMP 36.3–38; O2SAT 95–98
[2020-08-05] MEDS: VANCOMYCIN 1,000 MG in Normal Saline 250 ML 250 MG IVPB (00:31)
[2020-08-05] MEDS: Normal Saline Flush 10 ML SYR IVP ×6 (00:32→20:33)
[2020-08-05] MEDS: ACETAMINOPHEN 1,000 MG/100 ML BTL 400 MG IVPB ×3 (01:48→18:18)
[2020-08-05] MEDS: Ketorolac 30 MG/ML VIAL IVP ×3 (02:36→16:55)
[2020-08-05] MEDS: Albuterol/Ipratropium 3 ML UPD VIAL IH (02:42)
[2020-08-05 07:45] LABS: Abs Immature Grans 0.13 10^3/uL (0.0-0.06); Absolute Eosinophil Count 1.15 10^3/uL (0.0-0.7); Basophils % 0.4; Eosinophils % 6.7; HCT 45.7 % (36.0-46.0); HGB 15.4 g/dL (11.2-15.7); Immature Grans % 0.8; Lymphocytes % 1.5; MCH 31.2 pg (27.0-33.0); MCHC 33.7 % (32.0-36.0); MCV 92.7 fL (80-95); Monocytes % 2.3; Neutrophils % 88.3; Nucleated RBC 0 %; Platelet Count 429 10^3/uL (130-400); RBC 4.93 10^6/uL (3.93-5.22); RDW 13.3 % (11.7-14.6); RDW-SD 45.2 fL; WBC 17.12 10^3/uL (4.4-10.8)
[2020-08-05 07:49] LABS: BUN 14 mg/dL (7-18); CREATININE 1.1 mg/dL (0.55-1.02); Calcium 8.5 mg/dL (8.5-10.1); Chloride 103 mmol/L (98-107); Estimated GFR 58.32 (mL/min/1.73m2); Glucose 104 mg/dL (74-106); Potassium 3.4 mmol/L (3.5-5.1); Sodium 139 mmol/L (136-145)
[2020-08-05 07:55] LABS: C-Reactive Protein 6.16 mg/dL (0.0-0.3); Creatine Kinase 39 U/L (26-192)
[2020-08-05 07:59] LABS: Absolute Basophil Count 0.07 10^3/uL (0.0-0.2); Absolute Lymphocyte Count 0.26 10^3/uL (1.2-3.4); Absolute Monocyte Count 0.39 10^3/uL (0.1-0.8); Absolute Neutrophil Count 15.12 10^3/uL (1.2-6.7)
[2020-08-05] MEDS: clonazePAM 1 MG TAB PO ×2 (08:21→22:37)
[2020-08-05] MEDS: Citalopram 20 MG TAB 40 MG PO (08:21)
[2020-08-05] MEDS: Omeprazole 20 MG CAPCR 40 MG PO (08:21)
[2020-08-05] MEDS: POTASSIUM CHLORIDE 20 MEQ/100 ML BAG 50 MEQ IVPB ×2 (10:42→13:22)
[2020-08-05 10:48] LABS: HCG Qual (Urine) Negative
[2020-08-05] MEDS: Budesonide/Formoterol 160/4.5 6 GM 60 PUFF INH IH ×2 (11:14→20:33)
[2020-08-05] MEDS: VANCOMYCIN 1,500 MG in Normal Saline 250 ML 166.667 MG IV (12:08)
--- NOTE | 2020-08-05 14:52 | W.PM.PROGNOT ---
Date of Service Date of service: 08/05/20 Time of Service: 14:53 Assessment and Plan Assessment and plan (1) Cellulitis of left lower leg: Status: Acute Assessment and plan: Wound c&S from 07/31 with MSSA. Continue vancomycin for now; consider switching to linezolid (the patient is on two seratonergic agents, however, so those would have to be held) as the patient is allergic to cephalosporins. C/s general surgery for what appears to be a forming abscess that could require exploration. (2) Abscess of left lower extremity: Status: Acute Assessment and plan: As above (3) Abdominal discomfort: Status: Chronic Assessment and plan: F/u with general surgery as outpatient (4) Postoperative seroma: Status: Chronic Assessment and plan: F/u with general surgery as outpatient Qualifiers: Surgical complication system/body Area: subcutaneous tissue Procedure type: non-dermatologic Qualified Code(s): L76.34 - Postprocedural seroma of skin and subcutaneous tissue following other procedure (5) DVT prophylaxis: Status: Acute Assessment and plan: SC lovenox (6) Discharge planning issues: Status: Acute Assessment and plan: Full code Continues to require hospitalization Subjective Subjective Interval history since last seen: Ms Mcdaniel states that she feels generally unwell. She feels that the wound on her left leg is hardening and states she has been able to express more puss by pressing on the surrounding firm area. She states that her chest feels tight and this gets better with breathign treatments. She requested this last night as well. No shortness of breath, cough. Did have nausea and vomiting last night. States she felt so sick last night she was delirious. She is concerned about the appearance of her abdominal incisional hernia, but denies abdominal pain. Exam Narrative Exam Narrative: General: Pleasant obese female, A&Ox3, not in acute distress, though does look like she is not feeling well HEENT: EOMI, MMM Heart: RRR, no m/r/g Lungs: CTAB Abdomen: soft, nontender, nondistended; does have what appears to be a periinci Extremities: LLE with erythema and indurated area surrounding wound on the calf which is draining purulent drainage. Objective Last Vital Signs Temp 36.9 C 08/05/20 09:06 Pulse 98 H 08/05/20 08:25 Resp 12 08/05/20 08:25 BP 92/61 L 08/05/20 08:25 Pulse Ox 98 08/05/20 08:25 Laboratory Results - last 24 hr 08/04/20 08/04/20 08/04/20 15:25 15:25 15:25 WBC RBC Hgb Hct MCV MCH MCHC RDW Plt Count MPV Immature Gran % Neutrophils % Lymphocytes % Monocytes % Eosinophils % Basophils % Nucleated RBC % Absolute Neutrophils Absolute Lymphocytes Absolute Monocytes Absolute Eosinophils Absolute Basophils ESR 46 H VBG Lactate Sodium 141 Potassium 3.3 L Chloride 103 Carbon Dioxide 23.9 Anion Gap 14.1 H BUN 12 Creatinine 0.9 Estimated GFR/1.73 m2 >= 60.00 Glucose 116 H Calcium 9.5 Magnesium Total Bilirubin 0.3 AST 14 L ALT 46 Alkaline Phosphatase 185 H Creatine Kinase C-Reactive Protein 8.07 H Total Protein 7.4 Albumin 3.5 Procalcitonin < 0.1 Urine Color Urine Clarity Urine pH Ur Specific [place] Urine Protein Urine Ketones Urine Blood Urine Nitrite Urine Bilirubin Urine Urobilinogen Ur Leukocyte Esterase Urine RBC Urine WBC Ur Epithelial Cells Urine Crystals Urine Bacteria Urine Casts Urine Mucus Ur Culture Indicated? Urine Glucose Urine HCG, Qual COVID-19 Source SARS-CoV-2 (PCR) 08/04/20 08/04/20 08/04/20 15:25 16:50 17:05 WBC 12.66 H RBC 5.28 H Hgb 16.6 H Hct 48.0 H MCV 90.9 MCH 31.4 MCHC 34.6 RDW 13.2 Plt Count 458 H MPV 8.8 Immature Gran % 1.0 Neutrophils % 77.7 Lymphocytes % 5.8 Monocytes % 10.2 Eosinophils % 4.4 Basophils % 0.9 Nucleated RBC % 0 Absolute Neutrophils 9.84 H Absolute Lymphocytes 0.73 L Absolute Monocytes 1.29 H Absolute Eosinophils 0.56 Absolute Basophils 0.11 ESR VBG Lactate 1.6 H Sodium Potassium Chloride Carbon Dioxide Anion Gap BUN Creatinine Estimated GFR/1.73 m2 Glucose Calcium Magnesium Total Bilirubin AST ALT Alkaline Phosphatase Creatine Kinase C-Reactive Protein Total Protein Albumin Procalcitonin Urine Color Urine Clarity Urine pH Ur Specific [place] Urine Protein Urine Ketones Urine Blood Urine Nitrite Urine Bilirubin Urine Urobilinogen Ur Leukocyte Esterase Urine RBC Urine WBC Ur Epithelial Cells Urine Crystals Urine Bacteria Urine Casts Urine Mucus Ur Culture Indicated? Urine Glucose Urine HCG, Qual COVID-19 Source Nasal/nares SARS-CoV-2 (PCR) Negative 08/04/20 08/05/20 08/05/20 19:30 07:30 07:30 WBC 17.12 H D RBC 4.93 Hgb 15.4 Hct 45.7 MCV 92.7 MCH 31.2 MCHC 33.7 RDW 13.3 Plt Count 429 H MPV 9.0 Immature Gran % 0.8 Neutrophils % 88.3 Lymphocytes % 1.5 Monocytes % 2.3 Eosinophils % 6.7 Basophils % 0.4 Nucleated RBC % 0 Absolute Neutrophils 15.12 H Absolute Lymphocytes 0.26 L Absolute Monocytes 0.39 Absolute Eosinophils 1.15 H Absolute Basophils 0.07 ESR VBG Lactate Sodium 139 Potassium 3.4 L Chloride 103 Carbon Dioxide 25.0 Anion Gap 11.0 BUN 14 Creatinine 1.1 H Estimated GFR/1.73 m2 58.32 Glucose 104 Calcium 8.5 Magnesium Total Bilirubin AST ALT Alkaline Phosphatase Creatine Kinase C-Reactive Protein Total Protein Albumin Procalcitonin Urine Color Yellow Urine Clarity Sl cloudy Urine pH 6.0 Ur Specific [place] >= 1.030 H Urine Protein 30 H Urine Ketones Negative Urine Blood Negative Urine Nitrite Negative Urine Bilirubin Negative Urine Urobilinogen 0.2 Ur Leukocyte Esterase Trace H Urine RBC 3-5 H Urine WBC 10-20 H Ur Epithelial Cells Few Urine Crystals Negative Urine Bacteria Few Urine Casts Negative Urine Mucus Negative Ur Culture Indicated? Yes Urine Glucose Negative Urine HCG, Qual COVID-19 Source SARS-CoV-2 (PCR) 08/05/20 08/05/20 07:30 10:30 WBC RBC Hgb Hct MCV MCH MCHC RDW Plt Count MPV Immature Gran % Neutrophils % Lymphocytes % Monocytes % Eosinophils % Basophils % Nucleated RBC % Absolute Neutrophils Absolute Lymphocytes Absolute Monocytes Absolute Eosinophils Absolute Basophils ESR VBG Lactate Sodium Potassium Chloride Carbon Dioxide Anion Gap BUN Creatinine Estimated GFR/1.73 m2 Glucose Calcium Magnesium 2.0 Total Bilirubin AST ALT Alkaline Phosphatase Creatine Kinase 39 C-Reactive Protein 6.16 H Total Protein Albumin Procalcitonin Urine Color Urine Clarity Urine pH Ur Specific [place] Urine Protein Urine Ketones Urine Blood Urine Nitrite Urine Bilirubin Urine Urobilinogen Ur Leukocyte Esterase Urine RBC Urine WBC Ur Epithelial Cells Urine Crystals Urine Bacteria Urine Casts Urine Mucus Ur Culture Indicated? Urine Glucose Urine HCG, Qual Negative COVID-19 Source SARS-CoV-2 (PCR)
--- NOTE | 2020-08-05 18:49 | INITIAL_ITS ---
- If Service Date Differs Date of service: 08/05/20 Time of Service: 18:49 Care Management Initial Assess REASON FOR HOSPITALIZATION:: Left Leg Cellulitis PAST MEDICAL HISTORY/PAST SURGICAL HISTORY:: Medical History. Abdominal adhesions. Asthma. Axillary hidradenitis suppurativa. Ye syndrome. Ye' syndrome. History of drug abuse. Clean for 17 months-Meth. Idiopathic thrombocytopenic purpura. Moderate persistent asthma. Obesity. Periodic limb movement disorder. Polyarthritis. Portal vein thrombosis. Abd CT 03/03/19 [facility]; liver shows low-density at posterior segment superiorly suggesting portal vein clot, without parenchymal abnormality.. Psoriasis. Scheurmann's disease. Scoliosis. Smoker. Surgical History. History of cholecystectomy. History of incisional hernia repair (~03/29/20). History of wisdom tooth extraction. Post-splenectomy. 02/2019. complicated by postOp infection in wound bed and L empyema PREVIOUS FUNCTIONAL STATUS/SOCIAL/FAMILY SUPPORTS:: Tena currently is living at the [facility] in [facility]. Her father moved to [place] recently. She was raised in [place], and later moved to [facility]. She has a rare disease called Payam's syndrome, which she is attempting to qualify for disability for. She is currently not working. She is independent with her ADL's. CURRENT FUNCTIONAL STATUS:: Tena was sitting up in bed when ANANTH met with her. She had a friend visiting. She expressed concern about her housing voucher expiring on 08/17/20. She stated that he has a final hearing for her disability on 09/01/20, and she is hopeful that it will be upheld. ANANTH called the [facility], at her request, to inform them that she is in the hospital. She stated that she has been working with community partners, who are supportive. Per report, she is on IV abx currently for the cellulitis of her left lower leg, and there is a concern for abscess. ANANTH will continue to follow. ADVANCE DIRECTIVES:: None on file, not interested at this time. Has patient been provided with info about the portal/API?: Yes Did the patient sign up for the portal?: Yes (active) CODE STATUS:: Full Code INSURANCE COVERAGE / FINANCIAL ISSUES:: MARILIN CURRENT HOME/COMMUNITY SERVICES/EQUIPMENT:: MICHAEL RN, NICOLAS merchandise planning manager, Tabitha CHW PRIMARY CARE PHYSICIAN:: [place] POTENTIAL DISCHARGE NEEDS:: resumption of community services/support. PATIENT/FAMILY EDUCATION NEEDS:: Review discharge instructions, limitations, discussion of self care needs including ask me three. ANTICIPATED BARRIERS TO DISCHARGE:: None identified. TRANSPORTATION:: Via [facility] private vehicle PLAN:: Anticipate Tena will return home when medically cleared with a resumption of services and community support. She will transport home via [facility] private vehicle vs friend. She will follow up with her PCP and discharge plan of care. CM will continue to follow.
[2020-08-05] MEDS: VANCOMYCIN/WATER (PEG) 1.25 GM/250 ML BAG IV (20:32)
[2020-08-05] MEDS: Enoxaparin 40 MG/0.4 ML SYR SC (20:32)
[2020-08-05] MEDS: Trihexyphenidyl 2 MG TAB 5 MG PO (21:43)
[2020-08-06 00:05] VITALS: BP 107/73; PULSE 65; RESP 20; TEMP 36.8; O2SAT 100
[2020-08-06] MEDS: Ketorolac 30 MG/ML VIAL IVP ×2 (00:29→06:45)
[2020-08-06] MEDS: Normal Saline Flush 10 ML SYR IVP ×4 (00:29→20:03)
[2020-08-06] MEDS: ACETAMINOPHEN 1,000 MG/100 ML BTL 400 MG IVPB ×3 (01:50→18:00)
[2020-08-06] MEDS: VANCOMYCIN/WATER (PEG) 1.25 GM/250 ML BAG IV ×2 (04:20→14:00)
[2020-08-06 07:22] VITALS: BP 96/65; PULSE 83; RESP 17; TEMP 36.4; O2SAT 94
[2020-08-06 07:35] LABS: Abs Immature Grans 0.09 10^3/uL (0.0-0.06); Absolute Lymphocyte Count 0.38 10^3/uL (1.2-3.4); Basophils % 0.5; Eosinophils % 18.1; HCT 41.9 % (36.0-46.0); HGB 13.9 g/dL (11.2-15.7); Immature Grans % 0.7; Lymphocytes % 2.9; MCH 30.8 pg (27.0-33.0); MCHC 33.2 % (32.0-36.0); MCV 92.9 fL (80-95); MPV 9.4 fL (8.0-11.0); Neutrophils % 71.8; Nucleated RBC 0 %; Platelet Count 436 10^3/uL (130-400); RBC 4.51 10^6/uL (3.93-5.22); RDW 13.6 % (11.7-14.6); RDW-SD 46.4 fL; WBC 13.26 10^3/uL (4.4-10.8)
[2020-08-06 07:49] LABS: Absolute Basophil Count 0.07 10^3/uL (0.0-0.2); Absolute Neutrophil Count 9.52 10^3/uL (1.2-6.7)
[2020-08-06 07:58] LABS: Anion Gap 9.4 mmol/L (3-11); BUN 19 mg/dL (7-18); C-Reactive Protein 3.59 mg/dL (0.0-0.3); CO2 25.6 mmol/L (21.0-32.0); CREATININE 0.9 mg/dL (0.55-1.02); Calcium 8.4 mg/dL (8.5-10.1); Chloride 106 mmol/L (98-107); Glucose 78 mg/dL (74-106); Potassium 3.6 mmol/L (3.5-5.1); Sodium 141 mmol/L (136-145)
[2020-08-06] MEDS: Budesonide/Formoterol 160/4.5 6 GM 60 PUFF INH IH ×2 (08:19→20:01)
[2020-08-06 08:26] LABS: Diff Comment Agrees w/ Instrument; RBC Morphology Normal
[2020-08-06] MEDS: Citalopram 20 MG TAB 40 MG PO (09:03)
[2020-08-06] MEDS: clonazePAM 1 MG TAB PO ×2 (09:03→20:02)
[2020-08-06] MEDS: Omeprazole 20 MG CAPCR 40 MG PO (09:03)
[2020-08-06 11:22] LABS: Vancomycin, Trough 20.9 ug/mL (10.0-20.0)
--- NOTE | 2020-08-06 11:39 | PHA.REVIEW ---
Pharmacy Admission Review - Admission Clinical Review (Last Reviewed 08/05/20 @ 02:41 by Joni Baker) Discharge planning issues (Acute) DVT prophylaxis (Acute) Abscess of left lower extremity (Acute) Cellulitis of left lower leg (Acute) carbamazepine [From Tegretol] Allergy (Verified 08/04/20 15:18) Skin Rash cephalexin [From Keflex] Allergy (Verified 08/04/20 15:18) Other (See Comment) Sulfa (Sulfonamide Antibiotics) Allergy (Verified 08/04/20 15:18) Anaphylaxsis Resuscitation Status Full Code Height 5 ft 4.96 in Weight 115.4 kg - Renal Dosing Renal Dosing: BUN 19 mg/dL (7-18) H 08/06/20 06:15 Creatinine 0.9 mg/dL (0.55-1.02) 08/06/20 06:15 Medications needing adjustments: Reviewed (CRCL ~79ML/MIN) - Anticoagulation Anticoagulation: Hgb 13.9 g/dL (11.2-15.7) 08/06/20 06:15 Hct 41.9 % (36.0-46.0) 08/06/20 06:15 Plt Count 436 10^3/uL (130-400) H 08/06/20 06:15 Creatinine 0.9 mg/dL (0.55-1.02) 08/06/20 06:15 DVT Prohphylaxis: Reviewed Medications: Enoxaparin Therapeutic Anticoagulation: N/A - Relevant Labs ESR 46 mm/hr (0-20) H 08/04/20 15:25 Sodium 141 mmol/L (136-145) 08/06/20 06:15 Potassium 3.6 mmol/L (3.5-5.1) 08/06/20 06:15 Chloride 106 mmol/L (98-107) 08/06/20 06:15 Magnesium 2.0 mg/dL (1.8-2.4) 08/06/20 06:15 C-Reactive Protein 3.59 mg/dL (0.0-0.3) H 08/06/20 06:15 - DM Control DM Control: Glucose 78 mg/dL (74-106) 08/06/20 06:15 - BP Control BP Control: Blood Pressure 96/65 Blood Pressure 107/73 If elevated: N/A - Home Meds Home Med List reviewed: Reviewed (some home meds entered as patient's own. communicated with nurse to let pharmacy know if they encounter any topical meds ordered that are not being used by pt) - Current meds Current Medication Order Review: Reviewed - Comments Comments/Follow Ups: VANCO dosing per pharmacy
--- NOTE | 2020-08-06 11:41 | W.PM.PROGNOT ---
Date of Service Date of service: 08/06/20 Time of Service: 11:42 Assessment and Plan Assessment and plan (1) Cellulitis of left lower leg: Status: Acute Assessment and plan: Wound c&S from 07/31 with MSSA. Continue vancomycin. Obtain CT LLE with contrast to ensure no abscess. General surgery consulted. (2) Abscess of left lower extremity: Status: Acute Assessment and plan: As above (3) Abdominal discomfort: Status: Chronic Assessment and plan: F/u with general surgery as outpatient (4) Postoperative seroma: Status: Chronic Assessment and plan: F/u with general surgery as outpatient Qualifiers: Surgical complication system/body Area: subcutaneous tissue Procedure type: non-dermatologic Qualified Code(s): L76.34 - Postprocedural seroma of skin and subcutaneous tissue following other procedure (5) DVT prophylaxis: Status: Acute Assessment and plan: SC lovenox (6) Discharge planning issues: Status: Acute Assessment and plan: Full code Continues to require hospitalization Subjective Subjective Interval history since last seen: Ms Mcdaniel states that some of the areas of redness on her left leg are getting better but she is noticing that the redness is also now extending beyond the circumscribed line, which is worse than yesterday. Denies dizziness, chest pain, shortness of breath, nausea. Continues to have drainage out of the wound on LLE. Exam Narrative Exam Narrative: General: Pleasant obese female, A&Ox3, not in acute distress, overall looks better than yesterday HEENT: EOMI, MMM Heart: RRR, no m/r/g Lungs: CTAB Abdomen: soft, nontender, nondistended; Extremities: LLE with erythema and indurated area surrounding wound on the calf, more indurated today; erythema is extending beyond the circumscribed border. COntinues to have purulent drainage. 2+ pedal pulses B. Objective Last Vital Signs Temp 36.4 C L 08/06/20 07:22 Pulse 83 08/06/20 07:22 Resp 17 08/06/20 07:22 BP 96/65 L 08/06/20 07:22 Pulse Ox 94 08/06/20 07:22 Laboratory Results - last 24 hr 08/06/20 08/06/20 08/06/20 06:15 06:15 11:00 WBC 13.26 H RBC 4.51 Hgb 13.9 Hct 41.9 MCV 92.9 MCH 30.8 MCHC 33.2 RDW 13.6 Plt Count 436 H MPV 9.4 Immature Gran % 0.7 Neutrophils % 71.8 Lymphocytes % 2.9 Monocytes % 6.0 Eosinophils % 18.1 Basophils % 0.5 Nucleated RBC % 0 Absolute Neutrophils 9.52 H Absolute Lymphocytes 0.38 L Absolute Monocytes 0.80 Absolute Eosinophils 2.40 H Absolute Basophils 0.07 RBC Morphology Normal Sodium 141 Potassium 3.6 Chloride 106 Carbon Dioxide 25.6 Anion Gap 9.4 BUN 19 H Creatinine 0.9 Estimated GFR/1.73 m2 >= 60.00 Glucose 78 Calcium 8.4 L Magnesium 2.0 C-Reactive Protein 3.59 H Vancomycin Trough 20.9 H*
--- NOTE | 2020-08-06 13:17 | CMPROGNOTE_ITS ---
- If Service Date Differs Date of service: 08/06/20 Time of Service: 13:17 Care Management Progress Note S/O: Tena was sitting up in bed when CM met with her. She stated that she has not been getting good sleep at night, and historically, she has slept walk or done other things in her sleep that she didn't realize until she woke up. She asked CM to store her cigarettes and lighters in the safe until she is discharged. She stated that she declined the nicotine replacement 'Nicitrol', but feels that she might want it now. She expressed concern for her living situation, as her voucher expires on 08/17/20. CM suggested reconnecting with Paula, [facility] case aide, and will reach out tomorrow on her behalf. CM will continue to follow. A: Tena is a 29 year old female admitted to [facility] on 08/04/20 with left leg cellulitis. P: Anticipate Tena will return home when medically cleared with a resumption of services and community support. She will transport home via [facility] private vehicle vs friend. She will follow up with her PCP and discharge plan of care. CM will continue to follow.
[2020-08-06] MEDS: Normal Saline - Diluent 50 ML VIAL IV (13:18)
[2020-08-06] MEDS: Omnipaque 350 MG/ML 100 ML BTL IJ (13:19)
--- NOTE | 2020-08-06 13:34 | DI.CT_ITS ---
Exam(s) CT LOWER EXTREMITY LT W EXAM: CT LOWER EXTREMITY LT W CLINICAL HISTORY: cellulitis and wound L calf, question of abscess. TECHNIQUE: Imaging Protocol: Axial computed tomography images with coronal and sagittal reformatted images were created and reviewed. CONTRAST MATERIAL: Intravenous: Omnipaque 350 Contrast volume:100 contrast route:IV - COMPARISON: No exams were available for comparison FINDINGS: Osseous: No fractures. No evidence of osteomyelitis. Soft tissues: No obvious knee joint effusion. There is subcutaneous edema noted throughout the left calf, both superficial and deep. This extends into the foot. However, there is no drainable fluid c ollection. IMPRESSION: Inflammatory edema in the subcutaneous fat of the leg but no drainable fluid collection. RADIATION DOSE DELIVERED: 527.47mGy.cm Total DLP DATA REPOSITORY: All CT scans at this facility are submitted to the National Radiology Data Registry (NRDR) Dose Index Registry (DIR) with the [employer] (A[employer]). RADIATION OPTIMIZATION: All CT scans at this facility use at least one of these dose optimization te chniques: automated exposure control; mA and/or kV adjustment per patient size (includes targeted exa ms where dose is matched to clinical indication); or iterative reconstruction.
--- NOTE | 2020-08-06 14:34 | DI.VRAD_ITS ---
PROCEDURE INFORMATION: Exam: CT Left Lower Extremity With Contrast; Lower Leg Exam date and time: 08/06/2020 11:42 AM Age: 29 years old Clinical indication: Pain; Left; Patient HX: Lt leg abscess Posterior proximal lower leg; Additional info: There is a second set of coronal images that includes all of the posterior lower leg TECHNIQUE: Imaging protocol: CT of the Left lower extremity with intravenous contrast was performed. Exam focused on the lower leg. Radiation optimization: All CT scans at this facility use at least one of these dose optimization techniques: automated exposure control; mA and/or kV adjustment per patient size (includes targeted exams where dose is matched to clinical indication); or iterative reconstruction. Contrast material: OMNI 350; Contrast volume: 100 ml; Contrast route: INTRAVENOUS (IV); COMPARISON: US LOWER EXTREMITY VENOUS LT 08/04/2020 3:55 PM FINDINGS: Bones/joints: Normal. No acute fracture or dislocation. Soft tissues: Fluid in inflammatory changes in the subcutaneous fat of the leg. No drainable fluid collection.. IMPRESSION: No drainable fluid collection.. Dictated and Authenticated by: Shubham Biswas MD. Ordering:CHAD Scherer MD
[2020-08-06 15:25] VITALS: BP 107/69; PULSE 85; RESP 19; TEMP 36.3; O2SAT 95
--- NOTE | 2020-08-06 17:34 | W.SURGCON ---
Date of service: 08/06/20 Time of Service: 17:35 Assessment and Plan Assessment and plan (1) Cellulitis of left lower leg: Status: Acute Assessment and plan: 29 yo female with extensive past medical history presents with left lower leg cellulitis after failing outpatient treatment. CT does not show drainable collection. --parenteral anitbiotics, Vancomycin --pain control --warm compresses --leg elevation when in bed --patient ambulation --serial exams History of Present Illness History of Present Illness Chief Complaint: left leg cellulitis Narrative: This is a 29-year-old female with a complicated past medical history significant for Ye syndrome, psoriasis, asthma, ITP, status post splenectomy, portal vein thrombosis, polyarthritis, former IV drug abuse who presented to the emergency department initially on 07/31/20, with multiple complaints but her primary problem was left leg pain and redness but it started 2 days prior and was associated with scratching over her left calf. A small area of abscess, ~1x1cm was aspirated, and a small amount of blood was exuded but no gross pus. Culture was sent off. During that ER visit Dr. House also diagnosed her with a UTI. A started on clindamycin and Levaquin. On 08/04/20, she followed up as an out-patient, and the cellulitis was found to be worse, so she was sent to the ED. Patient was started on vancomycin and is now admitted for parenteral antibiotics due to failed outpatient treatment of her cellulitis. Of note wound culture obtained 07/31/20 showed methicillin sensitive staph aureus. Surgical consult now called to follow cellulitis. There is an opening on the leg that is reportable draining, the patient and Dr. Everett report seeing small amounts of seropurulent outpu. CT scan of the extremity obtained today (08/06/20) revealed no drainable collection. Consults Consult date: 08/06/20 Requesting physician: Niesha Everett Review of Systems Constitutional Constitutional: Reports fatigue, Denies fever(s), Reports lethargy and Reports poor appetite Eyes Eyes: Denies change in vision ENT Ears, Nose, Mouth, and Throat: Denies dysphagia and Denies odynophagia Cardiovascular Cardiovascular: Denies chest pain Respiratory Respiratory: Denies cough and Reports wheezing Comments: chronic asthma Gastrointestinal Gastrointestinal: Reports abdominal pain (some cramping), Denies dysphagia and Denies odynophagia Musculoskeletal Musculoskeletal: Reports abnormal gait Integumentary/Breasts Skin/Breast: Reports furuncle Comments: h/o cellulitis Neurologic Neurologic: Reports abnormal gait and Reports paresthesias Comments: due to swelling near politeal fossa Endocrine Endocrine: Reports fatigue Hematologic/Lymphatic Hematologic/Lymphatic: Reports as per HPI Comments: polycythemia, post splenectomy Allergic/Immunologic Allergic/Immunologic: Reports wheezing PFSH Medical History Abdominal adhesions Asthma 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 marijuana: t-1, 2 hits Adopted: No Caregiver/Support person: No Foster care: No Household members: significant other and family Housing: other Number of Children: 1 Communication Needs: None Do you need help understanding health information?: Rarely Sexually active: Yes Do you think of yourself as: straight/heterosexual Current gender identity: female What type of physical activity do you participate in: none Do you feel safe at home: Yes Do you feel safe in your relationship?: Yes Exam Const General: cooperative, comfortable and no acute distress Nutritional Appearance: obese Orientation: alert, awake and oriented x3 HENMT Head: normocephalic Resp Effort & Inspection: normal respiratory effort, no grunting and not labored Auscultation: clear to auscultation bilaterally Cardio Rate: regular rate Rhythm: regular rhythm Heart Sounds: S1 normal and S2 normal GI Inspection: abdominal wall ecchymosis (from heparin injection) and scar Palpation: soft, no guarding and nontender Auscultation: normal bowel sounds Skin Full body images: 1. large area of cellulitis with erythema and induration; small central wound, no fluid could be expressed; wound probed and did not tunnel Neuro General: patient alert, patient awake, patient oriented x3 and moves all extremities Psych Mental Status: mental status grossly normal Speech and Movement: speech and movement normal Affect: normal affect Attitude: cooperative Thought Process: normal Thought Content: normal Results Last Vital Signs Temp 97.3 F L 08/06/20 15:25 Pulse 85 08/06/20 15:25 Resp 19 08/06/20 15:25 BP 107/69 08/06/20 15:25 Pulse Ox 95 08/06/20 15:25 Labs Result diagrams: 08/06/20 06:15 08/06/20 06:15 Labs: Laboratory Results - last 24 hr 08/06/20 08/06/20 08/06/20 06:15 06:15 11:00 WBC 13.26 H RBC 4.51 Hgb 13.9 Hct 41.9 MCV 92.9 MCH 30.8 MCHC 33.2 RDW 13.6 Plt Count 436 H MPV 9.4 Immature Gran % 0.7 Neutrophils % 71.8 Lymphocytes % 2.9 Monocytes % 6.0 Eosinophils % 18.1 Basophils % 0.5 Nucleated RBC % 0 Absolute Neutrophils 9.52 H Absolute Lymphocytes 0.38 L Absolute Monocytes 0.80 Absolute Eosinophils 2.40 H Absolute Basophils 0.07 RBC Morphology Normal Sodium 141 Potassium 3.6 Chloride 106 Carbon Dioxide 25.6 Anion Gap 9.4 BUN 19 H Creatinine 0.9 Estimated GFR/1.73 m2 >= 60.00 Glucose 78 Calcium 8.4 L Magnesium 2.0 C-Reactive Protein 3.59 H Vancomycin Trough 20.9 H* Imaging Imaging Studies: CT scan Left lower extremity (08/06/20): IMPRESSION: Inflammatory edema in the subcutaneous fat of the leg but no drainable fluid collection.
[2020-08-06] MEDS: Enoxaparin 40 MG/0.4 ML SYR SC (20:02)
[2020-08-07] MEDS: Normal Saline Flush 10 ML SYR IVP ×5 (00:12→21:42)
[2020-08-07] MEDS: Trihexyphenidyl 2 MG TAB 5 MG PO ×2 (00:13→21:41)
[2020-08-07] MEDS: diphenhydrAMINE 25 MG CAP PO (00:13)
[2020-08-07] MEDS: traZODone 50 MG TAB PO ×2 (00:13→00:14)
[2020-08-07] MEDS: VANCOMYCIN/WATER (PEG) 1.25 GM/250 ML BAG IV ×4 (00:26→23:36)
[2020-08-07] MEDS: Ketorolac 30 MG/ML VIAL IVP ×2 (00:27→21:42)
[2020-08-07 00:40] VITALS: BP 129/77; PULSE 76; RESP 16; TEMP 36.3; O2SAT 95
[2020-08-07] MEDS: ACETAMINOPHEN 1,000 MG/100 ML BTL 400 MG IVPB ×3 (02:47→18:16)
--- NOTE | 2020-08-07 03:20 | NUR.NOTE ---
Nursing Note: Around 02:50, this RN found the patient, Violeta Madsen, wandering in the glez by the ICU and family room. She was talking to a wheelchair as if someone was in the chair; this RN guided the patient back to her room and attempted to re-orient her. The patient became agitated, throwing dishes at the wall. This RN told the patient she was not being appropriate or safe. The patient then began searching around the room for her other cell phone. Neither the patient nor this RN could locate this other phone. The patient had home medications in her purse that she refused to hand over to this RN for pharmacy to verify; the charge nurse was notified. The patient was brought crackers per request. Her behavior and searching had not changed by 03:20. This RN will continue to monitor.
[2020-08-07] MEDS: Citalopram 20 MG TAB 40 MG PO (07:41)
[2020-08-07] MEDS: Omeprazole 20 MG CAPCR 40 MG PO (07:41)
[2020-08-07] MEDS: clonazePAM 1 MG TAB PO ×2 (07:41→20:31)
[2020-08-07 07:44] LABS: HCT 42.1 % (36.0-46.0); Lymphocytes % 3.8; MCH 31.2 pg (27.0-33.0); MCHC 33.3 % (32.0-36.0); MCV 93.8 fL (80-95); MPV 8.8 fL (8.0-11.0); Monocytes % 5.4; Neutrophils % 69.8; Platelet Count 478 10^3/uL (130-400); RBC 4.49 10^6/uL (3.93-5.22); RDW 13.8 % (11.7-14.6); RDW-SD 46.5 fL; WBC 11.32 10^3/uL (4.4-10.8)
[2020-08-07 07:45] LABS: Abs Immature Grans 0.08 10^3/uL (0.0-0.06); Absolute Eosinophil Count 2.25 10^3/uL (0.0-0.7); Absolute Lymphocyte Count 0.43 10^3/uL (1.2-3.4); Absolute Monocyte Count 0.61 10^3/uL (0.1-0.8); Basophils % 0.4; Eosinophils % 19.9; Immature Grans % 0.7; Nucleated RBC 0 %
[2020-08-07 07:47] LABS: Absolute Basophil Count 0.05 10^3/uL (0.0-0.2)
[2020-08-07 07:54] VITALS: BP 106/61; PULSE 67; RESP 19; TEMP 36.2; O2SAT 95
[2020-08-07 07:57] LABS: Diff Comment Agrees w/ Instrument; RBC Morphology Normal
[2020-08-07 08:00] LABS: Anion Gap 9.7 mmol/L (3-11); BUN 13 mg/dL (7-18); CO2 26.3 mmol/L (21.0-32.0); CREATININE 0.8 mg/dL (0.55-1.02); Calcium 8.8 mg/dL (8.5-10.1); Chloride 110 mmol/L (98-107); Glucose 85 mg/dL (74-106); Magnesium 2.1 mg/dL (1.8-2.4); Sodium 146 mmol/L (136-145)
[2020-08-07] MEDS: Budesonide/Formoterol 160/4.5 6 GM 60 PUFF INH IH ×2 (08:00→20:32)
--- NOTE | 2020-08-07 08:09 | PGE_ITS ---
Date of Service Date of service: 08/07/20 Time of Service: 08:09 Assessment and Plan Assessment and plan (1) Cellulitis of left lower leg: Status: Acute Assessment and plan: Continue IV vancomycin Pain control; appears well controlled at this time. Discussed cleansing the wound and applying a small mepliex dressing over the wound Area continues to be swollen, however given the borders drawn signficiant improvement in the erythema. Continue ambulation and eating all meals in the chair. Subjective Subjective Interval history since last seen: Arrived with patient laying in bed with eyes closed. Her nurse Alphonso was at her bedside talking to her, patient verbally re sponding however not opening her eyes. When asked to open her eyes and to participate in conversation she said no. Agreed to allow inspection of her left LE. Exam Const General: comfortable Resp Effort & Inspection: normal respiratory effort, no audible wheezes and no cough Extrem Other: SUperior, Posterior Left calf- erythema is receding from previously drawn outline. Non tender to palpation. Removed band-aid a small 5mm wound draining serous colored fluid. Objective Last Vital Signs Temp 36.2 C L 08/07/20 07:54 Pulse 67 08/07/20 07:54 Resp 19 08/07/20 07:54 BP 106/61 08/07/20 07:54 Pulse Ox 95 08/07/20 07:54 Laboratory Results - last 24 hr 08/06/20 08/06/20 08/07/20 06:15 11:00 07:13 WBC 13.26 H RBC 4.51 Hgb 13.9 Hct 41.9 MCV 92.9 MCH 30.8 MCHC 33.2 RDW 13.6 Plt Count 436 H MPV 9.4 Immature Gran % 0.7 Neutrophils % 71.8 Lymphocytes % 2.9 Monocytes % 6.0 Eosinophils % 18.1 Basophils % 0.5 Nucleated RBC % 0 Absolute Neutrophils 9.52 H Absolute Lymphocytes 0.38 L Absolute Monocytes 0.80 Absolute Eosinophils 2.40 H Absolute Basophils 0.07 RBC Morphology Normal Sodium 146 H Potassium 4.0 Chloride 110 H Carbon Dioxide 26.3 Anion Gap 9.7 BUN 13 D Creatinine 0.8 Estimated GFR/1.73 m2 >= 60.00 Glucose 85 Calcium 8.8 Magnesium 2.1 Vancomycin Trough 20.9 H* 08/07/20 07:13 WBC 11.32 H RBC 4.49 Hgb 14.0 Hct 42.1 MCV 93.8 MCH 31.2 MCHC 33.3 RDW 13.8 Plt Count 478 H MPV 8.8 Immature Gran % 0.7 Neutrophils % 69.8 Lymphocytes % 3.8 Monocytes % 5.4 Eosinophils % 19.9 Basophils % 0.4 Nucleated RBC % 0 Absolute Neutrophils 7.90 H Absolute Lymphocytes 0.43 L Absolute Monocytes 0.61 Absolute Eosinophils 2.25 H Absolute Basophils 0.05 RBC Morphology Normal Sodium Potassium Chloride Carbon Dioxide Anion Gap BUN Creatinine Estimated GFR/1.73 m2 Glucose Calcium Magnesium Vancomycin Trough
--- NOTE | 2020-08-07 12:47 | CMPROGNOTE_ITS ---
- If Service Date Differs Date of service: 08/07/20 Time of Service: 12:48 Care Management Progress Note S/O: Tena was reviewed at interdisciplinary rounds. She continue to receive IV abx to treat the cellulitis on her left leg. She is concerned about her living situation, as her voucher at the [employer] will soon. She is also concerned about a hearing she has in August for disability. She has been working with a music critic who she has been having difficulty getting ahold of. She stated that she receives support from Brandy Dodson at her PCP office, who has been helping her navigate this process. CM will continue to follow. A: Tena is a 29 year old female admitted to [facility] on 08/04/20 with left leg cellulitis. P: Anticipate Tena will return home when medically cleared with a resumption of services and community support. She will transport home via [facility] private vehicle vs friend. She will follow up with her PCP and discharge plan of care. CM will continue to follow.
--- NOTE | 2020-08-07 14:46 | CHAPLAIN ---
Tena was sitting up in her bed when I visited. The room was very dark. I introduced myself and explained my role. Tena was polite, but not interested in a further visit. She said she's been in touch with family and friends.
--- NOTE | 2020-08-07 15:21 | W.PM.PROGNOT ---
Date of Service Date of service: 08/07/20 Time of Service: 15:22 Assessment and Plan Assessment and plan (1) Cellulitis of left lower leg: Status: Acute Assessment and plan: Improving Wound c&S from 07/31 with MSSA. Continue vancomycin. No abscess on CT - nothing to drain. (2) Abscess of left lower extremity: Status: Acute Assessment and plan: As above (3) Abdominal discomfort: Status: Chronic Assessment and plan: F/u with general surgery as outpatient (4) Postoperative seroma: Status: Chronic Assessment and plan: F/u with general surgery as outpatient Qualifiers: Surgical complication system/body Area: subcutaneous tissue Procedure type: non-dermatologic Qualified Code(s): L76.34 - Postprocedural seroma of skin and subcutaneous tissue following other procedure (5) History of somnambulism: Status: Chronic Assessment and plan: Refer to sleep clinic (6) DVT prophylaxis: Status: Acute Assessment and plan: SC lovenox (7) Discharge planning issues: Status: Acute Assessment and plan: Full code Continues to require hospitalization Subjective Subjective Interval history since last seen: LLE continues to hurt and drain, but is less red and swollen. Denies dizziness, chest pain, shortness of breath, nausea. Describes multiple episodes of somnambulation one of which happened last night. She is very bothered by it and wants something done. We discussed a referral to sleep medicine. Exam Narrative Exam Narrative: General: Pleasant obese female, A&Ox3, anxious when talking about her episode of somnambulation HEENT: EOMI, MMM Heart: RRR, no m/r/g Lungs: CTAB Abdomen: soft, nontender, nondistended; Extremities: LLE with erythema and indurated area surrounding wound on the calf, less impressive today; No drainage via open wound Objective Last Vital Signs Temp 36.2 C L 08/07/20 07:54 Pulse 67 08/07/20 07:54 Resp 19 08/07/20 07:54 BP 106/61 08/07/20 07:54 Pulse Ox 95 08/07/20 07:54 Laboratory Results - last 24 hr 08/07/20 08/07/20 08/07/20 07:13 07:13 13:00 WBC 11.32 H RBC 4.49 Hgb 14.0 Hct 42.1 MCV 93.8 MCH 31.2 MCHC 33.3 RDW 13.8 Plt Count 478 H MPV 8.8 Immature Gran % 0.7 Neutrophils % 69.8 Lymphocytes % 3.8 Monocytes % 5.4 Eosinophils % 19.9 Basophils % 0.4 Nucleated RBC % 0 Absolute Neutrophils 7.90 H Absolute Lymphocytes 0.43 L Absolute Monocytes 0.61 Absolute Eosinophils 2.25 H Absolute Basophils 0.05 RBC Morphology Normal Sodium 146 H Potassium 4.0 Chloride 110 H Carbon Dioxide 26.3 Anion Gap 9.7 BUN 13 D Creatinine 0.8 Estimated GFR/1.73 m2 >= 60.00 Glucose 85 Calcium 8.8 Magnesium 2.1 Vancomycin Trough Cancelled
[2020-08-07 15:26] VITALS: BP 102/75; PULSE 66; RESP 18; TEMP 36.9; O2SAT 95
[2020-08-07 15:35] LABS: Vancomycin, Trough 17.8 ug/mL (10.0-20.0)
[2020-08-07] MEDS: Enoxaparin 40 MG/0.4 ML SYR SC (20:32)
[2020-08-07 23:10] VITALS: BP 130/80; PULSE 71; RESP 19; TEMP 36.7; O2SAT 95
[2020-08-08] MEDS: ACETAMINOPHEN 1,000 MG/100 ML BTL 400 MG IVPB (01:48)
[2020-08-08] MEDS: Normal Saline Flush 10 ML SYR IVP ×2 (01:50→20:37)
[2020-08-08] MEDS: Omeprazole 20 MG CAPCR 40 MG PO (08:09)
[2020-08-08 08:10] VITALS: BP 112/74; PULSE 68; RESP 20; TEMP 36.2; O2SAT 94
[2020-08-08] MEDS: VANCOMYCIN/WATER (PEG) 1.25 GM/250 ML BAG IV ×2 (08:10→16:26)
[2020-08-08] MEDS: clonazePAM 1 MG TAB PO ×2 (08:19→20:37)
[2020-08-08] MEDS: Citalopram 20 MG TAB 40 MG PO (08:20)
[2020-08-08] MEDS: Budesonide/Formoterol 160/4.5 6 GM 60 PUFF INH IH ×2 (08:46→20:45)
--- NOTE | 2020-08-08 13:24 | W.PM.PROGNOT ---
Date of Service Date of service: 08/08/20 Time of Service: 13:25 Assessment and Plan Assessment and plan (1) Constipation: Status: Acute Assessment and plan: bowel management. add probiotic. (2) Cellulitis of left lower leg: Status: Acute Assessment and plan: Improving Wound c&S from 07/31 with MSSA. Continue vancomycin day 5/7 or 10. No abscess on CT - nothing to drain. (3) Abscess of left lower extremity: Status: Acute Assessment and plan: As above (4) Abdominal discomfort: Status: Chronic Assessment and plan: F/u with general surgery as outpatient (5) Postoperative seroma: Status: Chronic Assessment and plan: F/u with general surgery as outpatient Qualifiers: Procedure type: non-dermatologic Surgical complication system/body Area: subcutaneous tissue Qualified Code(s): L76.34 - Postprocedural seroma of skin and subcutaneous tissue following other procedure (6) History of somnambulism: Status: Chronic Assessment and plan: Refer to sleep clinic (7) DVT prophylaxis: Status: Acute Assessment and plan: SC lovenox (8) Discharge planning issues: Status: Acute Assessment and plan: Full code Continues to require hospitalization discussed with DR Everett Subjective Subjective Patient reports: no new complaints, feels better, no bowel movement and afebrile Interval history since last seen: improved erythema, well within skin markings. Exam Narrative Exam Narrative: General: Pleasant obese female, A&Ox3, HEENT: EOMI, MMM Heart: RRR well perfused Lungs: respirations even and unlabored Abdomen: soft, obese, nontender, nondistended; Extremities: LLE with erythema and indurated area surrounding wound on the calf well within skin markings. 1/2 cm lesion with center slough; No drainage via open wound Objective Last Vital Signs Temp 36.2 C L 08/08/20 08:10 Pulse 68 08/08/20 08:10 Resp 20 08/08/20 08:10 BP 112/74 08/08/20 08:10 Pulse Ox 94 08/08/20 08:10 Laboratory Results - last 24 hr 08/07/20 15:20 Vancomycin Trough 17.8
[2020-08-08 15:27] VITALS: BP 131/88; PULSE 98; RESP 18; TEMP 37.1; O2SAT 95
--- NOTE | 2020-08-08 15:31 | W.PM.PROGNOT ---
Date of Service Date of service: 08/08/20 Time of Service: 15:31 Assessment and Plan Assessment and plan (1) Cellulitis of left lower leg: Status: Acute Assessment and plan: Continue IV vancomycin Pain control; appears well controlled at this time. Discussed cleansing the wound and applying a small mepliex dressing over the wound No erythema today Continue ambulation and eating all meals in the chair. (2) Abdominal pain: Status: Acute Assessment and plan: Chromic abdominal pain NO seroma appreciated on exam Patient does not need to follow up with surgery. Her abdominal pain is chronic. Nothing for us to do We will sign off at this time Qualifiers: Abdominal location: generalized Qualified Code(s): R10.84 - Generalized abdominal pain Subjective Subjective Interval history since last seen: Patient is sitting up crosslegged in bed. Complains of mild pain at the wound when I walk in. No other complaints Exam GI Inspection: normal to inspection, large pannus, obesity and scar (well hjealed) Palpation: soft, no hepatosplenomegaly and nontender Auscultation: normal bowel sounds Extrem Other: No erythema around wound. mild induration. No fluctuance Objective Last Vital Signs Temp 98.8 F 08/08/20 15:27 Pulse 98 H 08/08/20 15:27 Resp 18 08/08/20 15:27 BP 131/88 08/08/20 15:27 Pulse Ox 95 08/08/20 15:27 Laboratory Results - last 24 hr 08/07/20 15:20 Vancomycin Trough 17.8
--- NOTE | 2020-08-08 18:09 | CMPROGNOTE_ITS ---
Care Management Progress Note S/O: Tena remains acute at this time, no change to overall plan. CM will continue to follow. A: Tena is a 29 year old female admitted to [facility] on 08/04/20 with left leg cellulitis. P: Anticipate Tena will return home when medically cleared with a resumption of services and community support. She will transport home via [facility] private vehicle vs friend. She will follow up with her PCP and discharge plan of care. CM will continue to follow.
[2020-08-08] MEDS: Enoxaparin 40 MG/0.4 ML SYR SC (20:37)
[2020-08-08] MEDS: Acetaminophen 325 MG TAB 650 MG PO (21:00)
[2020-08-08] MEDS: Trihexyphenidyl 2 MG TAB 5 MG PO (21:13)
[2020-08-08] MEDS: Docusate Sodium 100 MG CAP PO (21:13)
[2020-08-08] MEDS: Bisacodyl 10 MG SUPP PR (21:13)
[2020-08-08 23:17] VITALS: BP 136/93; PULSE 83; RESP 19; TEMP 36.4; O2SAT 93
[2020-08-09] MEDS: VANCOMYCIN/WATER (PEG) 1.25 GM/250 ML BAG IV (00:16)
[2020-08-09] MEDS: traZODone 50 MG TAB PO ×2 (02:12→21:36)
[2020-08-09 07:31] LABS: Vancomycin, Trough 23.2 ug/mL (10.0-20.0)
[2020-08-09 07:32] VITALS: BP 128/84; PULSE 82; RESP 20; TEMP 36.3; O2SAT 94
[2020-08-09] MEDS: Citalopram 20 MG TAB 40 MG PO (08:34)
[2020-08-09] MEDS: Omeprazole 20 MG CAPCR 40 MG PO (08:34)
[2020-08-09] MEDS: clonazePAM 1 MG TAB PO ×2 (08:35→20:20)
[2020-08-09] MEDS: Acetaminophen 325 MG TAB 650 MG PO (09:08)
[2020-08-09] MEDS: Budesonide/Formoterol 160/4.5 6 GM 60 PUFF INH IH ×2 (09:08→20:21)
[2020-08-09] MEDS: diphenhydrAMINE 25 MG CAP PO ×2 (09:08→20:20)
[2020-08-09 09:25] LABS: TSH (W/Ref FT4) 2.75 uIU/mL (0.36-3.74)
--- NOTE | 2020-08-09 10:10 | W.PM.PROGNOT ---
Date of Service Date of service: 08/09/20 Time of Service: 10:11 Assessment and Plan Assessment and plan (1) Constipation: Status: Acute Assessment and plan: continue bowel management. added probiotic. (2) Cellulitis of left lower leg: Status: Acute Assessment and plan: slowly improving elevate, check labs in am Wound c&S from 07/31 with MSSA. Continue vancomycin day 6/ or 10. No abscess on CT - nothing to drain. surgery signed off (3) Abscess of left lower extremity: Status: Acute Assessment and plan: As above (4) Abdominal discomfort: Status: Chronic Assessment and plan: F/u with general surgery as outpatient (5) Postoperative seroma: Status: Chronic Assessment and plan: F/u with general surgery as outpatient Qualifiers: Procedure type: non-dermatologic Surgical complication system/body Area: subcutaneous tissue Qualified Code(s): L76.34 - Postprocedural seroma of skin and subcutaneous tissue following other procedure (6) History of somnambulism: Status: Chronic Assessment and plan: Refer to sleep clinic (7) DVT prophylaxis: Status: Acute Assessment and plan: SC lovenox (8) Discharge planning issues: Status: Acute Assessment and plan: Full code will complete course of IV antibiotics hospitalized no services anticipated at discharge discussed with DR Everett Subjective Subjective Patient reports: no new complaints, feels better, tolerating liquids well, tolerating a regular diet, voiding w/o difficulty and afebrile; denies nausea Exam Narrative Exam Narrative: General: Pleasant obese female, A&Ox3, HEENT: EOMI, MMM Heart: RRR well perfused Lungs: respirations even and unlabored Abdomen: soft, obese, nontender, nondistended; Extremities: LLE with erythema and indurated area surrounding wound on the calf well within skin markings. dressing intact with some old drainage noted. Objective Last Vital Signs Temp 36.3 C L 08/09/20 07:32 Pulse 82 08/09/20 07:32 Resp 20 08/09/20 07:32 BP 128/84 08/09/20 07:32 Pulse Ox 94 08/09/20 07:32 Laboratory Results - last 24 hr 08/09/20 08/09/20 06:57 06:57 TSH 2.75 Vancomycin Trough 23.2 H*
[2020-08-09] MEDS: VANCOMYCIN/WATER (PEG) 1 GM/200 ML BAG IV ×2 (10:22→18:20)
[2020-08-09] MEDS: Normal Saline Flush 10 ML SYR IVP ×2 (10:22→18:20)
[2020-08-09 15:32] VITALS: BP 124/90; PULSE 115; RESP 19; TEMP 36.4; O2SAT 96
--- NOTE | 2020-08-09 17:03 | CMPROGNOTE_ITS ---
- If Service Date Differs Date of service: 08/09/20 Time of Service: 17:04 Care Management Progress Note S/O: Tena was sitting up in a chair in her room when CM met with her. She expressed concern about her sleepwalking behavior at night, reporting that she has woken up a couple of times doing something that she does not remember, or being out of place and not knowing why. She stated that she has obtained an extension for her housing voucher, and she was able to contact her pharmacy affairs assistant about her SSDI case, so she felt reassured about those two things. Later, she called CM and asked for an additional visit. She was very upset about a friend's father, who unexpectedly . She asked if she could smoke a cigarette outside, and CM stated [facility] policy, as that would not be allowed. CM advocated for her to receive a new nicotrol inhaler cartridge, which she was grateful for. Per report, she may be ready for discharge on Friday, after she completes her IV abx course. CM will continue to follow. A: Tena is a 29 year old female admitted to [facility] on 08/04/20 with left leg cellulitis. P: Anticipate Tena will return home when medically cleared with a resumption of services and community support. She will transport home via [facility] private vehicle vs friend. She will follow up with her PCP and discharge plan of care. CM will continue to follow.
[2020-08-09] MEDS: Enoxaparin 40 MG/0.4 ML SYR SC (20:20)
[2020-08-09] MEDS: Trihexyphenidyl 2 MG TAB 5 MG PO (21:36)
[2020-08-09 23:25] VITALS: BP 120/82; PULSE 107; RESP 19; TEMP 37; O2SAT 95
[2020-08-10] MEDS: Normal Saline Flush 10 ML SYR IVP ×2 (02:11→04:07)
[2020-08-10] MEDS: VANCOMYCIN/WATER (PEG) 1 GM/200 ML BAG IV ×3 (02:11→19:09)
[2020-08-10] MEDS: Ketorolac 30 MG/ML VIAL IVP (04:06)
[2020-08-10] MEDS: Budesonide/Formoterol 160/4.5 6 GM 60 PUFF INH IH ×2 (07:41→20:50)
[2020-08-10] MEDS: Nystatin 500000 UNITS/5 ML SUSP 5ML CUP PO ×3 (07:55→20:53)
[2020-08-10] MEDS: Omeprazole 20 MG CAPCR 40 MG PO (07:56)
[2020-08-10] MEDS: Citalopram 20 MG TAB 40 MG PO (07:57)
[2020-08-10] MEDS: clonazePAM 1 MG TAB PO ×2 (07:57→20:52)
[2020-08-10 09:17] LABS: HCT 44.5 % (36.0-46.0); HGB 14.8 g/dL (11.2-15.7); Immature Grans % 0.8; MCH 31.6 pg (27.0-33.0); MCHC 33.3 % (32.0-36.0); MCV 94.9 fL (80-95); Nucleated RBC 0 %; Platelet Count 563 10^3/uL (130-400); RBC 4.69 10^6/uL (3.93-5.22); RDW-SD 48.4 fL; WBC 12.91 10^3/uL (4.4-10.8)
[2020-08-10 09:21] VITALS: BP 95/54; PULSE 85; RESP 22; TEMP 36.6; O2SAT 95
[2020-08-10 09:25] LABS: ALT 48 U/L (14-59); AST 27 U/L (15-37); Albumin 3.3 g/dL (3.4-5.0); Alkaline Phosphatase 119 U/L (46-116); Anion Gap 9.1 mmol/L (3-11); BUN 22 mg/dL (7-18); Bilirubin, Total 0.3 mg/dL (0.2-1.0); C-Reactive Protein 0.14 mg/dL (0.0-0.3); CO2 27.9 mmol/L (21.0-32.0); CREATININE 1.2 mg/dL (0.55-1.02); Calcium 8.7 mg/dL (8.5-10.1); Chloride 106 mmol/L (98-107); Estimated GFR 52.75 (mL/min/1.73m2); Glucose 95 mg/dL (74-106); Potassium 3.9 mmol/L (3.5-5.1); Sodium 143 mmol/L (136-145); Total Protein 6.1 g/dL (6.4-8.2)
[2020-08-10 09:38] LABS: ESR 9 mm/hr (0-20)
--- NOTE | 2020-08-10 10:04 | W.PM.PROGNOT ---
Date of Service Date of service: 08/10/20 Time of Service: 10:04 Assessment and Plan Assessment and plan (1) Constipation: Status: Acute Assessment and plan: continue bowel management. added probiotic. (2) Cellulitis of left lower leg: Status: Acute Assessment and plan: slowly improving, encourage not to pick at wounds but patient non compliant elevate, labs with improvement in inflammatory markers with CRP from 3.59 to 0.14 and ESR from 46 to 9 Wound c&S from 07/31 with MSSA. Continue vancomycin day 08/[address] - nothing to drain. surgery signed off (3) Abscess of left lower extremity: Status: Acute Assessment and plan: As above (4) Abdominal discomfort: Status: Chronic Assessment and plan: F/u with general surgery as outpatient (5) Postoperative seroma: Status: Chronic Assessment and plan: F/u with general surgery as outpatient Qualifiers: Procedure type: non-dermatologic Surgical complication system/body Area: subcutaneous tissue Qualified Code(s): L76.34 - Postprocedural seroma of skin and subcutaneous tissue following other procedure (6) History of somnambulism: Status: Chronic Assessment and plan: Refer to sleep clinic (7) DVT prophylaxis: Status: Acute Assessment and plan: SC lovenox (8) Discharge planning issues: Status: Acute Assessment and plan: Full code will complete course of IV antibiotics hospitalized no services anticipated at discharge discussed with DR Everett Subjective Subjective Patient reports: no new complaints, tolerating liquids well, tolerating a regular diet, voiding w/o difficulty and afebrile Interval history since last seen: observed by nursing to continue picking at wounds/leg. Exam Narrative Exam Narrative: General: Pleasant obese female, A&Ox3, HEENT: EOMI, MMM Heart: RRR well perfused Lungs: respirations even and unlabored Abdomen: soft, obese, nontender, nondistended; Extremities: LLE with erythema and indurated area surrounding wound on the calf well within skin markings. dressing intact with some old drainage noted. Objective Last Vital Signs Temp 36.6 C 08/10/20 09:21 Pulse 85 08/10/20 09:21 Resp 22 08/10/20 09:21 BP 95/54 L 08/10/20 09:21 Pulse Ox 95 08/10/20 09:21 Laboratory Results - last 24 hr 08/10/20 08/10/20 05:35 06:25 ESR 9 Sodium 143 Potassium 3.9 Chloride 106 Carbon Dioxide 27.9 Anion Gap 9.1 BUN 22 H D Creatinine 1.2 H Estimated GFR/1.73 m2 52.75 Glucose 95 Calcium 8.7 Total Bilirubin 0.3 AST 27 ALT 48 Alkaline Phosphatase 119 H C-Reactive Protein 0.14 Total Protein 6.1 L Albumin 3.3 L
[2020-08-10 10:20] LABS: Absolute Basophil Count 0.13 10^3/uL (0.0-0.2); Absolute Eosinophil Count 1.68 10^3/uL (0.0-0.7); Absolute Lymphocyte Count 1.03 10^3/uL (1.2-3.4); Absolute Monocyte Count 1.94 10^3/uL (0.1-0.8); Absolute Neutrophil Count 8.13 10^3/uL (1.2-6.7); Atypical Lymphocytes % 2
[2020-08-10 10:21] LABS: Diff Comment Manual Differential; RBC Morphology Normal
--- NOTE | 2020-08-10 11:39 | PDOC.CMPRO ---
- If Service Date Differs Date of service: 08/10/20 Time of Service: 11:39 Care Management Progress Note S/O: Tena was sitting up in bed when CM met with her. She stated that she was doing ok today, and is planning to shower later, after her IV meds are complete. Per provider, she will remain at [facility] for three more days of IV abx, prior to discharging home. She is agreeable to the plan, as she feels that there has not been enough progress made on her leg. CM will continue to follow. A: Tena is a 29 year old female admitted to [facility] on 08/04/20 with left leg cellulitis. P: Anticipate Tena will return home when medically cleared with a resumption of services and community support. She will transport home via [facility] private vehicle vs friend. She will follow up with her PCP and discharge plan of care. CM will continue to follow.
[2020-08-10 16:18] VITALS: BP 136/88; PULSE 78; RESP 18; TEMP 36.9; O2SAT 97
[2020-08-10] MEDS: Milk of Magnesia 30 ML CUP PO (16:50)
[2020-08-10 17:52] LABS: Vancomycin, Trough 19.8 ug/mL (10.0-20.0)
[2020-08-10] MEDS: Enoxaparin 40 MG/0.4 ML SYR SC (20:49)
[2020-08-10] MEDS: Trihexyphenidyl 2 MG TAB 5 MG PO (22:20)
[2020-08-10 23:01] VITALS: BP 132/91; PULSE 127; RESP 18; TEMP 36.5; O2SAT 98
[2020-08-11] MEDS: VANCOMYCIN/WATER (PEG) 1 GM/200 ML BAG IV ×3 (01:58→22:14)
[2020-08-11] MEDS: Nystatin 500000 UNITS/5 ML SUSP 5ML CUP PO (07:30)
[2020-08-11] MEDS: clonazePAM 1 MG TAB PO ×2 (07:31→19:22)
[2020-08-11] MEDS: Citalopram 20 MG TAB 40 MG PO (07:31)
[2020-08-11] MEDS: Omeprazole 20 MG CAPCR 40 MG PO (07:31)
[2020-08-11] MEDS: Normal Saline Flush 10 ML SYR IVP ×4 (07:32→22:15)
[2020-08-11 07:44] VITALS: BP 96/66; PULSE 83; RESP 18; TEMP 36.6; O2SAT 95
[2020-08-11] MEDS: Budesonide/Formoterol 160/4.5 6 GM 60 PUFF INH IH ×2 (07:57→19:20)
[2020-08-11] MEDS: Docusate Sodium 100 MG CAP PO ×2 (09:44→19:22)
[2020-08-11] MEDS: Milk of Magnesia 30 ML CUP PO (09:44)
[2020-08-11] MEDS: diphenhydrAMINE 25 MG CAP PO ×2 (10:34→22:15)
--- NOTE | 2020-08-11 11:08 | W.PM.PROGNOT ---
Date of Service Date of service: 08/11/20 Time of Service: 11:08 Assessment and Plan Assessment and plan (1) Thrush, oral: Status: Acute Assessment and plan: reports no relief from nystatin, will change to clotrimazole troches consider diflucan if does not respond (2) Constipation: Status: Acute Assessment and plan: continue bowel management. added probiotic. (3) Cellulitis of left lower leg: Status: Acute Assessment and plan: slowly improving, encourage not to pick at wounds but patient non compliant which is anticipated to further complicate course or contribute to reoccurrence, rather than treatment failure. continue to encourage elevation labs with improvement in inflammatory markers with CRP from 3.59 to 0.14 and ESR from 46 to 9 Wound c&S from 07/31 with MSSA. Continue vancomycin day 09/[address] - nothing to drain. surgery signed off (4) Abscess of left lower extremity: Status: Acute Assessment and plan: As above (5) Abdominal discomfort: Status: Chronic Assessment and plan: F/u with general surgery as outpatient (6) Postoperative seroma: Status: Chronic Assessment and plan: F/u with general surgery as outpatient Qualifiers: Procedure type: non-dermatologic Surgical complication system/body Area: subcutaneous tissue Qualified Code(s): L76.34 - Postprocedural seroma of skin and subcutaneous tissue following other procedure (7) History of somnambulism: Status: Chronic Assessment and plan: Refer to sleep clinic (8) DVT prophylaxis: Status: Acute Assessment and plan: SC lovenox (9) Discharge planning issues: Status: Acute Assessment and plan: Full code will complete course of IV antibiotics hospitalized no services anticipated at discharge discussed with DR Everett Subjective Subjective Interval history since last seen: continues to have oral pain from thrush Exam Narrative Exam Narrative: General: Pleasant obese female, A&Ox3, HEENT: EOMI, MMM Heart: RRR well perfused Lungs: respirations even and unlabored Abdomen: soft, obese, nontender, nondistended; Extremities: LLE with erythema and indurated area surrounding wound on the calf well within skin markings. dressing intact with some old drainage noted. Objective Last Vital Signs Temp 36.6 C 08/11/20 07:44 Pulse 83 08/11/20 07:44 Resp 18 08/11/20 07:44 BP 96/66 L 08/11/20 07:44 Pulse Ox 95 08/11/20 07:44 Laboratory Results - last 24 hr 08/10/20 17:00 Vancomycin Trough 19.8
--- NOTE | 2020-08-11 12:08 | CMPROGNOTE_ITS ---
- If Service Date Differs Date of service: 08/11/20 Time of Service: 12:08 Care Management Progress Note S/O: Tena was lying in bed when CM met with her. She reported that she was doing ok today. CM reviewed her plan, which is to remain on IV abx through the weekend, likely discharging home on Friday. Her friend will drive her home, she expects, but if not, CM will set up RCT. She is agreeable to remaining at [facility], although continues to express a desire to take a walk outside. CM reinforced the recommendation that she should elevate her leg, which she understands. CM will continue to follow. A: Tena is a 29 year old female admitted to [facility] on 08/04/20 with left leg cellulitis. P: Anticipate Tena will return home when medically cleared with new orders of HH RN, if indicated, and a resumption of community support. She will transport home via [facility] private vehicle vs friend. She will follow up with her PCP and discharge plan of care. CM will continue to follow.
[2020-08-11 15:30] VITALS: BP 118/79; PULSE 85; RESP 16; TEMP 37.2; O2SAT 95
[2020-08-11] MEDS: diphenhydrAMINE 25 MG CAP 50 MG PO (17:33)
[2020-08-11] MEDS: Albuterol HFA 8 GM 60 PUFF INH IH (19:20)
[2020-08-11] MEDS: Acetaminophen 325 MG TAB 650 MG PO (19:21)
[2020-08-11] MEDS: Enoxaparin 40 MG/0.4 ML SYR SC (19:23)
[2020-08-11] MEDS: Trihexyphenidyl 2 MG TAB 5 MG PO (22:14)
[2020-08-11] MEDS: traZODone 50 MG TAB PO (22:15)
[2020-08-11 23:25] VITALS: BP 130/81; PULSE 95; RESP 18; TEMP 36.4; O2SAT 97
[2020-08-12 06:38] LABS: Platelet Count 533 10^3/uL (130-400)
[2020-08-12 08:14] VITALS: BP 109/74; PULSE 82; RESP 17; TEMP 36.7; O2SAT 93
[2020-08-12] MEDS: VANCOMYCIN/WATER (PEG) 1 GM/200 ML BAG IV ×2 (08:18→17:48)
[2020-08-12] MEDS: Citalopram 20 MG TAB 40 MG PO (08:19)
[2020-08-12] MEDS: clonazePAM 1 MG TAB PO ×2 (08:19→20:27)
[2020-08-12] MEDS: Omeprazole 20 MG CAPCR 40 MG PO (08:19)
[2020-08-12] MEDS: Normal Saline Flush 10 ML SYR IVP ×2 (08:19→10:45)
[2020-08-12] MEDS: Budesonide/Formoterol 160/4.5 6 GM 60 PUFF INH IH ×2 (08:23→20:28)
--- NOTE | 2020-08-12 11:17 | W.PM.PROGNOT ---
Date of Service Date of service: 08/12/20 Time of Service: 11:17 Assessment and Plan Assessment and plan (1) Thrush, oral: Status: Acute Assessment and plan: Denied relief from nystatin, was change to clotrimazole troches, continue. (2) Constipation: Status: Acute Assessment and plan: Had small BM today. Continue bowel management and probiotic. (3) Cellulitis of left lower leg: Status: Acute Assessment and plan: Improving around wound, ?increase erythema down posterior leg, outside of ink margin. Continues to pick despite encouragement not to. Continue to elevate. Noted improvement in inflammatory markers. Wound c&S from 07/31 with MSSA. Continue vancomycin day 10/27, monitor x24 hrs post treatment. No abscess on CT - nothing to drain. surgery signed off Repeat labs tomorrow. (4) Abscess of left lower extremity: Status: Acute Assessment and plan: As above (5) Abdominal discomfort: Status: Chronic Assessment and plan: F/u with general surgery as outpatient Moved bowels today as above. (6) Postoperative seroma: Status: Chronic Assessment and plan: F/u with general surgery as outpatient Qualifiers: Surgical complication system/body Area: subcutaneous tissue Procedure type: non-dermatologic Qualified Code(s): L76.34 - Postprocedural seroma of skin and subcutaneous tissue following other procedure (7) History of somnambulism: Status: Chronic Assessment and plan: Refer to sleep clinic (8) DVT prophylaxis: Status: Acute Assessment and plan: SC lovenox (9) Discharge planning issues: Status: Acute Assessment and plan: Full code will complete course of IV antibiotics hospitalized, tomorrow will be day 11/26, then monitor overnight. no services anticipated at discharge Case discussed with Dr. Harris who is in agreement. Subjective Subjective Interval history since last seen: She has noticed redness down the back of her leg now. 1 cm wound not draining, feels hard Using aqua K to the area Her appetite is up and down, she is eating and drinking. She denies nausea. She tends to be constipated, she moved her bowels today. She is getting around the room independently. Her right knee is sore from compensating. She denies feeling SOB, wheezing, CP/pressure. She has not been sleeping well at the hospital, she feels tired today. Exam Narrative Exam Narrative: General: well-nourished female, laying in hospital bed, awake and alert. She is pleasant and talkative. Answers questions appropriately. HEENT: normocephalic, atraumatic, EOMI, makes eye contact, poor dentition, mucous membranes moist. Neck: supple. Cardiovascular: Regular rate and rhythm, nontachycardic. Respiratory: respirations appear even and unlabored, lung sounds clear throughout. GI: round abdomen, +BS, soft, nontender on palpation, nondistended. Extremities: LLE with wound to the posterior aspect of her lower leg, approximately 1 cm in diameter, no active drainage, erythema resolving around wound, but noted erythema down the posterior aspect of her leg outside of the ink margins. Warm to touch. Objective Last Vital Signs Temp 36.7 C 08/12/20 08:14 Pulse 82 08/12/20 08:14 Resp 17 08/12/20 08:14 BP 109/74 08/12/20 08:14 Pulse Ox 93 08/12/20 08:14 Laboratory Results - last 24 hr 08/12/20 06:15 Plt Count 533 H
--- NOTE | 2020-08-12 16:13 | CMPROGNOTE_ITS ---
- If Service Date Differs Date of service: 08/12/20 Time of Service: 16:13 Care Management Progress Note S/O: Tena remains on IV abx with the 10 day course of abx treatment scheduled to be completed tomorrow, 08/13/20. Per provider note, Tena's wound is improved but Tena has noticed that she has redness down the posterior leg now. She will kept inpatient for one more night for monitoring following completion of abx. Tena reports not sleeping well at night. A referral will be made to the sleep clinic upon discharge from [facility]. CM will continue to follow. A: Tena is a 29 year old female admitted to [facility] on 08/04/20 with left leg cellulitis. P: No change in plan. Anticipate Tena will return home when medically cleared with a resumption of community support. She will transport home via [facility] private vehicle vs friend. She will follow up with her PCP and discharge plan of care. CM will continue to follow.
[2020-08-12] MEDS: Enoxaparin 40 MG/0.4 ML SYR SC (20:28)
[2020-08-12] MEDS: Trihexyphenidyl 2 MG TAB 5 MG PO (22:21)
[2020-08-12] MEDS: traZODone 50 MG TAB PO (22:22)
[2020-08-12 23:34] VITALS: BP 128/87; PULSE 81; RESP 17; TEMP 36.6; O2SAT 95
--- NOTE | 2020-08-13 | DI.CT_ITS ---
Exam(s) CT LOWER EXTREMITY LT W EXAM: CT LOWER EXTREMITY LT W CLINICAL HISTORY: r/o abscess. TECHNIQUE: Imaging Protocol: Axial computed tomography images with coronal and sagittal reformatted images were created and reviewed. CONTRAST MATERIAL: Intravenous: Omnipaque 350 Contrast volume:100 cc contrast route:IV - COMPARISON: CT CT LOWER EXTREMITY LT W from 08/06/2020 FINDINGS: Images are somewhat degraded by motion artifact. There is subcutaneous soft tissue edema in the calf and foot. No drainable fluid collections seen. No obvious tenosynovitis.. There are no fractures. Area of lucency in the distal tibia metaphysis a nd epiphysis probably represents an element of avascular necrosis, this measuring approximately 4.3 c m cephalocaudal length by 2 centimeters AP by 1.5 cm. Also subchondral similar area subjacent to thi s in the posterior lateral aspect of the talar dome.. Cannot exclude the fact that this may represen t a bone that this that the above finding the distal tibia may represent bone lesion. Follow-up MRI recommended. IMPRESSION: There is subcutaneous edema in the lower leg and ankle but no drainable abscess. No obvious tenosyno vitis. Area of lucency with thin peripheral sclerosis in the distal tibial metaphysis and epiphysis which ma y represent avascular necrosis or possibly a bone lesion. Smaller area with somewhat similar finding s seen in the posterior lateral talar dome. Follow-up MRI without and with IV contrast is recommende d. RADIATION DOSE DELIVERED: 603.95mGy.cm Total DLP DATA REPOSITORY: All CT scans at this facility are submitted to the National Radiology Data Registry (NRDR) Dose Index Registry (DIR) with the [employer] ([employer]). RADIATION OPTIMIZATION: All CT scans at this facility use at least one of these dose optimization te chniques: automated exposure control; mA and/or kV adjustment per patient size (includes targeted exa ms where dose is matched to clinical indication); or iterative reconstruction.
--- NOTE | 2020-08-13 | DI.RAD_ITS ---
Exam(s) XR CHEST 2V PA LATERAL EXAM: XR CHEST 2V PA LATERAL CLINICAL HISTORY: increasing leuckocytosis. TECHNIQUE: 2D digital imaging was performed. COMPARISON: CR XR PORTABLE CHEST AP from 07/18/2020 FINDINGS: Heart size is normal. The mediastinum is not widened. Infiltrates in the lung bases have decreased as has the size of the left pleural effusion although th is is not completely resolved. Also still some mild infiltrate in the right lung base. IMPRESSION: Some improvement as described above but not completely resolved. Continued follow-up to resolution i s recommended. DATA REPOSITORY: RADIATION DOSE DELIVERED:
[2020-08-13] MEDS: Acetaminophen 325 MG TAB 650 MG PO ×3 (01:14→23:01)
[2020-08-13] MEDS: Normal Saline Flush 10 ML SYR IVP ×8 (03:51→19:51)
[2020-08-13] MEDS: VANCOMYCIN/WATER (PEG) 1 GM/200 ML BAG IV ×2 (03:51→15:02)
[2020-08-13 06:56] LABS: HCT 44.2 % (36.0-46.0); HGB 14.7 g/dL (11.2-15.7); MCH 30.7 pg (27.0-33.0); MCHC 33.3 % (32.0-36.0); MCV 92.3 fL (80-95); MPV 8.9 fL (8.0-11.0); Platelet Count 488 10^3/uL (130-400); RBC 4.79 10^6/uL (3.93-5.22); RDW 13.5 % (11.7-14.6); RDW-SD 45.9 fL; WBC 13.52 10^3/uL (4.4-10.8)
[2020-08-13 07:18] LABS: BUN 20 mg/dL (7-18); Calcium 9.3 mg/dL (8.5-10.1); Chloride 104 mmol/L (98-107); Glucose 91 mg/dL (74-106); Potassium 3.8 mmol/L (3.5-5.1); Sodium 142 mmol/L (136-145)
[2020-08-13 07:50] VITALS: BP 106/60; PULSE 63; RESP 17; TEMP 36.5; O2SAT 97
[2020-08-13] MEDS: diphenhydrAMINE 25 MG CAP PO ×2 (08:03→19:51)
[2020-08-13] MEDS: clonazePAM 1 MG TAB PO ×2 (08:04→19:51)
[2020-08-13] MEDS: Citalopram 20 MG TAB 40 MG PO (08:04)
[2020-08-13] MEDS: Omeprazole 20 MG CAPCR 40 MG PO (08:04)
[2020-08-13 09:07] LABS: C-Reactive Protein 0.13 mg/dL (0.0-0.3)
[2020-08-13] MEDS: CIPROFLOXACIN 400 MG/200 ML BAG 200 MG IVPB (09:49)
[2020-08-13] MEDS: Normal Saline 500 ML 100 ML IVPB (09:49)
[2020-08-13] MEDS: Omnipaque 350 MG/ML 100 ML BTL IV (10:06)
[2020-08-13] MEDS: Normal Saline - Diluent 50 ML VIAL IV (10:28)
[2020-08-13] MEDS: Budesonide/Formoterol 160/4.5 6 GM 60 PUFF INH IH ×2 (10:45→19:52)
--- NOTE | 2020-08-13 11:54 | DI.VRAD_ITS ---
PROCEDURE INFORMATION: Exam: CT Left Lower Extremity With Contrast; Lower Leg Exam date and time: 08/13/2020 9:51 AM Age: 29 years old Clinical indication: Other: R/O abscess TECHNIQUE: Imaging protocol: CT of the Left lower extremity with intravenous contrast was performed. Exam focused on the lower leg. Radiation optimization: All CT scans at this facility use at least one of these dose optimization techniques: automated exposure control; mA and/or kV adjustment per patient size (includes targeted exams where dose is matched to clinical indication); or iterative reconstruction. Contrast material: OMNIPAQUE 350; Contrast volume: 100 ml; Contrast route: INTRAVENOUS (IV); COMPARISON: CT LOWER EXTREMITY LT W 08/06/2020 12:40 PM FINDINGS: Bones/joints: Images are degraded by motion. Stable irregular lucent area in the distal tibial metaphysis (measuring approximately 3.5 by 2.2 by 1.5 cm in craniocaudad, transverse, and AP dimension) and similar area in the subchondral lateral dome of the talus. These demonstrate irregular faint peripheral sclerosis. Their appearance is somewhat suggestive of a vascular necrosis. MRI without and with gadolinium is recommended in further evaluation. Soft tissues: Subcutaneous edema in the left leg, especially about the ankle. No abscess is identified. IMPRESSION: 1. Areas of vague lucency and peripheral sclerosis in the distal tibial metaphysis and lateral dome of the talus with a pattern somewhat suggestive of avascular necrosis. Differential considerations could include bone infection but the appearance is more suggestive of AVN. MRI without and with gadolinium is recommended in further evaluation 2. Subcutaneous edema in the lower leg, especially about the ankle but no soft tissue abscess is identified. Dictated and Authenticated by: Brandy Raymond MD. Ordering:STACIE Petty MD
--- NOTE | 2020-08-13 11:55 | DI.VRAD_ITS ---
PROCEDURE INFORMATION: Exam: XR Chest Exam date and time: 08/13/2020 10:33 AM Age: 29 years old Clinical indication: Other: Increasing leuckocytosis TECHNIQUE: Imaging protocol: XR of the chest. Views: 2 views. COMPARISON: CR XR PORTABLE CHEST AP 07/18/2020 12:21 PM FINDINGS: Lungs: Decrease in the patchy bilateral pulmonary infiltrates. Focal infiltrate remains in the right lower lung. Pleural spaces: Interval decrease in the size of the small left pleural effusion. Minimal fluid or thickened pleura remains in the left costophrenic angle. Heart/Mediastinum: Unremarkable. No cardiomegaly. Bones/joints: Unremarkable. IMPRESSION: Decrease in the bilateral pulmonary infiltrates and left pleural effusions since 07/18/2020 Dictated and Authenticated by: Brandy Raymond MD. Ordering:STACIE Petty MD
--- NOTE | 2020-08-13 12:34 | W.PM.PROGNOT ---
Date of Service Date of service: 08/13/20 Time of Service: 12:34 Assessment and Plan Assessment and plan (1) Cellulitis of left lower leg: Start date: 08/13/20 Start time: 12:42 Status: Acute Assessment and plan: Improving around wound, though worsening erythema down posterior leg, outside of ink margin extending down to top of ankle. CT done. Areas of vague lucency and peripheral sclerosis in the distal tibial metaphysis and lateral dome of the talus with a pattern somewhat suggestive of avascular necrosis. Differential considerations could include bone infection but the appearance is more suggestive of AVN. MRI without and with gadolinium is recommended in further evaluation 2. Subcutaneous edema in the lower leg, especially about the ankle but no soft tissue abscess is identified. Will obtain MRI tommorrow Continue to elevate. Noted improvement in inflammatory markers. Wound c&S from 07/31 with MSSA. Sensitive to cipro will place on cipro d/c vanco No abscess on CT - nothing to drain. surgery signed off Repeat labs tomorrow. (2) Abscess of left lower extremity: Start date: 08/13/20 Start time: 12:47 Status: Acute Assessment and plan: As above (3) Thrush, oral: Start date: 08/13/20 Start time: 12:46 Status: Acute Assessment and plan: Denied relief from nystatin, was changed to clotrimazole troches, continue. (4) Constipation: Start date: 08/13/20 Start time: 12:46 Status: Acute Assessment and plan: Had small BM today. Continue bowel management and probiotic. Qualifiers: Constipation type: other constipation type Qualified Code(s): K59.09 - Other constipation (5) Abdominal discomfort: Start date: 08/13/20 Start time: 12:47 Status: Chronic Assessment and plan: F/u with general surgery as outpatient Moved bowels today as above. (6) Postoperative seroma: Start date: 08/13/20 Start time: 12:47 Status: Chronic Assessment and plan: F/u with general surgery as outpatient Qualifiers: Surgical complication system/body Area: subcutaneous tissue Procedure type: non-dermatologic Qualified Code(s): L76.34 - Postprocedural seroma of skin and subcutaneous tissue following other procedure (7) DVT prophylaxis: Start date: 08/13/20 Start time: 12:48 Status: Acute Assessment and plan: LONG marinelli (8) Discharge planning issues: Start date: 08/13/20 Start time: 12:48 Status: Acute Assessment and plan: Full code will continue IV antbx through tomorrow until getting MRI results. no services anticipated at discharge Case discussed with Dr. Harris who is in agreement. Subjective Subjective Patient reports: other Interval history since last seen: C/o worsening pain to LLE, with difficulty walking today. Erythema extends down the back of the calf to the ankle. Leukocytosis is increasing, though she always has a white count it is growing despite being on broad spectrum antbx. CT ordered revealing . Areas of vague lucency and peripheral sclerosis in the distal tibial metaphysis and lateral dome of the talus with a pattern somewhat suggestive of avascular necrosis. Differential considerations could include bone infection but the appearance is more suggestive of AVN. MRI without and with gadolinium is recommended in further evaluation 2. Subcutaneous edema in the lower leg, especially about the ankle but no soft tissue abscess is identified. MRI ordered for tomorrow. She denies CP, SOB, n/v/d. Exam Narrative Exam Narrative: General: well-nourished female, laying in hospital bed, awake and alert. She is pleasant and talkative. Answers questions appropriately. HEENT: normocephalic, atraumatic, EOMI, makes eye contact, poor dentition, mucous membranes moist. Neck: supple. Cardiovascular: Regular rate and rhythm, nontachycardic. Respiratory: respirations appear even and unlabored, lung sounds clear throughout. GI: round abdomen, +BS, soft, nontender on palpation, nondistended. Extremities: LLE with wound to the posterior aspect of her lower leg, approximately 1 cm in diameter, no active drainage, erythema resolving around wound, but noted erythema down the posterior aspect of her leg outside of the ink margins extending down to top of ankle. Warm to touch. Objective Last Vital Signs Temp 36.5 C 08/13/20 07:50 Pulse 63 08/13/20 07:50 Resp 17 08/13/20 07:50 BP 106/60 08/13/20 07:50 Pulse Ox 97 08/13/20 07:50 Laboratory Results - last 24 hr 08/13/20 08/13/20 06:25 06:25 WBC 13.52 H RBC 4.79 Hgb 14.7 Hct 44.2 MCV 92.3 MCH 30.7 MCHC 33.3 RDW 13.5 Plt Count 488 H MPV 8.9 Sodium 142 Potassium 3.8 Chloride 104 Carbon Dioxide 30.0 Anion Gap 8.0 BUN 20 H Creatinine 1.0 Estimated GFR/1.73 m2 >= 60.00 Glucose 91 Calcium 9.3 C-Reactive Protein 0.13
--- NOTE | 2020-08-13 12:55 | CMPROGNOTE_ITS ---
- If Service Date Differs Date of service: 08/13/20 Time of Service: 12:55 Care Management Progress Note S/O: A CT done today reveals areas of vague lucency and peripheral sclerosis in the distal tibial metaphysis and lateral dome of the talus with a pattern somewhat suggestive of avascular necrosis. An MRI is ordered for tomorrow for further evaluation. Per provider note, Tena is reporting worsening pain and is having difficulty walking today. She has erythema from the back of her calf to her ankle. Question the potential for a bone infection. Tena will continue to be closely monitored. CM will continue to follow. A: Tena is a 29 year old female admitted to [facility] on 08/04/20 with left leg cellulitis. P: No change in plan. Anticipate Tena will return home when medically cleared with a resumption of community support. She will transport home via [facility] private vehicle vs friend. She will follow up with her PCP and discharge plan of care. CM will continue to follow.
[2020-08-13 12:58] LABS: Bilirubin Negative (Negative); Blood Large (Negative); Clarity Clear (Clear); Glucose Negative (Negative); Ketones Negative (Negative); Leukocyte Esterase Negative (Negative); Nitrite Negative (Negative); Specific Gravity 1.015 (1.005-1.025); Urobilinogen 0.2 EU/dL (Up TO 0.2); pH 5.5 (5-8)
[2020-08-13 13:08] LABS: Bacteria Rare HPF (Negative); C & S Indicated? No; Casts Negative LPF (Negative); Crystals Negative HPF (Negative); Epithelial Cells Few HPF (Negative); Mucus Negative (Negative); RBC >50 HPF (0-2); WBC 0-2 HPF (0-5)
[2020-08-13] MEDS: Ondansetron 4 MG/2 ML VIAL IVP (14:45)
[2020-08-13] MEDS: Famotidine 20 MG/2 ML VIAL IV (15:00)
[2020-08-13] MEDS: diphenhydrAMINE 50 MG/ML VIAL IVP (15:00)
[2020-08-13 15:13] VITALS: BP 115/77; PULSE 86; RESP 18; TEMP 36.6; O2SAT 96
--- NOTE | 2020-08-13 15:27 | NUR.NOTE ---
Nursing Note: At 1445 on 08/13/20, this RN entered pt.'s room to assess pt. and administer ondansetron (Zofran) because the pt. had rung just five minutes before, the MECHANICAL ARTIST had answered, and the pt. had informed the MECHANICAL ARTIST that they were feeling nauseated and had a ...weird rash on their arms. Upon entering the room, the RN noted that the pt. had a diffuse light pink rash across their bilateral arms and legs, as well as, across their entire back. Pt. informed the RN that they had just noticed the rash and that they were feeling nauseated. RN immediately informed the charge nurse about the pt.'s symptoms and the RN's concern that the pt. may be having an allergic reaction to the ciprofloxacin that the pt. had received an initial dose of not long ago. Charge nurse immediately informed the HIGH ENERGY FORMING EQUIPMENT OPERATOR. RN administered 4 mg of IVP ondansetron (Zofran) and then stepped out to obtain diphenhydramine (Benadryl) from the [facility]. Upon getting to the nurses' station, RN noted that the HIGH ENERGY FORMING EQUIPMENT OPERATOR had ordered a now dose of 50 mg IVP diphenhydramine (Benadryl) and a now dose of 20 mg IVP famotidine (Pepcid) and a now dose of 1 g of IVPB vancomycin. RN obtained all of these medications from the [facility], returned to the pt.'s room, and administered the medications per the MAR. At 1500, just following administration of the medications, the pt. also started to complain that the tip of their tongue was feeling ...a little tingly. RN asked MECHANICAL ARTIST to bring them a vital sign machine, and upon getting the machine, obtained VS on the pt. VSS; see VS flowsheet on the worklist. Pt. informed to ring for the RN if the tingling in their tongue gets worse, if they start to experience any difficulty breathing, etc. Pt. verbalized understanding and agreed to ring. RN will reassess as necessary.
[2020-08-13] MEDS: Enoxaparin 40 MG/0.4 ML SYR SC (19:50)
[2020-08-13] MEDS: traZODone 50 MG TAB PO (23:01)
[2020-08-13] MEDS: Trihexyphenidyl 2 MG TAB 5 MG PO (23:01)
[2020-08-14 00:18] VITALS: BP 116/84; PULSE 106; RESP 18; TEMP 36.2; O2SAT 97
[2020-08-14] MEDS: Normal Saline Flush 10 ML SYR IVP ×4 (00:41→21:54)
[2020-08-14] MEDS: VANCOMYCIN/WATER (PEG) 1 GM/200 ML BAG IV ×3 (00:41→18:13)
[2020-08-14] MEDS: diphenhydrAMINE 25 MG CAP PO ×2 (00:58→23:42)
[2020-08-14 07:01] LABS: Abs Immature Grans 0.02 10^3/uL (0.0-0.06); Absolute Basophil Count 0.07 10^3/uL (0.0-0.2); Absolute Eosinophil Count 2.04 10^3/uL (0.0-0.7); Absolute Lymphocyte Count 0.48 10^3/uL (1.2-3.4); Absolute Monocyte Count 0.42 10^3/uL (0.1-0.8); Absolute Neutrophil Count 5.44 10^3/uL (1.2-6.7); Basophils % 0.8; Eosinophils % 24.1; HCT 44.3 % (36.0-46.0); HGB 14.6 g/dL (11.2-15.7); Immature Grans % 0.2; Lymphocytes % 5.7; MCH 31.2 pg (27.0-33.0); MCV 94.7 fL (80-95); MPV 8.4 fL (8.0-11.0); Neutrophils % 64.2; Nucleated RBC 0 %; Platelet Count 497 10^3/uL (130-400); RBC 4.68 10^6/uL (3.93-5.22); RDW 13.8 % (11.7-14.6); RDW-SD 47.7 fL; WBC 8.47 10^3/uL (4.4-10.8)
[2020-08-14 07:17] LABS: Anion Gap 8.1 mmol/L (3-11); BUN 18 mg/dL (7-18); CO2 28.9 mmol/L (21.0-32.0); Calcium 8.9 mg/dL (8.5-10.1); Chloride 108 mmol/L (98-107); Glucose 90 mg/dL (74-106); Potassium 3.6 mmol/L (3.5-5.1); Sodium 145 mmol/L (136-145)
[2020-08-14 07:27] LABS: Diff Comment Diff Reviewed; RBC Morphology Normal
[2020-08-14] MEDS: Budesonide/Formoterol 160/4.5 6 GM 60 PUFF INH IH ×2 (07:48→21:53)
[2020-08-14 08:01] VITALS: BP 101/71; PULSE 89; RESP 20; TEMP 36.1; O2SAT 97
[2020-08-14] MEDS: clonazePAM 1 MG TAB PO ×2 (08:30→21:54)
[2020-08-14] MEDS: Citalopram 20 MG TAB 40 MG PO (08:30)
[2020-08-14] MEDS: Omeprazole 20 MG CAPCR 40 MG PO (08:31)
[2020-08-14 09:31] LABS: Vancomycin, Trough 13.4 ug/mL (10.0-20.0)
[2020-08-14] MEDS: diazePAM 5 MG TAB PO (10:04)
[2020-08-14] MEDS: Gadoterate meglumine 20 ML VIAL IVP (10:48)
--- NOTE | 2020-08-14 11:18 | DI.MRI_ITS ---
Exam(s) MR LOWER JOINT LT WO/W EXAM: MR LOWER JOINT LT WO/W CLINICAL HISTORY: r/o avasclar necrosis TECHNIQUE: Multiplanar multisequence MRI of the knee was performed. Both pre and post contrast infu sed sequences performed. Contrast injected was 20 mL Dotarem COMPARISON: CT CT LOWER EXTREMITY LT W from 08/13/2020 FINDINGS: MARROW: In the distal tibia there is a well-defined nonexpansile intramedullary lesion which traverse s the metaphysis and epiphysis, measuring 4 cm craniocaudal by 2.2 cm AP by 2 cm with. Exhibits a th in uniformly enhancing rim. No surrounding bone edema. This has the appearance of a probable bone i nfarct. Adjacent to this is a 5x4 millimeter enhancing lesion in the distal tibial metadiaphysis In addition, there is a similar appearing finding in the lateral talus just below the talar dome, thi s measuring 1.3 cm wide by 0.8 cm AP by 1.3 cm craniocaudal. Exhibits similar appearance and also wi thout prominent surrounding bone edema. There are no similar findings evident in the distal fibula. ARTICULATIONS: There is no evidence of ankle joint nor subtalar joint effusion. No erosions. There are no para-articular ganglion cysts evident LIGAMENTS: Anterior and posterior talofibular ligaments are intact. Deltoid ligament appears intact. Achilles tendon is intact. Plantar fascia appears unremarkable. SINUS TARSI: No significant findings. No sinus tarsi ganglion cyst. TENDONS: No tears or tenosynovitis evident. SOFT TISSUES: No evidence of abscess. IMPRESSION: 1. Peripherally enhancing medullary lesions within the distal tibia and talus. These are probably bon e infarcts. Differential diagnosis also includes infectious process. Appropriate follow-up recommende d. 2. There is no evidence of soft tissue abscess. 3. No tendon tears or tenosynovitis. DATA REPOSITORY:
--- NOTE | 2020-08-14 11:58 | DI.VRAD_ITS ---
PROCEDURE INFORMATION: Exam: MR Left Lower Extremity Joint Without and With Contrast; Ankle Exam date and time: 08/14/2020 10:50 AM Age: 29 years old Clinical indication: Pain; Ankle; Left TECHNIQUE: Imaging protocol: MR of the Left lower extremity without and with contrast. Exam focused on the ankle. Contrast material: DOTAREM; Contrast volume: 20 ml; Contrast route: INTRAVENOUS (IV); COMPARISON: US LOWER EXTREMITY VENOUS LT 08/04/2020 3:55 PM FINDINGS: Bones and cartilage: 3.8 x 2.4 cm medullary lesion within the distal tibial metaphysis with peripheral enhancement. Adjacent 5 mm enhancing lesion present in the distal tibial metadiaphysis. 1.5 x 1.2 cm somewhat rectangular shaped enhancing within the mid to lateral talus. Several tiny enhancing intensities also within the talar dome. No fistulous tracts to the cortex. Joint spaces: Small joint effusion is present. LIGAMENTS: Distal tibiofibular syndesmosis: Unremarkable. No tear. Anterior talofibular ligament: Unremarkable. No tear. Posterior talofibular ligament: Unremarkable. No tear. Calcaneofibular ligament: Unremarkable. No tear. Deltoid ligament complex: Unremarkable. No tear. TENDONS: Flexor tendons of foot: Unremarkable as visualized. Tibialis posterior tendon: Unremarkable as visualized. Peroneal tendons: Unremarkable as visualized. Extensor tendons of foot: Unremarkable as visualized. Tibialis anterior tendon: Unremarkable as visualized. Achilles tendon: Unremarkable as visualized. Tarsal canal (Sinus tarsi): Unremarkable. Normal signal of the fat. Tarsal tunnel: Unremarkable. Muscles: Unremarkable. Soft tissues: Soft tissue swelling. No soft tissue fluid collection. Plantar fascia: Plantar fascia is unremarkable. IMPRESSION: Multiple peripheral enhancing medullary lesions within the distal tibia and talus, bone infarcts suspected however infectious process cannot be totally excluded. No evidence of soft tissue abscess. Dictated and Authenticated by: Maame Jenkins MD. Ordering:STACIE Petty MD
--- NOTE | 2020-08-14 13:03 | W.PM.PROGNOT ---
Date of Service Date of service: 08/14/20 Time of Service: 13:03 Assessment and Plan Assessment and plan (1) Cellulitis of left lower leg: Start date: 08/14/20 Start time: 13:11 Status: Acute Assessment and plan: Wound has improved, though it is still firm around scabbed area, suggest warm compress QID x 15-20 mins WBC normalized MRI reveals IMPRESSION: 1. Peripherally enhancing medullary lesions within the distal tibia and talus. These are probably bone infarcts. Differential diagnosis also includes infectious process. Appropriate follow-up recommended. 2. There is no evidence of soft tissue abscess. 3. No tendon tears or tenosynovitis. Will consult ortho, continue vanco at this time with transition to oral linezolid she may needed extended antibotics (2) Abscess of left lower extremity: Start date: 08/14/20 Start time: 13:24 Status: Acute Assessment and plan: As above (3) Thrush, oral: Start date: 08/14/20 Start time: 13:24 Status: Acute Assessment and plan: Denied relief from nystatin, was changed to clotrimazole troches, continue. (4) Constipation: Start date: 08/14/20 Start time: 13:26 Status: Acute Assessment and plan: . Continue bowel management and probiotic. Qualifiers: Constipation type: other constipation type Qualified Code(s): K59.09 - Other constipation (5) Abdominal discomfort: Start date: 08/14/20 Start time: 13:26 Status: Resolved Assessment and plan: F/u with general surgery as outpatient no discomfort today (6) Postoperative seroma: Start date: 08/14/20 Start time: 13:27 Status: Chronic Assessment and plan: F/u with general surgery as outpatient Qualifiers: Surgical complication system/body Area: subcutaneous tissue Procedure type: non-dermatologic Qualified Code(s): L76.34 - Postprocedural seroma of skin and subcutaneous tissue following other procedure (7) DVT prophylaxis: Start date: 08/14/20 Start time: 13:27 Status: Acute Assessment and plan: SC lovenox (8) Discharge planning issues: Start date: 08/14/20 Start time: 13:27 Status: Acute Assessment and plan: Full code no services anticipated at discharge Case discussed with Dr. Harris who is in agreement. Subjective Subjective Patient reports: other Interval history since last seen: Patient back from MRI, MRI reveals: IMPRESSION: 1. Peripherally enhancing medullary lesions within the distal tibia and talus. These are probably bone infarcts. Differential diagnosis also includes infectious process. Appropriate follow-up recommended. 2. There is no evidence of soft tissue abscess. 3. No tendon tears or tenosynovitis. Will consult ortho and get opinion, for now continue vanco. She could be discharged home on linezolid course. Will wait for consult and decide course. She continues to state pain. Erythema has receded. she is ambulatory. She states that she has no place to go on discharge will work with CM to help with this. Currently living in hotel. She denies CP, SOB, N/v/D.. Exam Narrative Exam Narrative: General: well-nourished female, ambulatory around room, awake and alert. She is pleasant and talkative. Answers questions appropriately. HEENT: normocephalic, atraumatic, EOMI, makes eye contact, poor dentition, mucous membranes moist. Neck: supple. Cardiovascular: Regular rate and rhythm, nontachycardic. Respiratory: respirations appear even and unlabored, lung sounds clear throughout. GI: round abdomen, +BS, soft, nontender on palpation, nondistended. Extremities: LLE with wound to the posterior aspect of her lower leg, approximately 1 cm in diameter, no active drainage, erythema resolved around wound, improved no erythema down leg. WBC normal. Objective Last Vital Signs Temp 36.1 C L 08/14/20 08:01 Pulse 89 08/14/20 08:01 Resp 20 08/14/20 08:01 BP 101/71 08/14/20 08:01 Pulse Ox 97 08/14/20 08:01 Laboratory Results - last 24 hr 08/13/20 08/14/20 08/14/20 12:44 06:44 06:44 WBC 8.47 D RBC 4.68 Hgb 14.6 Hct 44.3 MCV 94.7 MCH 31.2 MCHC 33.0 RDW 13.8 Plt Count 497 H MPV 8.4 Immature Gran % 0.2 Neutrophils % 64.2 Lymphocytes % 5.7 Monocytes % 5.0 Eosinophils % 24.1 Basophils % 0.8 Nucleated RBC % 0 Absolute Neutrophils 5.44 Absolute Lymphocytes 0.48 L Absolute Monocytes 0.42 Absolute Eosinophils 2.04 H Absolute Basophils 0.07 RBC Morphology Normal Sodium 145 Potassium 3.6 Chloride 108 H Carbon Dioxide 28.9 Anion Gap 8.1 BUN 18 Creatinine 1.0 Estimated GFR/1.73 m2 >= 60.00 Glucose 90 Calcium 8.9 Urine RBC >50 H Urine WBC 0-2 Ur Epithelial Cells Few Urine Crystals Negative Urine Bacteria Rare Urine Casts Negative Urine Mucus Negative Ur Culture Indicated? No Vancomycin Trough 08/14/20 09:05 WBC RBC Hgb Hct MCV MCH MCHC RDW Plt Count MPV Immature Gran % Neutrophils % Lymphocytes % Monocytes % Eosinophils % Basophils % Nucleated RBC % Absolute Neutrophils Absolute Lymphocytes Absolute Monocytes Absolute Eosinophils Absolute Basophils RBC Morphology Sodium Potassium Chloride Carbon Dioxide Anion Gap BUN Creatinine Estimated GFR/1.73 m2 Glucose Calcium Urine RBC Urine WBC Ur Epithelial Cells Urine Crystals Urine Bacteria Urine Casts Urine Mucus Ur Culture Indicated? Vancomycin Trough 13.4
[2020-08-14 15:55] VITALS: BP 137/83; PULSE 76; RESP 20; TEMP 36.8; O2SAT 98
--- NOTE | 2020-08-14 17:55 | PDOC.CMPRO ---
- If Service Date Differs Date of service: 08/14/20 Time of Service: 17:55 Care Management Progress Note S/O: Tena was sitting up in bed when CM met with her. She reported that she had an MRI today which revealed that she may have bone infarcts. She is having an Ortho consult to review this and create a treatment plan. Per provider, she will transition to oral antibiotics prior to discharge. She was pleasant and engaged in conversation, as usual. CM will continue to follow. A: Tena is a 29 year old female admitted to [facility] on 08/04/20 with left leg cellulitis. P: No change in plan. Anticipate Tena will return home when medically cleared with a resumption of community support. She will transport home via [facility] private vehicle vs friend. She will follow up with her PCP and discharge plan of care. CM will continue to follow.
[2020-08-14] MEDS: Enoxaparin 40 MG/0.4 ML SYR SC (21:53)
[2020-08-14] MEDS: Trihexyphenidyl 2 MG TAB 5 MG PO (21:53)
[2020-08-14 23:40] VITALS: BP 123/87; PULSE 94; RESP 12; TEMP 36.7; O2SAT 97
[2020-08-14] MEDS: traZODone 50 MG TAB PO (23:42)
[2020-08-14 23:56] VITALS: BP 116/76; PULSE 78; RESP 22; TEMP 36.4; O2SAT 96
[2020-08-15] MEDS: VANCOMYCIN/WATER (PEG) 1 GM/200 ML BAG IV (02:37)
[2020-08-15] MEDS: Normal Saline 500 ML 30 ML IVPB (02:37)
[2020-08-15] MEDS: Normal Saline Flush 10 ML SYR IVP (02:37)
--- NOTE | 2020-08-15 07:00 | DI.CT_ITS ---
Exam(s) CT HEAD WO EXAM: CT HEAD WO CLINICAL HISTORY: confusion at night, dizziness. TECHNIQUE: Imaging Protocol: Axial computed tomography images with coronal and sagittal reformatted images were created and reviewed COMPARISON: No exams were available for comparison FINDINGS: The ventricular system is normal in appearance. No evidence of acute intracranial hemorrhage, mass effect, or midline shift. The orbital structures are unremarkable. The temporal bone structures appear intact. Calvarium: Normal. Visualized Paranasal sinuses/Mastoids: Clear. IMPRESSION: Normal cranial CT. RADIATION DOSE DELIVERED: 716.95mGy.cm Total DLP 716.95mGy.cm Total DLP DATA REPOSITORY: All CT scans at this facility are submitted to the National Radiology Data Registry (NRDR) Dose Index Registry (DIR) with the [employer] ([employer]). RADIATION OPTIMIZATION: All CT scans at this facility use at least one of these dose optimization te chniques: automated exposure control; mA and/or kV adjustment per patient size (includes targeted exa ms where dose is matched to clinical indication); or iterative reconstruction.
[2020-08-15 07:30] VITALS: BP 118/79; PULSE 86; RESP 19; TEMP 36.5; O2SAT 95
[2020-08-15] MEDS: Omeprazole 20 MG CAPCR 40 MG PO (07:39)
--- NOTE | 2020-08-15 07:47 | W.ORTHOCONSU ---
Date of service: 08/14/20 Time of Service: 16:26 History of Present Illness History of Present Illness Chief Complaint: Left Leg Wound and Pain Narrative: Tena is a 29-year-old female with multiple medical issues including some autoimmune disorders. She was admitted initially for a wound of her left leg in addition to other medical issues. This was followed by surgery who thought that the wound is healing appropriately. She has been on vancomycin. She reported some pain in the left leg and left foot and ankle which was intermittent in nature. Then yesterday she developed some redness streaking down the posterior aspect the left leg. This prompted MRI. After the MRI was obtained there was concern for an infectious process within the bone of the distal tibia and the talus and I was consulted. Yamilex reports that she has pain occasionally in the left ankle and foot. She is unable specify exactly what brings about the pain. She localizes the pain mostly over the lateral aspect of the ankle. She does not seem to report pain within the ankle joint itself. Weightbearing does not bring about this pain every time. She sometimes has no pain at all in the ankle. She denies any redness today. No erythema. The wound of her left leg continues to show signs of improvement per her report and nursing. She denies any fevers or chills. 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 The MRI performed yesterday did show bony infarcts of the distal tibia and the talus. These are clearly bony infarcts on the MRI as the internal portions of the lesions have normal appearance of bone marrow which would not be the case that this was infectious. Additionally, her clinical exam is not that of infection as that would cause pain with every step given that these lesions are so close to the joint surface. Bony infarcts are normal findings and are on the spectrum associate with osteonecrosis. They are more common in people who have blood dyscrasias another circulatory issues. They usually are found incidentally and do not need any further work-up except to be followed based on symptoms as a could lead to compromise of the architecture of the bone underneath the joint itself. However, I would not recommend any intervention at this time. I do not think it is directly related to the pain she is having about the left leg. She may follow-up with orthopedics as needed for pain in the left ankle with continued weightbearing. 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 marijuana: t-1, 2 hits Adopted: No Caregiver/Support person: No Foster care: No Household members: significant other and family Housing: other Number of Children: 1 Communication Needs: None Do you need help understanding health information?: Rarely Sexually active: Yes Do you think of yourself as: straight/heterosexual Current gender identity: female What type of physical activity do you participate in: none Do you feel safe at home: Yes Do you feel safe in your relationship?: Yes Exam Narrative Exam Narrative: Standing up in the room on her cell phone. She is able to get back into the bed unassisted without any significant objective signs of pain. Evaluation left leg shows a healing wound about the very proximal aspect of the posterior left leg. There is no erythema. No streaking. No notable swelling. There is no pain to palpation of the distal tibia. She has some mild pain to palpation over the peroneal tendons in the distal aspect the left fibula. Gentle passive dorsiflexion and plantarflexion causes no pain. Slight pain laterally with passive inversion and to lesser extent with passive eversion. She is also able demonstrate active motion as well without any limitation without any significant aspects of pain. Direct palpation of the distal tibia and the attempted palpation of the talus with the foot plantarflexed does not cause any increase in pain. Sensation intact light touch of the deep and superficial peroneal nerve and tibial nerve. No palpable masses or lesions. Capillary refill less than 2 seconds with a palpable DP and PT pulse. Results Last Vital Signs Temp 36.5 C 08/15/20 07:30 Pulse 86 08/15/20 07:30 Resp 19 08/15/20 07:30 BP 118/79 08/15/20 07:30 Pulse Ox 95 08/15/20 07:30 Labs Result diagrams: 08/14/20 06:44 08/14/20 06:44 Labs: Laboratory Results - last 24 hr 08/14/20 09:05 Vancomycin Trough 13.4 Imaging Imaging Studies: MRI of the left leg was reviewed. This was done with contrast. In short, it shows no significant findings except for what appears to be 2 bony infarcts of the distal tibia and of the talus. These are seen on the CT scan initially performed on admission on 08/06 as well as and a repeat CT scan on 08/13. Both of these lesions abut the joint surface with the tibial lesion being larger. There is peripheral enhancement which is normally seen with bony infarcts. However, I see no reactive edema within the bone. There is no other abnormality seen within the bone signal. No hypointensity on T1. Within the area of peripheral enhancement the bone appears normal which is a hallmark of a bony infarct rather than infection which would show abnormal signal within the bone inside a bony abscess or sequestrum. No surrounding changes within the bone or the intramedullary space. Joint spaces are well preserved without effusion. No sign of tendon disruption about the ankle.
[2020-08-15] MEDS: Citalopram 20 MG TAB 40 MG PO (07:59)
[2020-08-15] MEDS: clonazePAM 1 MG TAB PO (08:00)
[2020-08-15] MEDS: Budesonide/Formoterol 160/4.5 6 GM 60 PUFF INH IH (08:16)
--- NOTE | 2020-08-15 10:20 | DSE_ITS ---
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: Status: Acute Discharge Plan Disposition Patient Disposition: HOME Condition: Stable Discharge Details Reason For Visit: Left Leg Cellulitis Admit Date/Time: 08/04/20 17:59 Admit Provider: Joni Baker Attending Provider: Joni Baker Primary Care Provider: Jonathan Plaza [facility] Course Hospital Course: This is a 29-year-old female with a past medical history significant for Ye syndrome, psoriasis, asthma, ITP, status post splenectomy, portal vein thrombosis, polyarthritis, former IV drug abuse who presented to the emergency department initially July 31, 2020 with multiple complaints but her primary problem seems to be left leg pain and redness but it started 2 days prior and was associated with a bug bite over her left calf. She has had worsening tenderness and swelling and redness over the area and was evaluated emergency department by Dr. House was examination shows small area of abscess roughly a centimeter in diameter he performed needle aspiration and a small amount of blood was exuded but no gross pus. Culture was sent off. Other complaints was epigastric abdominal pain which seem to be related to a chronic seroma which has been drained in the past by Dr. Patel. During that ER visit Dr. House also diagnosed her with a UTI. A started on clindamycin and Levaquin. Clindamycin was chosen for what was felt to be a staph infection and because she has had a p revious history of anaphylaxis to sulfa drugs as well as allergic reaction to cephalosporins. He started Levaquin to cover for UTI. Patient was discharged home then returned to the emergency department and was evaluated by Dr. Rajendra Sheikh. It was noted that her UTI symptoms have since resolved but her left leg redness and swelling has gotten worse. She now had erythema extending from the foot past the knee. An ultrasound to evaluate for DVT which was negative and routine labs including CBC which showed a mildly elevated white cell count of 12,600 which had improved significantly from her previous value of 24,004 days prior. She is polycythemic with a hemoglobin of 16.6 g hematocrit 48%. Blood lactate was mildly elevated at 1.6. CMP demonstrated a low potassium of 3.3 and a minimally elevated anion gap of 14.1 with normal renal function with a BUN of 12 and creatinine 0.9. LFTs demonstrated him mildly elevated alkaline phosphatase at 185 but normal transaminases and bilirubin. C-reactive protein is elevated at 8.0 but her procalcitonin level is less than 0.1. Patient was started on vancomycin and was admitted for parenteral antibiotics due to failed outpatient treatment of her cellulitis. Of note wound culture obtained July 31, 2020 showed methicillin sensitive staph aureus. It was decided she would complete her course of antibiotics inpatient, due to multiple drug allergies, non compliance with elevation, and drug interactions with PO antibiotics and her psychiatric medication. Surgery was consulted and no drainable abscess was identified so she was discharged from their care. Her white count and inflammatory markers normalized with treatment. she had intermittent times when it appeared the erythema returned but it resolved with elevation and when told to stop picking or pushing on the area. She remained very fixated on and insisted there was an abscess still present. Because of her ongoing complaints and concern that there was streaking down posterior aspect of her leg, which is not present on orthopedic evaluation or on day of discharge, an MRI was performed. Coincidentally it did show bony infarcts of the distal tibia and the talus, not thought to be associated with this infection or her ongoing reports of pain. According to DR Cast, who was consulted, from his note: These are clearly bony infarcts on the MRI as the internal portions of the lesions have normal appearance of bone marrow which would not be the case that this was infectious. Additionally, her clinical exam is not that of infection as that would cause pain with every step given that these lesions are so close to the joint surface. Bony infarcts are normal findings and are on the spectrum associate with osteonecrosis. They are more common in people who have blood dyscrasias another circulatory issues. They usually are found incidentally and do not need any further work-up except to be followed based on symptoms as a could lead to compromise of the architecture of the bone underneath the joint itself. However, I would not recommend any intervention at this time. I do not think it is directly related to the pain she is having about the left leg. She may follow-up with orthopedics as needed for pain in the left ankle with continued weightbearing. She had various chronic complaints while hospitalized including ongoing thoughts there is an abscess, c/o chronic abdominal pain which she is followed by surgery outpatient for, and sleep walking, which staff feels is coping/defense mechanism. She will be referred to sleep clinic for further outpatient evaluation. A head CT showed no acute intracranial process. discharge discussed with DR Harris. Home Meds and New Rx's Prescriptions: New clotrimazole 10 mg Lauri 10 mg SUC 5X/DAY Qty: 35 RF: 0 Continued calcipotriene 0.005 % ointment 1 applic topical BID RF: 0 Otezla 30 mg tablet 30 mg PO BID RF: 0 Hold Instructions: Changed by Provider trihexyphenidyl 5 mg tablet 5 mg PO QHS Qty: 90 RF: 3 diphenhydramine HCl [Benadryl Allergy] 25 mg tablet 25 mg PO TID PRN (Reason: itching) Qty: 30 RF: 0 trazodone 50 mg tablet 50 mg PO QHS PRN (Reason: sleep) Qty: 90 RF: 1 Advair HFA 230-21 mcg/actuation HFA aerosol inhaler 2 puff inhalation BID Qty: 12 RF: 0 clonazepam [Klonopin] 1 mg tablet 1 mg PO BID RF: 0 methylphenidate HCl [Concerta] 54 mg tablet extended release 24hr 54 mg PO DAILY RF: 0 aripiprazole [Abilify] PO RF: 0 omeprazole 40 mg capsule,delayed release(DR/EC) 40 mg PO DAILY Qty: 30 RF: 0 fluocinonide 0.05 % cream 1 applic topical BID Qty: 60 RF: 0 fluocinolone and shower cap [Pitman-Smoothe/FS Scalp Oil] 0.01 % oil 1 applic topical .QOD Qty: 118.28 RF: 3 citalopram [Celexa] 40 mg tablet 40 mg PO DAILY Qty: 90 RF: 3 betamethasone, augmented 0.05 % ointment 1 applic topical BID PRN (Reason: Psoriasis) Qty: 50 RF: 6 albuterol sulfate 90 mcg/actuation HFA aerosol inhaler 2 puff inhalation Q6H PRN (Reason: shortness of breath or wheezing) Qty: 6.7 RF: 3 ipratropium-albuterol 0.5 mg-3 mg(2.5 mg base)/3 mL solution for nebulization 3 ml inhalation QID PRN (Reason: wheezing) Qty: 90 RF: 6 clobetasol 0.05 % solution 1 applic topical BID PRN (Reason: Psoriasis) RF: 0 ibuprofen 600 mg tablet 600 mg PO TID PRN (Reason: pain) Qty: 270 RF: 3 acetaminophen [Pain Relief (acetaminophen)] 650 mg tablet extended release 650 mg PO Q8H PRN (Reason: pain) Qty: 270 RF: 3 nicotine 21 mg/24 hr patch 24 hour 1 patch transdermal DAILY Qty: 14 RF: 0 Discontinued levofloxacin 750 mg tablet 750 mg PO DAILY Qty: 7 RF: 0 clindamycin HCl 150 mg capsule 450 mg PO Q6H 7 Days Qty: 84 RF: 0 Discharge Instructions Instructions: Cellulitis (DC) Additional Instructions: do not pick at your skin to avoid open wounds as these may become infected. keep it clean and dry Referrals: [facility] [place] [OTHER] - (Somnambulism) Jonathan Plaza DO [Primary Care Provider] - 08/24/20 1:15 pm Activity:: Activity as Tolerated Equipment/Supplies:: No Equipment Needed Diet:: As Tolerated Discharge Orders Discharge Orders: Discharge Order (Routine); Ordered 08/15/20 Ordered By: Lissette Villa DS: Summary Time Spent with Patient providing and/or coordinating discharge services: Greater than 30 minutes Status at Discharge Functional status at discharge: independent ambulation Overall status at discharge: patient is back to baseline Mental Status: mental status grossly normal Speech and Movement: speech and movement normal Mood: congruent mood Affect: normal affect Exam Narrative Exam Narrative: General: Pleasant obese female, A&Ox3, HEENT: EOMI, MMM Heart: RRR well perfused Lungs: respirations even and unlabored Abdomen: soft, obese, nontender, nondistended; Extremities: LLE with no further erythema, area is resolved. I appreciated no sign of ongoing or new area of infection. Psych Mental Status: mental status grossly normal Speech and Movement: speech and movement normal Mood: congruent mood Affect: normal affect DS: Data Vitals/I&O Vitals and I&O: Vital Signs Temperature 36.5 C 08/15/20 07:30 Temperature Source Temporal Artery Scan 08/15/20 07:30 Pulse 86 08/15/20 07:30 Pulse Rhythm Regular 08/15/20 08:13 Respiratory Rate 19 08/15/20 07:30 Respiratory Effort Non-Labored 08/15/20 08:13 Respiratory Depth Normal 08/15/20 08:13 Respiratory Pattern Normal 08/15/20 08:13 Blood Pressure 118/79 08/15/20 07:30 Blood Pressure Mean 62 08/04/20 18:16 Blood Pressure Position Sitting 08/04/20 15:15 Pulse Oximetry 95 08/15/20 07:30 Oxygen Delivery Method Room Air 08/15/20 07:30 Oxygen Flow Rate 0 08/15/20 07:30 Pain Level 0 08/15/20 07:30 Comment 08/13/20 11:34 Intake & Output 08/14/20 08/14/20 08/15/20 11:59 23:59 11:59 Intake Total 688.333 / 1468.333 780 / 1468.333 0 / 0 Balance 688.333 / 1468.333 780 / 1468.333 0 / 0 Weight 108.3 kg 109.2 kg Intake: IV 448.333 / 868.333 420 / 868.333 0 / 0 Oral 240 / 600 360 / 600 Other: Urine Color Yellow Urine Appearance Clear Urine Odor None Comment Patient reports voids in the toilet. 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 marijuana: t-1, 2 hits Adopted: No Caregiver/Support person: No Foster care: No Household members: significant other and family Housing: other Number of Children: 1 Communication Needs: None Do you need help understanding health information?: Rarely Sexually active: Yes Do you think of yourself as: straight/heterosexual Current gender identity: female What type of physical activity do you participate in: none Do you feel safe at home: Yes Do you feel safe in your relationship?: Yes
--- NOTE | 2020-08-15 16:40 | PDOC.CMDIS ---
- If Service Date Differs Date of service: 08/15/20 Time of Service: 16:40 LACE Index Scoring Tool - Questions: Length of Stay (in days): 7 - 13 Acuity (Admit via E.D.?): Yes E.D. Visits: 7 - Answers: Total Score: 12 Risk of Readmission: High Risk Care Management Discharge Reason for Hospitalization: Left Leg Cellulitis Discharge Plan: Tena will return to the [facility] today with no new services. Her friend will drive her home via private vehicle. She will follow up with her PCP and discharge plan of care. She was feeling uneasy about discharge, but is agreeable that her care can be managed out patient. Patient/Family Education Needs: Review discharge instructions regarding activity levels and medications, discussion of self care needs including ask me three.
== END 2020-08-15 13:13 | disposition home or self-care (01) | DRG 603 ==
LOC: ER 18:12 → MS 19:10
PROVIDERS: Internal Medicine; Nurse Practitioner Acute Care; Nurse Practitioner Family; Admitting Provider Internal Medicine; Emergency Provider Emergency Medicine; PCP Family Medicine; Visit Provider Internal Medicine
DX: L03.116 Cellulitis of left lower limb (principal); D69.41 Evans syndrome; D69.3 Immune thrombocytopenic purpura; Z68.41 Body mass index [BMI] 40.0-44.9, adult; B37.0 Candidal stomatitis; L76.34 Postprocedural seroma of skin and subcutaneous tissue following other procedure; M87.875 Other osteonecrosis, left foot; M87.862 Other osteonecrosis, left tibia; L02.416 Cutaneous abscess of left lower limb; L40.9 Psoriasis, unspecified; Z90.81 Acquired absence of spleen; E87.6 Hypokalemia; L73.2 Hidradenitis suppurativa; G47.61 Periodic limb movement disorder; J45.40 Moderate persistent asthma, uncomplicated; M42.00 Juvenile osteochondrosis of spine, site unspecified; M41.9 Scoliosis, unspecified; F17.210 Nicotine dependence, cigarettes, uncomplicated; E66.9 Obesity, unspecified; F15.11 Other stimulant abuse, in remission; Z20.822 Contact with and (suspected) exposure to COVID-19; B95.61 Methicillin susceptible Staphylococcus aureus infection as the cause of diseases classified elsewhere; F51.3 Sleepwalking [somnambulism]; K59.00 Constipation, unspecified; R10.84 Generalized abdominal pain; L27.0 Generalized skin eruption due to drugs and medicaments taken internally; T36.8X5A Adverse effect of other systemic antibiotics, initial encounter; Y92.230 Patient room in hospital as the place of occurrence of the external cause; R11.10 Vomiting, unspecified
CPT/HCPCS: 36410; 36415; 80048; 80053; 82550; 84145; 85027; 85652; 87040; 87635; 94640; 96361; 96365; 96366; 96375; 99285; J1650; 70450; 71046; 73701; 73723; 80202; 81003; 81015; 81025; 83605; 83735; 84443; 85025; 85049; 86140; 87086; 93971; 99222; 99232; 99233; 99239; 99284; J0131; J0744; J1200; J1885; J2405; J3480; J3490; J7620

== ENCOUNTER 2020-08-27 22:47 | Emergency (ER) | payer MEDICAID, SELFPAY ==
[2020-08-27 23:15] VITALS: BP 119/78; PULSE 108; RESP 20; TEMP 36.8; O2SAT 98
--- NOTE | 2020-08-27 23:15 | DI.RAD_ITS ---
Exam(s) XR TIB/FIB RT EXAM: XR TIB/FIB RT CLINICAL HISTORY: worsening pain proximal fibula. TECHNIQUE: 2D digital imaging was performed. COMPARISON: No exams were available for comparison FINDINGS: There is no evidence of fracture nor dislocation no radiopaque foreign body. No osseous lesions. Gaurav ne density is age-appropriate. IMPRESSION: DATA REPOSITORY: RADIATION DOSE DELIVERED:
--- NOTE | 2020-08-27 23:35 | ED.GENADUL_ITS ---
Discharge Plan Disposition Patient Disposition: HOME Condition: Good Discharge Details Clinical Impression: Pain in right lower leg Primary Care Provider: Jonathan Plaza ED Provider: Johnathon Frederick [place] Meds and New Rx's Prescriptions: New ibuprofen 600 mg tablet 600 mg PO TID PRNQty: 15 RF: 0 Continued calcipotriene 0.005 % ointment 1 applic topical BID RF: 0 Otezla 30 mg tablet 30 mg PO BID RF: 0 Hold Instructions: Changed by Provider trihexyphenidyl 5 mg tablet 5 mg PO QHS Qty: 90 RF: 3 diphenhydramine HCl [Benadryl Allergy] 25 mg tablet 25 mg PO TID PRN (Reason: itching) Qty: 30 RF: 0 trazodone 50 mg tablet 50 mg PO QHS PRN (Reason: sleep) Qty: 90 RF: 1 Advair HFA 230-21 mcg/actuation HFA aerosol inhaler 2 puff inhalation BID Qty: 12 RF: 0 clonazepam [Klonopin] 1 mg tablet 1 mg PO BID RF: 0 methylphenidate HCl [Concerta] 54 mg tablet extended release 24hr 54 mg PO DAILY RF: 0 aripiprazole [Abilify] See Rx Instructions PO .COMPLEX RF: 0 omeprazole 40 mg capsule,delayed release(DR/EC) 40 mg PO DAILY Qty: 30 RF: 0 fluocinonide 0.05 % cream 1 applic topical BID Qty: 60 RF: 0 fluocinolone and shower cap [[place]/FS Scalp Oil] 0.01 % oil 1 applic topical .QOD Qty: 118.28 RF: 3 citalopram [Celexa] 40 mg tablet 40 mg PO DAILY Qty: 90 RF: 3 betamethasone, augmented 0.05 % ointment 1 applic topical BID PRN (Reason: Psoriasis) Qty: 50 RF: 6 albuterol sulfate 90 mcg/actuation HFA aerosol inhaler 2 puff inhalation Q6H PRN (Reason: shortness of breath or wheezing) Qty: 6.7 RF: 3 ipratropium-albuterol 0.5 mg-3 mg(2.5 mg base)/3 mL solution for nebulization 3 ml inhalation QID PRN (Reason: wheezing) Qty: 90 RF: 6 clobetasol 0.05 % solution 1 applic topical BID PRN (Reason: Psoriasis) RF: 0 ibuprofen 600 mg tablet 600 mg PO TID PRN (Reason: pain) Qty: 270 RF: 3 acetaminophen [Pain Relief (acetaminophen)] 650 mg tablet extended release 650 mg PO Q8H PRN (Reason: pain) Qty: 270 RF: 3 nicotine 21 mg/24 hr patch 24 hour 1 patch transdermal DAILY Qty: 14 RF: 0 clotrimazole 10 mg Lauri 10 mg SUC 5X/DAY Qty: 35 RF: 0 Discharge Instructions Additional Instructions: X-ray of your lower leg reveals no bony abnormalities. Pain likely related to compensating with your right leg due to left leg problems. Rest, ice, ibuprofen. Follow-up with orthopedics. Return to ED if increasing redness, swelling, chest pain, shortness of breath, fevers. Referrals: [facility] [Provider Group] Medical Decision Making Patient presenting with right proximal fibular pain with no discrete injury. Has been favoring left leg due to previous cellulitis and osteonecrosis. Was having increased right knee pain which seems better. Has not taken anything for pain. She is given ibuprofen and an x-ray of the right tib-fib is obtained. This is negative per my read as well as preliminary radiology read. There is no fever, redness, swelling, evidence of infection. There is no posterior calf pain or tenderness. Pain is localized to the fibular head on the right. Likely related to overuse and compensation due to left leg problems. She has orthopedics and can follow-up with them. Recommend rest, ice, ibuprofen over the next few days. Return to ED if problems. HPI General Mode of arrival: wheelchair . Date/Time Provider Initiated Documentation: 08/27/20 22:52 . Limitations to Documentation: no limitations . Information obtained by: patient, RN notes reviewed and old records reviewed . HPI Narrative: Patient presents to ED with complaint of right lateral leg pain. Patient reports recent hospitalization for left lower extremity cellulitis and has diagnosis of osteonecrosis of the distal left tibia. She has been favoring the left leg for the last few weeks. She has had increased pain in the right knee which is getting better. Today after playing [employer] and she has developed pain in the right proximal fibular region. She denies any discrete injury. She is having difficulty ambulating with the right leg now. She has no fever or chills. There is no redness or swelling. She has no posterior leg pain. She has no chest pain or shortness of breath. Related Data Home Medications Medication Instructions Recorded Confirmed fluocinonide 0.05 % topical cream 1 applic TOPICAL BID #60 g 12/30/19 08/27/20 omeprazole 40 mg capsule,delayed 40 mg PO DAILY #30 cap 12/30/19 08/27/20 release fluocinolone 0.01 % scalp oil and 1 applic TOPICAL .QOD #118.28 ml 12/31/19 08/27/20 shower cap calcipotriene 0.005 % topical 1 applic TOPICAL BID 01/14/20 08/27/20 ointment apremilast 30 mg tablet 30 mg PO BID 02/15/20 08/27/20 trihexyphenidyl 5 mg tablet 5 mg PO QHS #90 tab 02/15/20 08/27/20 albuterol sulfate 90 mcg/actuation 2 puff INHALATION Q6H PRN #6.7 g 03/02/20 08/27/20 aerosol inhaler betamethasone, augmented 0.05 % 1 applic TOPICAL BID PRN #50 g 03/02/20 08/27/20 topical ointment citalopram 40 mg tablet 40 mg PO DAILY #90 tab 03/02/20 08/27/20 ipratropium 0.5 mg-albuterol 3 mg 3 ml INHALATION QID PRN #90 ml 03/02/20 08/27/20 (2.5 mg base)/3 mL nebulization soln clobetasol 0.05 % scalp solution 1 applic TOPICAL BID PRN 03/27/20 08/27/20 acetaminophen 650 mg 650 mg PO Q8H PRN #270 tab 04/11/20 08/24/20 tablet,extended release ibuprofen 600 mg tablet 600 mg PO TID PRN #270 tab 04/11/20 08/27/20 nicotine 21 mg/24 hr daily 1 patch TRANSDERMAL DAILY #14 ea 04/11/20 08/27/20 transdermal patch trazodone 50 mg tablet 50 mg PO QHS PRN #90 tab 04/17/20 08/27/20 diphenhydramine HCl 25 mg tablet 25 mg PO TID PRN #30 tab 04/18/20 08/27/20 fluticasone propionate 230 2 puff INHALATION BID #12 g 07/26/20 08/27/20 mcg-salmeterol 21 mcg/actuation HFA inhaler clonazepam 1 mg tablet 1 mg PO BID 08/04/20 08/27/20 methylphenidate HCl 54 mg 54 mg PO DAILY 08/04/20 08/27/20 tablet,extended release 24 hr clotrimazole 10 mg SUC 5X/DAY #35 tab 08/15/20 08/27/20 aripiprazole [Abilify] See Rx Instructions PO .COMPLEX 08/24/20 08/24/20 ibuprofen 600 mg PO TID PRN #15 tab 08/28/20 Previous Rx's Medication Instructions Recorded fluocinonide 0.05 % topical cream 1 applic TOPICAL BID #60 g 12/30/19 omeprazole 40 mg capsule,delayed 40 mg PO DAILY #30 cap 12/30/19 release fluocinolone 0.01 % scalp oil and 1 applic TOPICAL .QOD #118.28 ml 12/31/19 shower cap trihexyphenidyl 5 mg tablet 5 mg PO QHS #90 tab 02/15/20 albuterol sulfate 90 mcg/actuation 2 puff INHALATION Q6H PRN #6.7 g 03/02/20 aerosol inhaler betamethasone, augmented 0.05 % 1 applic TOPICAL BID PRN #50 g 03/02/20 topical ointment citalopram 40 mg tablet 40 mg PO DAILY #90 tab 03/02/20 ipratropium 0.5 mg-albuterol 3 mg 3 ml INHALATION QID PRN #90 ml 03/02/20 (2.5 mg base)/3 mL nebulization soln acetaminophen 650 mg 650 mg PO Q8H PRN #270 tab 04/11/20 tablet,extended release ibuprofen 600 mg tablet 600 mg PO TID PRN #270 tab 04/11/20 nicotine 21 mg/24 hr daily 1 patch TRANSDERMAL DAILY #14 ea 04/11/20 transdermal patch trazodone 50 mg tablet 50 mg PO QHS PRN #90 tab 04/17/20 diphenhydramine HCl 25 mg tablet 25 mg PO TID PRN #30 tab 04/18/20 fluticasone propionate 230 2 puff INHALATION BID #12 g 07/26/20 mcg-salmeterol 21 mcg/actuation HFA inhaler clotrimazole 10 mg SUC 5X/DAY #35 tab 08/15/20 ibuprofen 600 mg PO TID PRN #15 tab 08/28/20 Allergies Allergy/AdvReac Type Severity Reaction Status Date / Time ciprofloxacin [From Cipro] Allergy Intermediate rash Verified 08/27/20 23:18 carbamazepine [From Tegretol] Allergy Skin Rash Verified 08/27/20 23:18 cephalexin [From Keflex] Allergy Other (See Verified 08/27/20 23:18 Comment) Sulfa (Sulfonamide Allergy Anaphylaxsi Verified 08/27/20 23:18 Antibiotics) s General Stated Complaint: Orthopedic AKASH: 4 Review of Systems Narrative: As documented in HPI otherwise negative as below. 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 marijuana: t-1, 2 hits Adopted: No Caregiver/Support person: No Foster care: No Household members: significant other and family Housing: other Number of Children: 1 Communication Needs: None Do you need help understanding health information?: Rarely Sexually active: Yes Do you think of yourself as: straight/heterosexual Current gender identity: female What type of physical activity do you participate in: none Do you feel safe at home: Yes Do you feel safe in your relationship?: Yes Exam Narrative Exam Narrative: Const: Obese female in NAD. HEENT: NC/AT. Normal facial exam. Eyes: Normal conjunctiva and sclera. Neck: Supple. Trachea midline. Lungs: Normal respiratory effort. Neuro: A+O x 3. Normal speech, mentation. Cranial nerves II - XII grossly intact. No gross motor or sensory deficit. Ext: No C/C/E. No calf tenderness. Good ROM of right knee. Mild tenderness over the fibular head. No warmth, swelling or erythema noted. Skin: Warm and dry without rash. Course Vital Signs Vital signs: Vital Signs Temperature 98.3 F 08/27/20 23:15 Pulse 108 H 08/27/20 23:15 Respiratory Rate 08/27/20 23:15 Blood Pressure 119/78 08/27/20 23:15 Pulse Oximetry 98 08/27/20 23:15 Temperature 98.3 F 08/27/20 23:15 Temperature Source Oral 08/27/20 23:15 Pulse 108 H 08/27/20 23:15 Respiratory Rate 08/27/20 23:15 Respiratory Effort Non-Labored 08/27/20 23:24 Blood Pressure 119/78 08/27/20 23:15 Pulse Oximetry 98 08/27/20 23:15 Oxygen Delivery Method Room Air 08/27/20 23:15 Oxygen Flow Rate 0 08/27/20 23:15 Pain Level 10 08/27/20 23:15
[2020-08-27] MEDS: Ibuprofen 600 MG TAB PO (23:38)
--- NOTE | 2020-08-28 00:01 | DI.VRAD_ITS ---
PROCEDURE INFORMATION: Exam: XR Right Tibia and Fibula Exam date and time: 08/27/2020 11:30 PM Age: 29 years old Clinical indication: Lower leg; Right; Patient HX: Worsening pain proximal fibula TECHNIQUE: Imaging protocol: XR Right tibia and fibula. Views: 2 views. COMPARISON: No relevant prior studies available. FINDINGS: Bones/joints: No evidence of fracture. Ankle and knee are appropriately located. Soft tissues: Soft tissue swelling noted in the calf. Negative for radiopaque foreign body. IMPRESSION: No acute osseous abnormality. Dictated and Authenticated by: Rajendra Hoyos MD. Ordering:NATHAN Diego MD
== END 2020-08-28 00:45 | disposition home or self-care (01) ==
PROVIDERS: Emergency Provider Emergency Medicine; PCP Family Medicine
DX: M79.661 Pain in right lower leg (principal)
CPT/HCPCS: 99283; 73590

== ENCOUNTER 2020-09-17 17:43 | Emergency (ER) | payer MEDICAID, SELFPAY ==
[2020-09-17 17:58] VITALS: BP 117/58; PULSE 93; RESP 20; TEMP 36.8; O2SAT 95
[2020-09-17 18:25] LABS: Bilirubin Negative (Negative); Blood Negative (Negative); Clarity Sl Cloudy (Clear); Glucose Negative (Negative); Ketones Trace mg/dL (Negative); Leukocyte Esterase Moderate (Negative); Nitrite Negative (Negative); Specific Gravity 1.025 (1.005-1.025); Urobilinogen 0.2 EU/dL (Up TO 0.2)
--- NOTE | 2020-09-17 18:27 | W.ED.GENAD ---
Discharge Plan Disposition Patient Disposition: HOME Condition: Stable Discharge Details Clinical Impression: Chronic knee pain, Acute oral pain Primary Care Provider: Jonathan Plaza ED Provider: Maddison Brice Home Meds and New Rx's Prescriptions: No Action calcipotriene 0.005 % ointment 1 applic topical BID RF: 0 Otezla 30 mg tablet 30 mg PO BID RF: 0 Hold Instructions: Changed by Provider trihexyphenidyl 5 mg tablet 5 mg PO QHS Qty: 90 RF: 3 trazodone 50 mg tablet 50 mg PO QHS PRN (Reason: sleep) Qty: 90 RF: 1 Advair HFA 230-21 mcg/actuation HFA aerosol inhaler 2 puff inhalation BID Qty: 12 RF: 0 clonazepam [Klonopin] 1 mg tablet 1 mg PO BID RF: 0 methylphenidate HCl [Concerta] 54 mg tablet extended release 24hr 54 mg PO DAILY RF: 0 aripiprazole [Abilify] See Rx Instructions PO .COMPLEX RF: 0 omeprazole 40 mg capsule,delayed release(DR/EC) 40 mg PO DAILY Qty: 30 RF: 0 fluocinonide 0.05 % cream 1 applic topical BID Qty: 60 RF: 0 fluocinolone and shower cap [[place]/FS Scalp Oil] 0.01 % oil 1 applic topical .QOD Qty: 118.28 RF: 3 citalopram [Celexa] 40 mg tablet 40 mg PO DAILY Qty: 90 RF: 3 betamethasone, augmented 0.05 % ointment 1 applic topical BID PRN (Reason: Psoriasis) Qty: 50 RF: 6 albuterol sulfate 90 mcg/actuation HFA aerosol inhaler 2 puff inhalation Q6H PRN (Reason: shortness of breath or wheezing) Qty: 6.7 RF: 3 ipratropium-albuterol 0.5 mg-3 mg(2.5 mg base)/3 mL solution for nebulization 3 ml inhalation QID PRN (Reason: wheezing) Qty: 90 RF: 6 diphenhydramine HCl [Benadryl Allergy] 25 mg tablet 25 mg PO TID PRN (Reason: itching) Qty: 90 RF: 0 azithromycin 250 mg tablet See Rx Instructions PO .COMPLEX RF: 0 clobetasol 0.05 % solution 1 applic topical BID PRN (Reason: Psoriasis) RF: 0 acetaminophen [Pain Relief (acetaminophen)] 650 mg tablet extended release 650 mg PO Q8H PRN (Reason: pain) Qty: 270 RF: 3 nicotine 21 mg/24 hr patch 24 hour 1 patch transdermal DAILY Qty: 14 RF: 0 clotrimazole 10 mg Lauri 10 mg SUC 5X/DAY Qty: 35 RF: 0 ibuprofen 600 mg tablet 600 mg PO TID PRNQty: 15 RF: 0 Discharge Instructions Instructions: Aluminum, Magnesium, and Simethicone Antacid (By mouth), Chronic Pain (ED), Gingivostomatitis (ED) Additional Instructions: Follow up with primary care provider in 3-5 days. Return to ED sooner if any worsening or concerns. Increase oral fluids. Follow-up with your specialist as previously instructed with [facility]. Take Magic mouthwash up to 3 times daily as needed for oral pain. Take the tramadol as directed. Referrals: Jonathan Plaza DO [Primary Care Provider] - Discharge Data Discharge Date/Time-TO BE ENTERED AT DEPARTURE: 09/17/20 19:10 Medical Decision Making 29-year-old female past medical history of Payam syndrome, Shermans disease, obesity, asthma Thrombocytic purpura, asthma, osteonecrosis and leg cellulitis presents to the emergency room with multiple complaints. She does report initially with some increase oral pain and red gums which she reports began today, but appears chronic in nature, she also reports bilateral knee pain which has been ongoing for at least 2 weeks. She recently saw her primary care provider 2 days ago and had an EKG to rule out prolonged QT so that she can be started on azithromycin from infectious disease. She also recently had labs drawn 4 days ago. She is being followed by [facility] for the osteonecrosis, and Rheumatology she was recently admitted and discharged from hospital August 15, 2020. This is a complex patient who is being followed by [facility] and her primary care provider for chronic issues. Today she is complaining of oral pain increased redness to the oral mucous membranes and increasing knee pain and concern for possible urinary tract infection. Magic mouthwash 10 mL liters ordered and mixed by senior staff accountant we will give her to go home dose to be instructed to use every 6 hours swish and swallow as needed for oral pain. Urinalysis shows 30 protein, trace ketones negative nitrite moderate leukocytes 10-20 RBCs greater than 50 WBCs however there is many epithelial cells and squamous contamination UDS is negative. Urine culture was added on to the specimen despite squamous contamination due to patient's complaint of questionable UTI and lower back pain. At this time these complaints do appear chronic in nature. Patient's vital signs are stable. Due to patient stating that she is having a hard time walking and moving her knees due to pain we will perform road test status post tramadol administration prior to discharge. I will defer further care to patient's specialists and PCP. Upon reevaluation prior to discharge patient is ambulatory without difficulty patient is received 1 tramadol 50 mg p.o. here in the department. Patient's ride is here. Patient states that she does have the azithromycin that was previously prescribed on 07 September at home she is instructed to take 1 tablet 3 times a week for the next 28 days. Patient initially says that she is not taking the medication, and then patient states to me that she is taking the medication. I did discuss her urinalysis results with her and I did discuss her the need for an antibiotic. I did encourage her to take the previously prescribed antibiotic as directed and to follow-up with primary care provider and or specialist for her chronic medical management. She was given the Magic mouthwash to go and instructed on use and was given to go tramadol tablets. Medical Records Medical records reviewed: Yes I reviewed the patient's medical records. Medical records narrative: Discharge summary reviewed from recent admission, care management has been involved with patient care and patient has been referred to [facility] rheumatology. Did review orthopedics note from the admission at that time of their evaluation they do not need to be any further work-up based on symptoms. I will refer her to orthopedics if needed for continued pain. HPI General Mode of arrival: ambulatory. Date/Time Provider Initiated Documentation: 09/17/20 18:08. Information obtained by: patient. HPI Narrative: 29-year-old female past medical history of Payam syndrome, Scheurmann's disease, obesity, asthma, idiopathic thrombocytopenia purpura, asthma, osteonecrosis and leg cellulitis presents to the emergency room with multiple complaints. She does report initially with some increase oral pain and red gums which she reports began today, but appears chronic in nature, she also reports bilateral knee pain which has been ongoing for at least 2 weeks. She recently saw her primary care provider 2 days ago and had an EKG to rule out prolonged QT so that she can be started on azithromycin from infectious disease. She also recently had labs drawn 4 days ago. She is being followed by [facility] for the osteonecrosis, and Rheumatology she was recently admitted and discharged from hospital August 15, 2020. Related Data Home Medications Medication Instructions Recorded Confirmed fluocinonide 0.05 % topical cream 1 applic TOPICAL BID #60 g 12/30/19 09/15/20 omeprazole 40 mg capsule,delayed 40 mg PO DAILY #30 cap 12/30/19 09/15/20 release fluocinolone 0.01 % scalp oil and 1 applic TOPICAL .QOD #118.28 ml 12/31/19 09/15/20 shower cap calcipotriene 0.005 % topical 1 applic TOPICAL BID 01/14/20 09/15/20 ointment apremilast 30 mg tablet 30 mg PO BID 02/15/20 09/15/20 trihexyphenidyl 5 mg tablet 5 mg PO QHS #90 tab 02/15/20 09/15/20 albuterol sulfate 90 mcg/actuation 2 puff INHALATION Q6H PRN #6.7 g 03/02/20 09/15/20 aerosol inhaler betamethasone, augmented 0.05 % 1 applic TOPICAL BID PRN #50 g 03/02/20 09/15/20 topical ointment citalopram 40 mg tablet 40 mg PO DAILY #90 tab 03/02/20 09/15/20 ipratropium 0.5 mg-albuterol 3 mg 3 ml INHALATION QID PRN #90 ml 03/02/20 09/15/20 (2.5 mg base)/3 mL nebulization soln clobetasol 0.05 % scalp solution 1 applic TOPICAL BID PRN 03/27/20 09/15/20 acetaminophen 650 mg 650 mg PO Q8H PRN #270 tab 04/11/20 09/15/20 tablet,extended release nicotine 21 mg/24 hr daily 1 patch TRANSDERMAL DAILY #14 ea 04/11/20 09/15/20 transdermal patch trazodone 50 mg tablet 50 mg PO QHS PRN #90 tab 04/17/20 09/15/20 fluticasone propionate 230 2 puff INHALATION BID #12 g 07/26/20 09/15/20 mcg-salmeterol 21 mcg/actuation HFA inhaler clonazepam 1 mg tablet 1 mg PO BID 08/04/20 09/15/20 methylphenidate HCl 54 mg 54 mg PO DAILY 08/04/20 09/15/20 tablet,extended release 24 hr clotrimazole 10 mg SUC 5X/DAY #35 tab 08/15/20 09/15/20 aripiprazole [Abilify] See Rx Instructions PO .COMPLEX 08/24/20 09/15/20 ibuprofen 600 mg PO TID PRN #15 tab 08/28/20 09/15/20 azithromycin 250 mg tablet See Rx Instructions PO .COMPLEX 09/12/20 09/15/20 diphenhydramine HCl 25 mg tablet 25 mg PO TID PRN #90 tab 09/12/20 09/15/20 Previous Rx's Medication Instructions Recorded fluocinonide 0.05 % topical cream 1 applic TOPICAL BID #60 g 12/30/19 omeprazole 40 mg capsule,delayed 40 mg PO DAILY #30 cap 12/30/19 release fluocinolone 0.01 % scalp oil and 1 applic TOPICAL .QOD #118.28 ml 12/31/19 shower cap trihexyphenidyl 5 mg tablet 5 mg PO QHS #90 tab 02/15/20 albuterol sulfate 90 mcg/actuation 2 puff INHALATION Q6H PRN #6.7 g 03/02/20 aerosol inhaler betamethasone, augmented 0.05 % 1 applic TOPICAL BID PRN #50 g 03/02/20 topical ointment citalopram 40 mg tablet 40 mg PO DAILY #90 tab 03/02/20 ipratropium 0.5 mg-albuterol 3 mg 3 ml INHALATION QID PRN #90 ml 03/02/20 (2.5 mg base)/3 mL nebulization soln acetaminophen 650 mg 650 mg PO Q8H PRN #270 tab 04/11/20 tablet,extended release nicotine 21 mg/24 hr daily 1 patch TRANSDERMAL DAILY #14 ea 04/11/20 transdermal patch trazodone 50 mg tablet 50 mg PO QHS PRN #90 tab 04/17/20 fluticasone propionate 230 2 puff INHALATION BID #12 g 07/26/20 mcg-salmeterol 21 mcg/actuation HFA inhaler clotrimazole 10 mg SUC 5X/DAY #35 tab 08/15/20 ibuprofen 600 mg PO TID PRN #15 tab 08/28/20 diphenhydramine HCl 25 mg tablet 25 mg PO TID PRN #90 tab 09/12/20 Allergies Allergy/AdvReac Type Severity Reaction Status Date / Time ciprofloxacin [From Cipro] Allergy Intermediate rash Verified 09/17/20 18:14 carbamazepine [From Tegretol] Allergy Skin Rash Verified 09/17/20 18:14 cephalexin [From Keflex] Allergy Other (See Verified 09/17/20 18:14 Comment) Sulfa (Sulfonamide Allergy Anaphylaxsi Verified 09/17/20 18:14 Antibiotics) s General Stated Complaint: GenMedical AKASH: 3 Review of Systems Narrative: Patient is a poor historian, does have multiple complaints, flight of ideas, main complaint upon my initial exam is oral pain and knee pain All systems reviewed & are unremarkable except as noted in HPI and below Constitutional Constitutional: Reports as per HPI Cardiovascular Cardiovascular: Denies chest pain and Reports dyspnea (Chronic) Respiratory Respiratory: Denies pain on inspiration, Reports dyspnea (Chronic), Denies stridor and Denies wheezing Gastrointestinal Gastrointestinal: Denies abdominal pain Musculoskeletal Musculoskeletal: Reports arthralgias (Bilateral Hx of Osteonecrosis) and Denies loss of height Integumentary/Breasts Skin/Breast: Reports rash (Chronic) Allergic/Immunologic Allergic/Immunologic: Denies wheezing [facility] Medical History (Updated 09/17/20 @ 20:04 by Maddison Brice) Abdominal adhesions Asthma Axillary hidradenitis suppurativa Ye syndrome History of drug abuse Clean for 17 months-Meth Idiopathic thrombocytopenic purpura Moderate persistent asthma Obesity Periodic limb movement disorder Polyarthritis Portal vein thrombosis Abd CT 03/03/19 [facility]; liver shows low-density at posterior segment superiorly suggesting portal vein clot, without parenchymal abnormality. 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 complicated by postOp infection in wound bed and L empyema Social History Smoking/Tobacco Use Status: Current every day Tobacco Type: cigarettes Smoking risk assessment performed?: Yes Alcohol Intake: current Alcohol Intake frequency: holidays/special occasions only Alcohol type: wine Drug use: Rarely Substance use type: marijuana Adopted: No Caregiver/Support person: No Foster care: No Household members: significant other and family Housing: other Number of Children: 1 Communication Needs: None Do you need help understanding health information?: Rarely Sexually active: Yes Do you think of yourself as: straight/heterosexual Current gender identity: female What type of physical activity do you participate in: none Do you feel safe at home: Yes Do you feel safe in your relationship?: Yes Exam Narrative Exam Narrative: Constitutional: Alert and oriented x3. Appears stated age. Normal body habitus. Head: Normocephalic, no trauma. Eyes: Pupils PERRLA, Red reflex noted, EOM's intact. Eyelids symmetrical without lesions, discharge, or swelling. ENT: Bilateral TM's WNL, External ear normal to inspection, no mastoid TTP, swelling, or erythema, Nasal turbinates WNL, no nasal discharge. Poor dentition, beefy red gums, no signs of thrush, posterior pharynx erythemic, beefy red, uvula midline, no exudate. Chest: RRR, Normal S1, S2, distal pulses intact. Resp: Lungs clear to auscultation bilaterally, no wheezes, rales, or rhonchi. Musculoskeletal: Normal gait, 5/5 strength to all four extremities. Skin: Patient has a generalized rash appears to be excoriations, does have a small area of 1 cm x 1 cm erythema, and induration to the left flank with a central scab tender to palpation. No area of fluctuance palpated. Capillary refill less than 2 sec. Neurologic: Cranial nerves II-XII intact. Alert and oriented x 3. DTR's intact. Patient has flight of ideas. Hematologic/Lymphatic: No ecchymosis, no lymphadenopathy. Psych Thought Process: flight of ideas Course Vital Signs Vital signs: Vital Signs Temperature 36.8 C 09/17/20 17:58 Pulse 93 H 09/17/20 17:58 Respiratory Rate 20 09/17/20 17:58 Blood Pressure 117/58 L 09/17/20 17:58 Pulse Oximetry 95 09/17/20 17:58 Temperature 36.8 C 09/17/20 17:58 Temperature Source Skin 09/17/20 17:58 Pulse 93 H 09/17/20 17:58 Respiratory Rate 20 09/17/20 17:58 Blood Pressure 117/58 L 09/17/20 17:58 Pulse Oximetry 95 09/17/20 17:58 Oxygen Delivery Method Room Air 09/17/20 17:58 Oxygen Flow Rate 0 09/17/20 17:58 Pain Level 10 09/17/20 17:58 Comment 09/17/20 17:58 Lab/Test Results Lab/Test Results: Laboratory Tests Range/Units 09/17/20 18:15 Urine Color (Yellow) Yellow Urine Clarity (Clear) Sl Cloudy Urine pH (5-8) 6.0 Ur Specific [place] (1.005-1.025) 1.025 Urine Protein (Negative) mg/dL 30 H Urine Ketones (Negative) mg/dL Trace H Urine Blood (Negative) Negative Urine Nitrite (Negative) Negative Urine Bilirubin (Negative) Negative Urine Urobilinogen (Up TO 0.2) EU/dL 0.2 Ur Leukocyte Esterase (Negative) Moderate H Urine Glucose (Negative) mg/dL Negative POC- Test(urine) Negative
[2020-09-17] MEDS: Magic Mouthwash 119 ML BTL 10 ML PO (18:35)
[2020-09-17 18:40] LABS: Bacteria Moderate HPF (Negative); C & S Indicated? No/Sq. Contamination; Crystals Negative HPF (Negative); Epithelial Cells Many HPF (Negative); Mucus Negative (Negative); WBC >50 HPF (0-5)
[2020-09-17 18:51] LABS: *AMPHETAMINES SCREEN URINE Negative (Negative); *BARBITURATES SCREEN URINE Negative (Negative); *BENZODIAZEPINES SCREEN URINE Negative (Negative); Cannabinoids THC Negative (Negative); Cocaine Screen,Urine Negative (Negative); METHADONE URINE SCREEN Negative (Negative); OPIATES URINE SCREEN Negative (Negative)
[2020-09-17 18:53] LABS: Tricyclic Antidepressants Negative (Negative)
[2020-09-17] MEDS: traMADol 50 MG TAB PO (19:10)
== END 2020-09-17 19:10 | disposition home or self-care (01) ==
PROVIDERS: Emergency Provider Registered Nurse Emergency; PCP Family Medicine
DX: M25.562 Pain in left knee (principal); M25.561 Pain in right knee; G89.29 Other chronic pain; K13.79 Other lesions of oral mucosa; M54.5 Low back pain
CPT/HCPCS: 80307; 81025; 99283; 81003; 81015; 87086; 99284; G0378

== ENCOUNTER 2020-09-18 13:09 | Observation (INO) | payer MEDICAID, SELFPAY ==
[2020-09-18] VITALS (51 sets, daily range): BP systolic 82–118; BP diastolic 25–84; PULSE 98–145; RESP 12–54; TEMP 37.9–40.1; O2SAT 85–97
--- NOTE | 2020-09-18 13:00 | RT.EKG_ITS ---
APPROVED REPORT Exam: Resting ECG Reason for Exam: INCREASED SOB Patient Location: E HR:108 bpm ECG Measurements Heart Rate 108 AXIS SC 129 P 56 QRSd 87 QRS 56 QT 318 T 28 QTc 428 Conclusion Sinus tachycardia...rate> 99 sinus tachycardia 108, normal axis, no STEMI, non-diagnostic EKG
--- NOTE | 2020-09-18 13:15 | DI.RAD_ITS ---
Exam(s) XR PORTABLE CHEST AP EXAM: XR PORTABLE CHEST AP CLINICAL HISTORY: SOB, cough. TECHNIQUE: 2D digital imaging was performed. COMPARISON: CR,XR XR CHEST 2V PA LATERAL from 08/13/[address] CHEST PE CTA from 09/18/[address] CHEST PE CTA from 09/18/2020 FINDINGS: Heart size is normal. Slight prominence of the right hilum is noted. This may be exaggerated by the portable lordotic technique. There is nodular density in the lateral aspect the right lung base. IMPRESSION: Nodular density noted in the lateral right lung base Slightly enlarged right hilum. See chest CT scan report DATA REPOSITORY: RADIATION DOSE DELIVERED: All CT scans at this facility use at least one of these dose optimization techniques: automated exposure control; mA and/or kV adjustment per patient size (includes targeted e xams where dose is matched to clinical indication); or iterative reconstruction.
[2020-09-18] MEDS: Normal Saline 1,000 ML 1000 ML IV ×2 (13:30→17:00)
--- NOTE | 2020-09-18 13:45 | DI.CT_ITS ---
Exam(s) CT CHEST PE CTA EXAM: CT CHEST PE CTA CLINICAL HISTORY: SOB, fever, cough. TECHNIQUE: Imaging Protocol: CT angiography of the chest was performed using pulmonary embolus hui col. Multi planar reconstructions were performed. CONTRAST MATERIAL: Intravenous: Omnipaque 350 Contrast volume: 100 cc COMPARISON: CT CT CHEST PE ABD PELVIS W from 07/31/2020 FINDINGS: CHEST: PULMONARY ARTERIES: Less than optimal bolus injection. There are no central emboli but it is difficu lt to determine patency of the pulmonary arteries more distally beyond the 2nd order branches. LUNGS: There is a 1.7 x 1.6 cm pleural-based nodule in the right lower lobe, noncalcified. Smaller n odule also seen higher up in the right lower lobe measuring 7 x 6 millimeters and another smaller nod ule lower down the right lower lobe measuring 6 x 6 5 millimeters. There is also a 5 x 4 millimeter right parahilar nodule. In the opposite-left lung there is a pleural base nodule measuring 1.4 x 1 p oint 2 cm in the medial aspect of the posterior basal segment of the left lower lobe. Also a small 4 millimeter nodule in the sub apical aspect of the left upper lobe.. There are no pleural effusions. MEDIASTINUM: There is slightly enlarged lymph nodes in the hilar regions and subcarinal regions. No axillary adenopathy. Visualized thyroid unremarkable. CARDIAC: Heart size is upper normal. There is no pericardial effusion.Caliber of the thoracic aorta is within normal limits. There is an aberrant right subclavian artery passes to the right side screener and blender iorly between esophagus and thoracic vertebra. There is no significant shift of the interventricular septum. PARTIALLY VISUALIZED UPPERMOST ABDOMEN: No obvious adrenal masses but there appears to be para-aortic adenopathy OSSEOUS: No significant osseous lesions.. IMPRESSION: 1. No central pulmonary emboli. Suboptimal bolus position does not allow evaluation of more peripher al pulmonary arteries.. 2. Significant nodules in both lungs as described above. Suspect metastatic disease. 3. No pleural effusions. However, there are small lymph nodes in both hilar regions and subcarinal r egion. Aberrant right subclavian artery incidentally noted. Significant para-aortic adenopathy noted in the abdomen. RADIATION DOSE DELIVERED: 605.97mGy.cm Total DLP DATA REPOSITORY: All CT scans at this facility are submitted to the National Radiology Data Registry (NRDR) Dose Index Registry (DIR) with the [employer] (A[employer]). RADIATION OPTIMIZATION: All CT scans at this facility use at least one of these dose optimization te chniques: automated exposure control; mA and/or kV adjustment per patient size (includes targeted exa ms where dose is matched to clinical indication); or iterative reconstruction.
[2020-09-18 14:37] LABS: Abs Immature Grans 0.06 10^3/uL (0.0-0.06); Absolute Basophil Count 0.07 10^3/uL (0.0-0.2); Absolute Eosinophil Count 0.59 10^3/uL (0.0-0.7); Absolute Lymphocyte Count 1.43 10^3/uL (1.2-3.4); Absolute Monocyte Count 0.62 10^3/uL (0.1-0.8); Absolute Neutrophil Count 6.77 10^3/uL (1.2-6.7); Basophils % 0.7; Eosinophils % 6.2; HCT 45.1 % (36.0-46.0); HGB 14.5 g/dL (11.2-15.7); Immature Grans % 0.6; MCH 30.7 pg (27.0-33.0); MCHC 32.2 % (32.0-36.0); MCV 95.6 fL (80-95); MPV 9.3 fL (8.0-11.0); Monocytes % 6.5; Nucleated RBC 0 %; Platelet Count 292 10^3/uL (130-400); RBC 4.72 10^6/uL (3.93-5.22); RDW 14.5 % (11.7-14.6); RDW-SD 51.3 fL; WBC 9.54 10^3/uL (4.4-10.8)
[2020-09-18 14:39] LABS: ESR 6 mm/hr (0-20)
[2020-09-18 14:53] LABS: Source Nasal/Nares
[2020-09-18 14:56] LABS: Bilirubin Negative (Negative); Blood Negative (Negative); Clarity Sl Cloudy (Clear); Glucose Negative (Negative); Ketones Negative (Negative); Leukocyte Esterase Large (Negative); Nitrite Negative (Negative); Specific Gravity 1.025 (1.005-1.025); Urobilinogen 0.2 EU/dL (Up TO 0.2)
[2020-09-18 14:56] LABS: ALT 46 U/L (14-59); AST 34 U/L (15-37); Albumin 3.1 g/dL (3.4-5.0); Alkaline Phosphatase 164 U/L (46-116); Anion Gap 7.1 mmol/L (3-11); BUN 13 mg/dL (7-18); Bilirubin, Total 0.4 mg/dL (0.2-1.0); C-Reactive Protein 1.38 mg/dL (0.0-0.3); CO2 26.9 mmol/L (21.0-32.0); CREATININE 0.9 mg/dL (0.55-1.02); Calcium 8.1 mg/dL (8.5-10.1); Chloride 107 mmol/L (98-107); Glucose 86 mg/dL (74-106); Potassium 3.8 mmol/L (3.5-5.1); Sodium 141 mmol/L (136-145); Total Protein 5.6 g/dL (6.4-8.2)
[2020-09-18 15:07] LABS: Bacteria Many HPF (Negative); C & S Indicated? No/Sq. Contamination; Casts Negative LPF (Negative); Crystals Negative HPF (Negative); Epithelial Cells Many HPF (Negative); Mucus Negative (Negative); RBC 0-2 HPF (0-2); WBC >50 HPF (0-5)
--- NOTE | 2020-09-18 15:29 | ED.GENADUL_ITS ---
Discharge Plan Disposition Patient Disposition: [facility] INPATIENT Condition: Fair Discharge Details Chief Complaint: Fever Clinical Impression: Fever, UTI (urinary tract infection) Admit Date/Time: 09/18/20 17:39 Admit Provider: Joni Baker Attending Provider: Joni Baker Primary Care Provider: Jonathan Plaza ED Provider: Linsey Hernandez Discharge Instructions Activity:: Activity as Tolerated Equipment/Supplies:: No Equipment Needed Diet:: Normal Diet Discharge Orders Discharge Orders: Discharge Order (Routine); Ordered 09/21/20 Ordered By: Martin Harris Discharge Data Discharge Date/Time-TO BE ENTERED AT DEPARTURE: 09/18/20 18:35 Medical Decision Making Tena Mcdaniel is a 29 y/o with complicated medical hx presenting to the emergency department c/o feeling generally unwell, SOB, with pain in all joints. Febrile. Several areas of mild cellulitis over back without abscess. No meningismus. Benign abd exam. Concern for fever of unknown origin, possible cellulitis vs PNA vs COVID vs UTI vs other. Possible severe infection including early sepsis, endocarditis. Doubt acute bony infection or pathology given diffuse nature of complaint without localizing joint symptoms. Exam/hx at this time not c/w meningitis, acute coronary syndrome, acute aortic pathology. Plan for EKG, CXR, screening labs, IV placement, IVF hydration, telemetry. Will monitor and reassess. Labs reviewed, no leukocystosis, no anemia, normal lactate. Normal Cr. CT chest shows multiple nodules, no PNA. UA concerning for UTI. Plan for broad spectrum abx as presenting symptoms not necessarily consistent with UTI. Plan for admission. Medical Records Medical records reviewed: Yes I reviewed the patient's medical records. Imaging Data Radiologic Study: Attestation: I personally reviewed and interpreted this imaging study as follows: Radiologist's impression: EXAM: XR PORTABLE CHEST AP CLINICAL HISTORY: SOB, cough. TECHNIQUE: 2D digital imaging was performed. COMPARISON: CR,XR XR CHEST 2V PA LATERAL from 08/13/[address] CHEST PE CTA from 09/18/[address] CHEST PE CTA from 09/18/2020 FINDINGS: Heart size is normal. Slight prominence of the right hilum is noted. This may be exaggerated by the portable lordotic technique. There is nodular density in the lateral aspect the right lung base. IMPRESSION: Nodular density noted in the lateral right lung base Slightly enlarged right hilum. See chest CT scan report EXAM: CT CHEST PE CTA CLINICAL HISTORY: SOB, fever, cough. TECHNIQUE: Imaging Protocol: CT angiography of the chest was performed using pulmonary embolus protocol. Multi planar reconstructions were performed. CONTRAST MATERIAL: Intravenous: Omnipaque 350 Contrast volume: 100 cc COMPARISON: CT CT CHEST PE ABD PELVIS W from 07/31/2020 FINDINGS: CHEST: PULMONARY ARTERIES: Less than optimal bolus injection. There are no central emboli but it is difficult to determine patency of the pulmonary arteries more distally beyond the 2nd order branches. LUNGS: There is a 1.7 x 1.6 cm pleural-based nodule in the right lower lobe, noncalcified. Smaller nodule also seen higher up in the right lower lobe measuring 7 x 6 millimeters and another smaller nodule lower down the right lower lobe measuring 6 x 6 5 millimeters. There is also a 5 x 4 millimeter right parahilar nodule. In the opposite-left lung there is a pleural base nodule measuring 1.4 x 1 point 2 cm in the medial aspect of the posterior basal segment of the left lower lobe. Also a small 4 millimeter nodule in the sub apical aspect of the left upper lobe.. There are no pleural effusions. MEDIASTINUM: There is slightly enlarged lymph nodes in the hilar regions and subcarinal regions. No axillary adenopathy. Visualized thyroid unremarkable. CARDIAC: Heart size is upper normal. There is no pericardial effusion.Caliber of the thoracic aorta is within normal limits. There is an aberrant right subclavian artery passes to the right side posteriorly between esophagus and thoracic vertebra. There is no significant shift of the interventricular septum. PARTIALLY VISUALIZED UPPERMOST ABDOMEN: No obvious adrenal masses but there appears to be para-aortic adenopathy OSSEOUS: No significant osseous lesions.. IMPRESSION: 1. No central pulmonary emboli. Suboptimal bolus position does not allow evaluation of more peripheral pulmonary arteries.. 2. Significant nodules in both lungs as described above. Suspect metastatic disease. 3. No pleural effusions. However, there are small lymph nodes in both hilar regions and subcarinal region. Aberrant right subclavian artery incidentally noted. Significant para-aortic adenopathy noted in the abdomen. Lab Data Lab results reviewed: Yes I reviewed the patient's lab results. ECG Data Attestation: I personally reviewed and interpreted this ECG (s) as follows: Interpretation: EKG shows sinus tachycardia 108, normal axis, no STEMI, non- diagnostic EKG HPI General Mode of arrival: EMS . Date/Time Provider Initiated Documentation: 09/18/20 13:15 . Limitations to Documentation: no limitations . Information obtained by: patient, RN notes reviewed and old records reviewed . HPI Narrative: Tena Mcdaniel is a 29-year-old old with an, with history of asthma, s/p splenectomy, Ye syndrome, psoriasis, hidradenitis suppurativa, IV drug use in the past who is presenting to the department emergency for generalized joint pain. Pt reports that since this morning she has had generalized joint pain, SOB, headache, and generalized weakness. Pt repeatedly states that she hurts everywhere. Does not localize pain beyond stating all of my joints hurt, I hurt all over. Reports cough since yesterday. Denies abdominal pain, vomiting, diarrhea. Reports chronic rash over back that she reports is from picking at her psoriasis. Pt febrile in triage, denies fever at home. Pt reports poor PO intake 2/2 feeling generally unwell. Denies any IVDU within the past year. Related Data Home Medications Medication Instructions Recorded Confirmed fluocinonide 0.05 % topical cream 1 applic TOPICAL BID #60 g 12/30/19 09/18/20 omeprazole 40 mg capsule,delayed 40 mg PO DAILY #30 cap 12/30/19 09/18/20 release fluocinolone 0.01 % scalp oil and 1 applic TOPICAL .QOD #118.28 ml 12/31/19 09/18/20 shower cap calcipotriene 0.005 % topical 1 applic TOPICAL BID 01/14/20 09/18/20 ointment apremilast 30 mg tablet 30 mg PO BID 02/15/20 09/18/20 trihexyphenidyl 5 mg tablet 5 mg PO QHS #90 tab 02/15/20 09/18/20 albuterol sulfate 90 mcg/actuation 2 puff INHALATION Q6H PRN #6.7 g 03/02/20 0 09/18/20 aerosol inhaler betamethasone, augmented 0.05 % 1 applic TOPICAL BID PRN #50 g 03/02/20 09/18/20 topical ointment citalopram 40 mg tablet 40 mg PO DAILY #90 tab 03/02/20 09/18/20 ipratropium 0.5 mg-albuterol 3 mg 3 ml INHALATION QID PRN #90 ml 03/02/20 09/18/20 (2.5 mg base)/3 mL nebulization soln clobetasol 0.05 % scalp solution 1 applic TOPICAL BID PRN 03/27/20 09/18/20 acetaminophen 650 mg 650 mg PO Q8H PRN #270 tab 04/11/20 09/15/20 tablet,extended release nicotine 21 mg/24 hr daily 1 patch TRANSDERMAL DAILY #14 ea 04/11/20 09/18/20 transdermal patch trazodone 50 mg tablet 50 mg PO QHS PRN #90 tab 04/17/20 09/18/20 fluticasone propionate 230 2 puff INHALATION BID #12 g 07/26/20 09/18/20 mcg-salmeterol 21 mcg/actuation HFA inhaler clonazepam 1 mg tablet 1 mg PO BID 08/04/20 09/18/20 methylphenidate HCl 54 mg 54 mg PO DAILY 08/04/20 09/18/20 tablet,extended release 24 hr clotrimazole 10 mg SUC 5X/DAY #35 tab 08/15/20 09/18/20 aripiprazole [Abilify] See Rx Instructions PO .COMPLEX 08/24/20 09/18/20 ibuprofen 600 mg PO TID PRN #15 tab 08/28/20 09/18/20 azithromycin 250 mg tablet See Rx Instructions PO .COMPLEX 09/12/20 09/18/20 diphenhydramine HCl 25 mg tablet 25 mg PO TID PRN #90 tab 09/12/20 09/18/20 apremilast [Otezla] 30 mg PO BID 09/20/20 09/20/20 Previous Rx's Medication Instructions Recorded fluocinonide 0.05 % topical cream 1 applic TOPICAL BID #60 g 12/30/19 omeprazole 40 mg capsule,delayed 40 mg PO DAILY #30 cap 12/30/19 release fluocinolone 0.01 % scalp oil and 1 applic TOPICAL .QOD #118.28 ml 12/31/19 shower cap trihexyphenidyl 5 mg tablet 5 mg PO QHS #90 tab 02/15/20 albuterol sulfate 90 mcg/actuation 2 puff INHALATION Q6H PRN #6.7 g 03/02/20 aerosol inhaler betamethasone, augmented 0.05 % 1 applic TOPICAL BID PRN #50 g 03/02/20 topical ointment citalopram 40 mg tablet 40 mg PO DAILY #90 tab 03/02/20 ipratropium 0.5 mg-albuterol 3 mg 3 ml INHALATION QID PRN #90 ml 03/02/20 (2.5 mg base)/3 mL nebulization soln acetaminophen 650 mg 650 mg PO Q8H PRN #270 tab 04/11/20 tablet,extended release nicotine 21 mg/24 hr daily 1 patch TRANSDERMAL DAILY #14 ea 04/11/20 transdermal patch trazodone 50 mg tablet 50 mg PO QHS PRN #90 tab 04/17/20 fluticasone propionate 230 2 puff INHALATION BID #12 g 07/26/20 mcg-salmeterol 21 mcg/actuation HFA inhaler clotrimazole 10 mg SUC 5X/DAY #35 tab 08/15/20 ibuprofen 600 mg PO TID PRN #15 tab 08/28/20 diphenhydramine HCl 25 mg tablet 25 mg PO TID PRN #90 tab 09/12/20 Allergies Allergy/AdvReac Type Severity Reaction Status Date / Time ciprofloxacin [From Cipro] Allergy Intermediate rash Verified 09/18/20 14:09 carbamazepine [From Tegretol] Allergy Skin Rash Verified 09/18/20 14:09 cephalexin [From Keflex] Allergy Other (See Verified 09/18/20 14:09 Comment) Sulfa (Sulfonamide Allergy Anaphylaxsi Verified 09/18/20 14:09 Antibiotics) s General Stated Complaint: Fever AKASH: 2 Review of Systems Narrative: Constitutional: denies fevers Eyes: denies eye pain ENT: denies ear pain, dental pain, sore throat Cardiovascular: denies chest pain, edema Respiratory: reports SOB, mild chronic cough GI: denies abdominal pain, vomiting, diarrhea : denies flank pain MSK: denies back pain, neck pain, reports generalized arthralgias, myalgias Skin: reports rash over back Neuro: denies numbness, weakness, reports headache (not the worst of her life, coming and going) [facility] Medical History Abdominal adhesions Asthma Axillary 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 complicated by postOp infection in wound bed and L empyema Social History Smoking/Tobacco Use Status: Current every day Tobacco Type: cigarettes Smoking risk assessment performed?: Yes Alcohol Intake: never Drug use: Rarely Substance use type: marijuana Adopted: No Caregiver/Support person: No Foster care: No Household members: significant other and family Housing: other Number of Children: 1 Communication Needs: None Do you need help understanding health information?: Rarely Sexually active: Yes Do you think of yourself as: straight/heterosexual Current gender identity: female What type of physical activity do you participate in: none Do you feel safe at home: Yes Do you feel safe in your relationship?: Yes Exam Narrative Exam Narrative: Constitutional: appears somewhat agitated, repeatedly complaining of pain in all joints HENT: head atraumatic/normocephalic/normal inspection, mucous membranes moist, no intra-oral erythema or lesion Eyes: conjunctiva normal, sclera normal, pupils 3mm b/l Neck: no stridor, full painless ROM, trachea midline, no meningismus Chest: normal inspection Resp: normal work of breathing, LCTAB Cardio: tachycardic rate, normal rhythm, no murmur appreciated GI: abdomen soft, non-tender, non-distended Back: normal inspection, no rash Skin: warm, dry, normal color, several areas of erythema over back with central ulcerations, largest 3x5cm over left back with scant drainage, no fluctuance, mildly TTP Neuro: alert, not altered, grossly non-focal, normal tone Ext: no edema, no posterior calf TTP, no knee or elbow effusions, b/l knees diffusely TTP, ranging normally, no overlying skin changes Psych: normal mood, normal affect, normal behavior Course Vital Signs Vital signs: Vital Signs Respiratory Rate 24 09/18/20 13:52 Pulse Oximetry 90 L 09/18/20 13:52 Temperature 38.9 C H 09/18/20 14:02 Temperature Source Skin 09/18/20 14:02 Pulse 107 H 09/18/20 15:00 Pulse 106 H 09/18/20 15:01 Respiratory Rate 28 H 09/18/20 15:01 Respiratory Effort 09/18/20 14:02 Blood Pressure 104/84 09/18/20 15:00 Blood Pressure Mean 89 09/18/20 15:00 Blood Pressure Position Supine 09/18/20 14:02 Pulse Oximetry 94 09/18/20 15:01 Oxygen Delivery Method Room Air 09/18/20 14:02 Oxygen Flow Rate 0 09/18/20 14:02 Pain Level 10 09/18/20 14:02 Lab/Test Results Lab/Test Results: 09/18/20 14:34 Blood Blood Culture - Pending 09/18/20 14:34 Blood Blood Culture - Pending Laboratory Tests Range/Units 09/18/20 09/18/20 09/18/20 14:32 14:32 14:32 WBC (4.4-10.8) 10^3/uL RBC (3.93-5.22) 10^6/uL Hgb (11.2-15.7) g/dL Hct (36.0-46.0) % MCV (80-95) fL MCH (27.0-33.0) pg MCHC (32.0-36.0) % RDW (11.7-14.6) % Plt Count (130-400) 10^3/uL MPV (8.0-11.0) fL Immature Gran % Neutrophils % Lymphocytes % Monocytes % Eosinophils % Basophils % Nucleated RBC % % Absolute Neutrophils (1.2-6.7) 10^3/uL Absolute Lymphocytes (1.2-3.4) 10^3/uL Absolute Monocytes (0.1-0.8) 10^3/uL Absolute Eosinophils (0.0-0.7) 10^3/uL Absolute Basophils (0.0-0.2) 10^3/uL ESR (0-20) mm/hr 6 VBG Lactate (0.6-1.4) mmol/L 1.0 Sodium (136-145) mmol/L 141 Potassium (3.5-5.1) mmol/L 3.8 Chloride (98-107) mmol/L 107 Carbon Dioxide (21.0-32.0) mmol/L 26.9 Anion Gap (3-11) mmol/L 7.1 BUN (7-18) mg/dL 13 Creatinine (0.55-1.02) mg/dL 0.9 Estimated GFR/1.73 m2 (mL/min/1.73m2) >= 60.00 Glucose (74-106) mg/dL 86 Calcium (8.5-10.1) mg/dL 8.1 L Total Bilirubin (0.2-1.0) mg/dL 0.4 AST (15-37) U/L 34 ALT (14-59) U/L 46 Alkaline Phosphatase (46-116) U/L 164 H C-Reactive Protein (0.0-0.3) mg/dL 1.38 H Total Protein (6.4-8.2) g/dL 5.6 L Albumin (3.4-5.0) g/dL 3.1 L Urine Color (Yellow) Urine Clarity (Clear) Urine pH (5-8) Ur Specific [place] (1.005-1.025) Urine Protein (Negative) mg/dL Urine Ketones (Negative) mg/dL Urine Blood (Negative) Urine Nitrite (Negative) Urine Bilirubin (Negative) Urine Urobilinogen (Up TO 0.2) EU/dL Ur Leukocyte Esterase (Negative) Urine RBC (0-2) HPF Urine WBC (0-5) HPF Ur Epithelial Cells (Negative) HPF Urine Crystals (Negative) HPF Urine Bacteria (Negative) HPF Urine Casts (Negative) LPF Urine Mucus (Negative) Ur Culture Indicated? Urine Glucose (Negative) mg/dL COVID-19 Source Range/Units 09/18/20 09/18/20 09/18/20 14:32 14:35 14:35 WBC (4.4-10.8) 10^3/uL 9.54 RBC (3.93-5.22) 10^6/uL 4.72 Hgb (11.2-15.7) g/dL 14.5 Hct (36.0-46.0) % 45.1 MCV (80-95) fL 95.6 H MCH (27.0-33.0) pg 30.7 MCHC (32.0-36.0) % 32.2 RDW (11.7-14.6) % 14.5 Plt Count (130-400) 10^3/uL 292 MPV (8.0-11.0) fL 9.3 Immature Gran % 0.6 Neutrophils % 71.0 Lymphocytes % 15.0 Monocytes % 6.5 Eosinophils % 6.2 Basophils % 0.7 Nucleated RBC % % 0 Absolute Neutrophils (1.2-6.7) 10^3/uL 6.77 H Absolute Lymphocytes (1.2-3.4) 10^3/uL 1.43 Absolute Monocytes (0.1-0.8) 10^3/uL 0.62 Absolute Eosinophils (0.0-0.7) 10^3/uL 0.59 Absolute Basophils (0.0-0.2) 10^3/uL 0.07 ESR (0-20) mm/hr VBG Lactate (0.6-1.4) mmol/L Sodium (136-145) mmol/L Potassium (3.5-5.1) mmol/L Chloride (98-107) mmol/L Carbon Dioxide (21.0-32.0) mmol/L Anion Gap (3-11) mmol/L BUN (7-18) mg/dL Creatinine (0.55-1.02) mg/dL Estimated GFR/1.73 m2 (mL/min/1.73m2) Glucose (74-106) mg/dL Calcium (8.5-10.1) mg/dL Total Bilirubin (0.2-1.0) mg/dL AST (15-37) U/L ALT (14-59) U/L Alkaline Phosphatase (46-116) U/L C-Reactive Protein (0.0-0.3) mg/dL Total Protein (6.4-8.2) g/dL Albumin (3.4-5.0) g/dL Urine Color (Yellow) Yellow Urine Clarity (Clear) Sl Cloudy Urine pH (5-8) 6.0 Ur Specific [place] (1.005-1.025) 1.025 Urine Protein (Negative) mg/dL Negative Urine Ketones (Negative) mg/dL Negative Urine Blood (Negative) Negative Urine Nitrite (Negative) Negative Urine Bilirubin (Negative) Negative Urine Urobilinogen (Up TO 0.2) EU/dL 0.2 Ur Leukocyte Esterase (Negative) Large H Urine RBC (0-2) HPF 0-2 Urine WBC (0-5) HPF >50 H Ur Epithelial Cells (Negative) HPF Many Urine Crystals (Negative) HPF Negative Urine Bacteria (Negative) HPF Many Urine Casts (Negative) LPF Negative Urine Mucus (Negative) Negative Ur Culture Indicated? No/Sq. Contamination Urine Glucose (Negative) mg/dL Negative COVID-19 Source Nasal/Nares POC- Test(urine) Negative
[2020-09-18] MEDS: Omnipaque 350 MG/ML 100 ML BTL IJ (15:32)
[2020-09-18] MEDS: Normal Saline - Diluent 50 ML VIAL IV (15:33)
[2020-09-18 15:47] LABS: COVID-19 PCR Negative (Negative)
[2020-09-18 15:49] LABS: *AMPHETAMINES SCREEN URINE Negative (Negative); *BARBITURATES SCREEN URINE Negative (Negative); *BENZODIAZEPINES SCREEN URINE Negative (Negative); Cannabinoids THC Negative (Negative); Cocaine Screen,Urine Negative (Negative); METHADONE URINE SCREEN Negative (Negative); OPIATES URINE SCREEN Negative (Negative)
[2020-09-18 15:54] LABS: Tricyclic Antidepressants Positive (Negative)
[2020-09-18] MEDS: VANCOMYCIN 1,500 MG in Normal Saline 250 ML 166.6666 MG IVPB (16:06)
[2020-09-18] MEDS: Acetaminophen 500 MG TAB 1000 MG PO (16:25)
--- NOTE | 2020-09-18 16:50 | NUR.NOTE ---
Nursing Note: ( BOYFRIEND [phone])
[2020-09-18 18:36] LABS: Procalcitonin 0.3 ng/mL
--- NOTE | 2020-09-18 20:35 | HPE_ITS ---
Date of service: 09/18/20 Time of Service: 20:35 Assessment and Plan Assessment and plan (1) Fever: Status: Acute Assessment and plan: unclear etiology however high potential for either UTI given her UA or d/t one of her skin lesions particularly her carbuncle on her back. Patient has been started on Vancomycin d/t her prior hx of Staph infections although I can not see any positive cultures for MRSA. They have either been Staph epi or MSSA. She denies any IVDU and she has not had any recent procedures. I will ask nursing to obtain straight cath urine for UA and C&S and cover for UTI w/ aztreonam but will continue her Vancomycin. I will ask surgery to see her to incise and drain the boil on her back. Dr. Patel knows her from prior seroma drainages. I will ask pulmonary to evaluate her lung nodules. The patient has had a hx of bilateral lung nodules dating back to 2016 and had evaluation w/ bronchoscopy w/ EBUS and biopsies and BAL. She also has hx of positive Gold Quantiferon test but has been followed by I.D. by Dr. Hyde. She has not been diagnosed w/ TB and her CT does not look typical for TB (peripheral pleural nodules, no apical lesions and no cavitation). Qualifiers: Fever type: unspecified Qualified Code(s): R50.9 - Fever, unspecified (2) UTI (urinary tract infection): Status: Suspected Assessment and plan: check cath specimen and treat w/ aztreonam Qualifiers: Urinary tract infection type: site unspecified Hematuria presence: without hematuria Qualified Code(s): N39.0 - Urinary tract infection, site not specified (3) Skin abscess: Status: Acute Assessment and plan: will ask surgery to drain as noted above Qualifiers: Site of cutaneous abscess: trunk Site of cutaneous abscess of trunk: back Qualified Code(s): L02.212 - Cutaneous abscess of back [any part, except buttock] (4) Pulmonary nodules: Status: Acute Assessment and plan: will ask pulmonary to consult on and recommend follow up. Note radiologist is suggesting metastatic lung nodules however patient has history of nonspecific lung nodules although it sound like some may have inc reased in size. Patient had bronch. w/EBUS at [facility] by Dr. 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 No evidence for hemolytic anemia nor thrombocytopenia. Patient has had multiple workups for immune deficiency (see rheumatology's note) (6) Chronic knee pain: Status: Acute Assessment and plan: will treat her acutely w/ Toradol and Nucynta. Try to avoid strong narcotics in this patient who has hx of prior IVDU and methamphetamine abuse, however she may need referral to pain clinic for mcfp control of her pains. 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 (8) Psoriasis: Status: Chronic Assessment and plan: cont. her topical steroid creams and anti-puritics. History of Present Illness History of Present Illness Chief Complaint: joint pains, fever Narrative: 29 yr old female w/ complex PMH that includes Payam's syndrome (AIHA w/ thrombocytopenia), s/p splenectomy/rituximab/IVIG in 2019, Fuch's dystrophy/uveitis age 21, psoriasis (dx in early 's), asthma, MONICA, pulmonary nodules of undetermined etiology (but evaluated 06/02/[address] Dean Cohen @ [facility] w/ BRONCHOSCOPY and EBUS), hidradenitis suppurativa, positive Quantiferon test (followed by ID, Dr. Hyde @ [facility]), previous IV drug use (abstinent for years), who has had an extensive rheumatologic workup at [facility] for RA/lupus/CVID and more recently seen by rheumatology at [facility] to evaluate for psoriatic arthritis. She has had multiple hospitalizations at [facility] for cellulits due to infected psoriatic lesions. Most recent hospitalization was from 08/04- 08/15/2020 for left leg cellulits and was treated w/ Vancomycin although superficial woud culture grew MSSA. During this workup MRI of her left leg was done d/t complaints of continued left lower leg pain and she was found to have bone infarcts in the distal tibia and talus. This was evaluated by Dr. Cast, orthopedics out of concern as to whether these were infectious osteomyelitis or osteonecrosis. Since discharge she has been followed up by her ID physician and put on azithromycin and she has seen rheumatology at [facility] for evaluation for possible psoriatic arthritis (see [facility] rheumatology consult 08/16/2020). She presented to the ER yesterday w/ multiple complaints but chiefly oral pain and bilateral knee pain. Evaluation revealed no acute signs of dental infection and knee pains were readily treated w/ tramadol. However she had a UA suspicious for UTI but d/t gross contamination w/ epithelial cells, culture was not done. Today she presented back to the ER complaining of pain all over and fever. She was found to have a fever of 38.9 on arrival and it has gone up to 40.1 this evening. She has complaints of dry cough and dyspnea but no sputum production. CXR did not show any infiltrates but demonstrated nodular density at right lung base. D-dimer was elevated at 1044 and she underwent CTA of her chest which did not demonstrate any PE but demonstrated multiple bilateral lung nodules couple of pleural based nodules that are over 1 cm (RLL 1.7 x 1.6 cm and LLL 1.4 x 1.2) along w/ several subcentimeter nodules bilateral. She has slightly enlarged hilar and carinal lymph nodes. CBC did not demonstrate anemia, thrombocytopenia nor a leukocytosis. CMP demonstrates mild incr. alkaline phosphatase (164) but otherwise normal renal and liver function and normal electrolytes (protein and albumin however are low at 5.6 and 3.1 respectively). CRP is elevated at 1.38 and procalcitonin is mildlyincreased at 0.3 and ESR is normal. UA again was c ontaminated by epithelial cells but demonstrated many bacteria many WBC and small amount of protein but neg. for nitrites. The patient has multiple skin lesions that she has been picking at and have been scabbed over and has a boil over her back. Blood cultures were taken in the ER and are repeated again after admission this evening. She was started on Vancomycin while in the ER d/t her prior history of cellulitis w/ MSSA. I have added aztreonam ( I was going to put her on Rocephin but she has allergy to cephalosporins). Aztreonam was added for coverage of UTI. Review of Systems Unobtainable due to (I could not get a reasonable ROS d/t her multitude of complaints and crying) [facility] Medical History Abdominal adhesions Asthma Axillary hidradenitis suppurativa Ye syndrome History of drug abuse Clean for 17 months-Meth Idiopathic thrombocytopenic purpura Moderate persistent asthma Obesity Periodic limb movement disorder Polyarthritis Portal vein thrombosis Abd CT 03/03/19 [facility]; liver shows low-density at posterior seg ment superiorly suggesting portal vein clot, without parenchymal abnormality. 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 complicated by postOp infection in wound bed and L empyema Social History Smoking/Tobacco Use Status: Current every day Tobacco Type: cigarettes Smoking risk assessment performed?: Yes Alcohol Intake: never Drug use: Rarely Substance use type: marijuana Adopted: No Caregiver/Support person: No Foster care: No Household members: significant other and family Housing: other Number of Children: 1 Communication Needs: None Do you need help understanding health information?: Rarely Sexually active: Yes Do you think of yourself as: straight/heterosexual Current gender identity: female What type of physical activity do you participate in: none Do you feel safe at home: Yes Do you feel safe in your relationship?: Yes Meds Allergies and Home Medications Allergies Allergy/AdvReac Type Severity Reaction Status Date / Time ciprofloxacin [From Cipro] Allergy Intermediate rash Verified 09/18/20 14:09 carbamazepine [From Tegretol] Allergy Skin Rash Verified 09/18/20 14:09 cephalexin [From Keflex] Allergy Other (See Verified 09/18/20 14:09 Comment) Sulfa (Sulfonamide Allergy Anaphylaxsi Verified 09/18/20 14:09 Antibiotics) s Home Medications Medication Instructions Recorded Confirmed Type fluocinonide 0.05 % topical cream 1 applic TOPICAL BID #60 g 12/30/19 09/18/20 Rx omeprazole 40 mg capsule,delayed 40 mg PO DAILY #30 cap 12/30/19 09/18/20 Rx release fluocinolone 0.01 % scalp oil and 1 applic TOPICAL .QOD #118.28 ml 12/31/19 09/18/20 Rx shower cap calcipotriene 0.005 % topical 1 applic TOPICAL BID 01/14/20 09/18/20 History ointment apremilast 30 mg tablet 30 mg PO BID 02/15/20 09/18/20 History trihexyphenidyl 5 mg tablet 5 mg PO QHS #90 tab 02/15/20 09/18/20 Rx albuterol sulfate 90 mcg/actuation 2 puff INHALATION Q6H PRN #6.7 g 03/02/20 09/18/20 Rx aerosol inhaler betamethasone, augmented 0.05 % 1 applic TOPICAL BID PRN #50 g 03/02/20 09/18/20 Rx topical ointment citalopram 40 mg tablet 40 mg PO DAILY #90 tab 03/02/20 09/18/20 Rx ipratropium 0.5 mg-albuterol 3 mg 3 ml INHALATION QID PRN #90 ml 03/02/20 09/18/20 Rx (2.5 mg base)/3 mL nebulization soln clobetasol 0.05 % scalp solution 1 applic TOPICAL BID PRN 03/27/20 09/18/20 History acetaminophen 650 mg 650 mg PO Q8H PRN #270 tab 04/11/20 09/15/20 Rx tablet,extended release nicotine 21 mg/24 hr daily 1 patch TRANSDERMAL DAILY #14 ea 04/11/20 09/18/20 Rx transdermal patch trazodone 50 mg tablet 50 mg PO QHS PRN #90 tab 04/17/20 09/18/20 Rx fluticasone propionate 230 2 puff INHALATION BID #12 g 07/26/20 09/18/20 Rx mcg-salmeterol 21 mcg/actuation HFA inhaler clonazepam 1 mg tablet 1 mg PO BID 08/04/20 09/18/20 History methylphenidate HCl 54 mg 54 mg PO DAILY 08/04/20 09/18/20 History tablet,extended release 24 hr clotrimazole 10 mg SUC 5X/DAY #35 tab 08/15/20 09/18/20 Rx aripiprazole [Abilify] See Rx Instructions PO .COMPLEX 08/24/20 09/18/20 History ibuprofen 600 mg PO TID PRN #15 tab 08/28/20 09/18/20 Rx azithromycin 250 mg tablet See Rx Instructions PO .COMPLEX 09/12/20 09/18/20 History diphenhydramine HCl 25 mg tablet 25 mg PO TID PRN #90 tab 09/12/20 09/18/20 Rx Exam Const General: acute distress mild, anxious, cushingoid and ill appearing Nutritional Appearance: obese Orientation: alert, awake and oriented x3 HENMT Head: scalp lesion (psoriatic plaques over scalp) Ears: hearing grossly normal bilaterally, TM's normal bilaterally and EAC abnormal other (scaley skin in external canals) General nose exam: external nose normal Face and sinus: normal facial exam Mouth: tongue normal and oral mucosa abnormal erythematous Teeth and gingiva: poor dentition Throat: posterior oropharynx normal Eyes General: appearance normal, both eyes and all related structures Alignment and Position: alignment normal Periorbital: periorbital findings normal Eyelids: eyelids normal Conjunctivae: conjunctivae normal Sclera: sclerae normal Cornea: corneas normal Pupils: PERRL EOM: EOM intact bilaterally Neck Neck: normal visual inspection, full ROM, no lymphadenopathy, no meningeal signs and trachea midline Thyroid: thyroid normal Carotids: normal carotid upstroke Lymphatic: no lymphadenopathy noted Chest Chest: normal inspection of the chest Resp Effort & Inspection: normal respiratory effort and able to speak in complete sentences Auscultation: clear to auscultation bilaterally Percussion: percussion normal Cardio Jugular venous pressure: no JVD Palpation: normal PMI Rate: tachycardic Rhythm: regular rhythm Heart Sounds: S1 normal, S2 normal and normal, physiologic split S2 Pulses: normal peripheral pulses GI Inspection: no edema, incision (healed midline scar) and obesity Palpation: soft and no hepatosplenomegaly Percussion: normal to percussion Auscultation: normal bowel sounds General: bladder normal to palpation and No CVA tenderness Bimanual Exam- Vagina & Uterus: bladder normal to palpation Back/Spine/Pelvis Back: no CVA tenderness Cervical Spine: normal cervical lordosis Thoracic/Lumbar Spine: thoracic and lumbar spine normal to inspection, No pain with thoraco-lumbar ROM and No paraspinal tenderness Sacrum: no tenderness Skin General skin exam: dry skin, excoriation (multiple skin excoriations in various stages of healing and crusted or scab) and other (psoriatic plaques on extensor surfaces of elbows) Lesions: lesion noted (3 to 4 cm erythematous pustular lesion over right mid lateral back) Hair: other (psoriatic plaques) Neuro General: patient alert, patient awake, patient oriented x3, moves all extremities and no focal motor deficits Cognition: normal cognition Speech: speech normal Motor: muscle tone normal throughout Extrem General: full ROM, capillary refill normal and no clubbing, cyanosis or edema Psych Appearance: disheveled Mental Status: mental status grossly normal Speech and Movement: speech and movement normal Mood: anxious mood, labile mood and irritable mood Affect: labile affect and sad Attitude: guarded Thought Process: circumstantial Thought Content: normal Insight: fair Judgment: fair Results Labs Result diagrams: 09/18/20 14:32 09/18/20 14:32 Labs: Laboratory Results - last 24 hr 09/18/20 09/18/20 09/18/20 14:32 14:32 14:32 WBC RBC Hgb Hct MCV MCH MCHC RDW Plt Count MPV Immature Gran % Neutrophils % Lymphocytes % Monocytes % Eosinophils % Basophils % Nucleated RBC % Absolute Neutrophils Absolute Lymphocytes Absolute Monocytes Absolute Eosinophils Absolute Basophils ESR 6 VBG Lactate 1.0 Sodium 141 Potassium 3.8 Chloride 107 Carbon Dioxide 26.9 Anion Gap 7.1 BUN 13 Creatinine 0.9 Estimated GFR/1.73 m2 >= 60.00 Glucose 86 Calcium 8.1 L Total Bilirubin 0.4 AST 34 ALT 46 Alkaline Phosphatase 164 H C-Reactive Protein 1.38 H Total Protein 5.6 L Albumin 3.1 L Procalcitonin Urine Color Urine Clarity Urine pH Ur Specific [place] Urine Protein Urine Ketones Urine Blood Urine Nitrite Urine Bilirubin Urine Urobilinogen Ur Leukocyte Esterase Urine RBC Urine WBC Ur Epithelial Cells Urine Crystals Urine Bacteria Urine Casts Urine Mucus Ur Culture Indicated? Urine Glucose Urine Opiates Screen Urine Methadone Screen Ur Barbiturates Screen Ur Tricyclics Screen Ur Amphetamines Screen U Benzodiazepines Scrn Urine Cocaine Screen Ur THC Screen COVID-19 Source SARS-CoV-2 (PCR) 09/18/20 09/18/20 09/18/20 14:32 14:32 14:35 WBC 9.54 RBC 4.72 Hgb 14.5 Hct 45.1 MCV 95.6 H MCH 30.7 MCHC 32.2 RDW 14.5 Plt Count 292 MPV 9.3 Immature Gran % 0.6 Neutrophils % 71.0 Lymphocytes % 15.0 Monocytes % 6.5 Eosinophils % 6.2 Basophils % 0.7 Nucleated RBC % 0 Absolute Neutrophils 6.77 H Absolute Lymphocytes 1.43 Absolute Monocytes 0.62 Absolute Eosinophils 0.59 Absolute Basophils 0.07 ESR VBG Lactate Sodium Potassium Chloride Carbon Dioxide Anion Gap BUN Creatinine Estimated GFR/1.73 m2 Glucose Calcium Total Bilirubin AST ALT Alkaline Phosphatase C-Reactive Protein Total Protein Albumin Procalcitonin 0.3 Urine Color Yellow Urine Clarity Sl Cloudy Urine pH 6.0 Ur Specific [place] 1.025 Urine Protein Negative Urine Ketones Negative Urine Blood Negative Urine Nitrite Negative Urine Bilirubin Negative Urine Urobilinogen 0.2 Ur Leukocyte Esterase Large H Urine RBC 0-2 Urine WBC >50 H Ur Epithelial Cells Many Urine Crystals Negative Urine Bacteria Many Urine Casts Negative Urine Mucus Negative Ur Culture Indicated? No/Sq. Contamination Urine Glucose Negative Urine Opiates Screen Urine Methadone Screen Ur Barbiturates Screen Ur Tricyclics Screen Ur Amphetamines Screen U Benzodiazepines Scrn Urine Cocaine Screen Ur THC Screen COVID-19 Source SARS-CoV-2 (PCR) 09/18/20 09/18/20 14:35 14:35 WBC RBC Hgb Hct MCV MCH MCHC RDW Plt Count MPV Immature Gran % Neutrophils % Lymphocytes % Monocytes % Eosinophils % Basophils % Nucleated RBC % Absolute Neutrophils Absolute Lymphocytes Absolute Monocytes Absolute Eosinophils Absolute Basophils ESR VBG Lactate Sodium Potassium Chloride Carbon Dioxide Anion Gap BUN Creatinine Estimated GFR/1.73 m2 Glucose Calcium Total Bilirubin AST ALT Alkaline Phosphatase C-Reactive Protein Total Protein Albumin Procalcitonin Urine Color Urine Clarity Urine pH Ur Specific [place] Urine Protein Urine Ketones Urine Blood Urine Nitrite Urine Bilirubin Urine Urobilinogen Ur Leukocyte Esterase Urine RBC Urine WBC Ur Epithelial Cells Urine Crystals Urine Bacteria Urine Casts Urine Mucus Ur Culture Indicated? Urine Glucose Urine Opiates Screen Negative Urine Methadone Screen Negative Ur Barbiturates Screen Negative Ur Tricyclics Screen Positive A Ur Amphetamines Screen Negative U Benzodiazepines Scrn Negative Urine Cocaine Screen Negative Ur THC Screen Negative COVID-19 Source Nasal/Nares SARS-CoV-2 (PCR) Negative Last Vital Signs Temp 38 C H 09/18/20 18:51 Pulse 145 H 09/18/20 20:20 Resp 21 09/18/20 18:51 BP 113/76 09/18/20 18:51 Pulse Ox 92 09/18/20 18:51
[2020-09-18] MEDS: Ketorolac 30 MG/ML VIAL IVP (22:32)
[2020-09-18] MEDS: traZODone 50 MG TAB PO (22:32)
[2020-09-18] MEDS: diphenhydrAMINE 25 MG CAP PO (22:33)
[2020-09-18] MEDS: clonazePAM 1 MG TAB PO (22:33)
[2020-09-18 23:31] LABS: Bilirubin Negative (Negative); Blood Trace-intact (Negative); Clarity Sl Cloudy (Clear); Glucose Negative (Negative); Ketones Negative (Negative); Leukocyte Esterase Small (Negative); Nitrite Negative (Negative); Specific Gravity 1.015 (1.005-1.025); Urobilinogen 0.2 EU/dL (Up TO 0.2)
[2020-09-18 23:38] LABS: Bacteria Moderate HPF (Negative); C & S Indicated? Yes; Casts Negative LPF (Negative); Crystals Negative HPF (Negative); Epithelial Cells Few HPF (Negative); Mucus Negative (Negative); WBC >50 HPF (0-5)
[2020-09-19] VITALS (7 sets, daily range): BP systolic 98–110; BP diastolic 63–66; PULSE 80–95; RESP 19–20; TEMP 35.6–39; O2SAT 93–98
--- NOTE | 2020-09-19 | DI.RAD_ITS ---
Exam(s) XR TIB/FIB LT EXAM: XR TIB/FIB LT CLINICAL HISTORY: pain in mid-shaft of tibia TECHNIQUE: COMPARISON: CR,XR XR TIB/FIB RT from 08/27/2020 FINDINGS: Three views were obtained. No bony or soft tissue abnormality seen. IMPRESSION: RADIATION DOSE DELIVERED: Total DLP
[2020-09-19] MEDS: Lactated Ringers 1,000 ML 100 ML IV ×2 (00:24→17:42)
[2020-09-19] MEDS: Acetaminophen 500 MG TAB 1000 MG PO ×2 (01:17→07:51)
[2020-09-19] MEDS: VANCOMYCIN 1,500 MG in Normal Saline 250 ML 166.667 MG IV (04:19)
[2020-09-19 07:09] LABS: Abs Immature Grans 0.04 10^3/uL (0.0-0.06); HCT 40.7 % (36.0-46.0); HGB 13.1 g/dL (11.2-15.7); MCH 30.5 pg (27.0-33.0); MCHC 32.2 % (32.0-36.0); MCV 94.9 fL (80-95); MPV 9.8 fL (8.0-11.0); Nucleated RBC 0 %; Platelet Count 231 10^3/uL (130-400); RBC 4.29 10^6/uL (3.93-5.22); RDW 14.8 % (11.7-14.6); RDW-SD 51.7 fL
[2020-09-19 07:19] LABS: INR 1.1 (0.9-1.1); Prothrombin Time 11.2 sec (9.3-11.0)
--- NOTE | 2020-09-19 07:21 | PUCON_ITS ---
General Date Of Service Date of service: 09/19/20 Time of Service: 08:30 Requesting physician: Joni Baker Reason for Consult: Pulmonary nodules Assessment and Plan Assessment and plan (1) Fever: Status: Acute Qualifiers: Fever type: unspecified Qualified Code(s): R50.9 - Fever, unspecified (2) Hypogammaglobulinemia: Status: Acute (3) Pulmonary nodules: Status: Acute (4) Eosinophilia: Status: Acute Qualifiers: Eosinophilia type: other eosinophilia Qualified Code(s): D72.19 - Other eosinophilia (5) Moderate persistent asthma: Status: Acute Assessment and plan: This is an extremely complicated 29-year-old female with a complex medical history including Ye syndrome, recurrent infections with abscesses and waxing and waning pulmonary nodules. She has persistently elevated eosinophils however does not classically fit into the diagnosis of a GPA despite her diagnosis of asthma. I do not have access to the BAL cell differential that was completed at [facility] however a chronic eosinophilic pneumonia is possible. She has reportedly had several bone marrow biopsies that did not show any malignancies so a primary hyper eosinophilic syndrome does not fit either. This could be idiopathic hypereosinophil syndrome, although her IgE is low (not required for diagnosis). Certainly a concern is SLE. There have been case reports of hypereosinophilic syndrome and SLE occurring concomitantly in patients. There are hypereosinophilic syndrome subtypes and underlying causes that should be evaluated if our clinical suspicion is high. One such test is flow cytometry to do T-lymphocyte phenotyping, although I am unsure of the yield of this considering she has had bone marrow biopsies in the past. She also has a low IgE and low immunoglobulin levels which go against a hypereosinophilic syndrome however if she were to have SLE at the same time this would account for her low immunoglobulin levels. Many of her lab abnormalities can also be provoked by an Yi-Sanchez viral infection, which I do not see having investigated previously. There have been several specialists evaluating Tena and trying to figure out her diagnosis and the cause for all of her sym ptoms, her story is quite complicated and will likely require ongoing outpatient work-up to slowly identify her underlying disease. Regardless it seems as though these waxing and waning pulmonary nodules are inflammatory in nature. My suspicion for active infection is moderate given her immunoglobulin deficiency. I do not believe this these nodules represent malignancy given their waxing and waning as well as the negative TBNA biospy at [facility] [place]. Pulmonary nodules with eosinophilia - will work on getting BAL results with cell diff from [facility] [place] - recommend checking ABIGAIL, dsDNA, anti-cardiolipin, serum flow cytometry, compliment levels, peripheral smear, EBV - given recent bronchoscopy with biopsy and BAL, no need for repeat procedure at this time Immunoglobulin deficiency - given Payam's syndrome I am unsure of the ramifications of IVIG therapy. 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 She is adm itted for fever of unknown etiology and presented to the emergency department for joint pains. She has a very complicated medical history and has been treated at multiple institutions during her adult life. She was diagnosed with ITP in her teens and has undergone several nondiagnostic bone marrow biopsies and has been on various immunosuppressive agents including prednisone and Rituxan. She has not required immunosuppression in several years but continued to have constitutional symptoms including myalgias and night sweats. She saw a pulmonary provider at [facility] for waxing and waning pulmonary nodules that had yet to be evaluated. Also holds a history of asthma that was diagnosed in childhood and did require frequent hospitalizations for bronchitis and pneumonia as a child. Given the broad differential for the pulmonary nodules she underwent EBUS tissue sampling. On her bronchoscopy she was found to have normal bronchial anatomy with no lesions visible. There was a BAL that was performed of the right middle lobe. With EBUS transbronchial FNA was performed at station 7 and station [id number]. all lymph node stations were evaluated and the remainder of the nodes were less than 5 mm in size. She has also followed with rheumatology at [facility] who did not believe she fit a CVID picture despite her low immunoglobulin levels. There was concern for SLE given her clinical picture. She also notes that her sister has known serologically diagnosed lupus. She states that she is in constant pain and is worried about dying in pain. She has a skin rash skin abscess and always has swollen extremities. She states that she feels as though she has been acutely sick for the last 3 weeks. Relevant Labs: [facility] [place] 05/11/20 Eos 1.2 CK 45 RF neg Cryptococcal neg Hep B and C neg MPO neg PR3 neg IgE <2 IgG 390 IgA 6 IgM 28 HIV neg Low CD19 BAL negative, flow cytometry - no blasts TBNA lymphoid tissue, no malignancy, strep mitis (thought to be contaminant but treated with cefpo) Imaging: LUNGS: There is a 1.7 x 1.6 cm pleural-based nodule in the right lower lobe, noncalcified. Smaller nodule also seen higher up in the right lower lobe measuring 7 x 6 millimeters and another smaller nodule lower down the right lower lobe measuring 6 x 6 5 millimeters. There is also a 5 x 4 millimeter right parahilar nodule. In the opposite-left lung there is a pleural base nodule measuring 1.4 x 1 point 2 cm in the medial aspect of the posterior basal segment of the left lower lobe. Also a small 4 millimeter nodule in the sub apical aspect of the left upper lobe.. There are no pleural effusions. IMPRESSION: 1. No central pulmonary emboli. Suboptimal bolus position does not allow evaluation of more peripheral pulmonary arteries.. 2. Significant nodules in both lungs as described above. Suspect metastatic disease. 3. No pleural effusions. However, there are small lymph nodes in both hilar regions and subcarinal region. Aberrant right subclavian artery incidentally noted. Significant para-aortic adenopathy noted in the abdomen. Consults Consult date: 09/19/20 Review of Systems Constitutional Constitutional: Reports body ache(s), Reports chills, Reports difficulty sleeping, Reports fatigue, Reports fever(s), Reports lethargy and Reports malaise ENT Ears, Nose, Mouth, and Throat: Reports dizziness and Reports disequilibrium Cardiovascular Cardiovascular: Reports pedal edema, Reports leg ulcers, Reports leg edema, Reports dyspnea, Reports dyspnea on exertion and Reports orthopnea Respiratory Respiratory: Reports change in phlegm color, Reports dyspnea and Reports dyspnea on exertion Gastrointestinal Gastrointestinal: Reports abdominal pain and Reports bloating Musculoskeletal Musculoskeletal: Reports back pain, Reports myalgias, Reports arthralgias and Reports muscle weakness Integumentary/Breasts Skin/Breast: Reports lesions, Reports new lesions, Reports photosensitivity, Reports rash and Reports sores Neurologic Neurologic: Reports dizziness and Reports disequilibrium Endocrine Endocrine: Reports fatigue and Reports heat intolerance [facility] Medical History Abdominal adhesions Asthma 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 complicated by postOp infection in wound bed and L empyema Social History Smoking/Tobacco Use Status: Current every day Tobacco Type: cigarettes Smoking risk assessment performed?: Yes Alcohol Intake: never Drug use: Rarely Substance use type: marijuana Adopted: No Caregiver/Support person: No Foster care: No Household members: significant other and family Housing: other Number of Children: 1 Communication Needs: None Do you need help understanding health information?: Rarely Sexually active: Yes Do you think of yourself as: straight/heterosexual Current gender identity: female What type of physical activity do you participate in: none Do you feel safe at home: Yes Do you feel safe in your relationship?: Yes Visit Medication and Allergies Active Medications Generic Name Dose Route Start Last Admin Trade Name Freq PRN Reason Stop Dose Admin Acetaminophen 1,000 mg 09/19/20 00:41 09/19/20 01:17 Acetaminophen 500 Mg Tab PO 1,000 mg Q6H PRN PRN Administration Al Hydrox/Mg Hydrox/Simethicone 30 ml 09/18/20 20:59 Mylanta Suspension 30 Ml Cup PO Q2H PRN PRN Albuterol Sulfate 2.5 mg 09/18/20 20:54 Albuterol 2.5 Mg/3 Ml Inh Soln Vial UPD Q2H PRN PRN Albuterol Sulfate 2 puff 09/18/20 21:45 Albuterol Hfa 8 Gm 60 Puff Inh IH Q6H PRN PRN shortness of breath or wheezing Albuterol/Ipratropium 3 ml 09/18/20 21:45 Albuterol/Ipratropium 3 Ml Upd Vial IH QID PRN PRN wheezing Betamethasone Dipropionate 0 gm 09/18/20 21:45 Betamethasone Dip. 0.05% Oint 15 Gm Tube TP BID PRN Psoriasis Budesonide/Formoterol Fumarate 2 puff 09/19/20 08:30 Budesonide/Formoterol 160/4.5 6 Gm 60 Puff Inh IH BID GLO Citalopram Hydrobromide 40 mg 09/19/20 08:30 Citalopram 20 Mg Tab PO DAILY [facility] Clonazepam 1 mg 09/18/20 21:50 09/18/20 22:33 Clonazepam 1 Mg Tab PO 1 mg BID [facility] Administration Device 1 each 09/18/20 22:00 Inhaler, Assist Device MC DIRECTED [facility] Dimethicone/Zinc Oxide 0 gm 09/18/20 20:36 Susie Protect Cream 142 Gm Tube TP PRN PRN Diphenhydramine HCl 25 mg 09/18/20 22:06 09/18/20 22:33 Diphenhydramine 25 Mg Cap PO 25 mg TID PRN PRN Administration itching Docusate Sodium 100 mg 09/18/20 20:54 Docusate Sodium 100 Mg Cap PO TID PRN PRN Enoxaparin Sodium 40 mg 09/19/20 08:30 Enoxaparin 40 Mg/0.4 Ml Syr SC Q24H [facility] Fluocinonide 0 gm 09/19/20 08:30 Fluocinonide 0.05% Cr 15 Gm Tube TP BID [facility] Vancomycin HCl 1,500 mg/ 250 mls @ 166.667 mls/hr 09/19/20 04:00 09/19/20 05:50 Sodium Chloride IV Infused Q12H [facility] Infusion Protocol Ringer's Solution 1,000 mls @ 100 mls/hr 09/18/20 22:00 09/19/20 00:24 IV 09/20/20 07:59 100 mls/hr INFUSION GLO Administration Aztreonam 1,000 mg/ Sodium 100 mls @ 200 mls/hr 09/19/20 00:00 09/19/20 00:55 Chloride IVPB Infused Q8H [facility] Infusion Iohexol 100 ml 09/18/20 15:45 09/18/20 15:32 Omnipaque 350 Mg/Ml 100 Ml Btl IJ 10/18/20 23:59 100 ml DIRECTED GLO Administration Ketorolac Tromethamine 30 mg 09/19/20 04:00 Ketorolac 30 Mg/Ml Vial IVP 09/26/20 04:01 Q6H PRN PRN Lidocaine/Diphenhydr/Alum/Mg/Simeth 10 ml 09/18/20 21:51 Magic Mouthwash 119 Ml Btl PO Q6H PRN PRN Magnesium Hydroxide 30 ml 09/18/20 20:54 Milk Of Magnesia 30 Ml Cup PO DAILY PRN PRN Methylphenidate HCl 54 mg 09/19/20 08:30 Methylphenidate 18 Mg Tabcr PO DAILY [facility] Nicotine 21 mg 09/19/20 08:30 Nicotine 21 Mg/24 Hr Patch TD DAILY GLO Non-Formulary Medication 1 applic 09/19/20 08:30 Calcipotriene TP BID GLO Non-Formulary Medication 1 applic 09/18/20 21:45 Clobetasol TP BID PRN Psoriasis Non-Formulary Medication 1 applic 09/18/20 21:45 Fluocinolone And Shower Cap TP .QOD GLO Nystatin 500,000 units 09/19/20 08:30 Nystatin 426235 Units/5 Ml Susp 5ml Cup PO TID GLO Omeprazole 40 mg 09/19/20 08:30 Omeprazole 20 Mg Capcr PO DAILY GLO Polyethylene Glycol 17 gm 09/18/20 20:54 Polyethylene Glycol 3350 17 Gm Packet PO DAILY PRN PRN Constipation Sodium Chloride 50 ml 09/18/20 15:45 09/18/20 15:33 Normal Saline - Diluent 50 Ml Vial IV 50 ml .FOR DI USE [facility] Administration Tapentadol 100 mg 09/19/20 04:00 Tapentadol I.R. 50 Mg Tab PO Q4H PRN PRN Trazodone HCl 50 mg 09/18/20 21:45 09/18/20 22:32 Trazodone 50 Mg Tab PO 50 mg HS PRN PRN Administration sleep Trihexyphenidyl HCl 5 mg 09/19/20 22:00 Trihexyphenidyl 2 Mg Tab PO HS [facility] Allergies ciprofloxacin [From Cipro] Allergy (Intermediate, Verified 09/18/20 14:09) rash carbamazepine [From Tegretol] Allergy (Verified 09/18/20 14:09) Skin Rash cephalexin [From Keflex] Allergy (Verified 09/18/20 14:09) Other (See Comment) Sulfa (Sulfonamide Antibiotics) Allergy (Verified 09/18/20 14:09) Anaphylaxsis Exam Const General: no acute distress Nutritional Appearance: well nourished [facility] Head: normocephalic Ears: external ears normal and no periauricular adenopathy General nose exam: nasal mucous membranes and turbinates normal Face and sinus: sinuses nontender Mouth: oropharynx normal and moist mucous membranes Teeth and gingiva: dentition normal Eyes General: appearance normal, both eyes and all related structures Pupils: PERRL Neck Neck: normal visual inspection Chest Chest: normal inspection of the chest Resp Effort & Inspection: normal respiratory effort Auscultation: clear to auscultation bilaterally, no rales, no rhonchi and no wheezes Cardio Rate: regular rate Rhythm: regular rhythm Heart Sounds: S1 normal, S2 normal and no murmurs Pulses: radial pulses present bilaterally GI Inspection: normal to inspection Palpation: soft Skin Rashes: rashes noted (Bilateral arms) Neuro General: patient alert, patient awake and patient oriented x3 Extrem General: no clubbing, no cyanosis and edema Psych Mental Status: mental status grossly normal Affect: normal affect Attitude: cooperative Results Last Vital Signs Temp 36.7 C 09/19/20 02:17 Pulse 98 H 09/18/20 23:53 Resp 20 09/18/20 23:53 BP 105/61 09/18/20 23:53 Pulse Ox 96 09/18/20 23:53 Labs Result diagrams: 09/19/20 06:41 09/19/20 06:41 Labs: Laboratory Results - last 24 hr 09/18/20 09/18/20 09/18/20 14:32 14:32 14:32 WBC RBC Hgb Hct MCV MCH MCHC RDW Plt Count MPV Immature Gran % Neutrophils % Lymphocytes % Monocytes % Eosinophils % Basophils % Nucleated RBC % Absolute Neutrophils Absolute Lymphocytes Absolute Monocytes Absolute Eosinophils Absolute Basophils ESR 6 VBG Lactate 1.0 Sodium 141 Potassium 3.8 Chloride 107 Carbon Dioxide 26.9 Anion Gap 7.1 BUN 13 Creatinine 0.9 Estimated GFR/1.73 m2 >= 60.00 Glucose 86 Calcium 8.1 L Total Bilirubin 0.4 AST 34 ALT 46 Alkaline Phosphatase 164 H C-Reactive Protein 1.38 H Total Protein 5.6 L Albumin 3.1 L Procalcitonin Urine Color Urine Clarity Urine pH Ur Specific Strawn Urine Protein Urine Ketones Urine Blood Urine Nitrite Urine Bilirubin Urine Urobilinogen Ur Leukocyte Esterase Urine RBC Urine WBC Ur Epithelial Cells Urine Crystals Urine Bacteria Urine Casts Urine Mucus Ur Culture Indicated? Urine Glucose Urine Opiates Screen Urine Methadone Screen Ur Barbiturates Screen Ur Tricyclics Screen Ur Amphetamines Screen U Benzodiazepines Scrn Urine Cocaine Screen Ur THC Screen COVID-19 Source SARS-CoV-2 (PCR) 09/18/20 09/18/20 09/18/20 14:32 14:32 14:35 WBC 9.54 RBC 4.72 Hgb 14.5 Hct 45.1 MCV 95.6 H MCH 30.7 MCHC 32.2 RDW 14.5 Plt Count 292 MPV 9.3 Immature Gran % 0.6 Neutrophils % 71.0 Lymphocytes % 15.0 Monocytes % 6.5 Eosinophils % 6.2 Basophils % 0.7 Nucleated RBC % 0 Absolute Neutrophils 6.77 H Absolute Lymphocytes 1.43 Absolute Monocytes 0.62 Absolute Eosinophils 0.59 Absolute Basophils 0.07 ESR VBG Lactate Sodium Potassium Chloride Carbon Dioxide Anion Gap BUN Creatinine Estimated GFR/1.73 m2 Glucose Calcium Total Bilirubin AST ALT Alkaline Phosphatase C-Reactive Protein Total Protein Albumin Procalcitonin 0.3 Urine Color Yellow Urine Clarity Sl Cloudy Urine pH 6.0 Ur Specific Strawn 1.025 Urine Protein Negative Urine Ketones Negative Urine Blood Negative Urine Nitrite Negative Urine Bilirubin Negative Urine Urobilinogen 0.2 Ur Leukocyte Esterase Large H Urine RBC 0-2 Urine WBC >50 H Ur Epithelial Cells Many Urine Crystals Negative Urine Bacteria Many Urine Casts Negative Urine Mucus Negative Ur Culture Indicated? No/Sq. Contamination Urine Glucose Negative Urine Opiates Screen Urine Methadone Screen Ur Barbiturates Screen Ur Tricyclics Screen Ur Amphetamines Screen U Benzodiazepines Scrn Urine Cocaine Screen Ur THC Screen COVID-19 Source SARS-CoV-2 (PCR) 09/18/20 09/18/20 09/18/20 14:35 14:35 23:00 WBC RBC Hgb Hct MCV MCH MCHC RDW Plt Count MPV Immature Gran % Neutrophils % Lymphocytes % Monocytes % Eosinophils % Basophils % Nucleated RBC % Absolute Neutrophils Absolute Lymphocytes Absolute Monocytes Absolute Eosinophils Absolute Basophils ESR VBG Lactate Sodium Potassium Chloride Carbon Dioxide Anion Gap BUN Creatinine Estimated GFR/1.73 m2 Glucose Calcium Total Bilirubin AST ALT Alkaline Phosphatase C-Reactive Protein Total Protein Albumin Procalcitonin Urine Color Yellow Urine Clarity Sl Cloudy Urine pH 6.0 Ur Specific Strawn 1.015 Urine Protein 30 H Urine Ketones Negative Urine Blood Trace-intact H Urine Nitrite Negative Urine Bilirubin Negative Urine Urobilinogen 0.2 Ur Leukocyte Esterase Small H Urine RBC 3-5 H Urine WBC >50 H Ur Epithelial Cells Few Urine Crystals Negative Urine Bacteria Moderate Urine Casts Negative Urine Mucus Negative Ur Culture Indicated? Yes Urine Glucose Negative Urine Opiates Screen Negative Urine Methadone Screen Negative Ur Barbiturates Screen Negative Ur Tricyclics Screen Positive A Ur Amphetamines Screen Negative U Benzodiazepines Scrn Negative Urine Cocaine Screen Negative Ur THC Screen Negative COVID-19 Source Nasal/Nares SARS-CoV-2 (PCR) Negative
[2020-09-19 07:27] LABS: ALT 81 U/L (14-59); AST 74 U/L (15-37); Albumin 2.6 g/dL (3.4-5.0); Alkaline Phosphatase 267 U/L (46-116); BUN 17 mg/dL (7-18); Bilirubin, Total 0.4 mg/dL (0.2-1.0); Calcium 7.6 mg/dL (8.5-10.1); Chloride 108 mmol/L (98-107); Glucose 126 mg/dL (74-106); Magnesium 1.7 mg/dL (1.8-2.4); Potassium 3.1 mmol/L (3.5-5.1); Sodium 141 mmol/L (136-145); TSH (W/Ref FT4) 1.53 uIU/mL (0.36-3.74); Total Protein 4.9 g/dL (6.4-8.2)
[2020-09-19 07:33] LABS: Absolute Eosinophil Count 0.78 10^3/uL (0.0-0.7); Absolute Lymphocyte Count 0.49 10^3/uL (1.2-3.4); Absolute Neutrophil Count 8.43 10^3/uL (1.2-6.7); Atypical Lymphocytes % 2; Bands % 10; Diff Comment Manual Differential; Poikilocytes 1+
[2020-09-19] MEDS: Citalopram 20 MG TAB 40 MG PO (07:50)
[2020-09-19] MEDS: Omeprazole 20 MG CAPCR 40 MG PO (07:50)
[2020-09-19] MEDS: clonazePAM 1 MG TAB PO ×2 (07:51→19:18)
[2020-09-19] MEDS: Enoxaparin 40 MG/0.4 ML SYR SC (07:52)
[2020-09-19] MEDS: Nystatin 500000 UNITS/5 ML SUSP 5ML CUP PO ×3 (07:52→19:20)
--- NOTE | 2020-09-19 07:57 | SCONE_ITS ---
Documented by User: PRASANNA Farmer 09/19/20 08:16 Assessment and Plan Assessment and plan (1) Skin abscess: Status: Acute Assessment and plan: Abscess located on the Left midback/flank area, which is actively draining, purluent material. I&D does not appear to be necessary at this time. Proceed with moist compresses to promote drainage from the area. This can be performed as often as tolerated by the patient. She is already on Vancomycin. When not applying warm compresses suggest covering the area with a mepilex dressing. Will re-evaluate this afternoon, after having warm compresses applied to the area throughout the morning. Qualifiers: Site of cutaneous abscess: trunk Site of cutaneous abscess of trunk: back Qualified Code(s): L02.212 - Cutaneous abscess of back [any part, except buttock] History of Present Illness History of Present Illness Chief Complaint: Abscess Narrative: 29 y/o female with a history of Ye Syndrome, s/p splenectomy, pulmonary nodules, MONICA, skin abscesses and polyarthritis was admitted to the Medicine service for fever with high suspision for UTI. Consult requested for abscess on her right midback. The patient reports she get's these often and that this area was draining last night. She states the area is tender. She states that when these occur at home, she drains them herself. [facility] Medical History Abdominal adhesions Asthma Axillary hidradenitis suppurativa Ye syndrome History of drug abuse Clean for 17 months-Meth Idiopathic thrombocytopenic purpura Moderate persistent asthma Obesity Periodic limb movement disorder Polyarthritis Portal vein thrombosis Abd CT 03/03/19 [facility]; liver shows low-density at posterior segment superiorly suggesting portal vein clot, without parenchymal abnormality. 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 complicated by postOp infection in wound bed and L empyema Social History Smoking/Tobacco Use Status: Current every day Tobacco Type: cigarettes Smoking risk assessment performed?: Yes Alcohol Intake: never Drug use: Rarely Substance use type: marijuana Adopted: No Caregiver/Support person: No Foster care: No Household members: significant other and family Housing: other Number of Children: 1 Communication Needs: None Do you need help understanding health information?: Rarely Sexually active: Yes Do you think of yourself as: straight/heterosexual Current gender identity: female What type of physical activity do you participate in: none Do you feel safe at home: Yes Do you feel safe in your relationship?: Yes Exam Const General: cooperative, healthy appearing and comfortable Orientation: alert and oriented x3 Resp Effort & Inspection: normal respiratory effort, no audible wheezes and no cough Skin Other: Left midback/flank area- A small draining opening noted. Mild erythema localized around the opening. Mild induration again localized the draining site. Tender with palpation. Drainage increased with palpation. Results Last Vital Signs Temp 36.7 C 09/19/20 02:17 Pulse 98 H 09/18/20 23:53 Resp 20 09/18/20 23:53 BP 105/61 09/18/20 23:53 Pulse Ox 96 09/18/20 23:53 Labs Result diagrams: 09/19/20 06:41 09/19/20 06:41 Labs: Laboratory Results - last 24 hr 09/18/20 09/18/20 09/18/20 14:32 14:32 14:32 WBC RBC Hgb Hct MCV MCH MCHC RDW Plt Count MPV Immature Gran % Neutrophils % Band Neutrophils % Lymphocytes % Atypical Lymphs % Monocytes % Eosinophils % Basophils % Nucleated RBC % Absolute Neutrophils Absolute Lymphocytes Absolute Monocytes Absolute Eosinophils Absolute Basophils RBC Morphology Poikilocytosis ESR 6 PT INR VBG Lactate 1.0 Sodium 141 Potassium 3.8 Chloride 107 Carbon Dioxide 26.9 Anion Gap 7.1 BUN 13 Creatinine 0.9 Estimated GFR/1.73 m2 >= 60.00 Glucose 86 Calcium 8.1 L Magnesium Total Bilirubin 0.4 AST 34 ALT 46 Alkaline Phosphatase 164 H C-Reactive Protein 1.38 H Total Protein 5.6 L Albumin 3.1 L Procalcitonin TSH Urine Color Urine Clarity Urine pH Ur Specific [place] Urine Protein Urine Ketones Urine Blood Urine Nitrite Urine Bilirubin Urine Urobilinogen Ur Leukocyte Esterase Urine RBC Urine WBC Ur Epithelial Cells Urine Crystals Urine Bacteria Urine Casts Urine Mucus Ur Culture Indicated? Urine Glucose Urine Opiates Screen Urine Methadone Screen Ur Barbiturates Screen Ur Tricyclics Screen Ur Amphetamines Screen U Benzodiazepines Scrn Urine Cocaine Screen Ur THC Screen COVID-19 Source SARS-CoV-2 (PCR) 09/18/20 09/18/20 09/18/20 14:32 14:32 14:35 WBC 9.54 RBC 4.72 Hgb 14.5 Hct 45.1 MCV 95.6 H MCH 30.7 MCHC 32.2 RDW 14.5 Plt Count 292 MPV 9.3 Immature Gran % 0.6 Neutrophils % 71.0 Band Neutrophils % Lymphocytes % 15.0 Atypical Lymphs % Monocytes % 6.5 Eosinophils % 6.2 Basophils % 0.7 Nucleated RBC % 0 Absolute Neutrophils 6.77 H Absolute Lymphocytes 1.43 Absolute Monocytes 0.62 Absolute Eosinophils 0.59 Absolute Basophils 0.07 RBC Morphology Poikilocytosis ESR PT INR VBG Lactate Sodium Potassium Chloride Carbon Dioxide Anion Gap BUN Creatinine Estimated GFR/1.73 m2 Glucose Calcium Magnesium Total Bilirubin AST ALT Alkaline Phosphatase C-Reactive Protein Total Protein Albumin Procalcitonin 0.3 TSH Urine Color Yellow Urine Clarity Sl Cloudy Urine pH 6.0 Ur Specific [place] 1.025 Urine Protein Negative Urine Ketones Negative Urine Blood Negative Urine Nitrite Negative Urine Bilirubin Negative Urine Urobilinogen 0.2 Ur Leukocyte Esterase Large H Urine RBC 0-2 Urine WBC >50 H Ur Epithelial Cells Many Urine Crystals Negative Urine Bacteria Many Urine Casts Negative Urine Mucus Negative Ur Culture Indicated? No/Sq. Contamination Urine Glucose Negative Urine Opiates Screen Urine Methadone Screen Ur Barbiturates Screen Ur Tricyclics Screen Ur Amphetamines Screen U Benzodiazepines Scrn Urine Cocaine Screen Ur THC Screen COVID-19 Source SARS-CoV-2 (PCR) 09/18/20 09/18/20 09/18/20 14:35 14:35 23:00 WBC RBC Hgb Hct MCV MCH MCHC RDW Plt Count MPV Immature Gran % Neutrophils % Band Neutrophils % Lymphocytes % Atypical Lymphs % Monocytes % Eosinophils % Basophils % Nucleated RBC % Absolute Neutrophils Absolute Lymphocytes Absolute Monocytes Absolute Eosinophils Absolute Basophils RBC Morphology Poikilocytosis ESR PT INR VBG Lactate Sodium Potassium Chloride Carbon Dioxide Anion Gap BUN Creatinine Estimated GFR/1.73 m2 Glucose Calcium Magnesium Total Bilirubin AST ALT Alkaline Phosphatase C-Reactive Protein Total Protein Albumin Procalcitonin TSH Urine Color Yellow Urine Clarity Sl Cloudy Urine pH 6.0 Ur Specific [place] 1.015 Urine Protein 30 H Urine Ketones Negative Urine Blood Trace-intact H Urine Nitrite Negative Urine Bilirubin Negative Urine Urobilinogen 0.2 Ur Leukocyte Esterase Small H Urine RBC 3-5 H Urine WBC >50 H Ur Epithelial Cells Few Urine Crystals Negative Urine Bacteria Moderate Urine Casts Negative Urine Mucus Negative Ur Culture Indicated? Yes Urine Glucose Negative Urine Opiates Screen Negative Urine Methadone Screen Negative Ur Barbiturates Screen Negative Ur Tricyclics Screen Positive A Ur Amphetamines Screen Negative U Benzodiazepines Scrn Negative Urine Cocaine Screen Negative Ur THC Screen Negative COVID-19 Source Nasal/Nares SARS-CoV-2 (PCR) Negative 09/19/20 09/19/20 09/19/20 06:41 06:41 06:41 WBC 9.80 RBC 4.29 Hgb 13.1 Hct 40.7 MCV 94.9 MCH 30.5 MCHC 32.2 RDW 14.8 H Plt Count 231 MPV 9.8 Immature Gran % 0.0 Neutrophils % 76.0 Band Neutrophils % 10 Lymphocytes % 3.0 Atypical Lymphs % 2 Monocytes % 1.0 Eosinophils % 8.0 Basophils % 0.0 Nucleated RBC % 0 Absolute Neutrophils 8.43 H Absolute Lymphocytes 0.49 L Absolute Monocytes 0.10 Absolute Eosinophils 0.78 H Absolute Basophils 0.00 RBC Morphology See Below Poikilocytosis 1+ ESR PT 11.2 H INR 1.1 VBG Lactate Sodium 141 Potassium 3.1 L Chloride 108 H Carbon Dioxide 26.0 Anion Gap 7.0 BUN 17 Creatinine 1.0 Estimated GFR/1.73 m2 >= 60.00 Glucose 126 H Calcium 7.6 L Magnesium 1.7 L Total Bilirubin 0.4 AST 74 H ALT 81 H Alkaline Phosphatase 267 H C-Reactive Protein Total Protein 4.9 L Albumin 2.6 L Procalcitonin TSH 1.53 Urine Color Urine Clarity Urine pH Ur Specific [place] Urine Protein Urine Ketones Urine Blood Urine Nitrite Urine Bilirubin Urine Urobilinogen Ur Leukocyte Esterase Urine RBC Urine WBC Ur Epithelial Cells Urine Crystals Urine Bacteria Urine Casts Urine Mucus Ur Culture Indicated? Urine Glucose Urine Opiates Screen Urine Methadone Screen Ur Barbiturates Screen Ur Tricyclics Screen Ur Amphetamines Screen U Benzodiazepines Scrn Urine Cocaine Screen Ur THC Screen COVID-19 Source SARS-CoV-2 (PCR) Documented by User: Carla Kaleigh DO Jose Carlos 09/19/20 15:48 Assessment and Plan Assessment and plan (1) Skin abscess: Status: Acute Assessment and plan: hx of MRSA 3mm area of redness. minimal drainage. wash w/ hibicleanse. Bactroban and band-aide. This does not require I&D. This is not the etiology of fever. Qualifiers: Site of cutaneous abscess: trunk Site of cutaneous abscess of trunk: back Qualified Code(s): L02.212 - Cutaneous abscess of back [any part, except buttock] [facility] Medical History Abdominal adhesions Asthma Axillary hidradenitis suppurativa Ye syndrome History of drug abuse Clean for 17 months-Meth Idiopathic thrombocytopenic purpura Moderate persistent asthma Obesity Periodic limb movement disorder Polyarthritis Portal vein thrombosis Abd CT 03/03/19 [facility]; liver shows low-density at posterior segment superiorly suggesting portal vein clot, without parenchymal abnormality. 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 complicated by postOp infection in wound bed and L empyema Social History Smoking/Tobacco Use Status: Current every day Tobacco Type: cigarettes Smoking risk assessment performed?: Yes Alcohol Intake: never Drug use: Rarely Substance use type: marijuana Adopted: No Caregiver/Support person: No Foster care: No Household members: significant other and family Housing: other Number of Children: 1 Communication Needs: None Do you need help understanding health information?: Rarely Sexually active: Yes Do you think of yourself as: straight/heterosexual Current gender identity: female What type of physical activity do you participate in: none Do you feel safe at home: Yes Do you feel safe in your relationship?: Yes Results Labs Result diagrams: 09/19/20 06:41 09/19/20 06:41
[2020-09-19] MEDS: Budesonide/Formoterol 160/4.5 6 GM 60 PUFF INH IH ×2 (08:08→19:27)
--- NOTE | 2020-09-19 08:33 | PDOC.CMIN ---
- If Service Date Differs Date of service: 09/19/20 Time of Service: 08:33 Care Management Initial Assess REASON FOR HOSPITALIZATION:: Fever of unknown origin PAST MEDICAL HISTORY/PAST SURGICAL HISTORY:: Medical History (Updated 09/17/20 @ 20:04 by Maddison Brice). Abdominal adhesions. Asthma. Axillary hidradenitis suppurativa. Ye syndrome. History of drug abuse. Clean for 17 months-Meth. Idiopathic thrombocytopenic purpura. Moderate persistent asthma. Obesity. Periodic limb movement disorder. Polyarthritis. Portal vein thrombosis. Abd CT 03/03/19 [facility]; liver shows low-density at posterior segment superiorly suggesting portal vein clot, without parenchymal abnormality.. Psoriasis. Scheurmann's disease. Scoliosis. Sleep walking disorder. Smoker. Solar urticaria. Surgical History . History of cholecystectomy. History of incisional hernia repair (~03/29/20). History of wisdom tooth extraction. Post-splenectomy. 02/2019. complicated by postOp infection in wound bed and L empyema PREVIOUS FUNCTIONAL STATUS/SOCIAL/FAMILY SUPPORTS:: Tena currently lives alone at the [facility] in [facility] . Her father who had been staying with her at the [facility], recently moved to [place]. She was raised in [place], and later moved to [facility]. She has a rare disease called Payam's syndrome, and is attempting to qualify for disability. She is currently not working and is independent with her ADL's. CURRENT FUNCTIONAL STATUS:: Tena was sitting up in bed when CM met with her, she was pleasant and easily engaged in conversation. She expressed concern about her housing voucher expiring on 10/18/20. She is waiting for the judgement in her SSI case, and is hopeful Dr. Caal letter to support her need for disability will expedite the process. ADVANCE DIRECTIVES:: None on File, CM will offer Has patient been provided with info about the portal/API?: Yes Did the patient sign up for the portal?: Yes (Previously ) CODE STATUS:: Full Code INSURANCE COVERAGE / FINANCIAL ISSUES:: [place] Medicaid CURRENT HOME/COMMUNITY SERVICES/EQUIPMENT:: [employer] manager assurance, Tabitha CHW, [employer] PRIMARY CARE PHYSICIAN:: Jonathan Jason POTENTIAL DISCHARGE NEEDS:: Follow up with her community providers, and resumption of community services/support. PATIENT/FAMILY EDUCATION NEEDS:: Review discharge instructions, limitations, discussion of self care needs including ask me three. ANTICIPATED BARRIERS TO DISCHARGE:: None identified TRANSPORTATION:: Via [facility] or private vehicle with friend Dony PLAN:: Anticipate Tena will return home when medically cleared with a resumption of community support. She will transport home via [facility] private vehicle vs friend. She will follow up with her PCP and discharge plan of care. CM will continue to follow.
--- NOTE | 2020-09-19 08:59 | W.ORTHOCONSU ---
Date of service: 09/19/20 Time of Service: 08:30 History of Present Illness History of Present Illness Chief Complaint: pain in every joint and left lower leg pain Narrative: Tena is a 29 year old female PMHx significant for Payam's Syndrome (AIAH and thrombocytopenia, s/p splenectomy/rituximab/IVIG 2018), Fuch's syndrome, psoriasis, asthma, MONICA, positive quanteriferon with negative repeat test - follow by infectious disease at [facility], pulmonary nodules of unknown etiology since 2015 (s/p EBUS, biopsy and BAL 05/2020), hidradenitis suppurativa and 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 She is here for fever of unknown origin, possible source from a boil on her back. Consulted for multiple joint pains and osteonecrosis of left lower leg. Recently treated for lower left leg cellulitis and she is worried this caused osteomyletis. She continues to have multiple polyarthralgias and reports every joint in her body aches. She is focused on 1mg of dilaudid and states she would receive this if she had a papercut and now that she has painful osteonecrosis no one will give her 1mg of dilaudid. She denies anything that makes her pain worse, she states it just is consistently present. She can not explain the quality of the pain and is very weepy when trying to talk about her discomfort. She was able to ambulate from the bathroom to her bed today without notable difficultly or expressed pain. She denies motion or activities that make her pain worse. She denies numbness or tingling in her lower extremity. 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 Consulted for multiple joint pains and osteonecrosis of left lower leg. Recently treated for lower left leg cellulitis. She continues to have multiple polyarthralgias and reports every joint in her body aches. Her cellulitis is well resolved and is unrelated to current admission. I reassured Tena that this did not cause osteomyelitis as it was a superficial skin infection, confirmed with further MRI imaging, that has since resolved. I explained that we believe her fever is due to the boil on her back and unrelated to her previous cellulitis infection. Her ROM of her left lower extremity is full and painless to active and passive motion. There is, however, point tenderness over the midshaft of the left tibia that elicited significant discomfort for Tena. Will obtain a left tib/fib xray to rule out acute bony abnormalities. Per the nurse, Tena is able to ambulate from the bed to the bathroom and back without difficultly or pain. Tena's symptoms of multiple joint aches and pains do not correlate with her osteonecrosis finding on MRI. Her pain would be present and/or increase with ambulation and weight bearing. I would call her distal tibia and talar osteonecrosis asymptomatic at this time which does not require further intervention. It is recommended she follow with [facility], foot and ankle specialist for management and future need for surgical intervention if the joint space were to collapse or further bony destruction were to occur. For her multiple polyarthralgias, this could be related to her autoimmune diseases and recommend she continue follow up with outpatient rhuematology. 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 complicated by postOp infection in wound bed and L empyema Social History Smoking/Tobacco Use Status: Current every day Tobacco Type: cigarettes Smoking risk assessment performed?: Yes Alcohol Intake: never Drug use: Rarely Substance use type: marijuana Adopted: No Caregiver/Support person: No Foster care: No Household members: significant other and family Housing: other Number of Children: 1 Communication Needs: None Do you need help understanding health information?: Rarely Sexually active: Yes Do you think of yourself as: straight/heterosexual Current gender identity: female What type of physical activity do you participate in: none Do you feel safe at home: Yes Do you feel safe in your relationship?: Yes Exam Narrative Exam Narrative: Patient is sitting comfortably in bed eating breakfast. She demonstrates active motion of all 4 extremities. Inspection of left lower leg with superficial eschars, no erythema, edema, rashes or deformities. She is able to move her left lower leg in the bed and raise her heel off the bed. Ankle motion is full and painless to active and passive motion. Resisted dorsiflexion is 5/5, plantar flexion 5/5 and nonirriating Knee motion is full and painless to active and passive motion. Palpation of the talus does not elicit discomfort. Palpation of the distal tibia is nontender. Midshaft of the tibia elicits significant discomfort, proximal tibia nontender Compartments are soft Dorsalis pedis pulses are +2 and equal bilaterally with brisk distal capillary refill Results Last Vital Signs Temp 96.1 F L 09/19/20 08:25 Pulse 84 09/19/20 08:25 Resp 20 09/19/20 08:25 BP 98/63 L 09/19/20 08:25 Pulse Ox 93 09/19/20 08:25 Labs Result diagrams: 09/19/20 06:41 09/19/20 06:41 Labs: Laboratory Results - last 24 hr 09/18/20 09/18/20 09/18/20 14:32 14:32 14:32 WBC RBC Hgb Hct MCV MCH MCHC RDW Plt Count MPV Immature Gran % Neutrophils % Band Neutrophils % Lymphocytes % Atypical Lymphs % Monocytes % Eosinophils % Basophils % Nucleated RBC % Absolute Neutrophils Absolute Lymphocytes Absolute Monocytes Absolute Eosinophils Absolute Basophils RBC Morphology Poikilocytosis ESR 6 PT INR VBG Lactate 1.0 Sodium 141 Potassium 3.8 Chloride 107 Carbon Dioxide 26.9 Anion Gap 7.1 BUN 13 Creatinine 0.9 Estimated GFR/1.73 m2 >= 60.00 Glucose 86 Calcium 8.1 L Magnesium Total Bilirubin 0.4 AST 34 ALT 46 Alkaline Phosphatase 164 H C-Reactive Protein 1.38 H Total Protein 5.6 L Albumin 3.1 L Procalcitonin TSH Urine Color Urine Clarity Urine pH Ur Specific [place] Urine Protein Urine Ketones Urine Blood Urine Nitrite Urine Bilirubin Urine Urobilinogen Ur Leukocyte Esterase Urine RBC Urine WBC Ur Epithelial Cells Urine Crystals Urine Bacteria Urine Casts Urine Mucus Ur Culture Indicated? Urine Glucose Urine Opiates Screen Urine Methadone Screen Ur Barbiturates Screen Ur Tricyclics Screen Ur Amphetamines Screen U Benzodiazepines Scrn Urine Cocaine Screen Ur THC Screen COVID-19 Source SARS-CoV-2 (PCR) 09/18/20 09/18/20 09/18/20 14:32 14:32 14:35 WBC 9.54 RBC 4.72 Hgb 14.5 Hct 45.1 MCV 95.6 H MCH 30.7 MCHC 32.2 RDW 14.5 Plt Count 292 MPV 9.3 Immature Gran % 0.6 Neutrophils % 71.0 Band Neutrophils % Lymphocytes % 15.0 Atypical Lymphs % Monocytes % 6.5 Eosinophils % 6.2 Basophils % 0.7 Nucleated RBC % 0 Absolute Neutrophils 6.77 H Absolute Lymphocytes 1.43 Absolute Monocytes 0.62 Absolute Eosinophils 0.59 Absolute Basophils 0.07 RBC Morphology Poikilocytosis ESR PT INR VBG Lactate Sodium Potassium Chloride Carbon Dioxide Anion Gap BUN Creatinine Estimated GFR/1.73 m2 Glucose Calcium Magnesium Total Bilirubin AST ALT Alkaline Phosphatase C-Reactive Protein Total Protein Albumin Procalcitonin 0.3 TSH Urine Color Yellow Urine Clarity Sl Cloudy Urine pH 6.0 Ur Specific [place] 1.025 Urine Protein Negative Urine Ketones Negative Urine Blood Negative Urine Nitrite Negative Urine Bilirubin Negative Urine Urobilinogen 0.2 Ur Leukocyte Esterase Large H Urine RBC 0-2 Urine WBC >50 H Ur Epithelial Cells Many Urine Crystals Negative Urine Bacteria Many Urine Casts Negative Urine Mucus Negative Ur Culture Indicated? No/Sq. Contamination Urine Glucose Negative Urine Opiates Screen Urine Methadone Screen Ur Barbiturates Screen Ur Tricyclics Screen Ur Amphetamines Screen U Benzodiazepines Scrn Urine Cocaine Screen Ur THC Screen COVID-19 Source SARS-CoV-2 (PCR) 09/18/20 09/18/20 09/18/20 14:35 14:35 23:00 WBC RBC Hgb Hct MCV MCH MCHC RDW Plt Count MPV Immature Gran % Neutrophils % Band Neutrophils % Lymphocytes % Atypical Lymphs % Monocytes % Eosinophils % Basophils % Nucleated RBC % Absolute Neutrophils Absolute Lymphocytes Absolute Monocytes Absolute Eosinophils Absolute Basophils RBC Morphology Poikilocytosis ESR PT INR VBG Lactate Sodium Potassium Chloride Carbon Dioxide Anion Gap BUN Creatinine Estimated GFR/1.73 m2 Glucose Calcium Magnesium Total Bilirubin AST ALT Alkaline Phosphatase C-Reactive Protein Total Protein Albumin Procalcitonin TSH Urine Color Yellow Urine Clarity Sl Cloudy Urine pH 6.0 Ur Specific [place] 1.015 Urine Protein 30 H Urine Ketones Negative Urine Blood Trace-intact H Urine Nitrite Negative Urine Bilirubin Negative Urine Urobilinogen 0.2 Ur Leukocyte Esterase Small H Urine RBC 3-5 H Urine WBC >50 H Ur Epithelial Cells Few Urine Crystals Negative Urine Bacteria Moderate Urine Casts Negative Urine Mucus Negative Ur Culture Indicated? Yes Urine Glucose Negative Urine Opiates Screen Negative Urine Methadone Screen Negative Ur Barbiturates Screen Negative Ur Tricyclics Screen Positive A Ur Amphetamines Screen Negative U Benzodiazepines Scrn Negative Urine Cocaine Screen Negative Ur THC Screen Negative COVID-19 Source Nasal/Nares SARS-CoV-2 (PCR) Negative 09/19/20 09/19/20 09/19/20 06:41 06:41 06:41 WBC 9.80 RBC 4.29 Hgb 13.1 Hct 40.7 MCV 94.9 MCH 30.5 MCHC 32.2 RDW 14.8 H Plt Count 231 MPV 9.8 Immature Gran % 0.0 Neutrophils % 76.0 Band Neutrophils % 10 Lymphocytes % 3.0 Atypical Lymphs % 2 Monocytes % 1.0 Eosinophils % 8.0 Basophils % 0.0 Nucleated RBC % 0 Absolute Neutrophils 8.43 H Absolute Lymphocytes 0.49 L Absolute Monocytes 0.10 Absolute Eosinophils 0.78 H Absolute Basophils 0.00 RBC Morphology See Below Poikilocytosis 1+ ESR PT 11.2 H INR 1.1 VBG Lactate Sodium 141 Potassium 3.1 L Chloride 108 H Carbon Dioxide 26.0 Anion Gap 7.0 BUN 17 Creatinine 1.0 Estimated GFR/1.73 m2 >= 60.00 Glucose 126 H Calcium 7.6 L Magnesium 1.7 L Total Bilirubin 0.4 AST 74 H ALT 81 H Alkaline Phosphatase 267 H C-Reactive Protein Total Protein 4.9 L Albumin 2.6 L Procalcitonin TSH 1.53 Urine Color Urine Clarity Urine pH Ur Specific [place] Urine Protein Urine Ketones Urine Blood Urine Nitrite Urine Bilirubin Urine Urobilinogen Ur Leukocyte Esterase Urine RBC Urine WBC Ur Epithelial Cells Urine Crystals Urine Bacteria Urine Casts Urine Mucus Ur Culture Indicated? Urine Glucose Urine Opiates Screen Urine Methadone Screen Ur Barbiturates Screen Ur Tricyclics Screen Ur Amphetamines Screen U Benzodiazepines Scrn Urine Cocaine Screen Ur THC Screen COVID-19 Source SARS-CoV-2 (PCR) Imaging Imaging Studies: Reviewed RIGHT tib/fib xray from 08/27/2020: No acute or chronic bony fractures noted, no lesions or bony cysts appreciated Reviewed MRI of LEFT ankle from 08/14/2020: medullary lesions within the distal tibia [id number] and talus 1.3cmx0.8cm suggestive of bone infarct
[2020-09-19] MEDS: Ketorolac 30 MG/ML VIAL IVP ×2 (12:28→21:09)
[2020-09-19] MEDS: Normal Saline Flush 10 ML SYR ×2 (14:34→17:46)
--- NOTE | 2020-09-19 14:35 | CHAPLAIN ---
I had a short visit with Tena. She was sitting up in bed and on her phone. I explained my role and offered support. Tena was not interested in further conversation.
[2020-09-19] MEDS: VANCOMYCIN/WATER (PEG) 1.5 GM/300 ML BAG IV ×2 (14:36→15:02)
[2020-09-19] MEDS: Lactulose 20 GM/30 ML CUP PO (19:19)
--- NOTE | 2020-09-19 20:45 | W.PM.PROGNOT ---
Date of Service Date of service: 09/19/20 Time of Service: 20:46 Assessment and Plan Assessment and plan (1) Fever: Status: Acute Assessment and plan: unclear etiology however high potential for either UTI given her UA or d/t one of her skin lesions particularly her carbuncle on her back. Patient has been started on Vancomycin d/t her prior hx of Staph infections though no positive cultures for MRSA in chart. They have either been Staph epi or MSSA. She denies any IVDU and she has not had any recent procedures. Cont Aztreonam and Vanc. Surgery consult appreciated; no need for I&D of draining wound on back. Recommend gentle expession of fluid. Pulmonary consult appreciated. She had a bronch, BAL, bxs and EBUS a [facility] earlier this year. Nodules not cancer but are reactive. . She also has hx of positive Gold Quantiferon test but has been followed by I.D. by Dr. Hyde. She has not been diagnosed w/ TB and her CT does not look typical for TB (peripheral pleural nodules, no apical lesions and no cavitation). Qualifiers: Fever type: unspecified Qualified Code(s): R50.9 - Fever, unspecified (2) UTI (urinary tract infection): Status: Suspected Assessment and plan: check cath specimen and treat w/ aztreonam Qualifiers: Urinary tract infection type: site unspecified Hematuria presence: without hematuria Qualified Code(s): N39.0 - Urinary tract infection, site not specified (3) Skin abscess: Status: Acute Assessment and plan: As above. Qualifiers: Site of cutaneous abscess: trunk Site of cutaneous abscess of trunk: back Qualified Code(s): L02.212 - Cutaneous abscess of back [any part, except buttock] (4) Pulmonary nodules: Status: Acute Assessment and plan: As above (5) Ye syndrome: Status: Chronic Assessment and plan: hx of HAIA but treatd in past w/ rituximab/IVIG and finally spleenectomy. No evidence for hemolytic anemia nor thrombocytopenia. Patient has had multiple workups for immune deficiency (see rheumatology's note) Rheumatology labs that have resulted from recent visit were noted; negative ABIGAIL, DS DNA. (6) Chronic knee pain: Status: Acute Assessment and plan: will treat her acutely w/ Toradol and Nucynta. Try to avoid strong narcotics in this patient who has hx of prior IVDU and methamphetamine abuse, however she may need referral to pain clinic for predatory animal exterminator control of her pains. 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 Patient does mention that she had significant blood loss requiring multiple transfusions at time of her spleenectomy. This would possibly be an event that could have triggered low blood flow in the affected area causing hypoxemia. This is not, however, a site of ongoing pain. (8) Psoriasis: Status: Chronic Assessment and plan: cont. her topical steroid creams and anti-puritics. Subjective Subjective Patient reports: tolerating a regular diet and afebrile Interval history since last seen: She c/o abd discomfort and states she has had no BM for several days; requests lactulose. No discomfort at abscess site of back; states she has had similar lesions multiple times in past. No specific joint pain complaints. Exam Const General: acute distress mild, anxious and cushingoid Nutritional Appearance: obese Orientation: alert, awake and oriented x3 HENMT Head: scalp lesion (psoriatic plaques over scalp) Ears: hearing grossly normal bilaterally General nose exam: external nose normal Face and sinus: normal facial exam Mouth: tongue normal and oral mucosa abnormal erythematous Teeth and gingiva: poor dentition Eyes General: appearance normal, both eyes and all related structures Alignment and Position: alignment normal Sclera: sclerae normal Pupils: PERRL Neck Neck: normal visual inspection and full ROM Resp Effort & Inspection: normal respiratory effort and able to speak in complete sentences Auscultation: clear to auscultation bilaterally Percussion: percussion normal Cardio Jugular venous pressure: no JVD Palpation: normal PMI Rate: tachycardic Rhythm: regular rhythm Heart Sounds: S1 normal, S2 normal and normal, physiologic split S2 Pulses: normal peripheral pulses GI Inspection: no edema, incision (healed midline scar) and obesity Palpation: soft, no hepatosplenomegaly and tender (mild and diffuse.) with no rebound tenderness Auscultation: normal bowel sounds General: CVA tenderness Back/Spine/Pelvis Thoracic/Lumbar Spine: thoracic and lumbar spine normal to inspection, No pain with thoraco-lumbar ROM and No paraspinal tenderness Skin General skin exam: dry skin, excoriation (multiple skin excoriations in various stages of healing and crusted or scab) and other (psoriatic plaques on extensor surfaces of elbows) Lesions: lesion noted (3 to 4 cm erythematous pustular lesion over right mid lateral back. ) and other (Plaque-like lesions over mery prominences.) Hair: other (psoriatic plaques) Neuro General: patient alert, patient awake, patient oriented x3, moves all extremities and no focal motor deficits Cognition: normal cognition Speech: speech normal Motor: muscle tone normal throughout Extrem General: full ROM, capillary refill normal, no clubbing, cyanosis or edema and no calf tenderness Psych Appearance: disheveled Mental Status: mental status grossly normal Speech and Movement: speech and movement normal Mood: congruent mood and anxious mood Affect: normal affect Thought Content: normal Insight: fair Judgment: fair Objective Last Vital Signs Temp 36.6 C 09/19/20 18:09 Pulse 80 09/19/20 18:09 Resp 19 09/19/20 18:09 BP 104/66 09/19/20 18:09 Pulse Ox 98 09/19/20 18:09 Laboratory Results - last 24 hr 09/18/20 09/19/20 09/19/20 23:00 06:41 06:41 WBC 9.80 RBC 4.29 Hgb 13.1 Hct 40.7 MCV 94.9 MCH 30.5 MCHC 32.2 RDW 14.8 H Plt Count 231 MPV 9.8 Immature Gran % 0.0 Neutrophils % 76.0 Band Neutrophils % 10 Lymphocytes % 3.0 Atypical Lymphs % 2 Monocytes % 1.0 Eosinophils % 8.0 Basophils % 0.0 Nucleated RBC % 0 Absolute Neutrophils 8.43 H Absolute Lymphocytes 0.49 L Absolute Monocytes 0.10 Absolute Eosinophils 0.78 H Absolute Basophils 0.00 RBC Morphology See Below Poikilocytosis 1+ PT INR Sodium 141 Potassium 3.1 L Chloride 108 H Carbon Dioxide 26.0 Anion Gap 7.0 BUN 17 Creatinine 1.0 Estimated GFR/1.73 m2 >= 60.00 Glucose 126 H Calcium 7.6 L Magnesium 1.7 L Total Bilirubin 0.4 AST 74 H ALT 81 H Alkaline Phosphatase 267 H Total Protein 4.9 L Albumin 2.6 L TSH 1.53 Urine Color Yellow Urine Clarity Sl Cloudy Urine pH 6.0 Ur Specific [place] 1.015 Urine Protein 30 H Urine Ketones Negative Urine Blood Trace-intact H Urine Nitrite Negative Urine Bilirubin Negative Urine Urobilinogen 0.2 Ur Leukocyte Esterase Small H Urine RBC 3-5 H Urine WBC >50 H Ur Epithelial Cells Few Urine Crystals Negative Urine Bacteria Moderate Urine Casts Negative Urine Mucus Negative Ur Culture Indicated? Yes Urine Glucose Negative 09/19/20 06:41 WBC RBC Hgb Hct MCV MCH MCHC RDW Plt Count MPV Immature Gran % Neutrophils % Band Neutrophils % Lymphocytes % Atypical Lymphs % Monocytes % Eosinophils % Basophils % Nucleated RBC % Absolute Neutrophils Absolute Lymphocytes Absolute Monocytes Absolute Eosinophils Absolute Basophils RBC Morphology Poikilocytosis PT 11.2 H INR 1.1 Sodium Potassium Chloride Carbon Dioxide Anion Gap BUN Creatinine Estimated GFR/1.73 m2 Glucose Calcium Magnesium Total Bilirubin AST ALT Alkaline Phosphatase Total Protein Albumin TSH Urine Color Urine Clarity Urine pH Ur Specific [place] Urine Protein Urine Ketones Urine Blood Urine Nitrite Urine Bilirubin Urine Urobilinogen Ur Leukocyte Esterase Urine RBC Urine WBC Ur Epithelial Cells Urine Crystals Urine Bacteria Urine Casts Urine Mucus Ur Culture Indicated? Urine Glucose
[2020-09-19] MEDS: Trihexyphenidyl 2 MG TAB 5 MG PO (21:08)
[2020-09-19] MEDS: Normal Saline Flush 10 ML SYR IVP (21:09)
[2020-09-19] MEDS: Docusate Sodium 100 MG CAP PO (22:29)
[2020-09-19] MEDS: traZODone 50 MG TAB PO (22:29)
[2020-09-20] MEDS: Acetaminophen 500 MG TAB 1000 MG PO (00:16)
[2020-09-20] MEDS: Normal Saline Flush 10 ML SYR IVP ×3 (00:17→17:39)
[2020-09-20] MEDS: diphenhydrAMINE 25 MG CAP PO (00:25)
[2020-09-20] MEDS: VANCOMYCIN/WATER (PEG) 1.5 GM/300 ML BAG IV (03:46)
[2020-09-20 07:30] VITALS: PULSE 90
[2020-09-20] MEDS: Citalopram 20 MG TAB 40 MG PO (07:53)
[2020-09-20] MEDS: Omeprazole 20 MG CAPCR 40 MG PO (07:53)
[2020-09-20] MEDS: clonazePAM 1 MG TAB PO ×2 (07:53→22:11)
[2020-09-20] MEDS: Enoxaparin 40 MG/0.4 ML SYR SC (07:54)
[2020-09-20 08:02] VITALS: BP 91/55; PULSE 85; RESP 19; TEMP 36.8; O2SAT 97
--- NOTE | 2020-09-20 09:02 | PDOC.CMPRO ---
- If Service Date Differs Date of service: 09/20/20 Time of Service: 09:03 Care Management Progress Note S\O: Tena was sitting up in her chair when CM met with her. She was pleasant and easily engaged in conversation. Tena shared concerns central to her housing at the [facility], which is currently all set through at least 10/18/20. She is hoping that her SSI will go through prior to that date. She shared that she asked to be on the list for low income housing through [facility], 8 months ago however she found out that they lost her application,. She is not happy about needing to start the process over, and is reluctant to do so since they lost her application. CM instructing her to outreach to community connections (Tena has contact info in her phone) for further guidance. Additionally, she inquired about the overhead surveillance system in room and wanted to know more about. I shared that it allows for real time visual monitoring and does not record video or audio. She is totally fine with that, and actually welcomed the idea since she has a tendency to sleep walk. Overall, Tena is feeling better today and her energy level is improved. She notes her mouth is extra dry due to having thrush, so CM provided her with ice chips, which provided some relief. A: 29 year old female admitted to [facility] 09/18/20 for a fever of unknown etiology. P: Tena will likely be discharged back to the [facility] via RCT or friend Dony when medically cleared.
[2020-09-20] MEDS: Potassium Chloride 20 MEQ TABCR PO (10:30)
[2020-09-20] MEDS: Budesonide/Formoterol 160/4.5 6 GM 60 PUFF INH IH ×2 (10:40→22:09)
[2020-09-20 13:55] LABS: ANA Interpretation Negative (Negative)
[2020-09-20 16:29] LABS: Vancomycin, Trough 9.6 ug/mL (10.0-20.0)
[2020-09-20] MEDS: VANCOMYCIN/WATER (PEG) 1.25 GM/250 ML BAG IV (19:24)
[2020-09-20 19:40] VITALS: BP 106/63; PULSE 94; RESP 20; TEMP 37; O2SAT 96
[2020-09-20] MEDS: Trihexyphenidyl 2 MG TAB 5 MG PO (22:10)
[2020-09-20] MEDS: Magnesium Oxide 400 MG TAB 800 MG PO (22:11)
[2020-09-21 00:21] VITALS: BP 96/58; PULSE 94; RESP 18; TEMP 37; O2SAT 94
[2020-09-21] MEDS: VANCOMYCIN/WATER (PEG) 1.25 GM/250 ML BAG IV ×2 (02:00→10:51)
[2020-09-21 07:13] LABS: Abs Immature Grans 0.04 10^3/uL (0.0-0.06); Absolute Basophil Count 0.04 10^3/uL (0.0-0.2); Absolute Eosinophil Count 0.84 10^3/uL (0.0-0.7); Absolute Lymphocyte Count 0.61 10^3/uL (1.2-3.4); Absolute Monocyte Count 0.37 10^3/uL (0.1-0.8); Absolute Neutrophil Count 5.82 10^3/uL (1.2-6.7); Basophils % 0.5; Eosinophils % 10.9; HCT 38.4 % (36.0-46.0); Immature Grans % 0.5; Lymphocytes % 7.9; MCH 31.3 pg (27.0-33.0); MCHC 33.9 % (32.0-36.0); MCV 92.5 fL (80-95); MPV 9.9 fL (8.0-11.0); Monocytes % 4.8; Neutrophils % 75.4; Nucleated RBC 1 %; Platelet Count 271 10^3/uL (130-400); RBC 4.15 10^6/uL (3.93-5.22); RDW 14.6 % (11.7-14.6); RDW-SD 49.4 fL; WBC 7.72 10^3/uL (4.4-10.8)
[2020-09-21 07:43] LABS: Anion Gap 10.2 mmol/L (3-11); BUN 10 mg/dL (7-18); CO2 24.8 mmol/L (21.0-32.0); CREATININE 0.8 mg/dL (0.55-1.02); Calcium 8.3 mg/dL (8.5-10.1); Chloride 109 mmol/L (98-107); Glucose 112 mg/dL (74-106); Potassium 3.8 mmol/L (3.5-5.1); Sodium 144 mmol/L (136-145)
[2020-09-21] MEDS: Enoxaparin 40 MG/0.4 ML SYR SC (08:44)
[2020-09-21] MEDS: Normal Saline Flush 10 ML SYR IVP (08:45)
[2020-09-21] MEDS: Omeprazole 20 MG CAPCR 40 MG PO (08:47)
[2020-09-21] MEDS: Potassium Chloride 20 MEQ TABCR PO (08:48)
[2020-09-21] MEDS: Citalopram 20 MG TAB 40 MG PO (08:48)
[2020-09-21] MEDS: clonazePAM 1 MG TAB PO (08:48)
[2020-09-21 09:24] VITALS: BP 96/65; PULSE 92; RESP 16; TEMP 36.9; O2SAT 93
[2020-09-21] MEDS: Budesonide/Formoterol 160/4.5 6 GM 60 PUFF INH IH (10:05)
[2020-09-21 11:50] LABS: dsDNA Ab, IgG <12.3 IU/mL (<30.0)
--- NOTE | 2020-09-21 12:11 | DSE_ITS ---
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 F/U with Rheumatology at [facility] as per their recommendations. Home Meds and New Rx's Prescriptions: No Action calcipotriene 0.005 % ointment 1 applic topical BID RF: 0 Otezla 30 mg tablet 30 mg PO BID RF: 0 Hold Instructions: Changed by Provider trihexyphenidyl 5 mg tablet 5 mg PO QHS Qty: 90 RF: 3 trazodone 50 mg tablet 50 mg PO QHS PRN (Reason: sleep) Qty: 90 RF: 1 Advair HFA 230-21 mcg/actuation HFA aerosol inhaler 2 puff inhalation BID Qty: 12 RF: 0 clonazepam [Klonopin] 1 mg tablet 1 mg PO BID RF: 0 methylphenidate HCl [Concerta] 54 mg tablet extended release 24hr 54 mg PO DAILY RF: 0 aripiprazole [Abilify] See Rx Instructions PO .COMPLEX RF: 0 omeprazole 40 mg capsule,delayed release(DR/EC) 40 mg PO DAILY Qty: 30 RF: 0 fluocinonide 0.05 % cream 1 applic topical BID Qty: 60 RF: 0 fluocinolone and shower cap [[place]-Smoothe/FS Scalp Oil] 0.01 % oil 1 applic topical .QOD Qty: 118.28 RF: 3 citalopram [Celexa] 40 mg tablet 40 mg PO DAILY Qty: 90 RF: 3 betamethasone, augmented 0.05 % ointment 1 applic topical BID PRN (Reason: Psoriasis) Qty: 50 RF: 6 albuterol sulfate 90 mcg/actuation HFA aerosol inhaler 2 puff inhalation Q6H PRN (Reason: shortness of breath or wheezing) Qty: 6.7 RF: 3 ipratropium-albuterol 0.5 mg-3 mg(2.5 mg base)/3 mL solution for nebulization 3 ml inhalation QID PRN (Reason: wheezing) Qty: 90 RF: 6 diphenhydramine HCl [Benadryl Allergy] 25 mg tablet 25 mg PO TID PRN (Reason: itching) Qty: 90 RF: 0 azithromycin 250 mg tablet See Rx Instructions PO .COMPLEX RF: 0 clobetasol 0.05 % solution 1 applic topical BID PRN (Reason: Psoriasis) RF: 0 acetaminophen [Pain Relief (acetaminophen)] 650 mg tablet extended release 650 mg PO Q8H PRN (Reason: pain) Qty: 270 RF: 3 nicotine 21 mg/24 hr patch 24 hour 1 patch transdermal DAILY Qty: 14 RF: 0 clotrimazole 10 mg Lauri 10 mg SUC 5X/DAY Qty: 35 RF: 0 ibuprofen 600 mg tablet 600 mg PO TID PRNQty: 15 RF: 0 Otezla 30 mg tablet 30 mg PO BID RF: 0 Discharge Instructions Instructions: Fever in Adults (GEN) Activity:: Activity as Tolerated Equipment/Supplies:: No Equipment Needed Diet:: Normal Diet Discharge Orders Discharge Orders: Discharge Order (Routine); Ordered 09/21/20 Ordered By: Martin Harris DS: Summary Time Spent with Patient providing and/or coordinating discharge services: Greater than 30 minutes Status at Discharge Functional status at discharge: independent ambulation Overall status at discharge: patient is back to baseline Mental Status: mental status grossly normal Speech and Movement: speech and movement normal Mood: congruent mood Affect: normal affect Exam Psych Mental Status: mental status grossly normal Speech and Movement: speech and movement normal Mood: congruent mood Affect: normal affect DS: Data Vitals/I&O Vitals and I&O: Vital Signs Temperature 36.9 C 09/21/20 09:24 Temperature Source Skin 09/21/20 09:24 Pulse 92 H 09/21/20 09:24 Pulse Rhythm Regular 09/21/20 02:45 Pulse 108 H 09/18/20 18:30 Respiratory Rate 16 09/21/20 09:24 Respiratory Effort 09/21/20 02:45 Respiratory Depth Normal 09/21/20 02:45 Respiratory Pattern Normal 09/21/20 02:45 Blood Pressure 96/65 L 09/21/20 09:24 Blood Pressure Mean 50 09/18/20 18:30 Blood Pressure Position Supine 09/18/20 14:02 Pulse Oximetry 93 09/21/20 09:24 Oxygen Delivery Method Room Air 09/21/20 09:24 Oxygen Flow Rate 0 09/21/20 09:24 Pain Level 0 09/21/20 00:21 Comment 09/18/20 19:00 Intake & Output 09/20/20 09/21/20 09/21/20 23:59 11:59 23:59 Intake Total 360 / 1100 450 / 450 Balance 360 / 650 450 / 450 Weight 117.6 kg Intake: IV 360 / 860 450 / 450 Other: Comment pt voiding ad rufino in toilet; not assessed or measured by RN at this time Voiding Methods Toilet Toilet Data Completed and Pending Labs on day of discharge: Labs from last 24 hours 09/21/20 09/21/20 09/20/20 07:00 07:00 15:47 WBC 7.72 RBC 4.15 Hgb 13.0 Hct 38.4 MCV 92.5 MCH 31.3 MCHC 33.9 RDW 14.6 Plt Count 271 MPV 9.9 Immature Gran % 0.5 Neutrophils % 75.4 Lymphocytes % 7.9 Monocytes % 4.8 Eosinophils % 10.9 Basophils % 0.5 Nucleated RBC % 1 Absolute Neutrophils 5.82 Absolute Lymphocytes 0.61 L Absolute Monocytes 0.37 Absolute Eosinophils 0.84 H Absolute Basophils 0.04 Sodium 144 Potassium 3.8 D Chloride 109 H Carbon Dioxide 24.8 Anion Gap 10.2 BUN 10 D Creatinine 0.8 Estimated GFR/1.73 m2 >= 60.00 Glucose 112 H Calcium 8.3 L Vancomycin Trough 9.6 L ABIGAIL Titer ABIGAIL Titer 2 ABIGAIL Titer 3 ABIGAIL Interpretation 09/19/20 06:41 WBC RBC Hgb Hct MCV MCH MCHC RDW Plt Count MPV Immature Gran % Neutrophils % Lymphocytes % Monocytes % Eosinophils % Basophils % Nucleated RBC % Absolute Neutrophils Absolute Lymphocytes Absolute Monocytes Absolute Eosinophils Absolute Basophils Sodium Potassium Chloride Carbon Dioxide Anion Gap BUN Creatinine Estimated GFR/1.73 m2 Glucose Calcium Vancomycin Trough ABIGAIL Titer Not Applicable ABIGAIL Titer 2 Not Applicable ABIGAIL Titer 3 Not Applicable ABIGAIL Interpretation Negative Preliminary micro results at discharge 09/18/20 22:15 Blood Culture - Preliminary Blood NO GROWTH 48 HOURS 09/18/20 22:10 Blood Culture - Preliminary Blood NO GROWTH 48 HOURS 09/18/20 15:05 Blood Culture - Preliminary Blood NO GROWTH 48 HOURS 09/18/20 14:50 Blood Culture - Preliminary Blood NO GROWTH 48 HOURS [facility] Medical History Abdominal adhesions Asthma Axillary hidradenitis suppurativa Ye syndrome History of drug abuse Clean for 17 months-Meth Idiopathic thrombocytopenic purpura Moderate persistent asthma Obesity Periodic limb movement disorder Polyarthritis Portal vein thrombosis Abd CT 03/03/19 [facility]; liver shows low-density at posterior segment superiorly suggesting portal vein clot, without parenchymal abnormality. 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 complicated by postOp infection in wound bed and L empyema Social History Smoking/Tobacco Use Status: Current every day Tobacco Type: cigarettes Smoking risk assessment performed?: Yes Alcohol Intake: never Drug use: Rarely Substance use type: marijuana Adopted: No Caregiver/Support person: No Foster care: No Household members: significant other and family Housing: other Number of Children: 1 Communication Needs: None Do you need help understanding health information?: Rarely Sexually active: Yes Do you think of yourself as: straight/heterosexual Current gender identity: female What type of physical activity do you participate in: none Do you feel safe at home: Yes Do you feel safe in your relationship?: Yes
--- NOTE | 2020-09-21 15:44 | CMDISCH_ITS ---
- If Service Date Differs Date of service: 09/21/20 Time of Service: 15:45 Care Management Discharge Reason for Hospitalization: Fever of unknown origin Discharge Plan: Discharge to [facility] with friend Dony via private hehicle. Recommend that she follow up with her PCP in 1-2 weeks and with Rheumatology at [facility] as per their recommendations. Patient/Family Education Needs: Review discharge instructions and recommendation to follow up with PCP and Rheumatolgy at [facility], ask me three.
== END 2020-09-21 14:41 | disposition home or self-care (01) ==
LOC: ER 17:45 → MS 18:40
PROVIDERS: Family Medicine; Admitting Provider Internal Medicine; Emergency Provider Student in an Organized Health Care Education/Training Program; PCP Family Medicine; Visit Provider Internal Medicine
DX: N39.0 Urinary tract infection, site not specified (principal); R50.9 Fever, unspecified; L02.232 Carbuncle of back [any part, except buttock and flank]; L02.212 Cutaneous abscess of back [any part, except buttock and flank]; R91.8 Other nonspecific abnormal finding of lung field; Z90.81 Acquired absence of spleen; D69.41 Evans syndrome; M25.561 Pain in right knee; M25.562 Pain in left knee; G89.29 Other chronic pain; L40.9 Psoriasis, unspecified; G47.33 Obstructive sleep apnea (adult) (pediatric); L73.2 Hidradenitis suppurativa; F19.11 Other psychoactive substance abuse, in remission; D69.3 Immune thrombocytopenic purpura; J45.40 Moderate persistent asthma, uncomplicated; F17.210 Nicotine dependence, cigarettes, uncomplicated; M42.0 Juvenile osteochondrosis of spine; F51.3 Sleepwalking [somnambulism]; G47.61 Periodic limb movement disorder; E66.9 Obesity, unspecified; Z68.21 Body mass index [BMI] 21.0-21.9, adult; M13.89 Other specified arthritis, multiple sites; Z20.822 Contact with and (suspected) exposure to COVID-19; D80.1 Nonfamilial hypogammaglobulinemia; D72.19 Other eosinophilia; M87.875 Other osteonecrosis, left foot; M87.862 Other osteonecrosis, left tibia
CPT/HCPCS: 36410; 36415; 71275; 80048; 80053; 80307; 81025; 84145; 85027; 85652; 87040; 87635; 93005; 94640; 96361; 96365; 99285; J1650; 71045; 73590; 80202; 81003; 81015; 83605; 83735; 84443; 85025; 85610; 86038; 86140; 86225; 87086; 93010; 99220; 99225; 99239; G0378; J1885; J3490

== ENCOUNTER 2020-11-02 15:20 | Emergency (ER) | payer MEDICAID, SELFPAY ==
[2020-11-02 15:24] VITALS: BP 113/76; PULSE 96; RESP 18; TEMP 36.6; O2SAT 96
--- NOTE | 2020-11-02 16:21 | W.ED.GENAD ---
Discharge Plan Disposition Patient Disposition: HOME Condition: Stable Discharge Details Clinical Impression: Abscess of genital labia Primary Care Provider: Jonathan Plaza ED Provider: Maddison Brice Home Meds and New Rx's Prescriptions: New clindamycin HCl [Cleocin HCl] 150 mg capsule 450 mg PO TID 10 Days Qty: 90 RF: 0 No Action calcipotriene 0.005 % ointment 1 applic topical BID RF: 0 trihexyphenidyl 5 mg tablet 5 mg PO QHS Qty: 90 RF: 3 trazodone 50 mg tablet 50 mg PO QHS PRN (Reason: sleep) Qty: 90 RF: 1 Advair HFA 230-21 mcg/actuation HFA aerosol inhaler 2 puff inhalation BID Qty: 12 RF: 0 clonazepam [Klonopin] 1 mg tablet 1 mg PO BID RF: 0 methylphenidate HCl [Concerta] 54 mg tablet extended release 24hr 54 mg PO DAILY RF: 0 aripiprazole [Abilify] See Rx Instructions PO .COMPLEX RF: 0 ondansetron HCl 4 mg tablet 4 mg PO Q8H PRN (Reason: nausea and vomiting) Qty: 90 RF: 3 fluocinonide 0.05 % cream 1 applic topical BID Qty: 60 RF: 3 tacrolimus [Protopic] 0.03 % ointment 1 applic topical BID PRN (Reason: facial irritation) Qty: 30 RF: 1 fluocinolone and shower cap [[place]-Smoothe/FS Scalp Oil] 0.01 % oil 1 applic topical .QOD Qty: 118.28 RF: 3 citalopram [Celexa] 40 mg tablet 40 mg PO DAILY Qty: 90 RF: 3 Hold Instructions: Home Medication placed on hold at Doctor's office betamethasone, augmented 0.05 % ointment 1 applic topical BID PRN (Reason: Psoriasis) Qty: 50 RF: 6 albuterol sulfate 90 mcg/actuation HFA aerosol inhaler 2 puff inhalation Q6H PRN (Reason: shortness of breath or wheezing) Qty: 6.7 RF: 3 ipratropium-albuterol 0.5 mg-3 mg(2.5 mg base)/3 mL solution for nebulization 3 ml inhalation QID PRN (Reason: wheezing) Qty: 90 RF: 6 diphenhydramine HCl [Benadryl Allergy] 25 mg tablet 25 mg PO TID PRN (Reason: itching) Qty: 90 RF: 0 clobetasol 0.05 % solution 1 applic topical BID PRN (Reason: Psoriasis) RF: 0 acetaminophen [Pain Relief (acetaminophen)] 650 mg tablet extended release 650 mg PO Q8H PRN (Reason: pain) Qty: 270 RF: 3 apixaban 5 mg tablet 5 mg PO BID RF: 0 valganciclovir 450 mg tablet 900 mg PO BID RF: 0 celecoxib 100 mg capsule 100 mg PO DAILY PRN (Reason: pain) Qty: 30 RF: 0 clotrimazole 10 mg Lauri 10 mg SUC 5X/DAY Qty: 35 RF: 0 Otezla 30 mg tablet 30 mg PO BID RF: 0 Discharge Instructions Instructions: Abscess (ED) Additional Instructions: I spoke with Dr. Velasco [facility] at [facility] who reports that she will be able to see you in her office tomorrow. Please call first thing in the morning to verify and confirm that appointment. Apply warm compresses. Take ibuprofen every 4-6 hours as needed for pain. 60 mg 3 times a day as prescribed. Take antibiotic as prescribed. 3 tablet 3 times a day. Referrals: Mayra Velasco DO [OSTEOPATHIC DOCTOR] - 1 day (Call in am) Discharge Data Discharge Date/Time-TO BE ENTERED AT DEPARTURE: 11/02/20 18:12 Medical Decision Making 29-year-old female presents to the ER chief complaint of right labial cyst which she noted 2 or 3 days ago. She has a past medical history of PE, SIRS, UTI, splenectomy, MRSA, Schumermann's disease, ye syndrome, scoliosis. She denies any fever chills, abdominal pain or diarrhea. She is currently on her menses. She has had this in the past. Will plan forI&D abscess. I&D attempted as noted in procedure note above. 2 incisions made one medially one laterally with little to no purulent drainage expressed. There was some bleeding. After palpating abscess further does feel hard and less fluctuant. Full consult with GROUP HOME PARAPROFESSIONAL regarding this abscess. Differential diagnosis includes but not limited to Bartholin cyst, MRSA, other cyst, abscess, hematoma or trauma. 1718: Spoke to Dr. Velasco with [facility], she recommends broad spectrum antibiotics to cover MRSA such as Bactrim or Augmentin. Patient is allergic to sulfa and cephalexin. She also recommends warm compresses and pain control such as ibuprofen. She agrees to see patient in the office tomorrow. Discussed with patient plan to follow up tomorrow, patient verbalizes understanding. Informed by staff writer that patient is hyperventilating, and refusing to sit up due to pain. She is complaining of throbbing, refuses ice pack at this time. Patient given OB pad and disposable underwear by staff writer. Instructed to apply moist warm compresses and follow up with GROUP HOME PARAPROFESSIONAL. Patient discharged ambulatory upon discharge and I did reiterate to follow-up with GROUP HOME PARAPROFESSIONAL tomorrow. Patient was given antibiotics here in the department. Instructed to apply ice and moist warm compresses to the area. This text was generated using [employer] system, please disregard any oddities of phrase or misspellings. HPI General Mode of arrival: ambulatory. Date/Time Provider Initiated Documentation: 11/02/20 15:24. Limitations to Documentation: no limitations. Information obtained by: patient. HPI Narrative: 29-year-old female presents to the ER chief complaint of right labial cyst which she noted 2 or 3 days ago. She has a past medical history of PE, SIRS, UTI, splenectomy, MRSA, Schumer Sage disease, scoliosis. She denies any fever chills, abdominal pain or diarrhea. She is currently on her menses. She has had this in the past. Related Data Home Medications Medication Instructions Recorded Confirmed fluocinolone 0.01 % scalp oil and 1 applic TOPICAL .QOD #118.28 ml 12/31/19 10/27/20 shower cap calcipotriene 0.005 % topical 1 applic TOPICAL BID 01/14/20 10/27/20 ointment trihexyphenidyl 5 mg tablet 5 mg PO QHS #90 tab 02/15/20 10/27/20 albuterol sulfate 90 mcg/actuation 2 puff INHALATION Q6H PRN #6.7 g 03/02/20 10/27/20 aerosol inhaler betamethasone, augmented 0.05 % 1 applic TOPICAL BID PRN #50 g 03/02/20 10/27/20 topical ointment citalopram 40 mg tablet 40 mg PO DAILY #90 tab 03/02/20 10/27/20 ipratropium 0.5 mg-albuterol 3 mg 3 ml INHALATION QID PRN #90 ml 03/02/20 10/27/20 (2.5 mg base)/3 mL nebulization soln clobetasol 0.05 % scalp solution 1 applic TOPICAL BID PRN 03/27/20 10/27/20 acetaminophen 650 mg 650 mg PO Q8H PRN #270 tab 04/11/20 10/27/20 tablet,extended release trazodone 50 mg tablet 50 mg PO QHS PRN #90 tab 04/17/20 10/27/20 fluticasone propionate 230 2 puff INHALATION BID #12 g 07/26/20 10/27/20 mcg-salmeterol 21 mcg/actuation HFA inhaler clonazepam 1 mg tablet 1 mg PO BID 08/04/20 10/27/20 methylphenidate HCl 54 mg 54 mg PO DAILY 08/04/20 10/27/20 tablet,extended release 24 hr clotrimazole 10 mg SUC 5X/DAY #35 tab 08/15/20 10/27/20 aripiprazole [Abilify] See Rx Instructions PO .COMPLEX 08/24/20 10/27/20 diphenhydramine HCl 25 mg tablet 25 mg PO TID PRN #90 tab 09/12/20 10/27/20 apremilast [Otezla] 30 mg PO BID 09/20/20 09/20/20 apixaban 5 mg tablet 5 mg PO BID 10/24/20 10/27/20 valganciclovir 450 mg tablet 900 mg PO BID 10/24/20 10/27/20 fluocinonide 0.05 % topical cream 1 applic TOPICAL BID #60 g 10/27/20 10/27/20 ondansetron HCl 4 mg tablet 4 mg PO Q8H PRN #90 tab 10/27/20 10/27/20 tacrolimus 0.03 % topical ointment 1 applic TOPICAL BID PRN #30 g 10/27/20 10/27/20 celecoxib 100 mg capsule 100 mg PO DAILY PRN #30 cap 10/30/20 clindamycin HCl [Cleocin HCl] 450 mg PO TID 10 Days #90 cap 11/02/20 Previous Rx's Medication Instructions Recorded fluocinolone 0.01 % scalp oil and 1 applic TOPICAL .QOD #118.28 ml 12/31/19 shower cap trihexyphenidyl 5 mg tablet 5 mg PO QHS #90 tab 02/15/20 albuterol sulfate 90 mcg/actuation 2 puff INHALATION Q6H PRN #6.7 g 03/02/20 aerosol inhaler betamethasone, augmented 0.05 % 1 applic TOPICAL BID PRN #50 g 03/02/20 topical ointment citalopram 40 mg tablet 40 mg PO DAILY #90 tab 03/02/20 ipratropium 0.5 mg-albuterol 3 mg 3 ml INHALATION QID PRN #90 ml 03/02/20 (2.5 mg base)/3 mL nebulization soln acetaminophen 650 mg 650 mg PO Q8H PRN #270 tab 04/11/20 tablet,extended release trazodone 50 mg tablet 50 mg PO QHS PRN #90 tab 04/17/20 fluticasone propionate 230 2 puff INHALATION BID #12 g 07/26/20 mcg-salmeterol 21 mcg/actuation HFA inhaler clotrimazole 10 mg SUC 5X/DAY #35 tab 08/15/20 diphenhydramine HCl 25 mg tablet 25 mg PO TID PRN #90 tab 09/12/20 fluocinonide 0.05 % topical cream 1 applic TOPICAL BID #60 g 10/27/20 ondansetron HCl 4 mg tablet 4 mg PO Q8H PRN #90 tab 10/27/20 tacrolimus 0.03 % topical ointment 1 applic TOPICAL BID PRN #30 g 10/27/20 celecoxib 100 mg capsule 100 mg PO DAILY PRN #30 cap 10/30/20 clindamycin HCl [Cleocin HCl] 450 mg PO TID 10 Days #90 cap 11/02/20 Allergies Allergy/AdvReac Type Severity Reaction Status Date / Time ciprofloxacin [From Cipro] Allergy Intermediate rash Verified 10/27/20 14:12 carbamazepine [From Tegretol] Allergy Skin Rash Verified 10/27/20 14:12 cephalexin [From Keflex] Allergy Other (See Verified 10/27/20 14:12 Comment) Sulfa (Sulfonamide Allergy Anaphylaxsi Verified 10/27/20 14:12 Antibiotics) s General Stated Complaint: GROUP HOME PARAPROFESSIONAL AKASH: 3 Review of Systems All systems reviewed & are unremarkable except as noted in HPI and below Genitourinary Genitourinary: Reports as per HPI Comments: Right labial abscess [facility] Medical History Abdominal adhesions Acute respiratory failure with hypoxia Asthma Axillary hidradenitis suppurativa Ye syndrome Fever of unknown origin History of drug abuse Clean for 17 months-Meth Idiopathic thrombocytopenic purpura Moderate persistent asthma Obesity Periodic limb movement disorder Polyarthritis Portal vein thrombosis Abd CT 03/03/19 [facility]; liver shows low-density at posterior segment superiorly suggesting portal vein clot, without parenchymal abnormality. 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 complicated by postOp infection in wound bed and L empyema Social History Smoking/Tobacco Use Status: Current every day Tobacco Type: cigarettes Smoking risk assessment performed?: Yes Alcohol Intake: never Drug use: Rarely Substance use type: marijuana Adopted: No Caregiver/Support person: No Foster care: No Household members: significant other and family Housing: other Number of Children: 1 Communication Needs: None Do you need help understanding health information?: Rarely Sexually active: Yes Do you think of yourself as: straight/heterosexual Current gender identity: female What type of physical activity do you participate in: none Do you feel safe at home: Yes Do you feel safe in your relationship?: Yes Exam External Female Exam: externally tender on the right, external swelling and Bartholin cyst (Questionable, feels firm) Female genitals images: 1. Approximately 3 x 2 cm swelling noted to the right external labia. Feels firm with palpation. Course Vital Signs Vital signs: Vital Signs Temperature 36.6 C 11/02/20 15:24 Pulse 96 H 11/02/20 15:24 Respiratory Rate 18 11/02/20 15:24 Blood Pressure 113/76 11/02/20 15:24 Pulse Oximetry 96 11/02/20 15:24 Temperature 36.6 C 11/02/20 15:24 Temperature Source Temporal Artery Scan 11/02/20 15:24 Pulse 96 H 11/02/20 15:24 Respiratory Rate 18 11/02/20 15:24 Respiratory Effort Non-Labored 11/02/20 15:29 Blood Pressure 113/76 11/02/20 15:24 Blood Pressure Position Sitting 11/02/20 15:24 Pulse Oximetry 96 11/02/20 15:24 Oxygen Delivery Method Room Air 11/02/20 15:24 Oxygen Flow Rate 0 11/02/20 15:24 Lab/Test Results Lab/Test Results: 11/02/20 16:19 Groin - Right Wound Culture - Pending 11/02/20 16:19 Groin - Right Gram Stain - Pending Procedures Abscess I/D Site: Bartholin's Gland (Right side) Side (if applicable): Right Sedation/analgesia: Other (Percocet x 2) Local Anesthetic: Lidocaine 1% and Other Anesthetic (Benzocaine spray) Amount of anesthesia used (mL): 4 Technique: Incised with #11 Blade Amount of fluid expressed (mL): 5 Irrigation: No Packing used?: None Complications: Pain, Bleeding and Other (No Purulent drainage, abscess feels hard, will consult with SECURITY SYSTEMS SPECIALIST)
[2020-11-02] MEDS: oxyCODONE 5 mg/Acetaminophen 325 mg TAB 2 TAB PO (16:31)
[2020-11-02] MEDS: Clindamycin 150 MG CAP 450 MG PO (17:47)
== END 2020-11-02 18:12 | disposition home or self-care (01) ==
PROVIDERS: Emergency Provider Registered Nurse Emergency; PCP Family Medicine
DX: N76.4 Abscess of vulva (principal)
CPT/HCPCS: 10060; 87070; 87205

== ENCOUNTER 2020-11-05 11:15 | Emergency (ER) | payer MEDICAID, SELFPAY ==
--- NOTE | 2020-11-05 11:30 | DI.CT_ITS ---
Exam(s) CT CHEST PE CTA EXAM: CT CHEST PE CTA CLINICAL HISTORY: Hx of PE, SOB. TECHNIQUE: Imaging Protocol: Axial CT angiography was performed with multi-slice acquisition and mu lti-planar and/or 3D reconstructions. CONTRAST MATERIAL: Intravenous: Omnipaque 350 Contrast volume:structured data in ml COMPARISON: CT CT CHEST PE CTA from 09/18/2020 FINDINGS: CT angiography of the chest was performed with intravenous infusion of 100 cc of Omnipaque 350. There are multiple peripheral pulmonary opacities which are predominantly ground-glass with perhaps m ild consolidative component of left upper lobe peripheral opacities. The largest of these measures r oughly 16 millimeters in greatest diameter and lies in the right lower lobe, this was previously note d on prior examination of September 18 and is significantly smaller on today's examination. Left upper lobe peripheral opacities were not present on prior examination of September 18. The patient reported ly has history of prior pulmonary embolic disease, however no pulmonary emboli are identified on to y's study period. No pleural effusion. Tracheobronchial tree appears intact. Thoracic aorta is of normal diameter, no thoracic aortic aneurysm or dissection, major branch vessels appear intact. No mediastinal or hilar adenopathy. Images obtained through the upper abdomen show unremarkable appearance of the visualized portions of the liver, spleen, pancreas, adrenals, and kidneys. IMPRESSION: No evidence of pulmonary embolic disease. However there are multiple peripheral pulmonary opacities which appear to be waxing and waning since prior study of September 18. Findings are nonspecific, but the differential diagnosis would include pe rsistent or recurrent pneumonia, other etiologies including septic emboli should be considered. Plea se correlate clinically. Patient reportedly has a negative COVID test. RADIATION DOSE DELIVERED: 545.83mGy.cm Total DLP 545.83mGy.cm Total DLP CTDIvol DATA REPOSITORY: All CT scans at this facility are submitted to the National Radiology Data Registry (NRDR) Dose Index Registry (DIR) with the [employer] ([employer]). RADIATION OPTIMIZATION: All CT scans at this facility use at least one of these dose optimization te chniques: automated exposure control; mA and/or kV adjustment per patient size (includes targeted exa ms where dose is matched to clinical indication); or iterative reconstruction.
--- NOTE | 2020-11-05 11:36 | ED.GENADUL_ITS ---
Discharge Plan Disposition Patient Disposition: HOME Condition: Stable Discharge Details Clinical Impression: SOB (shortness of breath) Primary Care Provider: Jonathan Plaza ED Provider: Maddison Brice Home Meds and New Rx's Prescriptions: No Action calcipotriene 0.005 % ointment 1 applic topical BID RF: 0 trihexyphenidyl 5 mg tablet 5 mg PO QHS Qty: 90 RF: 3 trazodone 50 mg tablet 50 mg PO QHS PRN (Reason: sleep) Qty: 90 RF: 1 Advair HFA 230-21 mcg/actuation HFA aerosol inhaler 2 puff inhalation BID Qty: 12 RF: 0 clonazepam [Klonopin] 1 mg tablet 1 mg PO BID RF: 0 methylphenidate HCl [Concerta] 54 mg tablet extended release 24hr 54 mg PO DAILY RF: 0 aripiprazole [Abilify] See Rx Instructions PO .COMPLEX RF: 0 ondansetron HCl 4 mg tablet 4 mg PO Q8H PRN (Reason: nausea and vomiting) Qty: 90 RF: 3 fluocinonide 0.05 % cream 1 applic topical BID Qty: 60 RF: 3 tacrolimus [Protopic] 0.03 % ointment 1 applic topical BID PRN (Reason: facial irritation) Qty: 30 RF: 1 fluocinolone and shower cap [[place]-Smoothe/FS Scalp Oil] 0.01 % oil 1 applic topical .QOD Qty: 118.28 RF: 3 citalopram [Celexa] 40 mg tablet 40 mg PO DAILY Qty: 90 RF: 3 Hold Instructions: Home Medication placed on hold at Doctor's office betamethasone, augmented 0.05 % ointment 1 applic topical BID PRN (Reason: Psoriasis) Qty: 50 RF: 6 albuterol sulfate 90 mcg/actuation HFA aerosol inhaler 2 puff inhalation Q6H PRN (Reason: shortness of breath or wheezing) Qty: 6.7 RF: 3 ipratropium-albuterol 0.5 mg-3 mg(2.5 mg base)/3 mL solution for nebulization 3 ml inhalation QID PRN (Reason: wheezing) Qty: 90 RF: 6 diphenhydramine HCl [Benadryl Allergy] 25 mg tablet 25 mg PO TID PRN (Reason: itching) Qty: 90 RF: 0 clobetasol 0.05 % solution 1 applic topical BID PRN (Reason: Psoriasis) RF: 0 acetaminophen [Pain Relief (acetaminophen)] 650 mg tablet extended release 650 mg PO Q8H PRN (Reason: pain) Qty: 270 RF: 3 apixaban 5 mg tablet 5 mg PO BID RF: 0 valganciclovir 450 mg tablet 900 mg PO BID RF: 0 celecoxib 100 mg capsule 100 mg PO DAILY PRN (Reason: pain) Qty: 30 RF: 0 clotrimazole 10 mg Lauri 10 mg SUC 5X/DAY Qty: 35 RF: 0 Otezla 30 mg tablet 30 mg PO BID RF: 0 clindamycin HCl [Cleocin HCl] 150 mg capsule 450 mg PO TID 10 Days Qty: 90 RF: 0 Discharge Instructions Instructions: Dyspnea (ED) Additional Instructions: At this time CT shows no evidence for pulmonary embolism. You do still have some opacities. Please take the antibiotic that was prescribed to you previously. Please follow-up with [facility] as discussed for the possible Bartholin cyst abscess. Follow up with primary care provider in 3-5 days. Return to ED sooner if any worsening or concerns. Increase oral fluids. Please take Tylenol or Ibuprofen with food every 4-6 hours as needed for pain and swelling. Please take your inhaler as prescribed you may take the albuterol every 4-6 hours as needed for wheezing. Referrals: Mayra Velasco DO [OSTEOPATHIC DOCTOR] - 2 days Jonathan Plaza DO [Primary Care Provider] - Discharge Data Discharge Date/Time-TO BE ENTERED AT DEPARTURE: 11/05/20 15:20 Medical Decision Making 29 year old female with a Complex medical history presents to ED with increased SOB and cough, last albuterol treatment last PM. Patient seen here recently for vaginal cyst, which she did not follow up for, she reports it has been draining. Positive chills, Patient also reports increased sores to her mouth, which is also chronic. Patient is a poor historian. Upon initial exam, she does have wheezing throughout and has increased WOB. She is satting 93-94 % RA. Patient is a daily smoker, Denies drug use, PMHX includes Asthma, Hidraadenitis supprativa, Ye syndrome, ITTP, Scheurmanns disease, Scoliosis, Solar urticaria, SPMHX includes splenectomy, Cholecystectomy, Hernia repair. 1423: Spoke with Dr. Hampton radiologist regarding CT chest. He reports some pulmonary opacities which have changed somewhat but were present in previous studies. No pulmonary embolism. Covid test is negative. White blood cell count 11.46, hemoglobin 16.2 hematocrit 49.6 alk phos 235. EXAM: CT CHEST PE CTA COMPARISON: CT CT CHEST PE CTA from 09/18/2020 FINDINGS: CT angiography of the chest was performed with intravenous infusion of 100 cc of Omnipaque 350. There are multiple peripheral pulmonary opacities which are predominantly ground-glass with perhaps mild consolidative component of left upper lobe peripheral opacities. The largest of these measures roughly 16 millimeters in greatest diameter and lies in the right lower lobe, this was previously noted on prior examination of September 18 and is significantly smaller on today's examination. Left upper lobe peripheral opacities were not present on prior examination of September 18. The patient reportedly has history of prior pulmonary embolic disease, however no pulmonary emboli are identified on today's study period. No pleural effusion. Tracheobronchial tree appears intact. Thoracic aorta is of normal diameter, no thoracic aortic aneurysm or dissection, major branch vessels appear intact. No mediastinal or hilar adenopathy. Images obtained through the upper abdomen show unremarkable appearance of the visualized portions of the liver, spleen, pancreas, adrenals, and kidneys. IMPRESSION: No evidence of pulmonary embolic disease. However there are multiple peripheral pulmonary opacities which appear to be waxing and waning since prior study of September 18. Findings are nonspecific, but the differential diagnosis would include persistent or recurrent pneumonia, other etiologies including septic emboli should be considered. Please correlate clinically. Patient reportedly has a negative COVID test. Reiterated with patient to take her nebulizers as prescribed that she has at home. Instructed to take every 4 to next hours. I also encouraged her to take the antibiotics for the right labial cyst. And follow-up with close wellness she verbalizes understanding. Patient is hemodynamically stable at this time O2 sat is within normal limits. Patient was sent home with our CT. She does qualify for CT she is concerned [facility] I did encourage her to call and make the appointment for follow-up and she is RCT. Upon leaving the room patient sits up in bed is playing on her phone and appears in no acute distress. This time I do feel that patient is stable to be discharged home. This text was generated using [email or web address] dictation system, please disregard any oddities of phrase or misspellings. HPI General Mode of arrival: EMS . Date/Time Provider Initiated Documentation: 11/05/20 11:32 . Limitations to Documentation: no limitations . Information obtained by: patient, EMS and old records reviewed . HPI Narrative: 29 year old female with a Complex medical history presents to ED with increased SOB and cough, last albuterol treatment last PM. Patient seen here recently for vaginal cyst, which she did not follow up for, she reports it has been draining. Positive chills, Patient also reports increased sores to her mouth, which is also chronic. Patient is a poor historian. Upon initial exam, she does have wheezing throughout and has increased WOB. She is satting 93-94 % RA. Patient is a daily smoker, Denies drug use, PMHX includes Asthma, Hidraadenitis supprativa, Ye syndrome, ITTP, Scheurmanns disease, Scoliosis, Solar urticaria, SPMHX includes splenectomy, Cholecystectomy, Hernia repair. Related Data Home Medications Medication Instructions Recorded Confirmed fluocinolone 0.01 % scalp oil and 1 applic TOPICAL .QOD #118.28 ml 12/31/19 10/27/20 shower cap calcipotriene 0.005 % topical 1 applic TOPICAL BID 01/14/20 10/27/20 ointment trihexyphenidyl 5 mg tablet 5 mg PO QHS #90 tab 02/15/20 10/27/20 albuterol sulfate 90 mcg/actuation 2 puff INHALATION Q6H PRN #6.7 g 03/02/20 11/05/20 aerosol inhaler betamethasone, augmented 0.05 % 1 applic TOPICAL BID PRN #50 g 03/02/20 10/27/20 topical ointment citalopram 40 mg tablet 40 mg PO DAILY #90 tab 03/02/20 10/27/20 ipratropium 0.5 mg-albuterol 3 mg 3 ml INHALATION QID PRN #90 ml 03/02/20 10/27/20 (2.5 mg base)/3 mL nebulization soln clobetasol 0.05 % scalp solution 1 applic TOPICAL BID PRN 03/27/20 10/27/20 acetaminophen 650 mg 650 mg PO Q8H PRN #270 tab 04/11/20 10/27/20 tablet,extended release trazodone 50 mg tablet 50 mg PO QHS PRN #90 tab 04/17/20 10/27/20 fluticasone propionate 230 2 puff INHALATION BID #12 g 07/26/20 10/27/20 mcg-salmeterol 21 mcg/actuation HFA inhaler clonazepam 1 mg tablet 1 mg PO BID 08/04/20 10/27/20 methylphenidate HCl 54 mg 54 mg PO DAILY 08/04/20 10/27/20 tablet,extended release 24 hr clotrimazole 10 mg SUC 5X/DAY #35 tab 08/15/20 10/27/20 aripiprazole [Abilify] See Rx Instructions PO .COMPLEX 08/24/20 10/27/20 diphenhydramine HCl 25 mg tablet 25 mg PO TID PRN #90 tab 09/12/20 10/27/20 apremilast [Otezla] 30 mg PO BID 09/20/20 09/20/20 apixaban 5 mg tablet 5 mg PO BID 10/24/20 11/05/20 valganciclovir 450 mg tablet 900 mg PO BID 10/24/20 11/05/20 fluocinonide 0.05 % topical cream 1 applic TOPICAL BID #60 g 10/27/20 10/27/20 ondansetron HCl 4 mg tablet 4 mg PO Q8H PRN #90 tab 10/27/20 10/27/20 tacrolimus 0.03 % topical ointment 1 applic TOPICAL BID PRN #30 g 10/27/20 10/27/20 celecoxib 100 mg capsule 100 mg PO DAILY PRN #30 cap 10/30/20 clindamycin HCl [Cleocin HCl] 450 mg PO TID 10 Days #90 cap 11/02/20 Previous Rx's Medication Instructions Recorded fluocinolone 0.01 % scalp oil and 1 applic TOPICAL .QOD #118.28 ml 12/31/19 shower cap trihexyphenidyl 5 mg tablet 5 mg PO QHS #90 tab 02/15/20 albuterol sulfate 90 mcg/actuation 2 puff INHALATION Q6H PRN #6.7 g 03/02/20 aerosol inhaler betamethasone, augmented 0.05 % 1 applic TOPICAL BID PRN #50 g 03/02/20 topical ointment citalopram 40 mg tablet 40 mg PO DAILY #90 tab 03/02/20 ipratropium 0.5 mg-albuterol 3 mg 3 ml INHALATION QID PRN #90 ml 03/02/20 (2.5 mg base)/3 mL nebulization soln acetaminophen 650 mg 650 mg PO Q8H PRN #270 tab 04/11/20 tablet,extended release trazodone 50 mg tablet 50 mg PO QHS PRN #90 tab 04/17/20 fluticasone propionate 230 2 puff INHALATION BID #12 g 07/26/20 mcg-salmeterol 21 mcg/actuation HFA inhaler clotrimazole 10 mg SUC 5X/DAY #35 tab 08/15/20 diphenhydramine HCl 25 mg tablet 25 mg PO TID PRN #90 tab 09/12/20 fluocinonide 0.05 % topical cream 1 applic TOPICAL BID #60 g 10/27/20 ondansetron HCl 4 mg tablet 4 mg PO Q8H PRN #90 tab 10/27/20 tacrolimus 0.03 % topical ointment 1 applic TOPICAL BID PRN #30 g 10/27/20 celecoxib 100 mg capsule 100 mg PO DAILY PRN #30 cap 10/30/20 clindamycin HCl [Cleocin HCl] 450 mg PO TID 10 Days #90 cap 11/02/20 Allergies Allergy/AdvReac Type Severity Reaction Status Date / Time ciprofloxacin [From Cipro] Allergy Intermediate rash Verified 11/05/20 12:00 carbamazepine [From Tegretol] Allergy Skin Rash Verified 11/05/20 12:00 cephalexin [From Keflex] Allergy Other (See Verified 11/05/20 12:00 Comment) Sulfa (Sulfonamide Allergy Anaphylaxsi Verified 11/05/20 12:00 Antibiotics) s General AKASH: 3 Review of Systems All systems reviewed & are unremarkable except as noted in HPI and below PFSH Medical History Abdominal adhesions Acute respiratory failure with hypoxia Asthma Axillary hidradenitis suppurativa Ye syndrome Fever of unknown origin History of drug abuse 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 complicated by postOp infection in wound bed and L empyema Social History Smoking/Tobacco Use Status: Current every day Tobacco Type: cigarettes Smoking risk assessment performed?: Yes Alcohol Intake: never Drug use: Rarely Substance use type: marijuana Adopted: No Caregiver/Support person: No Foster care: No Household members: significant other and family Housing: other Number of Children: 1 Communication Needs: None Do you need help understanding health information?: Rarely Sexually active: Yes Do you think of yourself as: straight/heterosexual Current gender identity: female What type of physical activity do you participate in: none Do you feel safe at home: Yes Do you feel safe in your relationship?: Yes Exam Resp Effort & Inspection: cough, no stridor, no tracheal deviation and prolonged expiratory phase Auscultation: wheezes scattered wheezes
[2020-11-05 11:55] VITALS: BP 160/90; PULSE 93; RESP 25; TEMP 36.4; O2SAT 94
[2020-11-05 12:38] LABS: Abs Immature Grans 0.04 10^3/uL (0.0-0.06); Absolute Eosinophil Count 1.29 10^3/uL (0.0-0.7); Absolute Lymphocyte Count 3.55 10^3/uL (1.2-3.4); Absolute Monocyte Count 1.13 10^3/uL (0.1-0.8); Basophils % 2.4; Eosinophils % 11.3; HCT 49.6 % (36.0-46.0); HGB 16.2 g/dL (11.2-15.7); Immature Grans % 0.3; MCH 33.3 pg (27.0-33.0); MCHC 32.7 % (32.0-36.0); MCV 102.1 fL (80-95); Monocytes % 9.9; Neutrophils % 45.1; Nucleated RBC 0 %; RBC 4.86 10^6/uL (3.93-5.22); RDW 18.9 % (11.7-14.6); RDW-SD 71.4 fL; WBC 11.46 10^3/uL (4.4-10.8)
[2020-11-05 12:40] LABS: Absolute Basophil Count 0.28 10^3/uL (0.0-0.2); Absolute Neutrophil Count 5.17 10^3/uL (1.2-6.7)
[2020-11-05 12:46] LABS: Magnesium 2.1 mg/dL (1.8-2.4)
[2020-11-05 12:50] LABS: ALT 33 U/L (14-59); AST 44 U/L (15-37); Albumin 3.3 g/dL (3.4-5.0); Alkaline Phosphatase 235 U/L (46-116); Anion Gap 5.3 mmol/L (3-11); BUN 12 mg/dL (7-18); Bilirubin, Total 0.3 mg/dL (0.2-1.0); CO2 27.7 mmol/L (21.0-32.0); Calcium 9.1 mg/dL (8.5-10.1); Chloride 111 mmol/L (98-107); Glucose 97 mg/dL (74-106); Sodium 144 mmol/L (136-145); Total Protein 8.3 g/dL (6.4-8.2)
[2020-11-05 12:54] LABS: Diff Comment Diff Reviewed; RBC Morphology Normal
[2020-11-05] MEDS: Albuterol/Ipratropium 3 ML UPD VIAL UPD (12:58)
[2020-11-05] MEDS: methylPREDNISolone SUCC 125 MG VIAL IVP (12:59)
[2020-11-05 13:00] VITALS: RESP 22
[2020-11-05 13:34] LABS: COVID-19 PCR Negative (Negative)
[2020-11-05] MEDS: Omnipaque 350 MG/ML 100 ML BTL IV (14:10)
[2020-11-05 14:43] VITALS: BP 110/64; PULSE 96; RESP 18; TEMP 36.7; O2SAT 95
[2020-11-05] MEDS: Lidocaine 2% Viscous 15 ML CUP PO (14:58)
--- NOTE | 2020-11-05 15:00 | NUR.NOTE ---
Nursing Note: [facility] bartholin [facility] within 2 to 3 days. Teri Reyes
== END 2020-11-05 15:20 | disposition home or self-care (01) ==
PROVIDERS: Emergency Provider Registered Nurse Emergency; PCP Family Medicine
DX: R06.02 Shortness of breath (principal); F17.210 Nicotine dependence, cigarettes, uncomplicated; Z20.822 Contact with and (suspected) exposure to COVID-19; Z03.818 Encounter for observation for suspected exposure to other biological agents ruled out
CPT/HCPCS: 36415; 71275; 80053; 87635; 94640; 96374; 99285; 83735; 85025; 85610; 99283; J2930; J3490; J7620

== ENCOUNTER 2020-11-16 03:36 | Outpatient (RCR) | payer MEDICAID, SELFPAY ==
[2020-10-26] MEDS: Normal Saline Flush 10 ML SYR IVP (11:51)
[2020-10-26 12:07] LABS: HCT 48.7 % (36.0-46.0); HGB 15.7 g/dL (11.2-15.7); MCH 32.8 pg (27.0-33.0); MCHC 32.2 % (32.0-36.0); MCV 101.9 fL (80-95); MPV 9.6 fL (8.0-11.0); Nucleated RBC 0 %; Platelet Count 521 10^3/uL (130-400); RBC 4.78 10^6/uL (3.93-5.22); RDW 19.9 % (11.7-14.6)
[2020-10-26 12:21] LABS: ALT 59 U/L (14-59); AST 69 U/L (15-37); Albumin 3.9 g/dL (3.4-5.0); Alkaline Phosphatase 504 U/L (46-116); Anion Gap 9.4 mmol/L (3-11); BUN 13 mg/dL (7-18); Bilirubin, Total 0.4 mg/dL (0.2-1.0); CO2 23.6 mmol/L (21.0-32.0); CREATININE 0.8 mg/dL (0.55-1.02); Calcium 9.7 mg/dL (8.5-10.1); Chloride 105 mmol/L (98-107); Glucose 99 mg/dL (74-106); Potassium 3.7 mmol/L (3.5-5.1); Sodium 138 mmol/L (136-145)
[2020-10-26 12:38] LABS: Absolute Basophil Count 0.21 10^3/uL (0.0-0.2); Absolute Eosinophil Count 0.11 10^3/uL (0.0-0.7); Absolute Lymphocyte Count 5.56 10^3/uL (1.2-3.4); Absolute Monocyte Count 0.86 10^3/uL (0.1-0.8); Absolute Neutrophil Count 3.96 10^3/uL (1.2-6.7); Atypical Lymphocytes % 12; Diff Comment Manual Differential; RBC Morphology Normal
[2020-11-02] MEDS: Normal Saline Flush 10 ML SYR IVP (11:42)
[2020-11-02 11:57] LABS: Absolute Basophil Count 0.35 10^3/uL (0.0-0.2); Absolute Eosinophil Count 0.84 10^3/uL (0.0-0.7); Absolute Monocyte Count 1.18 10^3/uL (0.1-0.8); Absolute Neutrophil Count 5.73 10^3/uL (1.2-6.7); Basophils % 2.7; Eosinophils % 6.6; HCT 49.5 % (36.0-46.0); HGB 16.1 g/dL (11.2-15.7); Immature Grans % 0.8; Lymphocytes % 35.9; MCH 33.2 pg (27.0-33.0); MCHC 32.5 % (32.0-36.0); MCV 102.1 fL (80-95); MPV 9.7 fL (8.0-11.0); Monocytes % 9.2; Neutrophils % 44.8; Nucleated RBC 0 %; Platelet Count 306 10^3/uL (130-400); RBC 4.85 10^6/uL (3.93-5.22); RDW 19.3 % (11.7-14.6); RDW-SD 71.3 fL
[2020-11-02 12:11] LABS: ALT 46 U/L (14-59); AST 60 U/L (15-37); Albumin 3.7 g/dL (3.4-5.0); Alkaline Phosphatase 310 U/L (46-116); BUN 12 mg/dL (7-18); Bilirubin, Total 0.4 mg/dL (0.2-1.0); CREATININE 0.9 mg/dL (0.55-1.02); Chloride 106 mmol/L (98-107); Glucose 91 mg/dL (74-106); Sodium 140 mmol/L (136-145); Total Protein 9.1 g/dL (6.4-8.2)
[2020-11-06 14:24] LABS: CMV DNA Detect/Quant, P <35 IU/mL (Undetected)
[2020-11-09 11:36] LABS: Abs Immature Grans 0.06 10^3/uL (0.0-0.06); Absolute Basophil Count 0.32 10^3/uL (0.0-0.2); Absolute Eosinophil Count 2.08 10^3/uL (0.0-0.7); Absolute Monocyte Count 1.21 10^3/uL (0.1-0.8); Absolute Neutrophil Count 4.91 10^3/uL (1.2-6.7); Basophils % 2.7; Eosinophils % 17.5; HCT 47.8 % (36.0-46.0); HGB 15.6 g/dL (11.2-15.7); Immature Grans % 0.5; Lymphocytes % 27.8; MCH 33.6 pg (27.0-33.0); MCHC 32.6 % (32.0-36.0); MPV 9.9 fL (8.0-11.0); Monocytes % 10.2; Neutrophils % 41.3; Nucleated RBC 0 %; Platelet Count 215 10^3/uL (130-400); RBC 4.64 10^6/uL (3.93-5.22); RDW 19.2 % (11.7-14.6); WBC 11.88 10^3/uL (4.4-10.8)
[2020-11-09 11:54] LABS: ALT 34 U/L (14-59); AST 43 U/L (15-37); Albumin 3.4 g/dL (3.4-5.0); Alkaline Phosphatase 184 U/L (46-116); Anion Gap 8.1 mmol/L (3-11); BUN 14 mg/dL (7-18); Bilirubin, Total 0.5 mg/dL (0.2-1.0); CO2 26.9 mmol/L (21.0-32.0); CREATININE 0.7 mg/dL (0.55-1.02); Calcium 9.2 mg/dL (8.5-10.1); Chloride 108 mmol/L (98-107); Glucose 82 mg/dL (74-106); Potassium 3.8 mmol/L (3.5-5.1); Sodium 143 mmol/L (136-145); Total Protein 8.1 g/dL (6.4-8.2)
[2020-11-16 13:00] LABS: Abs Immature Grans 0.05 10^3/uL (0.0-0.06); Absolute Basophil Count 0.23 10^3/uL (0.0-0.2); Absolute Eosinophil Count 0.28 10^3/uL (0.0-0.7); Absolute Lymphocyte Count 2.95 10^3/uL (1.2-3.4); Absolute Monocyte Count 1.33 10^3/uL (0.1-0.8); Absolute Neutrophil Count 7.34 10^3/uL (1.2-6.7); Basophils % 1.9; Eosinophils % 2.3; HCT 50.7 % (36.0-46.0); HGB 17.1 g/dL (11.2-15.7); Immature Grans % 0.4; Lymphocytes % 24.2; MCH 34.2 pg (27.0-33.0); MCHC 33.7 % (32.0-36.0); MCV 101.4 fL (80-95); MPV 9.9 fL (8.0-11.0); Monocytes % 10.9; Neutrophils % 60.3; Nucleated RBC 0 %; Platelet Count 218 10^3/uL (130-400); RDW 17.4 % (11.7-14.6); RDW-SD 65.7 fL; WBC 12.18 10^3/uL (4.4-10.8)
[2020-11-16] MEDS: Normal Saline Flush 10 ML SYR IVP (13:18)
[2020-11-16 13:24] LABS: ALT 37 U/L (14-59); AST 65 U/L (15-37); Albumin 3.8 g/dL (3.4-5.0); Alkaline Phosphatase 160 U/L (46-116); Anion Gap 7.5 mmol/L (3-11); BUN 11 mg/dL (7-18); Bilirubin, Total 0.6 mg/dL (0.2-1.0); CO2 27.5 mmol/L (21.0-32.0); CREATININE 0.8 mg/dL (0.55-1.02); Calcium 9.5 mg/dL (8.5-10.1); Chloride 105 mmol/L (98-107); Glucose 90 mg/dL (74-106); Potassium 3.7 mmol/L (3.5-5.1); Sodium 140 mmol/L (136-145); Total Protein 8.6 g/dL (6.4-8.2)
== END 2020-11-16 23:59 | disposition home or self-care (01) ==
LOC: INF 03:36
PROVIDERS: PCP Family Medicine; Visit Provider Internal Medicine Infectious Disease
DX: B34.9 Viral infection, unspecified (principal); B25.9 Cytomegaloviral disease, unspecified; J18.9 Pneumonia, unspecified organism; Z45.2 Encounter for adjustment and management of vascular access device
CPT/HCPCS: 36415; 36569; 36592; 80053; 85025; 87496; 87497